=== PATIENT | female | born 1985 | race Caucasian/White ===

== ENCOUNTER 2016-04-08 13:55 | Emergency (ER) | payer OTHER ==
[2016-04-08 14:03] VITALS: O2SAT 99
[2016-04-08] MEDS ORDERED: TYLENOL 325 MG PO STA (14:17)
[2016-04-08] MEDS ORDERED: TYLENOL 325 MG ONE (14:19)
[2016-04-08 14:22] LABS: BASOPHIL % 0.1 % (0.0-0.4); Granulocytes % 75.7 % (36.0-66.0); Lymphocytes % 16.5 % (24.0-44.0); Mean Cell Volume 90.7 fl (78-100); Mean Corpuscular Hemoglobin 30.5 pg (26-32); Mean Platelet Volume 9.4 fl (6-9.5); Monocytes % 5.7 % (0.0-12.0); Platelet Count 378 K/mm3 (150-450); Red Blood Count 4.53 M/mm3 (4.1-5.4); Red Cell Distribution Width 12.2 % (11.5-14.0)
--- NOTE | 2016-04-08 14:32 | ERPHSYRPT ---
- History of Present Illness Time Seen by Provider: 04/08/16 13:55 Source: patient, family Exam Limitations: no limitations Patient Subjective Stated Complaint: PT STATES SHE BECAME WEAK AND FELL GOING UP THE STAIRS. PT C/O PAIN TO HER WHOLE BODY. Triage Nursing Assessment: PT PINK, WARM, DRY. LUNG SOUNDS CLEAR. PT ABLE TO TRANSFER TO WHEELCHAIR WITH NO PROBLEM. Physician History: patient tripped going up stairs and fell forward injuring her left writs/hand and right foot; no Head injury or neck injury; she was going to see her LMD for CP she has had for several days- sharp/ right sided/ increased with inspiration ; no hemoptosis; no trauma; no SOB; no fever; no prior hx; no hx DVTs; takes BC shots and smokes 1-2 ppd; otherwise healthy; feeling weak and hx of low K+ Occurred: just prior to arrival, this afternoon Reason for Fall: slipped, fell from standing pos Injuries/Pain Location: upper extremity (left hand and wrist), lower (right foot ) Loss of Consciousness: no loss of consciousness Quality: aching Severity of Pain-Max: severe Severity of Pain-Current: mild Modifying Factors: Improves With: immobilization (helps) Associated Symptoms (Fall): chest pain (anterior right sharp) Allergies/Adverse Reactions: ketorolac tromethamine [From Toradol] Allergy (Mild, Verified 04/08/16 14:02) Rash orphenadrine citrate [From Norflex] Allergy (Mild, Verified 04/08/16 14:02) Rash prochlorperazine edisylate [From Compazine] Allergy (Mild, Verified 04/08/16 14: 02) Rash prochlorperazine maleate [From Compazine] Allergy (Mild, Verified 04/08/16 14:02 ) Rash amoxicillin Adverse Reaction (Mild, Verified 04/08/16 14:02) CAUSES VAGINAL BLEEDING IV DYE Allergy (Severe, Uncoded 04/08/16 14:02) Difficulty Breathing Home Medications: Paroxetine HCl [Paxil Cr] 25 mg PO DAILY 06/21/15 [History] Melatonin 1 mg PO HS 04/08/16 [History] Potassium Chloride 20 Meq [Klor-Con 20 MEQ] 20 meq PO DAILY 04/08/16 [History] Hx Tetanus, Diphtheria Vaccination/Date Given: Yes (UP TO DATE) Hx Influenza Vaccination/Date Given: Yes Hx Pneumococcal Vaccination/Date Given: No Immunizations Up to Date: Yes - Review of Systems Constitutional: Weakness, No Fever Eyes: No Symptoms Ears, Nose, & Throat: No Symptoms Respiratory: Cough (smokers non-productive chronic), No Cyanosis, No Dyspnea, No Dyspnea on Exertion (JALLOH), No Stridor, No Wheezing Cardiac: Chest Pain (sharp anterior right with inspiration), No Edema, No Palpitations, No Syncope, No Orthopnea Abdominal/Gastrointestinal: Nausea, No Abdominal Pain, No Vomiting, No Diarrhea , No Constipation Genitourinary Symptoms: No Symptoms Musculoskeletal: Fall, Injury (left hand abrasion and brise right foot), Joint Pain (left wrist), No Arthralgias, No Back Pain, No Neck Pain, No Deformity Skin: No Symptoms Neurological: Headache (mild non-specific), No Dizziness, No Focal Weakness, No Gait Changes, No Paralysis, No Parasthesia, No Seizure Psychological: No Symptoms Endocrine: No Symptoms Hematologic/Lymphatic: No Symptoms Immunological/Allergic: No Symptoms - Past Medical History Pertinent Past Medical History: Yes Neurological History: No Pertinent History ENT History: No Pertinent History Cardiac History: No Pertinent History Respiratory History: No Pertinent History Endocrine Medical History: No Pertinent History Musculoskeletal History: No Pertinent History GI Medical History: No Pertinent History History: Other Psycho-Social History: Anxiety Female Reproductive Disorders: Endometriosis Other Medical History: OVARIAN CYSTS - frequent low potassium - non-compliant with supplement - Past Surgical History Past Surgical History: Yes Neuro Surgical History: No Pertinent History Cardiac: No Pertinent History Respiratory: No Pertinent History Gastrointestinal: No Pertinent History Genitourinary: No Pertinent History Musculoskeletal: No Pertinent History Female Surgical History: Section Other Surgical History: WISDOM TEETH REMOVED - Social History Smoking Status: Current every day smoker How long have you smoked: 10 Exposure to second hand smoke: Yes Alcohol Use: Socially Drug Use: none Patient Lives Alone: No Significant Family History: no pertinent family hx - Female History Hx Last Menstrual Period: DEPO SHOT Hx Now: No (DEPO PROVERA INJECTIONS) - Nursing Vital Signs Nursing Vital Signs: Initial Vital Signs Temperature 99.3 F Temperature Source Oral Pulse Rate 94 Respiratory Rate 18 Blood Pressure 113/69 Pain Intensity 8 - Twain Coma Score Best Eye Response (Rod): (4) open spontaneously Best Verbal Response (Twain): (5) oriented Best Motor Response (Rod): (6) obeys commands Rod Total: 15 - Physical Exam General Appearance: moderate distress (chest pain, left wrist pain; right foot pain), alert, anxiety, thin Head Injury: no evidence of injury, No contusions, No lacerations, No raccoon eyes, No tenderness Eye Exam: PERRL/EOMI, eyes nml inspection, other (fundi benign; vision ok), No photophobia ENT Exam: airway nml, nml ext.inspection, No evidence of ENT injury, No dental injury, No hemotympanum, No clotted nasal blood, No malocclusion Neck Exam: supple, trachea midline, full range of motion, normal alignment, normal inspection, No carotid bruit, No JVD Respiratory/Chest Exam: chest tenderness (anterior right and right SCM joints), normal breath sounds, No respiratory distress, No ecchymosis, No crepitus, No rales, No rhonchi, No wheezing, No subcutaneous emphysema, No rib tenderness, No paradoxical movements, No splinting Cardiovascular Exam: normal heart sounds, regular rate/rhythm, normal peripheral pulses, tachycardia, No murmur, No edema, No JVD, No friction rub Gastrointestinal Exam: soft, normal bowel sounds, No tenderness, No guarding, No rebound, No organomegaly Rectal Exam: deferred Back Exam: normal inspection, normal range of motion, No CVA tenderness, No rash Extremity Exam: normal inspection, normal range of motion, capillary refill <3 sec, pain with movement (left wrist), tenderness (dorsum distal right foot with bruise), other (mild abrasion left palm), No calf tenderness Peripheral Pulses: carotid (R): 4+, carotid (L): 4+, femoral (R): 4+, femoral (L ): 4+ Neurologic Exam: alert, oriented x 3, cooperative, 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, normal mood/affect, nml station & gait, sensation nml Skin Exam: normal color, warm, dry, abrasion (left palm), ecchymosis (dorsum distal right foot), No rash, No petechiae SpO2 Interpretation: normal SpO2: 99 Oxygen Delivery: Room Air - Course Nursing assessment & vital signs reviewed: Yes EKG Interpreted by Me: RATE (87), Sinus Rhythm, NORMAL AXIS, NORMAL INTERVALS, NORMAL QRS, NORMAL ST-T, Other (no change from 11-11-15) Rhythm Strip: Rate, Sinus Tachycardia (101) - Radiology Exams Chest X-ray Interpretation: Interpreted by me, Negative, No Fracture, No Pneumonia, No Pneumothorax, Nml Heart Size, No Infiltrates, Nml Mediastinum Left Wrist X-ray Interpretation: Interpreted by me, Negative, No Fracture Right Foot X-ray Interpretation: Interpreted by me, Negative, No Fracture Ordered Tests: Active Orders 24 hr Category Date Time Status Accucheck STAT Care 04/08/16 14:26 Active Ironing Worker STAT Care 04/08/16 14:04 Active EKG-ER Only STAT Care 04/08/16 14:04 Active Orthostatic Vital Signs STAT Care 04/08/16 14:26 Active Pulse Oximetry (ED) STAT Care 04/08/16 14:04 Active Re-Check Vital Signs STAT Care 04/08/16 14:26 Completed Wound Care STAT Care 04/08/16 15:03 Active CHEST 2 VIEWS (PA AND LAT) Stat Exams 04/08/16 14:05 Completed FOOT (MINIMUM 3 VIEWS) Stat Exams 04/08/16 14:05 Taken WRIST (MIN 3 VIEWS) Stat Exams 04/08/16 14:04 Taken CBC W DIFF Stat Lab 04/08/16 14:15 Completed CMP Stat Lab 04/08/16 14:15 Completed D-DIMER QUANTITATION Stat Lab 04/08/16 14:15 Received TROPONIN Stat Lab 04/08/16 14:15 Completed Medication Summary Discontinued Medications Generic Name Dose Route Start Last Admin Trade Name Natalie PRN Reason Stop Dose Admin Acetaminophen 650 mg 04/08/16 14:17 04/08/16 14:20 Tylenol 325 Mg PO 04/08/16 14:18 650 mg STAT STA Administration Acetaminophen Confirm 04/08/16 14:19 Tylenol 325 Mg Administered 04/08/16 14:20 Dose 650 mg .ROUTE .CytoVale-Dentalink ONE Lab/Rad Data: Laboratory Result Diagrams 04/08/16 14:15 04/08/16 14:15 Laboratory Results 04/08/16 04/08/16 04/08/16 Range/Units 14:15 14:15 14:15 WBC 7.0 (4.0-10.5) K/mm3 RBC 4.53 (4.1-5.4) M/mm3 Hgb 13.8 (12.0-16.0) gm/dl Hct 41.1 (35-47) % MCV 90.7 (78-100) fl MCH 30.5 (26-32) pg MCHC 33.6 (32-36) g/dl RDW 12.2 (11.5-14.0) % Plt Count 378 (150-450) K/mm3 MPV 9.4 (6-9.5) fl Gran % 75.7 H (36.0-66.0) % Lymphocytes % 16.5 L (24.0-44.0) % Monocytes % 5.7 (0.0-12.0) % Eosinophils % 2.0 (0.00-5.0) % Basophils % 0.1 (0.0-0.4) % Basophils # 0.01 (0-0.4) D-Dimer < 0.20 (0.00-0.49) mg/L Sodium 144 (136-145) mEq/L Potassium 3.7 (3.5-5.1) mEq/L Chloride 108 H (98-107) mEq/L Carbon Dioxide 24.2 (21-32) mEq/L Anion Gap 15.3 H (5-15) MEQ/L BUN 10 (9-20) mg/dL Creatinine 0.86 (0.55-1.30) mg/dl Estimated GFR > 60 ML/MIN Glucose 101 (70-110) MG/DL Calcium 8.8 (8.5-10.1) mg/dL Total Bilirubin 0.4 (0.2-1.0) mg/dL AST 8 L (15-37) U/L ALT 8 L (12-78) U/L Alkaline Phosphatase 70 (46-116) U/L Troponin I < 0.017 (0.000-0.056) ng/ml Serum Total Protein 7.3 (6.4-8.2) gm/dL Albumin 3.9 (3.4-5.0) g/dL reviewed - Progress Progress: re-examined (after XR) Progress Note: 04/08/16 15:08 recheck after XR and meds; no change in exam; still having pleuritic chest pain ; CXR; right foot and left ankle ok; , cbc ok; EKG wnl; OSVS ok and stable and FSBS 93; K+ wnl at 3.7; renal fx ok; Troponin wnl, D Dimer ok; discussed findings and smoking cessation; patient takes NSAIDS ok except Toradol; will treat with Naproxsyn; instructions given; questions answered Counseled pt/family regarding: lab results, diagnosis, need for follow-up, rad results, smoking cessation - Departure Time of Disposition: 15:17 Departure Disposition: Home Clinical Impression: Chest pain, Wrist strain, Contusion of foot, right Condition: Stable Critical Care Time: No Referrals: MARTINE CROOKS NP [Primary Care Provider] - Instructions: Muscle Weakness, Atypical Chest Pain Additional Instructions: RICE; rest; stop smoking Follow-up with family doctor as directed. Call for appointment. Return if any problems. If you smoke please stop. Call or follow up with your family doctor for assistance if you need it to stop. Please wear your seatbelt when driving. Have a nice day. Thank you for allowing us to participate in your care today. :o) Dr Lai Oliveira Prescriptions: Naproxen Sodium [Anaprox Ds] 550 mg PO Q12H PRN PRN #14 tablet PRN Reason: Pain
[2016-04-08 15:00] LABS: ALBUMIN 3.9 g/dL (3.4-5.0); ALKALINE PHOSPHATASE 70 U/L (46-116); ANION GAP 15.3 MEQ/L (5-15); BILIRUBIN,TOTAL 0.4 mg/dL (0.2-1.0); BLOOD UREA NITROGEN 10 mg/dL (9-20); CHLORIDE 108 mEq/L (98-107); Carbon Dioxide 24.2 mEq/L (21-32); Glucose 101 MG/DL (70-110); Potassium 3.7 mEq/L (3.5-5.1); SGOT/AST 8 U/L (15-37); SGPT/ALT 8 U/L (12-78); SODIUM 144 mEq/L (136-145); Total Protein 7.3 gm/dL (6.4-8.2)
[2016-04-08 15:01] LABS: TROPONIN < 0.017 ng/ml (0.000-0.056)
[2016-04-08 15:03] VITALS: BP 113/69; PULSE 94
--- NOTE | 2016-04-08 15:08 | XRAY ---
Indication: Chest pain following fall. Comparison: January 18, 2015 PA/lateral chest again demonstrates normal heart, lungs, and bony thorax.
--- NOTE | 2016-04-08 15:10 | XRAY ---
Indication: Pain following fall. Comparison: April 29, 2013 3 views of the left wrist obtained. Again no bony, articular, or soft tissue abnormalities.
--- NOTE | 2016-04-08 15:10 | XRAY ---
Indication: Pain following fall. Comparison: None 3 nonweightbearing views of the right foot obtained. No bony, articular, or soft tissue abnormalities.
[2016-04-08] MEDS ORDERED: Naprosyn 500 MG PO ONE (15:16)
== END 2016-04-08 15:30 | disposition home or self-care (01) ==
LOC: ED 13:55
DX: R07.89 Other chest pain (principal); S90.31XA Contusion of right foot, initial encounter; R53.1 Weakness; M79.642 Pain in left hand; M25.532 Pain in left wrist; M79.671 Pain in right foot; W10.9XXA Fall (on) (from) unspecified stairs and steps, initial encounter
CPT/HCPCS: 36415; 71020; 73110; 73630; 80053; 82962; 84484; 85025; 85379; 93005; 93041; 99283

== ENCOUNTER 2016-08-27 13:36 | Emergency (ER) | payer OTHER | END 2016-08-27 14:00 | disposition left against medical advice (07) | LOC: ED 13:36 | DX: Z53.9 Procedure and treatment not carried out, unspecified reason (principal) ==

== ENCOUNTER 2017-03-09 05:44 | Emergency (ER) | payer SELFPAY ==
--- NOTE | 2017-03-09 06:01 | ERPHSYRPT ---
- History of Present Illness Time Seen by Provider: 03/09/17 05:57 Historian: patient Exam Limitations: no limitations Physician History: 31 y/o female comes to the ER with a 1 month history of right lower abdominal pain. Pt states that the got worse this evening. Pt was told by her OB doctor that it may be ovarian cyst but to come to the ER to make sure it was not an appendicitis. Pt describes the pain as sharp, intermittent, currently an 8/10 and not relieved by tylenol. Pt has multiple allergies to medications and has been in the ER for multiple pain issues. Pt also admits to nausea, but denies any fever, chills, vomiting, diarrhea, constipation, vaginal bleeding or urinary symptoms. Timing/Duration: week(s) Activities at Onset: none Quality: sharpness Abdominal Pain Onset Location: RLQ Pain Radiation: no radiation Severity of Pain-Max: severe Severity of Pain-Current: severe Modifying Factors: Improves With: nothing Associated Symptoms: nausea, No back, No loss of appetite, No vomiting, No weakness Previous symptoms: same symptoms as today Allergies/Adverse Reactions: ketorolac tromethamine [From Toradol] Allergy (Mild, Verified 03/09/17 06:05) Rash orphenadrine citrate [From Norflex] Allergy (Mild, Verified 03/09/17 06:05) Rash prochlorperazine edisylate [From Compazine] Allergy (Mild, Verified 03/09/17 06: 05) Rash prochlorperazine maleate [From Compazine] Allergy (Mild, Verified 03/09/17 06:05 ) Rash Iodinated Contrast- Oral and IV Dye Allergy (Verified 03/09/17 06:40) Difficulty Breathing amoxicillin Adverse Reaction (Mild, Verified 03/09/17 06:05) Itching CAUSES VAGINAL BLEEDING Home Medications: Paroxetine HCl [Paxil Cr] 25 mg PO DAILY 06/21/15 [History] Hx Tetanus, Diphtheria Vaccination/Date Given: Yes (UP TO DATE) Hx Influenza Vaccination/Date Given: Yes Hx Pneumococcal Vaccination/Date Given: No - Review of Systems Constitutional: No Fever, No Chills Eyes: No Symptoms Ears, Nose, & Throat: No Symptoms Respiratory: No Cough, No Dyspnea Cardiac: No Chest Pain, No Edema, No Syncope Abdominal/Gastrointestinal: Abdominal Pain, Nausea, No Vomiting, No Diarrhea, No Constipation, No Appetite Changes Genitourinary Symptoms: No Dysuria, No Frequency, No Hematuria, No Hesitancy Musculoskeletal: No Back Pain, No Neck Pain Skin: No Rash Neurological: No Dizziness, No Focal Weakness, No Sensory Changes Psychological: No Symptoms Endocrine: No Symptoms All Other Systems: Reviewed and Negative - Past Medical History Pertinent Past Medical History: Yes Neurological History: No Pertinent History ENT History: No Pertinent History Cardiac History: No Pertinent History Respiratory History: No Pertinent History Endocrine Medical History: No Pertinent History Musculoskeletal History: No Pertinent History GI Medical History: No Pertinent History History: Other Psycho-Social History: Anxiety Female Reproductive Disorders: Endometriosis Other Medical History: OVARIAN CYSTS - frequent low potassium - non-compliant with supplement - Past Surgical History Past Surgical History: Yes Neuro Surgical History: No Pertinent History Cardiac: No Pertinent History Respiratory: No Pertinent History Gastrointestinal: No Pertinent History Genitourinary: No Pertinent History Musculoskeletal: No Pertinent History Female Surgical History: Section Other Surgical History: WISDOM TEETH REMOVED - Social History Smoking Status: Current every day smoker How long have you smoked: 10 Exposure to second hand smoke: Yes Alcohol Use: Socially Drug Use: none Patient Lives Alone: No Significant Family History: no pertinent family hx - Nursing Vital Signs Nursing Vital Signs: Initial Vital Signs Temperature 98.4 F 03/09/17 05:54 Pulse Rate 93 H 03/09/17 05:54 Respiratory Rate 24 03/09/17 05:54 Blood Pressure 137/87 03/09/17 05:54 O2 Sat by Pulse Oximetry 98 03/09/17 05:54 Pain Scale Pain Intensity 8 - Physical Exam General Appearance: mild distress, alert, anxiety Eye Exam: PERRL/EOMI, eyes nml inspection Ears, Nose, Throat Exam: normal ENT inspection, pharynx normal, moist mucous membranes Neck Exam: normal inspection, non-tender, supple, full range of motion Respiratory Exam: normal breath sounds, lungs clear, No respiratory distress Cardiovascular Exam: regular rate/rhythm, normal heart sounds Gastrointestinal/Abdomen Exam: soft, normal bowel sounds, tenderness, No distention, No mass, No guarding, No rebound, No organomegaly Back Exam: normal inspection, normal range of motion, No CVA tenderness, No vertebral tenderness Extremity Exam: normal inspection, normal range of motion, pelvis stable Neurologic Exam: alert, oriented x 3, cooperative, normal mood/affect, nml cerebellar function, sensation nml, No motor deficits Skin Exam: normal color, warm, dry - Course Nursing assessment & vital signs reviewed: Yes Ordered Tests: Active Orders 24 hr Category Date Time Status IV Insertion STAT Care 03/09/17 06:04 Active ABDOMEN AND PELVIS W/0 CONTRAS [CT] Stat Exams 03/09/17 06:04 Taken AMYLASE Stat Lab 03/09/17 06:00 Completed CBC W DIFF Stat Lab 03/09/17 06:00 Completed CMP Stat Lab 03/09/17 06:00 Completed CULTURE,URINE Stat Lab 03/09/17 06:00 Received HCG QUALITATIVE,SERUM Stat Lab 03/09/17 06:00 Completed LIPASE Stat Lab 03/09/17 06:00 Completed UA W/ MICROSCOPIC Stat Lab 03/09/17 06:00 Completed Medication Summary Discontinued Medications Generic Name Dose Route Start Last Admin Trade Name Freq PRN Reason Stop Dose Admin Morphine Sulfate 4 mg 03/09/17 06:04 03/09/17 06:13 Morphine Sulfate 4 Mg Inj IV 03/09/17 06:05 4 mg STAT ONE Administration Morphine Sulfate Confirm 03/09/17 06:11 Morphine Sulfate 4 Mg Inj Administered 03/09/17 06:12 Dose 4 mg .ROUTE .STK-MED ONE Ondansetron HCl 4 mg 03/09/17 06:04 03/09/17 06:13 Zofran 4 Mg/2 Ml Vial IV 03/09/17 06:05 4 mg STAT ONE Administration Ondansetron HCl Confirm 03/09/17 06:11 Zofran 4 Mg/2 Ml Vial Administered 03/09/17 06:12 Dose 4 mg .ROUTE .STK-MED ONE Lab/Rad Data: Laboratory Result Diagrams 03/09/17 06:00 03/09/17 06:00 Laboratory Results 03/09/17 03/09/17 03/09/17 Range/Units 06:00 06:00 06:00 WBC 5.9 (4.0-10.5) K/mm3 RBC 4.29 (4.1-5.4) M/mm3 Hgb 12.9 (12.0-16.0) gm/dl Hct 38.9 (35-47) % MCV 90.7 (78-100) fl MCH 30.1 (26-32) pg MCHC 33.2 (32-36) g/dl RDW 12.2 (11.5-14.0) % Plt Count 285 (150-450) K/mm3 MPV 9.5 (6-9.5) fl Gran % 35.9 L (36.0-66.0) % Lymphocytes % 46.3 H (24.0-44.0) % Monocytes % 11.8 (0.0-12.0) % Eosinophils % 5.8 H (0.00-5.0) % Basophils % 0.2 (0.0-0.4) % Basophils # 0.01 (0-0.4) Sodium 140 (136-145) mEq/L Potassium 3.4 L (3.5-5.1) mEq/L Chloride 107 (98-107) mEq/L Carbon Dioxide 24.2 (21-32) mEq/L Anion Gap 12.2 (5-15) MEQ/L BUN 8 L (9-20) mg/dL Creatinine 0.94 (0.55-1.30) mg/dl Estimated GFR > 60 ML/MIN Glucose 82 (70-110) MG/DL Calcium 8.2 L (8.5-10.1) mg/dL Total Bilirubin 0.10 L (0.2-1.0) mg/dL AST 14 L (15-37) U/L ALT 14 (12-78) U/L Alkaline Phosphatase 70 (46-116) U/L Serum Total Protein 6.7 (6.4-8.2) gm/dL Albumin 3.5 (3.4-5.0) g/dL Amylase 45 (25-115) U/L Lipase 151 (73-393) U/L Serum , Qual NEGATIVE (Negative) Ur Collection Type Urine Color (YELLOW) Urine Appearance (CLEAR) Urine pH (5-6) Ur Specific [place] (1.005-1.025) Urine Protein (Negative) Urine Ketones (NEGATIVE) Urine Blood (0-5) Alfred/ul Urine Nitrite (NEGATIVE) Urine Bilirubin (NEGATIVE) Urine Urobilinogen (0-1) mg/dL Ur Leukocyte Esterase (NEGATIVE) Urine Microscopic RBC (0-2) /HPF Urine Microscopic WBC (0-5) /HPF Ur Epithelial Cells (FEW) /HPF Urine Bacteria (NEGATIVE) /HPF Urine Mucus (NEGATIVE) /HPF Urine Culture Reflexed (NO) Urine Glucose (NEGATIVE) mg/dL Specimen Received 03/09/17 Range/Units 06:00 WBC (4.0-10.5) K/mm3 RBC (4.1-5.4) M/mm3 Hgb (12.0-16.0) gm/dl Hct (35-47) % MCV (78-100) fl MCH (26-32) pg MCHC (32-36) g/dl RDW (11.5-14.0) % Plt Count (150-450) K/mm3 MPV (6-9.5) fl Gran % (36.0-66.0) % Lymphocytes % (24.0-44.0) % Monocytes % (0.0-12.0) % Eosinophils % (0.00-5.0) % Basophils % (0.0-0.4) % Basophils # (0-0.4) Sodium (136-145) mEq/L Potassium (3.5-5.1) mEq/L Chloride (98-107) mEq/L Carbon Dioxide (21-32) mEq/L Anion Gap (5-15) MEQ/L BUN (9-20) mg/dL Creatinine (0.55-1.30) mg/dl Estimated GFR ML/MIN Glucose (70-110) MG/DL Calcium (8.5-10.1) mg/dL Total Bilirubin (0.2-1.0) mg/dL AST (15-37) U/L ALT (12-78) U/L Alkaline Phosphatase (46-116) U/L Serum Total Protein (6.4-8.2) gm/dL Albumin (3.4-5.0) g/dL Amylase (25-115) U/L Lipase (73-393) U/L Serum , Qual (Negative) Ur Collection Type CLEAN CATCH Urine Color YELLOW (YELLOW) Urine Appearance CLEAR (CLEAR) Urine pH 5.0 (5-6) Ur Specific [place] 1.020 (1.005-1.025) Urine Protein NEGATIVE (Negative) Urine Ketones NEGATIVE (NEGATIVE) Urine Blood 5-10 (0-5) Alfred/ul Urine Nitrite NEGATIVE (NEGATIVE) Urine Bilirubin NEGATIVE (NEGATIVE) Urine Urobilinogen NORMAL (0-1) mg/dL Ur Leukocyte Esterase TRACE (NEGATIVE) Urine Microscopic RBC 2-5 (0-2) /HPF Urine Microscopic WBC 2-5 (0-5) /HPF Ur Epithelial Cells FEW (FEW) /HPF Urine Bacteria MODERATE (NEGATIVE) /HPF Urine Mucus SLIGHT (NEGATIVE) /HPF Urine Culture Reflexed YES (NO) Urine Glucose NEGATIVE (NEGATIVE) mg/dL Specimen Received 03-09 - Progress Progress: improved Progress Note: 03/09/17 06:57 The labs are unremarkable, including CBC, CMP and urinalysis. Pt feels better after receiving morphine 4mg and zofran 4mg. The CT scan abd/pelvis does not show any acute appendicitis and the patient will need to F/U with OB for pelvis US for better evaluation for ovarian cyst. Since patient has multiple allergies to meds, pt will be sent home on [place] 5/325 PO QID, dispense: 5 03/09/17 07:09 - Departure Time of Disposition: 07:12 Departure Disposition: Home Clinical Impression: Abdominal pain Qualifiers: Abdominal location: right lower quadrant Qualified Code(s): R10.31 - Right lower quadrant pain Ovarian cyst Qualifiers: Laterality: right Qualified Code(s): N83.201 - Unspecified ovarian cyst, right side Condition: Stable Critical Care Time: No Referrals: MARTINE CROOKS NP [Primary Care Provider] - Instructions: Abdominal Pain-Adult, Ovarian Cyst Additional Instructions: Follow up with your primary care doctor for any additional recommendations for pain management. Prescriptions: Hydrocodone Bit/Acetaminophen [[place] 5-325 Tablet] 1 each PO QID PRN #5 tablet MDD 4 PRN Reason: Severe Pain
[2017-03-09] MEDS ORDERED: MORPHINE SULFATE 4 MG INJ IV ONE (06:04)
[2017-03-09] MEDS ORDERED: Zofran 4 MG/2 ML VIAL IV ONE (06:04)
[2017-03-09] MEDS ORDERED: Zofran 4 MG/2 ML VIAL ONE (06:11)
[2017-03-09] MEDS ORDERED: MORPHINE SULFATE 4 MG INJ ONE (06:11)
[2017-03-09 06:21] LABS: BASOPHIL % 0.2 % (0.0-0.4); Eosinophil % 5.8 % (0.00-5.0); Granulocytes % 35.9 % (36.0-66.0); Lymphocytes % 46.3 % (24.0-44.0); Mean Cell Volume 90.7 fl (78-100); Mean Corpuscular Hemoglobin 30.1 pg (26-32); Mean Platelet Volume 9.5 fl (6-9.5); Monocytes % 11.8 % (0.0-12.0); Platelet Count 285 K/mm3 (150-450); Red Blood Count 4.29 M/mm3 (4.1-5.4); Red Cell Distribution Width 12.2 % (11.5-14.0); White Blood Count 5.9 K/mm3 (4.0-10.5)
[2017-03-09 06:37] LABS: Bacteria MODERATE /HPF (NEGATIVE); Bilirubin NEGATIVE (NEGATIVE); COMPLETE URINE MICROSCOPIC? YES; Collection Type CLEAN CATCH; Epithelial Cells FEW /HPF (FEW); Glucose NEGATIVE (NEGATIVE); Leukocyte Esterase TRACE (NEGATIVE); Mucus SLIGHT /HPF (NEGATIVE)
[2017-03-09 06:38] LABS: ADD URINE CULTURE? YES (NO)
[2017-03-09 06:40] VITALS: O2SAT 97
[2017-03-09 06:44] LABS: ALBUMIN 3.5 g/dL (3.4-5.0); ALKALINE PHOSPHATASE 70 U/L (46-116); ANION GAP 12.2 MEQ/L (5-15); BLOOD UREA NITROGEN 8 mg/dL (9-20); CHLORIDE 107 mEq/L (98-107); Carbon Dioxide 24.2 mEq/L (21-32); Glucose 82 MG/DL (70-110); LIPASE 151 U/L (73-393); Potassium 3.4 mEq/L (3.5-5.1); SGOT/AST 14 U/L (15-37); SGPT/ALT 14 U/L (12-78); SODIUM 140 mEq/L (136-145); Total Protein 6.7 gm/dL (6.4-8.2)
[2017-03-09 07:28] VITALS: BP 132/78; PULSE 84
--- NOTE | 2017-03-09 08:39 | XRAY ---
Indication: Right lower quadrant pain 1 month. Hematuria and nausea. Multiple contiguous axial images obtained through the abdomen and pelvis without contrast as ordered. Comparison: CT renal stone study April 02, 2014. Lung bases demonstrates minimal right dependent atelectasis. No infiltrate or effusion. Heart is not enlarged. Stomach is moderately distended with food. Noncontrasted bowel loops appear nonobstructed. Appendix not seen. No free fluid/air. Remaining liver, gallbladder, pancreas, spleen, adrenal glands, kidneys, ureters, bladder, uterus, and aorta appear unremarkable for noncontrast exam. Osseous structures intact. Impression: CT abdomen/pelvis without contrast exam is again negative. CT DI 19.16
== END 2017-03-09 07:26 | disposition home or self-care (01) ==
LOC: ED 05:44
DX: R10.31 Right lower quadrant pain (principal); N83.201 Unspecified ovarian cyst, right side; R11.0 Nausea
CPT/HCPCS: 36000; 36415; 74176; 80053; 81000; 82150; 83690; 84703; 85025; 87086; 96374; 96375; 99284; J2270; J2405

== ENCOUNTER 2017-05-09 19:50 | Emergency (ER) | payer SELFPAY ==
[2017-05-09] MEDS ORDERED: MORPHINE SULFATE 4 MG INJ IV ONE (20:23)
[2017-05-09] MEDS ORDERED: BENADRYL 50 MG/ML IV ONE (20:23)
[2017-05-09] MEDS ORDERED: Sodium Chloride 0.9% 1000 ML 1,000 ML IV STA (20:23)
[2017-05-09] MEDS ORDERED: Zofran 4 MG/2 ML VIAL IV ONE (20:23)
--- NOTE | 2017-05-09 20:23 | ERPHSYRPT ---
- History of Present Illness Time Seen by Provider: 05/09/17 20:19 Historian: patient Exam Limitations: no limitations Patient Subjective Stated Complaint: c/o abd pain began at 0200 right side Triage Nursing Assessment: right side abd pain, no vomiting, fevers, diarrhea. hx of ovarian cyst diagnosed 2 months ago Physician History: pt has had similar pain with ovarian cyst on same side - concern is for risk of torsion at this time; no rebound or peritoneal signs , tendr right abd; Timing/Duration: hour(s), intermittent Activities at Onset: none Quality: sharpness Abdominal Pain Onset Location: RLQ Pain Radiation: RLQ Severity of Pain-Max: moderate Severity of Pain-Current: moderate Modifying Factors: Improves With: movement, walking Associated Symptoms: nausea Previous symptoms: same symptoms as today Allergies/Adverse Reactions: ketorolac tromethamine [From Toradol] Allergy (Mild, Verified 03/09/17 06:05) Rash orphenadrine citrate [From Norflex] Allergy (Mild, Verified 03/09/17 06:05) Rash prochlorperazine edisylate [From Compazine] Allergy (Mild, Verified 03/09/17 06: 05) Rash prochlorperazine maleate [From Compazine] Allergy (Mild, Verified 03/09/17 06:05 ) Rash Iodinated Contrast- Oral and IV Dye Allergy (Verified 03/09/17 06:40) Difficulty Breathing amoxicillin Adverse Reaction (Mild, Verified 03/09/17 06:05) Itching CAUSES VAGINAL BLEEDING Home Medications: Paroxetine HCl [Paxil Cr] 25 mg PO DAILY 06/21/15 [History] Hx Tetanus, Diphtheria Vaccination/Date Given: Yes Hx Influenza Vaccination/Date Given: No Hx Pneumococcal Vaccination/Date Given: No Immunizations Up to Date: Yes - Review of Systems Constitutional: No Fever, No Chills Eyes: No Symptoms Ears, Nose, & Throat: No Symptoms Respiratory: No Cough, No Dyspnea Cardiac: No Chest Pain, No Edema, No Syncope Abdominal/Gastrointestinal: Abdominal Pain, Nausea, No Vomiting, No Diarrhea Genitourinary Symptoms: Dysuria Musculoskeletal: No Back Pain, No Neck Pain Skin: No Rash Neurological: No Dizziness, No Focal Weakness, No Sensory Changes Psychological: No Symptoms Endocrine: No Symptoms All Other Systems: Reviewed and Negative - Past Medical History Pertinent Past Medical History: Yes Neurological History: No Pertinent History ENT History: No Pertinent History Cardiac History: No Pertinent History Respiratory History: No Pertinent History Endocrine Medical History: No Pertinent History Musculoskeletal History: No Pertinent History GI Medical History: No Pertinent History History: Other Psycho-Social History: Anxiety, Depression Female Reproductive Disorders: Endometriosis Other Medical History: OVARIAN CYSTS - frequent low potassium - non-compliant with supplement - Past Surgical History Past Surgical History: Yes Neuro Surgical History: No Pertinent History Cardiac: No Pertinent History Respiratory: No Pertinent History Gastrointestinal: No Pertinent History Genitourinary: No Pertinent History Musculoskeletal: No Pertinent History Female Surgical History: Section Other Surgical History: WISDOM TEETH REMOVED - Social History Smoking Status: Current every day smoker How long have you smoked: 10 Exposure to second hand smoke: Yes Alcohol Use: Socially Drug Use: none Patient Lives Alone: No Significant Family History: no pertinent family hx - Female History Hx Last Menstrual Period: 2 months ago Hx Now: No - Nursing Vital Signs Nursing Vital Signs: Initial Vital Signs Temperature 98.7 F 05/09/17 20:09 Pulse Rate 108 H 05/09/17 20:09 Respiratory Rate 24 05/09/17 20:09 Blood Pressure 145/97 05/09/17 20:09 O2 Sat by Pulse Oximetry 97 05/09/17 20:09 Pain Scale Pain Intensity 7 - Physical Exam General Appearance: no apparent distress, alert Eye Exam: PERRL/EOMI, eyes nml inspection Ears, Nose, Throat Exam: normal ENT inspection, pharynx normal, moist mucous membranes Neck Exam: normal inspection, non-tender, supple, full range of motion Respiratory Exam: normal breath sounds, lungs clear, No respiratory distress Cardiovascular Exam: regular rate/rhythm, normal heart sounds Gastrointestinal/Abdomen Exam: soft, tenderness, No distention, No mass, No guarding, No pulsatile mass, No rebound Rectal Exam: deferred Back Exam: normal inspection, normal range of motion, No CVA tenderness, No vertebral tenderness Extremity Exam: normal inspection, normal range of motion, pelvis stable Neurologic Exam: alert, oriented x 3, cooperative, normal mood/affect, nml cerebellar function, sensation nml, No motor deficits Skin Exam: normal color, warm, dry SpO2: 97 Oxygen Delivery: Room Air - Course Nursing assessment & vital signs reviewed: Yes - Radiology Ultrasound Exam Pelvis Ultrasound: No Torsion/Nml Flow Ordered Tests: Active Orders 24 hr Category Date Time Status Clean Catch Urine Specimen STAT Care 05/09/17 20:23 Active IV Insertion STAT Care 05/09/17 20:23 Active PELVIC [US] Stat Exams 05/09/17 20:24 Taken AMYLASE Stat Lab 05/09/17 20:25 Completed CBC W DIFF Stat Lab 05/09/17 20:25 Completed CMP Stat Lab 05/09/17 20:25 Completed HCG QUALITATIVE,SERUM Stat Lab 05/09/17 20:25 Completed LIPASE Stat Lab 05/09/17 20:25 Completed Lactic Acid Stat Lab 05/09/17 22:58 Completed UA W/RFX UR CULTURE Stat Lab 05/09/17 20:23 Results Wet Prep Stat Lab 05/09/17 20:23 Results Medication Summary Discontinued Medications Generic Name Dose Route Start Last Admin Trade Name Freq PRN Reason Stop Dose Admin Ceftriaxone Sodium Confirm 05/10/17 00:06 Rocephin 500 Mg Inj Administered 05/10/17 00:07 Dose 500 mg .ROUTE .STK-MED ONE Diphenhydramine HCl 25 mg 05/09/17 20:23 05/09/17 20:41 Benadryl 50 Mg/Ml IV 05/09/17 20:24 25 mg STAT ONE Administration Diphenhydramine HCl Confirm 05/09/17 20:34 Benadryl 50 Mg/Ml Administered 05/09/17 20:35 Dose 50 mg .ROUTE .STK-MED ONE Doxycycline Hyclate 100 mg 05/10/17 00:08 Vibramycin 100 Mg PO 05/10/17 00:09 STAT ONE Sodium Chloride 1,000 mls @ 999 mls/hr 05/09/17 20:23 05/09/17 20:41 Sodium Chloride 0.9% 1000 Ml IV 05/09/17 21:23 999 mls/hr .Q1H1M STA Administration Sodium Chloride Confirm 05/09/17 20:35 Sodium Chloride 0.9% 1000 Ml Administered 05/09/17 20:36 Dose 1,000 mls @ ud .ROUTE .STK-MED ONE Metronidazole 500 mg 05/10/17 00:08 Flagyl 500 Mg PO 05/10/17 00:09 STAT ONE Morphine Sulfate 4 mg 05/09/17 20:23 05/09/17 20:41 Morphine Sulfate 4 Mg Inj IV 05/09/17 20:24 4 mg STAT ONE Administration Morphine Sulfate Confirm 05/09/17 20:34 Morphine Sulfate 4 Mg Inj Administered 05/09/17 20:35 Dose 4 mg .ROUTE .STK-MED ONE Ondansetron HCl 4 mg 05/09/17 20:23 05/09/17 20:42 Zofran 4 Mg/2 Ml Vial IV 05/09/17 20:24 4 mg STAT ONE Administration Ondansetron HCl Confirm 05/09/17 20:34 Zofran 4 Mg/2 Ml Vial Administered 05/09/17 20:35 Dose 4 mg .ROUTE .STK-MED ONE Lab/Rad Data: Laboratory Result Diagrams 05/09/17 20:25 05/09/17 20:25 Laboratory Results 05/09/17 05/09/17 05/09/17 Range/Units 22:58 20:25 20:25 WBC (4.0-10.5) K/mm3 RBC (4.1-5.4) M/mm3 Hgb (12.0-16.0) gm/dl Hct (35-47) % MCV (78-100) fl MCH (26-32) pg MCHC (32-36) g/dl RDW (11.5-14.0) % Plt Count (150-450) K/mm3 MPV (6-9.5) fl Gran % (36.0-66.0) % Lymphocytes % (24.0-44.0) % Monocytes % (0.0-12.0) % Eosinophils % (0.00-5.0) % Basophils % (0.0-0.4) % Basophils # (0-0.4) Sodium 144 (136-145) mEq/L Potassium 4.1 (3.5-5.1) mEq/L Chloride 107 (98-107) mEq/L Carbon Dioxide 22.9 (21-32) mEq/L Anion Gap 18.2 H (5-15) MEQ/L BUN 5 L (9-20) mg/dL Creatinine 0.66 (0.55-1.30) mg/dl Estimated GFR > 60 ML/MIN Glucose 81 (70-110) MG/DL Lactic Acid 1.6 (0.4-2.0) Calcium 8.9 (8.5-10.1) mg/dL Total Bilirubin 0.40 (0.2-1.0) mg/dL AST 26 (15-37) U/L ALT 18 (12-78) U/L Alkaline Phosphatase 72 (46-116) U/L Serum Total Protein 7.5 (6.4-8.2) gm/dL Albumin 4.2 (3.4-5.0) g/dL Amylase 36 (25-115) U/L Lipase 82 (73-393) U/L Serum , Qual NEGATIVE (Negative) Ur Collection Type Urine Color (YELLOW) Urine Appearance (CLEAR) Urine pH (5-6) Ur Specific [place] (1.005-1.025) Urine Protein (Negative) Urine Ketones (NEGATIVE) Urine Blood (0-5) Alfred/ul Urine Nitrite (NEGATIVE) Urine Bilirubin (NEGATIVE) Urine Urobilinogen (0-1) mg/dL Ur Leukocyte Esterase (NEGATIVE) Urine Culture Reflexed (NO) Urine Glucose (NEGATIVE) mg/dL WBC (Wet Prep) RBC (Wet Prep) Epi Cells (Wet Prep) Bacteria (Wet Prep) Clue Cells (Wet Prep) Trichomonas (Wet Prep) Budding Yeast (Wet Prp) Specimen Received 05/09/17 05/09/17 Range/Units 20:25 20:23 WBC 5.9 (4.0-10.5) K/mm3 RBC 4.82 (4.1-5.4) M/mm3 Hgb 14.7 (12.0-16.0) gm/dl Hct 43.9 (35-47) % MCV 91.1 (78-100) fl MCH 30.5 (26-32) pg MCHC 33.5 (32-36) g/dl RDW 12.0 (11.5-14.0) % Plt Count 333 (150-450) K/mm3 MPV 9.6 H (6-9.5) fl Gran % 67.6 H (36.0-66.0) % Lymphocytes % 23.1 L (24.0-44.0) % Monocytes % 6.9 (0.0-12.0) % Eosinophils % 2.2 (0.00-5.0) % Basophils % 0.2 (0.0-0.4) % Basophils # 0.01 (0-0.4) Sodium (136-145) mEq/L Potassium (3.5-5.1) mEq/L Chloride (98-107) mEq/L Carbon Dioxide (21-32) mEq/L Anion Gap (5-15) MEQ/L BUN (9-20) mg/dL Creatinine (0.55-1.30) mg/dl Estimated GFR ML/MIN Glucose (70-110) MG/DL Lactic Acid (0.4-2.0) Calcium (8.5-10.1) mg/dL Total Bilirubin (0.2-1.0) mg/dL AST (15-37) U/L ALT (12-78) U/L Alkaline Phosphatase (46-116) U/L Serum Total Protein (6.4-8.2) gm/dL Albumin (3.4-5.0) g/dL Amylase (25-115) U/L Lipase (73-393) U/L Serum , Qual (Negative) Ur Collection Type CLEAN CATCH Urine Color COLORLESS (YELLOW) Urine Appearance CLEAR (CLEAR) Urine pH 6.0 (5-6) Ur Specific [place] 1.000 (1.005-1.025) Urine Protein NEGATIVE (Negative) Urine Ketones NEGATIVE (NEGATIVE) Urine Blood NEGATIVE (0-5) Alfred/ul Urine Nitrite NEGATIVE (NEGATIVE) Urine Bilirubin NEGATIVE (NEGATIVE) Urine Urobilinogen NORMAL (0-1) mg/dL Ur Leukocyte Esterase NEGATIVE (NEGATIVE) Urine Culture Reflexed NO (NO) Urine Glucose NEGATIVE (NEGATIVE) mg/dL WBC (Wet Prep) Pending RBC (Wet Prep) Pending Epi Cells (Wet Prep) Pending Bacteria (Wet Prep) Pending Clue Cells (Wet Prep) Pending Trichomonas (Wet Prep) Pending Budding Yeast (Wet Prp) Pending Specimen Received 05/09/172022 - Progress Progress: improved, re-examined Progress Note: 05/09/17 23:32 discussed risk and benefit of CT to rule out appe and other pathology and pt declines at this time and has the capacity to make this choice - repeat exam has no rebound or peritoneal signs . pt understands that she could have appendicitis 05/09/17 23:48 05/10/17 00:00 pt wishes to forgo pevlic and that testing and take treatment without this ; Counseled pt/family regarding: lab results, diagnosis, need for follow-up, rad results - Departure Time of Disposition: 00:02 Departure Disposition: Home Clinical Impression: Abdominal pain Condition: Good Critical Care Time: No Referrals: MARTINE CROOKS NP [Primary Care Provider] - Instructions: Acute Abdomen (Belly Pain), Adult (DC), Acute Pelvic Pain (DC), Pelvic Inflammatory Disease (DC) Additional Instructions: we cannot exclude appendicitis or other causes of abdominal pain that may be evolving and could be serious although no ovarian torsion was found on ultrasound; return if further pain not improving and see your dr for further evaluation - we have not determined the cause for your pain at this time but will treat for pelvic infection. Prescriptions: Doxycycline Hyclate 100 mg [Vibramycin 100 MG] 100 mg PO BID #30 tab Metronidazole 500 mg [Flagyl 500 MG] 500 mg PO TID #30 tablet
[2017-05-09] MEDS ORDERED: MORPHINE SULFATE 4 MG INJ ONE (20:34)
[2017-05-09] MEDS ORDERED: Zofran 4 MG/2 ML VIAL ONE (20:34)
[2017-05-09] MEDS ORDERED: BENADRYL 50 MG/ML ONE (20:34)
[2017-05-09] MEDS ORDERED: Sodium Chloride 0.9% 1000 ML 1,000 ML ONE (20:35)
[2017-05-09 20:38] LABS: BASOPHIL % 0.2 % (0.0-0.4); Basophil (Absolute #) 0.01 (0-0.4); Eosinophil % 2.2 % (0.00-5.0); Eosinophil (Absolute #) 0.13 (0-0.5); Granulocytes % 67.6 % (36.0-66.0); Hematocrit 43.9 % (35-47); Hemoglobin 14.7 gm/dl (12.0-16.0); Lymphocyte (Absolute #) 1.37 (1.0-4.6); Lymphocytes % 23.1 % (24.0-44.0); Mean Cell Volume 91.1 fl (78-100); Mean Corpuscular Hemoglobin 30.5 pg (26-32); Mean Corpuscular Hgb Concent. 33.5 g/dl (32-36); Mean Platelet Volume 9.6 fl (6-9.5); Monocyte (Absolute #) 0.41 (0.0-1.3); Monocytes % 6.9 % (0.0-12.0); Platelet Count 333 K/mm3 (150-450); Red Blood Count 4.82 M/mm3 (4.1-5.4); White Blood Count 5.9 K/mm3 (4.0-10.5)
[2017-05-09 21:16] LABS: ALBUMIN 4.2 g/dL (3.4-5.0); ALKALINE PHOSPHATASE 72 U/L (46-116); AMYLASE 36 U/L (25-115); ANION GAP 18.2 MEQ/L (5-15); BLOOD UREA NITROGEN 5 mg/dL (9-20); CHLORIDE 107 mEq/L (98-107); Calcium 8.9 mg/dL (8.5-10.1); Carbon Dioxide 22.9 mEq/L (21-32); Creatinine 1 0.66 mg/dl (0.55-1.30); EST GLOMERULAR FILTRATION RATE > 60 ML/MIN; Glucose 81 MG/DL (70-110); LIPASE 82 U/L (73-393); Potassium 4.1 mEq/L (3.5-5.1); SGOT/AST 26 U/L (15-37); SGPT/ALT 18 U/L (12-78); SODIUM 144 mEq/L (136-145); Total Protein 7.5 gm/dL (6.4-8.2)
[2017-05-09 22:48] LABS: Appearance CLEAR (CLEAR); Bilirubin NEGATIVE (NEGATIVE); Blood NEGATIVE Ery/ul (0-5); Glucose NEGATIVE (NEGATIVE); Ketones NEGATIVE (NEGATIVE); Leukocyte Esterase NEGATIVE (NEGATIVE); Nitrite NEGATIVE (NEGATIVE); Protein,Urine Dip NEGATIVE (Negative); Urobilinogen NORMAL mg/dL (0-1)
[2017-05-09 22:57] VITALS: BP 152/89; PULSE 71
[2017-05-09 23:38] VITALS: O2SAT 97
[2017-05-10] MEDS ORDERED: Rocephin 500 MG INJ ONE (00:06)
[2017-05-10] MEDS ORDERED: Vibramycin 100 MG PO ONE (00:08)
[2017-05-10] MEDS ORDERED: Flagyl 500 MG PO ONE (00:08)
[2017-05-10] MEDS ORDERED: Vibramycin 100 MG ONE (00:09)
[2017-05-10] MEDS ORDERED: Flagyl 500 MG ONE (00:09)
[2017-05-10] MEDS ORDERED: ROCEPHIN 250 MG INJ IV ONE (00:12)
--- NOTE | 2017-05-10 10:00 | XRAY ---
Indication: Right lower quadrant pain. Two-dimensional transabdominal pelvic ultrasound was performed. Comparison: February 04, 2017. Uterus anteverted today measuring 7.4 x 3.1 x 3.9 cm. No focal solid/cystic mass. Endometrial stripe measures 4.7 mm. No endometrial cavity mass or fluid collection. Right ovary measures 2.8 x 2.5 x 1.5 cm and the left measures 2.3 x 1.9 x 2.7 cm. Normal follicular cysts and perfusion bilaterally. 1.4 cm dominant left ovary cyst with tiny adnexal free fluid. Impression: Dominant left ovary cyst with tiny free fluid presumed from ruptured/leaking cyst. Remaining transabdominal pelvic sonogram is negative. Comment: Preliminary report was given.
== END 2017-05-10 00:19 | disposition home or self-care (01) ==
LOC: ED 19:50
DX: R10.31 Right lower quadrant pain (principal)
CPT/HCPCS: 36000; 36415; 76856; 80053; 81002; 82150; 83605; 83690; 84703; 85025; 87210; 96360; 99283; 99284; J0696; J1200; J2270; J2405; A9270-GY

== ENCOUNTER 2017-08-13 19:09 | Emergency (ER) | payer MEDICAID ==
--- NOTE | 2017-08-13 19:50 | ERPHSYRPT ---
- History of Present Illness Time Seen by Provider: 08/13/17 19:38 Historian: patient Exam Limitations: no limitations Patient Subjective Stated Complaint: pt co lower abdominal pain, burning and aching in her lower abdomen down into her upper thighs; pt states s/s started approx 4 hours ago. Triage Nursing Assessment: pt a&o x3; skin p, w, & d; ambulated to room per self ; no other distress noted at this time. Physician History: 31-year-old white female with history of ovarian cyst, low potassium Patient arrives with complaint of lower abdominal pain described as aching which radiates down into her upper leg symptoms for 4 hours she does state she has had this pain chronically. Past medical history includes ovarian cysts, low potassium Past surgical history includes and wisdom teeth Timing/Duration: today, other (patient states the symptoms since 4:30 this afternoon but states she has had this chronically for months) Quality: cramping Abdominal Pain Onset Location: suprapubic Pain Radiation: other (legs) Severity of Pain-Max: moderate Severity of Pain-Current: moderate Associated Symptoms: No back, No chest pain, No diaphoresis, No diarrhea, No fever/chills, No fatigue, No headache, No heartburn, No loss of appetite, No nausea, No neck pain, No rash, No shortness of breath, No syncope, No vomiting, No weakness Previous symptoms: same symptoms as today Allergies/Adverse Reactions: ketorolac tromethamine [From Toradol] Allergy (Mild, Verified 08/13/17 19:29) Rash orphenadrine citrate [From Norflex] Allergy (Mild, Verified 08/13/17 19:29) Rash prochlorperazine edisylate [From Compazine] Allergy (Mild, Verified 08/13/17 19: 29) Rash prochlorperazine maleate [From Compazine] Allergy (Mild, Verified 08/13/17 19:29 ) Rash Iodinated Contrast- Oral and IV Dye Allergy (Verified 08/13/17 19:29) Difficulty Breathing amoxicillin Adverse Reaction (Mild, Verified 08/13/17 19:29) Itching CAUSES VAGINAL BLEEDING Home Medications: Paroxetine HCl [Paxil Cr] 25 mg PO DAILY 06/21/15 [History] Hx Tetanus, Diphtheria Vaccination/Date Given: No Hx Influenza Vaccination/Date Given: No Hx Pneumococcal Vaccination/Date Given: Yes Immunizations Up to Date: No - Review of Systems Constitutional: No Fever, No Chills Eyes: No Symptoms Ears, Nose, & Throat: No Symptoms Respiratory: No Cough, No Dyspnea Cardiac: No Chest Pain, No Edema, No Syncope Abdominal/Gastrointestinal: Abdominal Pain, No Nausea, No Vomiting, No Diarrhea Genitourinary Symptoms: Other (bilateral leg pains), No Dysuria Skin: No Rash Neurological: No Dizziness, No Focal Weakness, No Sensory Changes Psychological: No Symptoms Endocrine: No Symptoms All Other Systems: Reviewed and Negative - Past Medical History Pertinent Past Medical History: Yes Neurological History: No Pertinent History ENT History: No Pertinent History Cardiac History: No Pertinent History Respiratory History: No Pertinent History Endocrine Medical History: No Pertinent History Musculoskeletal History: No Pertinent History GI Medical History: No Pertinent History History: Other Psycho-Social History: Anxiety, Depression Female Reproductive Disorders: Endometriosis Other Medical History: OVARIAN CYSTS - frequent low potassium - non-compliant with supplement - Past Surgical History Past Surgical History: Yes Neuro Surgical History: No Pertinent History Cardiac: No Pertinent History Respiratory: No Pertinent History Gastrointestinal: No Pertinent History Genitourinary: No Pertinent History Musculoskeletal: No Pertinent History Female Surgical History: Section Other Surgical History: WISDOM TEETH REMOVED - Social History Smoking Status: Current every day smoker How long have you smoked: 9 years Exposure to second hand smoke: No Alcohol Use: Socially Drug Use: none Patient Lives Alone: No Significant Family History: no pertinent family hx - Female History Hx Last Menstrual Period: depo Hx Now: No - Nursing Vital Signs Nursing Vital Signs: Initial Vital Signs Temperature 99 F 08/13/17 19:19 Pulse Rate 107 H 08/13/17 19:19 Respiratory Rate 20 08/13/17 19:19 Blood Pressure 137/81 08/13/17 19:19 O2 Sat by Pulse Oximetry 98 08/13/17 19:19 Pain Scale Pain Intensity 7 - Physical Exam General Appearance: mild distress Eye Exam: PERRL/EOMI, eyes nml inspection Ears, Nose, Throat Exam: normal ENT inspection, pharynx normal, moist mucous membranes Neck Exam: normal inspection, non-tender, supple, full range of motion Respiratory Exam: normal breath sounds, lungs clear, No respiratory distress Cardiovascular Exam: regular rate/rhythm, normal heart sounds Gastrointestinal/Abdomen Exam: soft, No tenderness, No mass Back Exam: normal inspection, normal range of motion, No CVA tenderness, No vertebral tenderness Extremity Exam: normal inspection, normal range of motion, pelvis stable Neurologic Exam: alert, oriented x 3, cooperative, clinical coordinator II-XII nml as tested, normal mood/affect, nml cerebellar function, sensation nml, No motor deficits Skin Exam: normal color, warm, dry SpO2 Interpretation: normal (98%) SpO2: 98 Oxygen Delivery: Room Air - Course Nursing assessment & vital signs reviewed: Yes Ordered Tests: Active Orders 24 hr Category Date Time Status IV Insertion STAT Care 08/13/17 19:43 Active AMYLASE Stat Lab 08/13/17 19:20 Completed CBC W DIFF Stat Lab 08/13/17 19:20 Completed CMP Stat Lab 08/13/17 19:20 Completed HCG QUALITATIVE,SERUM Stat Lab 08/13/17 19:20 Completed LIPASE Stat Lab 08/13/17 19:20 Completed UA W/RFX UR CULTURE Stat Lab 08/13/17 19:20 Completed Urine Triage Profile Stat Lab 08/13/17 19:20 Completed Medication Summary Generic Name Dose Route Start Last Admin Trade Name Freq PRN Reason Stop Dose Admin Sodium Chloride 1,000 mls @ 999 mls/hr 08/13/17 19:52 08/13/17 19:58 Sodium Chloride 0.9% 1000 Ml IV 08/13/17 20:52 999 mls/hr .Q1H1M STA Administration Discontinued Medications Generic Name Dose Route Start Last Admin Trade Name Freq PRN Reason Stop Dose Admin Sodium Chloride Confirm 08/13/17 19:54 Sodium Chloride 0.9% 1000 Ml Administered 08/13/17 19:55 Dose 1,000 mls @ ud .ROUTE .STK-MED ONE Morphine Sulfate 4 mg 08/13/17 20:34 08/13/17 20:38 Morphine Sulfate 4 Mg Inj IV 08/13/17 20:35 4 mg STAT ONE Administration Promethazine HCl 12.5 mg 08/13/17 19:52 08/13/17 19:59 Phenergan 25 Mg Inj IV 08/13/17 19:53 12.5 mg STAT ONE Administration Promethazine HCl Confirm 08/13/17 19:54 Phenergan 25 Mg Inj Administered 08/13/17 19:55 Dose 25 mg .ROUTE .STK-MED ONE Lab/Rad Data: Laboratory Result Diagrams 08/13/17 19:20 08/13/17 19:20 Laboratory Results 08/13/17 08/13/17 08/13/17 Range/Units 19:20 19:20 19:20 WBC (4.0-10.5) K/mm3 RBC (4.1-5.4) M/mm3 Hgb (12.0-16.0) gm/dl Hct (35-47) % MCV (78-100) fl MCH (26-32) pg MCHC (32-36) g/dl RDW (11.5-14.0) % Plt Count (150-450) K/mm3 MPV (6-9.5) fl Gran % (36.0-66.0) % Eos # (Auto) (0-0.5) Absolute Lymphs (auto) (1.0-4.6) Absolute Monos (auto) (0.0-1.3) Lymphocytes % (24.0-44.0) % Monocytes % (0.0-12.0) % Eosinophils % (0.00-5.0) % Basophils % (0.0-0.4) % Absolute Granulocytes (1.4-6.9) Basophils # (0-0.4) Sodium (137-145) mmol/L Potassium (3.5-5.1) mmol/L Chloride (98-107) mmol/L Carbon Dioxide (22-30) mmol/L Anion Gap (5-15) MEQ/L BUN (7-17) mg/dL Creatinine (0.52-1.04) mg/dL Estimated GFR ML/MIN Glucose (74-106) mg/dL Calcium (8.4-10.2) mg/dL Total Bilirubin (0.2-1.3) mg/dL AST (14-36) U/L ALT (0-35) U/L Alkaline Phosphatase (38-126) U/L Serum Total Protein (6.3-8.2) g/dL Albumin (3.5-5.0) g/dL Amylase (30-110) U/L Lipase (23-300) U/L Serum , Qual NEGATIVE (Negative) Ur Collection Type VOID Urine Color LT.YELLOW (YELLOW) Urine Appearance CLEAR (CLEAR) Urine pH 6.0 (5-6) Ur Specific [place] 1.005 (1.005-1.025) Urine Protein NEGATIVE (Negative) Urine Ketones NEGATIVE (NEGATIVE) Urine Blood NEGATIVE (0-5) Alfred/ul Urine Nitrite NEGATIVE (NEGATIVE) Urine Bilirubin NEGATIVE (NEGATIVE) Urine Urobilinogen NORMAL (0-1) mg/dL Ur Leukocyte Esterase NEGATIVE (NEGATIVE) Urine Culture Reflexed NO (NO) Urine Glucose NEGATIVE (NEGATIVE) mg/dL Urine Opiates Level POSITIVE (NEGATIVE) Ur Methadone NEGATIVE (NEGATIVE) Urine Barbiturates NEGATIVE (NEGATIVE) Ur Phencyclidine (PCP) NEGATIVE (NEGATIVE) Urine Amphetamine NEGATIVE (NEGATIVE) U Benzodiazepine Level NEGATIVE (NEGATIVE) Urine Cocaine NEGATIVE (NEGATIVE) Urine Marijuana (THC) NEGATIVE (NEGATIVE) Specimen Received [id number] 08/13/17 08/13/17 Range/Units 19:20 19:20 WBC 7.8 (4.0-10.5) K/mm3 RBC 4.94 (4.1-5.4) M/mm3 Hgb 15.6 (12.0-16.0) gm/dl Hct 45.1 (35-47) % MCV 91.3 (78-100) fl MCH 31.6 (26-32) pg MCHC 34.6 (32-36) g/dl RDW 12.5 (11.5-14.0) % Plt Count 383 (150-450) K/mm3 MPV 10.0 H (6-9.5) fl Gran % 56.8 (36.0-66.0) % Eos # (Auto) 0.28 (0-0.5) Absolute Lymphs (auto) 2.37 (1.0-4.6) Absolute Monos (auto) 0.71 (0.0-1.3) Lymphocytes % 30.4 (24.0-44.0) % Monocytes % 9.1 (0.0-12.0) % Eosinophils % 3.6 (0.00-5.0) % Basophils % 0.1 (0.0-0.4) % Absolute Granulocytes 4.43 (1.4-6.9) Basophils # 0.01 (0-0.4) Sodium 144 (137-145) mmol/L Potassium 4.0 (3.5-5.1) mmol/L Chloride 108 H (98-107) mmol/L Carbon Dioxide 24 (22-30) mmol/L Anion Gap 16.5 H (5-15) MEQ/L BUN 6 L (7-17) mg/dL Creatinine 0.64 (0.52-1.04) mg/dL Estimated GFR > 60.0 ML/MIN Glucose 86 (74-106) mg/dL Calcium 9.8 (8.4-10.2) mg/dL Total Bilirubin 0.40 (0.2-1.3) mg/dL AST 12 L (14-36) U/L ALT 10 (0-35) U/L Alkaline Phosphatase 67 (38-126) U/L Serum Total Protein 7.5 (6.3-8.2) g/dL Albumin 4.6 (3.5-5.0) g/dL Amylase 56 (30-110) U/L Lipase 69 (23-300) U/L Serum , Qual (Negative) Ur Collection Type Urine Color (YELLOW) Urine Appearance (CLEAR) Urine pH (5-6) Ur Specific [place] (1.005-1.025) Urine Protein (Negative) Urine Ketones (NEGATIVE) Urine Blood (0-5) Alfred/ul Urine Nitrite (NEGATIVE) Urine Bilirubin (NEGATIVE) Urine Urobilinogen (0-1) mg/dL Ur Leukocyte Esterase (NEGATIVE) Urine Culture Reflexed (NO) Urine Glucose (NEGATIVE) mg/dL Urine Opiates Level (NEGATIVE) Ur Methadone (NEGATIVE) Urine Barbiturates (NEGATIVE) Ur Phencyclidine (PCP) (NEGATIVE) Urine Amphetamine (NEGATIVE) U Benzodiazepine Level (NEGATIVE) Urine Cocaine (NEGATIVE) Urine Marijuana (THC) (NEGATIVE) Specimen Received - Progress Progress: improved Progress Note: 08/13/17 20:35 Patient's labs all normal with the exception of mildly increased anion gap potassium within normal limits patient positive urine drug screen for opiates. I've asked the patient about this she states she had some narcotic analgesia laying around at home took one yesterday she's not sure what it was. Will plan to discharge patient diagnosis abdominal pain. Patient did have a headache no focal findings also complaining of leg pain again normal labs normal physical exam Will discharge return home rest plenty of fluids Tylenol as needed for pain follow-up with her family doctor. - Departure Time of Disposition: 20:36 Departure Disposition: Home Clinical Impression: Bilateral leg pain, rule out chronic pain syndrome, rule out somatimation disorder Abdominal pain Qualifiers: Abdominal location: unspecified location Qualified Code(s): R10.9 - Unspecified abdominal pain Condition: Fair Critical Care Time: No Referrals: MARTINE CROOKS NP [Primary Care Provider] - Instructions: Acute Abdomen (Belly Pain), Adult (DC) Additional Instructions: Return home, rest. Plenty of fluids. Tylenol every 4 hours as needed for pain. Follow-up with your family doctor. Return for acute distress or for severe symptoms
[2017-08-13] MEDS ORDERED: Sodium Chloride 0.9% 1000 ML 1,000 ML IV STA (19:52)
[2017-08-13] MEDS ORDERED: Phenergan 25 MG INJ IV ONE (19:52)
[2017-08-13] MEDS ORDERED: Phenergan 25 MG INJ ONE (19:54)
[2017-08-13] MEDS ORDERED: Sodium Chloride 0.9% 1000 ML 1,000 ML ONE (19:54)
[2017-08-13 20:03] LABS: Appearance CLEAR (CLEAR)
[2017-08-13 20:04] LABS: Bilirubin NEGATIVE (NEGATIVE); Blood NEGATIVE Ery/ul (0-5); Glucose NEGATIVE (NEGATIVE); Ketones NEGATIVE (NEGATIVE); Leukocyte Esterase NEGATIVE (NEGATIVE); Nitrite NEGATIVE (NEGATIVE); Protein,Urine Dip NEGATIVE (Negative); Specific Gravity 1.005 (1.005-1.025); Urobilinogen NORMAL mg/dL (0-1)
[2017-08-13 20:11] LABS: ALBUMIN 4.6 g/dL (3.5-5.0); ALKALINE PHOSPHATASE 67 U/L (38-126); AMYLASE 56 U/L (30-110); ANION GAP 16.5 MEQ/L (5-15); BLOOD UREA NITROGEN 6 mg/dL (7-17); CHLORIDE 108 mmol/L (98-107); Calcium 9.8 mg/dL (8.4-10.2); Carbon Dioxide 24 mmol/L (22-30); Creatinine 1 0.64 mg/dL (0.52-1.04); Glucose 86 mg/dL (74-106); LIPASE 69 U/L (23-300); SGOT/AST 12 U/L (14-36); SGPT/ALT 10 U/L (0-35); SODIUM 144 mmol/L (137-145); Total Protein 7.5 g/dL (6.3-8.2)
[2017-08-13 20:24] LABS: Amphetamine,Urine NEGATIVE (NEGATIVE); Barbiturate,Urine NEGATIVE (NEGATIVE); Benzodiazepine,Urine NEGATIVE (NEGATIVE); Cocaine,Urine NEGATIVE (NEGATIVE); Methadone,Urine NEGATIVE (NEGATIVE); Opiate,Urine POSITIVE (NEGATIVE); PCP,Urine NEGATIVE (NEGATIVE); THC,Urine NEGATIVE (NEGATIVE)
[2017-08-13 20:25] LABS: BASOPHIL % 0.1 % (0.0-0.4); Basophil (Absolute #) 0.01 (0-0.4); Eosinophil % 3.6 % (0.00-5.0); Eosinophil (Absolute #) 0.28 (0-0.5); Granulocyte Absolute (ANC) 4.43 (1.4-6.9); Granulocytes % 56.8 % (36.0-66.0); Hematocrit 45.1 % (35-47); Hemoglobin 15.6 gm/dl (12.0-16.0); Lymphocyte (Absolute #) 2.37 (1.0-4.6); Lymphocytes % 30.4 % (24.0-44.0); Mean Cell Volume 91.3 fl (78-100); Mean Corpuscular Hemoglobin 31.6 pg (26-32); Mean Corpuscular Hgb Concent. 34.6 g/dl (32-36); Monocyte (Absolute #) 0.71 (0.0-1.3); Monocytes % 9.1 % (0.0-12.0); Platelet Count 383 K/mm3 (150-450); Red Blood Count 4.94 M/mm3 (4.1-5.4); Red Cell Distribution Width 12.5 % (11.5-14.0); White Blood Count 7.8 K/mm3 (4.0-10.5)
[2017-08-13] MEDS ORDERED: MORPHINE SULFATE 4 MG INJ IV ONE (20:34)
[2017-08-13] MEDS ORDERED: MORPHINE SULFATE 4 MG INJ ONE (20:38)
[2017-08-13 21:09] VITALS: O2SAT 100
[2017-08-13 21:45] VITALS: BP 122/73; PULSE 78
== END 2017-08-13 21:42 | disposition home or self-care (01) ==
LOC: ED 19:09
DX: R10.30 Lower abdominal pain, unspecified (principal); M79.605 Pain in left leg; M79.604 Pain in right leg; R79.89 Other specified abnormal findings of blood chemistry
CPT/HCPCS: 36000; 36415; 80053; 80307; 81002; 82150; 83690; 84703; 85025; 96360; 96374; 96375; 99284; J2270; J2550

== ENCOUNTER 2017-10-28 10:16 | Emergency (ER) | payer OTHER ==
--- NOTE | 2017-10-28 10:33 | ERPHSYRPT ---
- History of Present Illness Time Seen by Provider: 10/28/17 10:19 Historian: patient Exam Limitations: no limitations Physician History: awakened with lower abdominal pain, crampy this am at 530; prior hx of same form ovarian cystes; ; no intercourse this year; denies ; takes depo shots; last one a month ago; no fever; go gu symptoms; nausea but no emesis ; bm wnl; no trauma; no abn foods; Timing/Duration: today, hour(s) (5), sudden, worse Activities at Onset: sleep Quality: cramping Abdominal Pain Onset Location: generalized abdomen (mostly lower) Pain Radiation: no radiation Severity of Pain-Max: severe (12/30) Severity of Pain-Current: severe Modifying Factors: Improves With: movement (aggravates), other ( position helps) Associated Symptoms: nausea Previous symptoms: same symptoms as today Allergies/Adverse Reactions: ketorolac tromethamine [From Toradol] Allergy (Mild, Verified 08/13/17 19:29) Rash orphenadrine citrate [From Norflex] Allergy (Mild, Verified 08/13/17 19:29) Rash prochlorperazine edisylate [From Compazine] Allergy (Mild, Verified 08/13/17 19: 29) Rash prochlorperazine maleate [From Compazine] Allergy (Mild, Verified 08/13/17 19:29 ) Rash Iodinated Contrast- Oral and IV Dye Allergy (Verified 08/13/17 19:29) Difficulty Breathing amoxicillin Adverse Reaction (Mild, Verified 08/13/17 19:29) Itching CAUSES VAGINAL BLEEDING Home Medications: Paroxetine HCl [Paxil Cr] 25 mg PO DAILY 06/21/15 [History] Hx Tetanus, Diphtheria Vaccination/Date Given: No Hx Influenza Vaccination/Date Given: No Hx Pneumococcal Vaccination/Date Given: Yes - Review of Systems Constitutional: No Symptoms Eyes: No Symptoms Ears, Nose, & Throat: No Symptoms Respiratory: No Cough, No Dyspnea, No Wheezing Cardiac: No Chest Pain, No Palpitations, No Syncope Abdominal/Gastrointestinal: Abdominal Pain, Nausea, No Vomiting, No Diarrhea, No Constipation Genitourinary Symptoms: No Symptoms Musculoskeletal: No Symptoms Skin: No Symptoms Neurological: No Symptoms Psychological: Depression, No Alcohol Abuse, No Drug Abuse, No Suicidal Ideations, No Homicidal Ideations Endocrine: No Symptoms Hematologic/Lymphatic: No Symptoms Immunological/Allergic: No Symptoms - Past Medical History Pertinent Past Medical History: Yes Neurological History: No Pertinent History ENT History: No Pertinent History Cardiac History: No Pertinent History Respiratory History: No Pertinent History Endocrine Medical History: No Pertinent History Musculoskeletal History: No Pertinent History GI Medical History: No Pertinent History History: Other Psycho-Social History: Anxiety, Depression Female Reproductive Disorders: Endometriosis Other Medical History: OVARIAN CYSTS - frequent low potassium - non-compliant with supplement - Past Surgical History Past Surgical History: Yes Neuro Surgical History: No Pertinent History Cardiac: No Pertinent History Respiratory: No Pertinent History Gastrointestinal: No Pertinent History Genitourinary: No Pertinent History Musculoskeletal: No Pertinent History Female Surgical History: Section Other Surgical History: WISDOM TEETH REMOVED - Social History Smoking Status: Current every day smoker How long have you smoked: 9 years Exposure to second hand smoke: No Alcohol Use: Socially Drug Use: none Patient Lives Alone: No Significant Family History: no pertinent family hx - Female History Hx Now: No (depo shots) - Nursing Vital Signs Nursing Vital Signs: Initial Vital Signs Temperature 99.1 F 10/28/17 10:27 Pulse Rate 108 H 10/28/17 10:27 Respiratory Rate 18 10/28/17 10:27 Blood Pressure 150/93 10/28/17 10:27 Pain Scale Pain Intensity 8 - Physical Exam General Appearance: severe distress, alert, thin Eye Exam: PERRL/EOMI, eyes nml inspection, No photophobia Ears, Nose, Throat Exam: normal ENT inspection, TMs normal, pharynx normal, moist mucous membranes Neck Exam: normal inspection, non-tender, supple, full range of motion, No meningismus, No JVD Respiratory Exam: normal breath sounds, lungs clear, airway intact, No chest tenderness, No respiratory distress, No rhonchi, No wheezing, No stridor Cardiovascular Exam: regular rate/rhythm, normal heart sounds, normal peripheral pulses, tachycardia (114), capillary refill <2 sec, No murmur Gastrointestinal/Abdomen Exam: soft, normal bowel sounds, tenderness (diffuse lower bialteral), No distention, No guarding, No pulsatile mass, No rebound, No organomegaly Pelvic Exam: normal external exam, adnexal tenderness (bilatera), cervical motion tenderness (+/-), No adnexal mass (none noted), No vaginal bleeding, No vaginal discharge Rectal Exam: deferred Back Exam: normal inspection, normal range of motion, No CVA tenderness, No rash Extremity Exam: normal inspection, normal range of motion, No jackelin's sign, No pedal edema Neurologic Exam: alert, oriented x 3, cooperative, talent recruiter II-XII nml as tested, normal mood/affect, nml cerebellar function, nml station & gait, sensation nml Skin Exam: normal color, warm, dry, No rash, No petechiae Lymphatic Exam: No adenopathy - Course Nursing assessment & vital signs reviewed: Yes Ordered Tests: Active Orders 24 hr Category Date Time Status IV Insertion STAT Care 10/28/17 10:34 Active NPO (ED) STAT Care 10/28/17 10:34 Active Pelvic Exam Assist STAT Care 10/28/17 10:37 Active Re-Check Vital Signs STAT Care 10/28/17 10:34 Active PELVIS TRANS VAGINAL [US] Stat Exams 10/28/17 10:57 Ordered BMP Stat Lab 10/28/17 10:47 Completed CBC W DIFF Stat Lab 10/28/17 10:47 Completed HCG,QUALITATIVE URINE Stat Lab 10/28/17 10:59 Completed UA W/ MICROSCOPIC Stat Lab 10/28/17 11:02 Completed Wet Prep Stat Lab 10/28/17 11:15 Completed Medication Summary Generic Name Dose Route Start Last Admin Trade Name Freq PRN Reason Stop Dose Admin Sodium Chloride 1,000 mls @ 100 mls/hr 10/28/17 10:45 10/28/17 10:43 Sodium Chloride 0.9% 1000 Ml IV 11/27/17 10:44 100 mls/hr .Q10H BURT Administration Discontinued Medications Generic Name Dose Route Start Last Admin Trade Name Freq PRN Reason Stop Dose Admin Hydromorphone HCl 1 mg 10/28/17 10:56 10/28/17 11:03 Hydromorphone 1 Mg/Ml Ampule IV 10/28/17 10:57 1 mg STAT ONE Administration Hydromorphone HCl Confirm 10/28/17 11:01 Hydromorphone 1 Mg/Ml Ampule Administered 10/28/17 11:02 Dose 1 mg .ROUTE .STK-MED ONE Ondansetron HCl 4 mg 10/28/17 10:34 10/28/17 10:43 Zofran 4 Mg/2 Ml Vial IV 10/28/17 10:35 4 mg STAT ONE Administration Ondansetron HCl Confirm 10/28/17 10:41 Zofran 4 Mg/2 Ml Vial Administered 10/28/17 10:42 Dose 4 mg .ROUTE .STK-MED ONE Lab/Rad Data: Laboratory Result Diagrams 10/28/17 10:47 10/28/17 10:47 Laboratory Results 10/28/17 10/28/17 10/28/17 Range/Units 11:15 11:02 10:59 WBC (4.0-10.5) K/mm3 RBC (4.1-5.4) M/mm3 Hgb (12.0-16.0) gm/dl Hct (35-47) % MCV (78-100) fl MCH (26-32) pg MCHC (32-36) g/dl RDW (11.5-14.0) % Plt Count (150-450) K/mm3 MPV (6-9.5) fl Gran % (36.0-66.0) % Eos # (Auto) (0-0.5) Absolute Lymphs (auto) (1.0-4.6) Absolute Monos (auto) (0.0-1.3) Lymphocytes % (24.0-44.0) % Monocytes % (0.0-12.0) % Eosinophils % (0.00-5.0) % Basophils % (0.0-0.4) % Absolute Granulocytes (1.4-6.9) Basophils # (0-0.4) Sodium (137-145) mmol/L Potassium (3.5-5.1) mmol/L Chloride (98-107) mmol/L Carbon Dioxide (22-30) mmol/L Anion Gap (5-15) MEQ/L BUN (7-17) mg/dL Creatinine (0.52-1.04) mg/dL Estimated GFR ML/MIN Glucose (74-106) mg/dL Calcium (8.4-10.2) mg/dL Ur Collection Type VOID Urine Color YELLOW (YELLOW) Urine Appearance CLEAR (CLEAR) Urine pH 6.0 (5-6) Ur Specific [place] 1.005 (1.005-1.025) Urine Protein NEGATIVE (Negative) Urine Ketones NEGATIVE (NEGATIVE) Urine Blood NEGATIVE (0-5) Alfred/ul Urine Nitrite NEGATIVE (NEGATIVE) Urine Bilirubin NEGATIVE (NEGATIVE) Urine Urobilinogen NORMAL (0-1) mg/dL Ur Leukocyte Esterase TRACE (NEGATIVE) Urine Microscopic WBC 2-5 (0-5) /HPF Ur Epithelial Cells FEW (FEW) /HPF Urine Bacteria FEW (NEGATIVE) /HPF Urine Culture Reflexed NO (NO) Urine Glucose NEGATIVE (NEGATIVE) mg/dL Urine HCG, Qual NEGATIVE (Negative) WBC (Wet Prep) Few RBC (Wet Prep) Rare Epi Cells (Wet Prep) Few Bacteria (Wet Prep) Few Clue Cells (Wet Prep) None Seen Trichomonas (Wet Prep) None Seen Budding Yeast (Wet Prp) None Seen Specimen Received 10/28/17 1115 10/28/17 10/28/17 Range/Units 10:47 10:47 WBC 5.2 (4.0-10.5) K/mm3 RBC 4.48 (4.1-5.4) M/mm3 Hgb 14.2 (12.0-16.0) gm/dl Hct 40.7 (35-47) % MCV 90.8 (78-100) fl MCH 31.7 (26-32) pg MCHC 34.9 (32-36) g/dl RDW 12.4 (11.5-14.0) % Plt Count 362 (150-450) K/mm3 MPV 9.1 (6-9.5) fl Gran % 47.9 (36.0-66.0) % Eos # (Auto) 0.17 (0-0.5) Absolute Lymphs (auto) 2.03 (1.0-4.6) Absolute Monos (auto) 0.49 (0.0-1.3) Lymphocytes % 39.0 (24.0-44.0) % Monocytes % 9.4 (0.0-12.0) % Eosinophils % 3.3 (0.00-5.0) % Basophils % 0.4 (0.0-0.4) % Absolute Granulocytes 2.49 (1.4-6.9) Basophils # 0.02 (0-0.4) Sodium 143 (137-145) mmol/L Potassium 3.5 (3.5-5.1) mmol/L Chloride 108 H (98-107) mmol/L Carbon Dioxide 24 (22-30) mmol/L Anion Gap 14.9 (5-15) MEQ/L BUN 7 (7-17) mg/dL Creatinine 0.71 (0.52-1.04) mg/dL Estimated GFR > 60.0 ML/MIN Glucose 97 (74-106) mg/dL Calcium 8.9 (8.4-10.2) mg/dL Ur Collection Type Urine Color (YELLOW) Urine Appearance (CLEAR) Urine pH (5-6) Ur Specific [place] (1.005-1.025) Urine Protein (Negative) Urine Ketones (NEGATIVE) Urine Blood (0-5) Alfred/ul Urine Nitrite (NEGATIVE) Urine Bilirubin (NEGATIVE) Urine Urobilinogen (0-1) mg/dL Ur Leukocyte Esterase (NEGATIVE) Urine Microscopic WBC (0-5) /HPF Ur Epithelial Cells (FEW) /HPF Urine Bacteria (NEGATIVE) /HPF Urine Culture Reflexed (NO) Urine Glucose (NEGATIVE) mg/dL Urine HCG, Qual (Negative) WBC (Wet Prep) RBC (Wet Prep) Epi Cells (Wet Prep) Bacteria (Wet Prep) Clue Cells (Wet Prep) Trichomonas (Wet Prep) Budding Yeast (Wet Prp) Specimen Received reviewed - Progress Progress: improved, re-examined (after meds) Progress Note: 10/28/17 11:18 meds given; IV fluids started; labs pending; US pending; will monitor and recheck 10/28/17 11:24 labs all wnl; patient getting US now 10/28/17 11:34 wet prep neg; U?A - clear yellow; 1.005; 6.0; trace Leuk neg nitrite; 2-5 wbc; few bact 10/28/17 11:43 rechecked after US and improved; mothre at bedside; shared results of lab and US ; questions answered and instructions given 10/28/17 11:46 patient has taken tylenol and motrin in past; will try Anaprox DS Counseled pt/family regarding: lab results, diagnosis, need for follow-up, rad results, smoking cessation - Departure Time of Disposition: 11:43 Departure Disposition: Home Clinical Impression: Abdominal pain, Ovarian cyst Condition: Stable Critical Care Time: No Referrals: JEREMY EDEN [Primary Care Provider] - Instructions: Acute Abdomen (Belly Pain), Adult (DC) Additional Instructions: rest 24 hours; Follow-up with family doctor as directed. Call for appointment. Return if any problems. If you smoke please stop. Call or follow up with your family doctor for assistance if you need it to stop. Please wear your seatbelt when driving. Have a nice day. Thank you for allowing us to participate in your care today. :o) Dr Lai Oliveira Prescriptions: Naproxen Sodium [Anaprox Ds] 550 mg PO Q6-8HPRN PRN #14 tablet PRN Reason: Pain
[2017-10-28] MEDS ORDERED: Zofran 4 MG/2 ML VIAL IV ONE (10:34)
[2017-10-28] MEDS ORDERED: Zofran 4 MG/2 ML VIAL ONE (10:41)
[2017-10-28] MEDS ORDERED: Sodium Chloride 0.9% 1000 ML 1,000 ML ONE (10:41)
[2017-10-28] MEDS ORDERED: Sodium Chloride 0.9% 1000 ML 1,000 ML IV SCH (10:45)
[2017-10-28 10:47] LABS: BASOPHIL % 0.4 % (0.0-0.4); Basophil (Absolute #) 0.02 (0-0.4); Eosinophil % 3.3 % (0.00-5.0); Eosinophil (Absolute #) 0.17 (0-0.5); Granulocyte Absolute (ANC) 2.49 (1.4-6.9); Granulocytes % 47.9 % (36.0-66.0); Hematocrit 40.7 % (35-47); Hemoglobin 14.2 gm/dl (12.0-16.0); Lymphocyte (Absolute #) 2.03 (1.0-4.6); Mean Cell Volume 90.8 fl (78-100); Mean Corpuscular Hemoglobin 31.7 pg (26-32); Mean Corpuscular Hgb Concent. 34.9 g/dl (32-36); Mean Platelet Volume 9.1 fl (6-9.5); Monocyte (Absolute #) 0.49 (0.0-1.3); Monocytes % 9.4 % (0.0-12.0); Platelet Count 362 K/mm3 (150-450); Red Blood Count 4.48 M/mm3 (4.1-5.4); Red Cell Distribution Width 12.4 % (11.5-14.0); White Blood Count 5.2 K/mm3 (4.0-10.5)
[2017-10-28] MEDS ORDERED: Hydromorphone 1 mg/ml Ampule IV ONE (10:56)
[2017-10-28] MEDS ORDERED: Hydromorphone 1 mg/ml Ampule ONE (11:01)
[2017-10-28 11:11] LABS: ANION GAP 14.9 MEQ/L (5-15); BLOOD UREA NITROGEN 7 mg/dL (7-17); CHLORIDE 108 mmol/L (98-107); Calcium 8.9 mg/dL (8.4-10.2); Carbon Dioxide 24 mmol/L (22-30); Creatinine 1 0.71 mg/dL (0.52-1.04); Glucose 97 mg/dL (74-106); Potassium 3.5 mmol/L (3.5-5.1); SODIUM 143 mmol/L (137-145)
[2017-10-28 11:14] VITALS: O2SAT 97
[2017-10-28 11:26] LABS: Appearance CLEAR (CLEAR); Bilirubin NEGATIVE (NEGATIVE); Blood NEGATIVE Ery/ul (0-5); Glucose NEGATIVE (NEGATIVE); Ketones NEGATIVE (NEGATIVE); Leukocyte Esterase TRACE (NEGATIVE); Nitrite NEGATIVE (NEGATIVE); Protein,Urine Dip NEGATIVE (Negative); Specific Gravity 1.005 (1.005-1.025); Urobilinogen NORMAL mg/dL (0-1)
[2017-10-28 11:30] LABS: Bacteria Few; Clue Cells None Seen; Red Blood Cells Rare; Trichomonas None Seen; White Blood Cells Few
[2017-10-28 11:31] LABS: Bacteria FEW /HPF (NEGATIVE); Epithelial Cells FEW /HPF (FEW)
[2017-10-28 12:08] VITALS: BP 142/82; PULSE 88
--- NOTE | 2017-10-28 12:08 | XRAY ---
Indication: Right lower quadrant pain. Two-dimensional transvaginal pelvic ultrasound was performed. Comparison: July 10, 2017. Uterus again anteverted today measuring 7.3 x 3.4 x 3.7 cm. Myometrium homogeneous. Endometrial stripe measures 3.2 mm. No endometrial cavity mass or fluid collection. Right ovary measures 3.0 x 1.7 x 2.9 cm and the left measures 2.3 x 2.0 x 1.9 cm with normal perfusion bilaterally. There are mild prominent adnexal vessels. No suspicious adnexal mass or free fluid. Right lower quadrant images are unremarkable. Impression: Nonspecific mild prominent adnexal vessels. Remaining transvaginal pelvic sonogram is negative.
== END 2017-10-28 12:00 | disposition home or self-care (01) ==
LOC: ED 10:16
DX: R10.84 Generalized abdominal pain (principal); N83.209 Unspecified ovarian cyst, unspecified side
CPT/HCPCS: 36000; 36415; 76830; 80048; 81000; 84703; 85025; 87210; 87490; 87590; 96360; 96374; 96375; 99284; J1170; J2405

== ENCOUNTER 2017-11-12 08:00 | Emergency (ER) | payer OTHER ==
--- NOTE | 2017-11-12 08:28 | ERPHSYRPT ---
- History of Present Illness Time Seen by Provider: 11/12/17 08:15 Historian: patient Exam Limitations: no limitations Physician History: 32 y/o white female with h/o chronic, intermittent lower abd pain presents with recurring abd pain. pt seen here 2 weeks ago for same issue. vaginal u/s performed and no sig findings present. pt has h/o endometriosis. pt has h/o c section in the past but no other abd surgeries. denies vaginal surgeries. has occas intermittent vaginal spotting and blood upon wiping intermittently. no n/v /d. pt has gynecology appt nov 25. Timing/Duration: intermittent (chronic intermittent over a year) Abdominal Pain Onset Location: RLQ, LLQ, suprapubic Severity of Pain-Max: moderate Severity of Pain-Current: mild Modifying Factors: Improves With: palpation. Worsens With: urinating, vomiting Associated Symptoms: No chest pain, No fever/chills, No headache, No vomiting Allergies/Adverse Reactions: ketorolac tromethamine [From Toradol] Allergy (Mild, Verified 08/13/17 19:29) Rash orphenadrine citrate [From Norflex] Allergy (Mild, Verified 08/13/17 19:29) Rash prochlorperazine edisylate [From Compazine] Allergy (Mild, Verified 08/13/17 19: 29) Rash prochlorperazine maleate [From Compazine] Allergy (Mild, Verified 08/13/17 19:29 ) Rash Iodinated Contrast- Oral and IV Dye Allergy (Verified 08/13/17 19:29) Difficulty Breathing amoxicillin Adverse Reaction (Mild, Verified 08/13/17 19:29) Itching CAUSES VAGINAL BLEEDING Home Medications: Paroxetine HCl [Paxil Cr] 25 mg PO DAILY 06/21/15 [History] Hx Tetanus, Diphtheria Vaccination/Date Given: No Hx Influenza Vaccination/Date Given: No Hx Pneumococcal Vaccination/Date Given: Yes - Review of Systems Constitutional: No Symptoms, No Fever Eyes: No Symptoms, No Eye Pain Ears, Nose, & Throat: No Symptoms, No Ear Pain Respiratory: No Symptoms, No Cough, No Dyspnea, No Stridor Cardiac: No Symptoms, No Chest Pain Abdominal/Gastrointestinal: Abdominal Pain, No Nausea, No Vomiting, No Diarrhea Genitourinary Symptoms: No Symptoms, No Dysuria, No Frequency, No Hematuria, No Urgency Musculoskeletal: No Symptoms, No Back Pain, No Fall, No Injury Skin: No Symptoms Neurological: No Symptoms Psychological: No Symptoms, No Anxiety Endocrine: No Symptoms, No Polyuria, No Polydipsia Hematologic/Lymphatic: No Symptoms Immunological/Allergic: No Symptoms All Other Systems: Reviewed and Negative - Past Medical History Pertinent Past Medical History: Yes Neurological History: No Pertinent History ENT History: No Pertinent History Cardiac History: No Pertinent History Respiratory History: No Pertinent History Endocrine Medical History: No Pertinent History Musculoskeletal History: No Pertinent History GI Medical History: No Pertinent History History: Other Psycho-Social History: Anxiety, Depression Female Reproductive Disorders: Endometriosis Other Medical History: OVARIAN CYSTS - frequent low potassium - non-compliant with supplement - Past Surgical History Past Surgical History: Yes Neuro Surgical History: No Pertinent History Cardiac: No Pertinent History Respiratory: No Pertinent History Gastrointestinal: No Pertinent History Genitourinary: No Pertinent History Musculoskeletal: No Pertinent History Female Surgical History: Section Other Surgical History: WISDOM TEETH REMOVED - Social History Smoking Status: Current every day smoker How long have you smoked: 9 years Exposure to second hand smoke: No Alcohol Use: Socially Drug Use: none Patient Lives Alone: No Significant Family History: no pertinent family hx - Nursing Vital Signs Nursing Vital Signs: Initial Vital Signs Temperature 99.1 F 11/12/17 08:15 Pulse Rate 98 H 11/12/17 08:15 Respiratory Rate 18 11/12/17 08:15 Blood Pressure 146/93 11/12/17 08:15 O2 Sat by Pulse Oximetry 100 11/12/17 08:15 Pain Scale Pain Intensity 8 - Physical Exam General Appearance: mild distress, alert, anxiety Eye Exam: PERRL/EOMI, eyes nml inspection Ears, Nose, Throat Exam: normal ENT inspection Neck Exam: normal inspection, non-tender, supple, full range of motion Respiratory Exam: normal breath sounds, lungs clear, airway intact, No chest tenderness, No respiratory distress Cardiovascular Exam: regular rate/rhythm, normal heart sounds, normal peripheral pulses Gastrointestinal/Abdomen Exam: soft, normal bowel sounds, tenderness (bilat lower quadrants), guarding, No pulsatile mass, No rebound Pelvic Exam: not done (just performed 2 weeka ago) Rectal Exam: not done Back Exam: normal inspection, normal range of motion, No CVA tenderness, No vertebral tenderness Extremity Exam: normal inspection, normal range of motion, pelvis stable Neurologic Exam: alert, oriented x 3, cooperative, software clerk II-XII nml as tested, normal mood/affect Skin Exam: normal color, warm, dry Lymphatic Exam: No adenopathy SpO2 Interpretation: normal Oxygen Delivery: Room Air - Course Nursing assessment & vital signs reviewed: Yes Ordered Tests: Active Orders 24 hr Category Date Time Status ABDOMEN AND PELVIS W/0 CONTRAS [CT] Stat Exams 11/12/17 08:35 Completed AMYLASE Stat Lab 11/12/17 08:50 Completed CBC W DIFF Stat Lab 11/12/17 08:50 Completed CMP Stat Lab 11/12/17 08:50 Completed CULTURE,URINE Stat Lab 11/12/17 08:50 Received HCG,QUALITATIVE URINE Stat Lab 11/12/17 08:50 Completed LIPASE Stat Lab 11/12/17 08:50 Completed Lactic Acid Stat Lab 11/12/17 08:55 Completed UA W/ MICROSCOPIC Stat Lab 11/12/17 08:50 Completed Medication Summary Discontinued Medications Generic Name Dose Route Start Last Admin Trade Name Freq PRN Reason Stop Dose Admin Hydromorphone HCl 0.5 mg 11/12/17 10:27 11/12/17 10:53 Hydromorphone 1 Mg/Ml Ampule IV 11/12/17 10:28 Not Given STAT ONE Hydromorphone HCl 0.5 mg 11/12/17 10:51 11/12/17 10:58 Hydromorphone 1 Mg/Ml Ampule IM 11/12/17 10:52 0.5 mg STAT ONE Administration Hydromorphone HCl Confirm 11/12/17 10:55 Hydromorphone 1 Mg/Ml Ampule Administered 11/12/17 10:56 Dose 1 mg .ROUTE .STK-MED ONE Ondansetron HCl 4 mg 11/12/17 10:27 11/12/17 10:53 Zofran 4 Mg/2 Ml Vial IV 11/12/17 10:28 Not Given STAT ONE Ondansetron HCl 4 mg 11/12/17 10:51 11/12/17 10:58 Zofran Odt 4 Mg PO 11/12/17 10:52 4 mg STAT ONE Administration Ondansetron HCl Confirm 11/12/17 10:55 Zofran Odt 4 Mg Administered 11/12/17 10:56 Dose 4 mg .ROUTE .STK-MED ONE Trimethoprim/Sulfamethoxazole 1 tab 11/12/17 10:29 11/12/17 10:57 Bactrim Ds Tablet PO 11/12/17 10:30 1 tab STAT STA Administration Trimethoprim/Sulfamethoxazole Confirm 11/12/17 10:55 Bactrim Ds Tablet Administered 11/12/17 10:56 Dose 1 tab PO .STK-MED ONE Lab/Rad Data: Laboratory Result Diagrams 11/12/17 08:50 11/12/17 08:50 Laboratory Results 11/12/17 11/12/17 11/12/17 Range/Units 08:55 08:50 08:50 WBC (4.0-10.5) K/mm3 RBC (4.1-5.4) M/mm3 Hgb (12.0-16.0) gm/dl Hct (35-47) % MCV (78-100) fl MCH (26-32) pg MCHC (32-36) g/dl RDW (11.5-14.0) % Plt Count (150-450) K/mm3 MPV (6-9.5) fl Gran % (36.0-66.0) % Eos # (Auto) (0-0.5) Absolute Lymphs (auto) (1.0-4.6) Absolute Monos (auto) (0.0-1.3) Lymphocytes % (24.0-44.0) % Monocytes % (0.0-12.0) % Eosinophils % (0.00-5.0) % Basophils % (0.0-0.4) % Absolute Granulocytes (1.4-6.9) Basophils # (0-0.4) Sodium (137-145) mmol/L Potassium (3.5-5.1) mmol/L Chloride (98-107) mmol/L Carbon Dioxide (22-30) mmol/L Anion Gap (5-15) MEQ/L BUN (7-17) mg/dL Creatinine (0.52-1.04) mg/dL Estimated GFR ML/MIN Glucose (74-106) mg/dL Lactic Acid 0.6 (0.4-2.0) Calcium (8.4-10.2) mg/dL Total Bilirubin (0.2-1.3) mg/dL AST (14-36) U/L ALT (0-35) U/L Alkaline Phosphatase (38-126) U/L Serum Total Protein (6.3-8.2) g/dL Albumin (3.5-5.0) g/dL Amylase (30-110) U/L Lipase (23-300) U/L Ur Collection Type CLEAN CATCH Urine Color LT.YELLOW (YELLOW) Urine Appearance HAZY (CLEAR) Urine pH 6.0 (5-6) Ur Specific [place] 1.005 (1.005-1.025) Urine Protein NEGATIVE (Negative) Urine Ketones NEGATIVE (NEGATIVE) Urine Blood 5-10 (0-5) Alfred/ul Urine Nitrite NEGATIVE (NEGATIVE) Urine Bilirubin NEGATIVE (NEGATIVE) Urine Urobilinogen NORMAL (0-1) mg/dL Ur Leukocyte Esterase 2+ (NEGATIVE) Urine Microscopic RBC 0-2 (0-2) /HPF Urine Microscopic WBC 10-15 (0-5) /HPF Ur Epithelial Cells MODERATE (FEW) /HPF Urine Bacteria FEW (NEGATIVE) /HPF Urine Culture Reflexed YES (NO) Urine Glucose NEGATIVE (NEGATIVE) mg/dL Urine HCG, Qual NEGATIVE (Negative) Specimen Received 11/12/17 0800 11/12/17 11/12/17 Range/Units 08:50 08:50 WBC 4.4 (4.0-10.5) K/mm3 RBC 4.63 (4.1-5.4) M/mm3 Hgb 14.7 (12.0-16.0) gm/dl Hct 42.6 (35-47) % MCV 92.0 (78-100) fl MCH 31.7 (26-32) pg MCHC 34.5 (32-36) g/dl RDW 12.5 (11.5-14.0) % Plt Count 339 (150-450) K/mm3 MPV 9.2 (6-9.5) fl Gran % 43.3 (36.0-66.0) % Eos # (Auto) 0.22 (0-0.5) Absolute Lymphs (auto) 1.76 (1.0-4.6) Absolute Monos (auto) 0.49 (0.0-1.3) Lymphocytes % 40.3 (24.0-44.0) % Monocytes % 11.2 (0.0-12.0) % Eosinophils % 5.0 (0.00-5.0) % Basophils % 0.2 (0.0-0.4) % Absolute Granulocytes 1.89 (1.4-6.9) Basophils # 0.01 (0-0.4) Sodium 143 (137-145) mmol/L Potassium 3.6 (3.5-5.1) mmol/L Chloride 106 (98-107) mmol/L Carbon Dioxide 27 (22-30) mmol/L Anion Gap 13.3 (5-15) MEQ/L BUN 8 (7-17) mg/dL Creatinine 0.79 (0.52-1.04) mg/dL Estimated GFR > 60.0 ML/MIN Glucose 94 (74-106) mg/dL Lactic Acid (0.4-2.0) Calcium 8.8 (8.4-10.2) mg/dL Total Bilirubin 0.40 (0.2-1.3) mg/dL AST 11 L (14-36) U/L ALT 8 (0-35) U/L Alkaline Phosphatase 61 (38-126) U/L Serum Total Protein 7.1 (6.3-8.2) g/dL Albumin 4.4 (3.5-5.0) g/dL Amylase 53 (30-110) U/L Lipase 34 (23-300) U/L Ur Collection Type Urine Color (YELLOW) Urine Appearance (CLEAR) Urine pH (5-6) Ur Specific [place] (1.005-1.025) Urine Protein (Negative) Urine Ketones (NEGATIVE) Urine Blood (0-5) Alfred/ul Urine Nitrite (NEGATIVE) Urine Bilirubin (NEGATIVE) Urine Urobilinogen (0-1) mg/dL Ur Leukocyte Esterase (NEGATIVE) Urine Microscopic RBC (0-2) /HPF Urine Microscopic WBC (0-5) /HPF Ur Epithelial Cells (FEW) /HPF Urine Bacteria (NEGATIVE) /HPF Urine Culture Reflexed (NO) Urine Glucose (NEGATIVE) mg/dL Urine HCG, Qual (Negative) Specimen Received - Progress Progress: re-examined Progress Note: 11/12/17 10:35 pt appears very anxious. new c/o headache and dry mouth. 11/12/17 11:[address] scan of abd/pelvis. this was told to pt. Counseled pt/family regarding: lab results, diagnosis, need for follow-up, rad results - Departure Time of Disposition: 11:06 Departure Disposition: Home Clinical Impression: Abdominal pain, UTI (urinary tract infection) Condition: Stable Critical Care Time: No Referrals: JEREMY EDEN [Primary Care Provider] - Additional Instructions: DRINK PLENTY OF FLUIDS. TYLENOL FOR PAIN. CONTACT YOUR PRIMARY DOCTOR AND YOUR AUTOMAT WATCHER FOR PAIN MANAGEMENT OF THIS CHRONIC, RECURRING ISSUE. Prescriptions: Smz/Tmp Ds Tablet [Bactrim Ds Tablet] 1 udtab PO BID #14 tablet
[2017-11-12 08:58] LABS: BASOPHIL % 0.2 % (0.0-0.4); Basophil (Absolute #) 0.01 (0-0.4); Eosinophil (Absolute #) 0.22 (0-0.5); Granulocyte Absolute (ANC) 1.89 (1.4-6.9); Granulocytes % 43.3 % (36.0-66.0); Hematocrit 42.6 % (35-47); Hemoglobin 14.7 gm/dl (12.0-16.0); Lymphocyte (Absolute #) 1.76 (1.0-4.6); Lymphocytes % 40.3 % (24.0-44.0); Mean Corpuscular Hemoglobin 31.7 pg (26-32); Mean Corpuscular Hgb Concent. 34.5 g/dl (32-36); Mean Platelet Volume 9.2 fl (6-9.5); Monocyte (Absolute #) 0.49 (0.0-1.3); Monocytes % 11.2 % (0.0-12.0); Platelet Count 339 K/mm3 (150-450); Red Blood Count 4.63 M/mm3 (4.1-5.4); Red Cell Distribution Width 12.5 % (11.5-14.0); White Blood Count 4.4 K/mm3 (4.0-10.5)
[2017-11-12 09:08] LABS: Appearance HAZY (CLEAR); Bilirubin NEGATIVE (NEGATIVE); Glucose NEGATIVE (NEGATIVE); Ketones NEGATIVE (NEGATIVE); Leukocyte Esterase 2+ (NEGATIVE); Nitrite NEGATIVE (NEGATIVE); Protein,Urine Dip NEGATIVE (Negative); Specific Gravity 1.005 (1.005-1.025); Urobilinogen NORMAL mg/dL (0-1)
--- NOTE | 2017-11-12 09:21 | XRAY ---
Indication: Abdominal pain. Multiple contiguous axial images obtained through the abdomen and pelvis without contrast as ordered. Comparison: March 09, 2017. Lung bases are clear. Heart is not enlarged. Noncontrasted stomach and bowel loops appear nonobstructed. Normal appendix. No free fluid/air. Remaining liver, gallbladder, pancreas, spleen, adrenal glands, kidneys, ureters, bladder, uterus, and aorta appear unremarkable for noncontrast exam. Osseous structures intact. No ventral or inguinal hernias. Impression: CT abdomen/pelvis without contrast exam is again negative. CT DI 18.48
[2017-11-12 09:23] LABS: Bacteria FEW /HPF (NEGATIVE); Epithelial Cells MODERATE /HPF (FEW); RBC 0-2 /HPF (0-2)
[2017-11-12 09:34] LABS: ALBUMIN 4.4 g/dL (3.5-5.0); ALKALINE PHOSPHATASE 61 U/L (38-126); AMYLASE 53 U/L (30-110); ANION GAP 13.3 MEQ/L (5-15); BLOOD UREA NITROGEN 8 mg/dL (7-17); CHLORIDE 106 mmol/L (98-107); Calcium 8.8 mg/dL (8.4-10.2); Carbon Dioxide 27 mmol/L (22-30); Creatinine 1 0.79 mg/dL (0.52-1.04); Glucose 94 mg/dL (74-106); LIPASE 34 U/L (23-300); Potassium 3.6 mmol/L (3.5-5.1); SGOT/AST 11 U/L (14-36); SGPT/ALT 8 U/L (0-35); SODIUM 143 mmol/L (137-145); Total Protein 7.1 g/dL (6.3-8.2)
[2017-11-12] MEDS ORDERED: Zofran 4 MG/2 ML VIAL IV ONE (10:27)
[2017-11-12] MEDS ORDERED: Hydromorphone 1 mg/ml Ampule IV ONE (10:27)
[2017-11-12] MEDS ORDERED: BACTRIM DS TABLET PO STA (10:29)
[2017-11-12] MEDS ORDERED: Hydromorphone 1 mg/ml Ampule IM ONE (10:51)
[2017-11-12] MEDS ORDERED: ZOFRAN ODT 4 MG PO ONE (10:51)
[2017-11-12] MEDS ORDERED: ZOFRAN ODT 4 MG ONE (10:55)
[2017-11-12] MEDS ORDERED: BACTRIM DS TABLET PO ONE (10:55)
[2017-11-12] MEDS ORDERED: Hydromorphone 1 mg/ml Ampule ONE (10:55)
[2017-11-12 11:25] VITALS: BP 128/82; PULSE 83; O2SAT 100
== END 2017-11-12 11:25 | disposition home or self-care (01) ==
LOC: ED 08:00
DX: R10.31 Right lower quadrant pain (principal); R10.32 Left lower quadrant pain; N39.0 Urinary tract infection, site not specified; R51 Headache; R68.2 Dry mouth, unspecified
CPT/HCPCS: 36415; 74176; 80053; 81000; 82150; 83605; 83690; 84703; 85025; 87086; 96372; 99284; J1170; Q0162; A9270-GY

== ENCOUNTER 2018-04-08 19:03 | Emergency (ER) | payer OTHER ==
--- NOTE | 2018-04-08 19:24 | ERPHSYRPT ---
- History of Present Illness Time Seen by Provider: 04/08/18 19:22 Source: patient Exam Limitations: no limitations Patient Subjective Stated Complaint: pt is alert and oriented. pt is ambulatory with a steady gait. pt comes in with c/o of cough, sore throat, and body aches, and leg cramps. pt breath sounds clear bilat a-p throughout. pt temp is 99.3. pt denies n/v/d. Triage Nursing Assessment: see above Physician History: 32 y/o white female presents with one day h/o cough, sore throat and body aches. no fevers. no n/v/d. pt states she did cough up some back sputum earlier today. Timing/Duration: day(s) (1) Cough Quality/Degree: mild Possible Cause: no prior episodes Modifying Factors: Improves With: coughing Associated Symptoms: cough, muscle aches, sore throat Allergies/Adverse Reactions: ketorolac tromethamine [From Toradol] Allergy (Mild, Verified 08/13/17 19:29) Rash orphenadrine citrate [From Norflex] Allergy (Mild, Verified 08/13/17 19:29) Rash prochlorperazine edisylate [From Compazine] Allergy (Mild, Verified 08/13/17 19: 29) Rash prochlorperazine maleate [From Compazine] Allergy (Mild, Verified 08/13/17 19:29 ) Rash Iodinated Contrast- Oral and IV Dye Allergy (Verified 08/13/17 19:29) Difficulty Breathing amoxicillin Adverse Reaction (Mild, Verified 08/13/17 19:29) Itching CAUSES VAGINAL BLEEDING Home Medications: Paroxetine HCl [Paxil Cr] 25 mg PO DAILY 06/21/15 [History] Hx Tetanus, Diphtheria Vaccination/Date Given: No Hx Influenza Vaccination/Date Given: No Hx Pneumococcal Vaccination/Date Given: Yes Immunizations Up to Date: Yes - Review of Systems Constitutional: No Symptoms Eyes: No Symptoms Ears, Nose, & Throat: Throat Pain, Painful Swallowing Respiratory: Cough Cardiac: No Symptoms, No Chest Pain, No Palpitations, No Syncope Abdominal/Gastrointestinal: No Symptoms, No Abdominal Pain, No Nausea, No Vomiting, No Diarrhea Genitourinary Symptoms: No Symptoms Musculoskeletal: Arthralgias, Myalgias Skin: No Symptoms Neurological: No Symptoms Psychological: No Symptoms Endocrine: No Symptoms Hematologic/Lymphatic: No Symptoms Immunological/Allergic: No Symptoms All Other Systems: Reviewed and Negative - Past Medical History Pertinent Past Medical History: Yes Neurological History: No Pertinent History ENT History: No Pertinent History Cardiac History: No Pertinent History Respiratory History: No Pertinent History Endocrine Medical History: No Pertinent History Musculoskeletal History: No Pertinent History GI Medical History: No Pertinent History History: Other Psycho-Social History: Anxiety, Depression Female Reproductive Disorders: Endometriosis Other Medical History: OVARIAN CYSTS - frequent low potassium - non-compliant with supplement - Past Surgical History Past Surgical History: Yes Neuro Surgical History: No Pertinent History Cardiac: No Pertinent History Respiratory: No Pertinent History Gastrointestinal: No Pertinent History Genitourinary: No Pertinent History Musculoskeletal: No Pertinent History Female Surgical History: Section Other Surgical History: WISDOM TEETH REMOVED - Social History Smoking Status: Current every day smoker How long have you smoked: 10 years Exposure to second hand smoke: No Alcohol Use: Socially Drug Use: none Patient Lives Alone: No Significant Family History: no pertinent family hx - Female History Hx Now: No - Nursing Vital Signs Nursing Vital Signs: Initial Vital Signs Temperature 99.3 F 04/08/18 19:12 Pulse Rate 113 H 04/08/18 19:12 Respiratory Rate 16 04/08/18 19:12 Blood Pressure 154/116 04/08/18 19:12 O2 Sat by Pulse Oximetry 100 04/08/18 19:12 Pain Scale Pain Intensity 9 - Physical Exam General Appearance: mild distress, alert, anxiety Eye Exam: PERRL/EOMI, eyes nml inspection Ears, Nose, Throat Exam: normal ENT inspection, TMs normal, moist mucous membranes Neck Exam: normal inspection, non-tender, supple, full range of motion Respiratory Exam: normal breath sounds, lungs clear, airway intact, No chest tenderness, No respiratory distress, No accessory muscle use, No rhonchi, No wheezing, No stridor Cardiovascular Exam: regular rate/rhythm, normal heart sounds, normal peripheral pulses Gastrointestinal/Abdomen Exam: soft, normal bowel sounds, No tenderness, No guarding, No rebound Pelvic Exam: not done Rectal Exam: not done Back Exam: normal inspection, normal range of motion, No CVA tenderness, No vertebral tenderness Extremity Exam: normal inspection, normal range of motion, pelvis stable Neurologic Exam: alert, oriented x 3, cooperative, 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003 (1.005-1.025) Urine Protein NEGATIVE (Negative) Urine Ketones NEGATIVE (NEGATIVE) Urine Blood SMALL (0-5) Alfred/ul Urine Nitrite NEGATIVE (NEGATIVE) Urine Bilirubin NEGATIVE (NEGATIVE) Urine Urobilinogen NEGATIVE (0-1) mg/dL Ur Leukocyte Esterase TRACE (NEGATIVE) Urine WBC (Auto) 3-5 (0-5) /HPF Urine RBC (Auto) 0-2 (0-2) /HPF U Epithel Cells (Auto) RARE (FEW) /HPF Urine Bacteria (Auto) RARE (NEGATIVE) /HPF Urine Mucus (Auto) SLIGHT (NEGATIVE) /HPF Urine Culture Reflexed YES (NO) Urine Glucose NEGATIVE (NEGATIVE) mg/dL Urine HCG, Qual NEGATIVE (Negative) Influenza Type A Ag POSITIVE (NEGATIVE) Influenza Type B Ag NEGATIVE (NEGATIVE) RSV (PCR) NEGATIVE (Negative) Group A Strep Antibody NEGATIVE (NEGATIVE) - Progress Progress: re-examined, unchanged Air Movement: good Blood Culture(s) Obtained: No Antibiotics given: No Counseled pt/family regarding: lab results, diagnosis, need for follow-up - Departure Time of Disposition: 20:18 Departure Disposition: Home Clinical Impression: Influenza A Condition: Good Critical Care Time: No Additional Instructions: drink plenty of fluids. use tylenol and ibuprofen for pain. follow up with your primary doctor for persistent sympoms Prescriptions: Oseltamivir 75 mg [Tamiflu 75MG Capsule] 75 mg PO BID #10 cap
[2018-04-08 19:46] LABS: Appearance CLEAR (CLEAR); Bacteria RARE /HPF (NEGATIVE); Bilirubin NEGATIVE (NEGATIVE); Blood SMALL Ery/ul (0-5); Epithelial Cells RARE /HPF (FEW); Glucose NEGATIVE (NEGATIVE); Ketones NEGATIVE (NEGATIVE); Leukocyte Esterase TRACE (NEGATIVE); Mucus SLIGHT /HPF (NEGATIVE); Nitrite NEGATIVE (NEGATIVE); Protein,Urine Dip NEGATIVE (Negative); RBC 0-2 /HPF (0-2); Specific Gravity 1.003 (1.005-1.025); Urobilinogen NEGATIVE mg/dL (0-1)
[2018-04-08 20:02] VITALS: BP 137/87; PULSE 84
[2018-04-08 20:15] LABS: INFLUENZA A POSITIVE (NEGATIVE); INFLUENZA B NEGATIVE (NEGATIVE); RESPIRATORY SYNCTIAL VIRUS NEGATIVE (Negative)
[2018-04-08] MEDS ORDERED: Tamiflu 75MG Capsule PO ONE ×2 (20:20→20:34)
[2018-04-08] MEDS ORDERED: HYDROCODONE-ACETAMIN 2.5-108/5 ML SOLUTION PO STA (20:20)
[2018-04-08 20:21] VITALS: O2SAT 100
[2018-04-08] MEDS ORDERED: HYDROCODONE-ACETAMIN 2.5-108/5 ML SOLUTION ONE (20:34)
== END 2018-04-08 20:47 | disposition home or self-care (01) ==
LOC: ED 19:03
DX: J11.1 Influenza due to unidentified influenza virus with other respiratory manifestations (principal); F32.9 Major depressive disorder, single episode, unspecified; F41.9 Anxiety disorder, unspecified
CPT/HCPCS: 81001; 84703; 87086; 87631; 87651; 99283; A9270-GY

== ENCOUNTER 2018-06-21 15:52 | Emergency (ER) | payer OTHER ==
[2018-06-21] MEDS ORDERED: SUBLIMAZE 100 MCG/2 ML IV ONE (16:33)
[2018-06-21] MEDS ORDERED: Zofran 4 MG/2 ML VIAL IV ONE (16:33)
[2018-06-21] MEDS ORDERED: Sodium Chloride 0.9% 1000 ML 1,000 ML IV STA (16:33)
--- NOTE | 2018-06-21 16:40 | ERPHSYRPT ---
- History of Present Illness Time Seen by Provider: 06/21/18 16:34 Historian: patient Exam Limitations: no limitations Patient Subjective Stated Complaint: pt here for abd pain that started suden today, she states pain to on right side, from ribs to lower abd, she has had this pain before Triage Nursing Assessment: pt alert, resp easy, skin w/d/p. abd soft Physician History: Pt started c/o lower abdominal pain at 2 AM today, nauseated, denies vomiting, cough, fever, cold symptoms, diarrhea or urinary complaints. She is on Depo shots, had slight spotting, no other complaints. Timing/Duration: hour(s) (14.5) Activities at Onset: none Quality: cramping, sharpness Abdominal Pain Onset Location: RLQ Pain Radiation: no radiation Severity of Pain-Max: moderate Severity of Pain-Current: moderate Modifying Factors: Improves With: nothing Associated Symptoms: nausea Previous symptoms: same symptoms as today Allergies/Adverse Reactions: ketorolac tromethamine [From Toradol] Allergy (Mild, Verified 06/21/18 16:22) Rash orphenadrine citrate [From Norflex] Allergy (Mild, Verified 06/21/18 16:22) Rash prochlorperazine edisylate [From Compazine] Allergy (Mild, Verified 06/21/18 16: 22) Rash prochlorperazine maleate [From Compazine] Allergy (Mild, Verified 06/21/18 16:22 ) Rash Iodinated Contrast- Oral and IV Dye Allergy (Verified 06/21/18 16:22) Difficulty Breathing amoxicillin Adverse Reaction (Mild, Verified 06/21/18 16:22) Stomach Cramps CAUSES VAGINAL BLEEDING Home Medications: Medroxyprogesterone Acet [Depo-Provera] 150 mg IM 06/21/18 [History] PARoxetine HCl [Paroxetine HCl] 40 mg DAILY 06/21/18 [History] Hx Tetanus, Diphtheria Vaccination/Date Given: No Hx Influenza Vaccination/Date Given: No Hx Pneumococcal Vaccination/Date Given: No Immunizations Up to Date: Yes - Review of Systems Constitutional: No Symptoms Ears, Nose, & Throat: No Symptoms Respiratory: No Symptoms Cardiac: No Symptoms Abdominal/Gastrointestinal: Abdominal Pain, Nausea Genitourinary Symptoms: Other (vaginal spotting) Musculoskeletal: No Symptoms Skin: No Symptoms Neurological: No Symptoms All Other Systems: Reviewed and Negative - Past Medical History Pertinent Past Medical History: Yes Neurological History: No Pertinent History ENT History: No Pertinent History Cardiac History: No Pertinent History Respiratory History: No Pertinent History Endocrine Medical History: No Pertinent History Musculoskeletal History: No Pertinent History GI Medical History: No Pertinent History History: Other Psycho-Social History: Anxiety, Depression Female Reproductive Disorders: Endometriosis Other Medical History: OVARIAN CYSTS - frequent low potassium - non-compliant with supplement - Past Surgical History Past Surgical History: Yes Neuro Surgical History: No Pertinent History Cardiac: No Pertinent History Respiratory: No Pertinent History Gastrointestinal: No Pertinent History Genitourinary: No Pertinent History Musculoskeletal: No Pertinent History Female Surgical History: Section Other Surgical History: WISDOM TEETH REMOVED - Social History Smoking Status: Current every day smoker How long have you smoked: 10 years Exposure to second hand smoke: Yes Alcohol Use: Socially Drug Use: none Patient Lives Alone: No Significant Family History: no pertinent family hx - Female History Hx Last Menstrual Period: irregular Hx Now: No (on shot) - Nursing Vital Signs Nursing Vital Signs: Initial Vital Signs Temperature 99.2 F 06/21/18 16:16 Pulse Rate 96 H 06/21/18 16:16 Respiratory Rate 18 06/21/18 16:16 Blood Pressure 139/86 06/21/18 16:16 O2 Sat by Pulse Oximetry 99 06/21/18 16:16 Pain Scale Pain Intensity 4 - Physical Exam General Appearance: no apparent distress Eye Exam: eyes nml inspection Ears, Nose, Throat Exam: normal ENT inspection, pharynx normal Neck Exam: normal inspection, non-tender, supple Respiratory Exam: normal breath sounds, lungs clear, airway intact Cardiovascular Exam: regular rate/rhythm, normal heart sounds, normal peripheral pulses, No murmur Gastrointestinal/Abdomen Exam: soft, normal bowel sounds, tenderness (RLQ, mod.) , No distention, No mass, No guarding, No rebound, No hernia, No organomegaly Back Exam: normal inspection, No CVA tenderness Extremity Exam: normal inspection Neurologic Exam: alert, oriented x 3, cooperative, normal mood/affect Skin Exam: normal color, warm, dry, No rash Lymphatic Exam: No adenopathy SpO2 Interpretation: normal SpO2: 99 O2 Delivery: Room Air - Course Nursing assessment & vital signs reviewed: Yes - CT Exams Abdomen CT Interpretation: Negative, Tele-radiologist Report Ordered Tests: Active Orders 24 hr Category Date Time Status IV Insertion STAT Care 06/21/18 16:33 Active ABDOMEN AND PELVIS W/0 CONTRAS [CT] Stat Exams 06/21/18 16:32 Completed CBC W DIFF Stat Lab 06/21/18 16:20 Completed CMP Stat Lab 06/21/18 16:20 Completed HCG,QUALITATIVE URINE Stat Lab 06/21/18 17:00 Completed LIPASE Stat Lab 06/21/18 16:20 Completed UA W/RFX UR CULTURE Stat Lab 06/21/18 17:00 Completed Urine Triage Profile Stat Lab 06/21/18 17:00 Completed Medication Summary Discontinued Medications Generic Name Dose Route Start Last Admin Trade Name Freq PRN Reason Stop Dose Admin Fentanyl Citrate 50 mcg 06/21/18 16:33 06/21/18 17:04 Sublimaze 100 Mcg/2 Ml IV 06/21/18 16:34 50 mcg STAT ONE Administration Fentanyl Citrate Confirm 06/21/18 17:01 Sublimaze 100 Mcg/2 Ml Administered 06/21/18 17:02 Dose 100 mcg .ROUTE .STK-MED ONE Sodium Chloride 1,000 mls @ 999 mls/hr 06/21/18 16:33 06/21/18 17:04 Sodium Chloride 0.9% 1000 Ml IV 06/21/18 17:33 999 mls/hr .Q1H1M STA Administration Sodium Chloride Confirm 06/21/18 17:02 Sodium Chloride 0.9% 1000 Ml Administered 06/21/18 17:03 Dose 1,000 mls @ ud .ROUTE .STK-MED ONE Ondansetron HCl 4 mg 06/21/18 16:33 06/21/18 17:05 Zofran 4 Mg/2 Ml Vial IV 06/21/18 16:34 4 mg STAT ONE Administration Ondansetron HCl Confirm 06/21/18 17:01 Zofran 4 Mg/2 Ml Vial Administered 06/21/18 17:02 Dose 4 mg .ROUTE .STK-MED ONE Lab/Rad Data: Laboratory Result Diagrams 06/21/18 16:20 06/21/18 16:20 Laboratory Results 06/21/18 06/21/18 06/21/18 Range/Units 17:00 17:00 17:00 WBC (4.0-10.5) K/mm3 RBC (4.1-5.4) M/mm3 Hgb (12.0-16.0) gm/dl Hct (35-47) % MCV (78-100) fl MCH (26-32) pg MCHC (32-36) g/dl RDW (11.5-14.0) % Plt Count (150-450) K/mm3 MPV (6-9.5) fl Gran % (36.0-66.0) % Eos # (Auto) (0-0.5) Absolute Lymphs (auto) (1.0-4.6) Absolute Monos (auto) (0.0-1.3) Lymphocytes % (24.0-44.0) % Monocytes % (0.0-12.0) % Eosinophils % (0.00-5.0) % Basophils % (0.0-0.4) % Absolute Granulocytes (1.4-6.9) Basophils # (0-0.4) Sodium (137-145) mmol/L Potassium (3.5-5.1) mmol/L Chloride (98-107) mmol/L Carbon Dioxide (22-30) mmol/L Anion Gap (5-15) MEQ/L BUN (7-17) mg/dL Creatinine (0.52-1.04) mg/dL Estimated GFR ML/MIN Glucose (74-106) mg/dL Calcium (8.4-10.2) mg/dL Total Bilirubin (0.2-1.3) mg/dL AST (14-36) U/L ALT (0-35) U/L Alkaline Phosphatase (38-126) U/L Serum Total Protein (6.3-8.2) g/dL Albumin (3.5-5.0) g/dL Lipase (23-300) U/L Urine Color STRAW (YELLOW) Urine Appearance CLEAR (CLEAR) Urine pH 6.0 (5-6) Ur Specific [place] 1.003 (1.005-1.025) Urine Protein NEGATIVE (Negative) Urine Ketones NEGATIVE (NEGATIVE) Urine Blood NEGATIVE (0-5) Alfred/ul Urine Nitrite NEGATIVE (NEGATIVE) Urine Bilirubin NEGATIVE (NEGATIVE) Urine Urobilinogen NEGATIVE (0-1) mg/dL Ur Leukocyte Esterase NEGATIVE (NEGATIVE) Urine WBC (Auto) NONE (0-5) /HPF Urine RBC (Auto) NONE (0-2) /HPF U Epithel Cells (Auto) RARE (FEW) /HPF Urine Bacteria (Auto) NONE (NEGATIVE) /HPF Urine Mucus (Auto) SLIGHT (NEGATIVE) /HPF Urine Culture Reflexed NO (NO) Urine Glucose NEGATIVE (NEGATIVE) mg/dL Urine HCG, Qual NEGATIVE (Negative) Urine Opiates Level POSITIVE (NEGATIVE) Ur Methadone NEGATIVE (NEGATIVE) Urine Barbiturates NEGATIVE (NEGATIVE) Ur Phencyclidine (PCP) NEGATIVE (NEGATIVE) Urine Amphetamine NEGATIVE (NEGATIVE) U Benzodiazepine Level NEGATIVE (NEGATIVE) Urine Cocaine NEGATIVE (NEGATIVE) Urine Marijuana (THC) NEGATIVE (NEGATIVE) 06/21/18 06/21/18 Range/Units 16:20 16:20 WBC 4.9 (4.0-10.5) K/mm3 RBC 4.23 (4.1-5.4) M/mm3 Hgb 13.6 (12.0-16.0) gm/dl Hct 40.2 (35-47) % MCV 95.0 (78-100) fl MCH 32.2 H (26-32) pg MCHC 33.8 (32-36) g/dl RDW 12.4 (11.5-14.0) % Plt Count 376 (150-450) K/mm3 MPV 9.3 (6-9.5) fl Gran % 51.3 (36.0-66.0) % Eos # (Auto) 0.13 (0-0.5) Absolute Lymphs (auto) 1.83 (1.0-4.6) Absolute Monos (auto) 0.40 (0.0-1.3) Lymphocytes % 37.6 (24.0-44.0) % Monocytes % 8.2 (0.0-12.0) % Eosinophils % 2.7 (0.00-5.0) % Basophils % 0.2 (0.0-0.4) % Absolute Granulocytes 2.50 (1.4-6.9) Basophils # 0.01 (0-0.4) Sodium 141 (137-145) mmol/L Potassium 3.5 (3.5-5.1) mmol/L Chloride 108 H (98-107) mmol/L Carbon Dioxide 23 (22-30) mmol/L Anion Gap 12.6 (5-15) MEQ/L BUN 5 L (7-17) mg/dL Creatinine 0.73 (0.52-1.04) mg/dL Estimated GFR > 60.0 ML/MIN Glucose 84 (74-106) mg/dL Calcium 9.2 (8.4-10.2) mg/dL Total Bilirubin 0.40 (0.2-1.3) mg/dL AST 17 (14-36) U/L ALT 11 (0-35) U/L Alkaline Phosphatase 61 (38-126) U/L Serum Total Protein 7.5 (6.3-8.2) g/dL Albumin 4.4 (3.5-5.0) g/dL Lipase 39 (23-300) U/L Urine Color (YELLOW) Urine Appearance (CLEAR) Urine pH (5-6) Ur Specific [place] (1.005-1.025) Urine Protein (Negative) Urine Ketones (NEGATIVE) Urine Blood (0-5) Alfred/ul Urine Nitrite (NEGATIVE) Urine Bilirubin (NEGATIVE) Urine Urobilinogen (0-1) mg/dL Ur Leukocyte Esterase (NEGATIVE) Urine WBC (Auto) (0-5) /HPF Urine RBC (Auto) (0-2) /HPF U Epithel Cells (Auto) (FEW) /HPF Urine Bacteria (Auto) (NEGATIVE) /HPF Urine Mucus (Auto) (NEGATIVE) /HPF Urine Culture Reflexed (NO) Urine Glucose (NEGATIVE) mg/dL Urine HCG, Qual (Negative) Urine Opiates Level (NEGATIVE) Ur Methadone (NEGATIVE) Urine Barbiturates (NEGATIVE) Ur Phencyclidine (PCP) (NEGATIVE) Urine Amphetamine (NEGATIVE) U Benzodiazepine Level (NEGATIVE) Urine Cocaine (NEGATIVE) Urine Marijuana (THC) (NEGATIVE) - Progress Progress: improved Progress Note: 06/21/18 17:50 Pt improved after iv saline, Fentanyl, Zofran, she has been afebrile, stable we discussed her results, she is being discharged to rest x 2-3 days, drink plenty of fluids, and follow up with her physician in 3-4 days. Counseled pt/family regarding: lab results, diagnosis, need for follow-up, rad results - Departure Departure Disposition: Home Clinical Impression: Abdominal pain Qualifiers: Abdominal location: right lower quadrant Qualified Code(s): R10.31 - Right lower quadrant pain Constipation Qualifiers: Constipation type: unspecified constipation type Qualified Code(s): K59.00 - Constipation, unspecified Condition: Stable Critical Care Time: No Referrals: LUIS LEO [Primary Care Provider] - Instructions: Constipation, Adult (DC), Acute Abdomen (Belly Pain), Adult (DC) , Acute Pelvic Pain (DC) Additional Instructions: Rest x 2-3 days, drink plenty of fluids, and follow up with your physician in 3- 4 days, return if severe pain, vomiting, fever> 102 F! Prescriptions: Dicyclomine HCl 20 mg [Bentyl 20 mg] 20 mg PO TID PRN #20 tablet PRN Reason: Pain Polyethylene Glycol 3350 17 gm [Miralax Powder 17GM PACKET] 17 gm PO DAILY # 15 packet
[2018-06-21 16:41] LABS: BASOPHIL % 0.2 % (0.0-0.4); Basophil (Absolute #) 0.01 (0-0.4); Eosinophil % 2.7 % (0.00-5.0); Eosinophil (Absolute #) 0.13 (0-0.5); Granulocytes % 51.3 % (36.0-66.0); Hematocrit 40.2 % (35-47); Hemoglobin 13.6 gm/dl (12.0-16.0); Lymphocyte (Absolute #) 1.83 (1.0-4.6); Lymphocytes % 37.6 % (24.0-44.0); Mean Corpuscular Hemoglobin 32.2 pg (26-32); Mean Corpuscular Hgb Concent. 33.8 g/dl (32-36); Mean Platelet Volume 9.3 fl (6-9.5); Monocytes % 8.2 % (0.0-12.0); Platelet Count 376 K/mm3 (150-450); Red Blood Count 4.23 M/mm3 (4.1-5.4); Red Cell Distribution Width 12.4 % (11.5-14.0); White Blood Count 4.9 K/mm3 (4.0-10.5)
[2018-06-21] MEDS ORDERED: SUBLIMAZE 100 MCG/2 ML ONE (17:01)
[2018-06-21] MEDS ORDERED: Zofran 4 MG/2 ML VIAL ONE (17:01)
[2018-06-21 17:02] LABS: ALBUMIN 4.4 g/dL (3.5-5.0); ALKALINE PHOSPHATASE 61 U/L (38-126); ANION GAP 12.6 MEQ/L (5-15); BLOOD UREA NITROGEN 5 mg/dL (7-17); CHLORIDE 108 mmol/L (98-107); Calcium 9.2 mg/dL (8.4-10.2); Carbon Dioxide 23 mmol/L (22-30); Creatinine 1 0.73 mg/dL (0.52-1.04); Glucose 84 mg/dL (74-106); LIPASE 39 U/L (23-300); Potassium 3.5 mmol/L (3.5-5.1); SGOT/AST 17 U/L (14-36); SGPT/ALT 11 U/L (0-35); SODIUM 141 mmol/L (137-145); Total Protein 7.5 g/dL (6.3-8.2)
[2018-06-21] MEDS ORDERED: Sodium Chloride 0.9% 1000 ML 1,000 ML ONE (17:02)
--- NOTE | 2018-06-21 17:03 | XRAY ---
Indication: Right lower quadrant pain. Nausea. Multiple contiguous axial images obtained through the abdomen and pelvis without contrast as ordered. Comparison: November 12, 2017. Lung bases are clear. Heart is not enlarged. Noncontrasted stomach and bowel loops appear nonobstructed. Normal appendix. There is mild scattered colonic fecal debris greatest in the right hemicolon. No free fluid/air. Remaining liver, gallbladder, pancreas, spleen, adrenal glands, kidneys, ureters, bladder, uterus, and aorta appear unremarkable for noncontrast exam. Osseous structures intact. Impression: Mild fecal stasis without obstruction. Remaining CT abdomen/pelvis without contrast exam is negative. CTDI 18.65
[2018-06-21 17:17] LABS: Appearance CLEAR (CLEAR); Bilirubin NEGATIVE (NEGATIVE); Blood NEGATIVE Ery/ul (0-5); Epithelial Cells RARE /HPF (FEW); Glucose NEGATIVE (NEGATIVE); Ketones NEGATIVE (NEGATIVE); Leukocyte Esterase NEGATIVE (NEGATIVE); Mucus SLIGHT /HPF (NEGATIVE); Nitrite NEGATIVE (NEGATIVE); Protein,Urine Dip NEGATIVE (Negative); Specific Gravity 1.003 (1.005-1.025); Urobilinogen NEGATIVE mg/dL (0-1)
[2018-06-21 17:43] LABS: Amphetamine,Urine NEGATIVE (NEGATIVE); Barbiturate,Urine NEGATIVE (NEGATIVE); Benzodiazepine,Urine NEGATIVE (NEGATIVE); Cocaine,Urine NEGATIVE (NEGATIVE); Methadone,Urine NEGATIVE (NEGATIVE); Opiate,Urine POSITIVE (NEGATIVE); PCP,Urine NEGATIVE (NEGATIVE); THC,Urine NEGATIVE (NEGATIVE)
[2018-06-21 18:14] VITALS: BP 140/100; PULSE 70; O2SAT 98
== END 2018-06-21 18:13 | disposition home or self-care (01) ==
LOC: ED 15:52
DX: R10.31 Right lower quadrant pain (principal); K59.00 Constipation, unspecified; F41.8 Other specified anxiety disorders
CPT/HCPCS: 36415; 74176; 80053; 80307; 81001; 83690; 84703; 85025; 96360; 96374; 96375; 99284; J2405; J3010

== ENCOUNTER 2018-11-26 16:16 | Emergency (ER) | payer OTHER ==
[2018-11-26 16:43] VITALS: O2SAT 99
[2018-11-26] MEDS ORDERED: Decadron 4 MG INJ ONE (16:46)
--- NOTE | 2018-11-26 16:47 | ERPHSYRPT ---
- History of Present Illness Time Seen by Provider: 11/26/18 16:35 Source: patient Exam Limitations: no limitations Physician History: Right Hand Pain for the past 3 days after working extra time at her job on 2018. Occurred: days ago (3) Method of Injury: other (repetitive usage at her job) Quality: constant Severity of Pain-Max: severe Severity of Pain-Current: moderate Extremities Pain Location: hand: right Modifying Factors: Improves With: movement, other (patient noticed her hand red and swollen three days ago, but that has resolved at this time) Associated Symptoms: No back pain, No chills, No chest discomfort, No chest pain , No dyspnea, No fever, No jaw pain, No nausea, No neck pain, No sweating, No short of breath, No vomiting Allergies/Adverse Reactions: ketorolac tromethamine [From Toradol] Allergy (Mild, Verified 11/26/18 16:43) Rash orphenadrine citrate [From Norflex] Allergy (Mild, Verified 11/26/18 16:43) Rash prochlorperazine edisylate [From Compazine] Allergy (Mild, Verified 11/26/18 16: 43) Rash prochlorperazine maleate [From Compazine] Allergy (Mild, Verified 11/26/18 16:43 ) Rash Iodinated Contrast Media [Iodinated Contrast- Oral and IV Dye] Allergy ( Verified 11/26/18 16:43) Difficulty Breathing amoxicillin Adverse Reaction (Mild, Verified 11/26/18 16:43) Stomach Cramps CAUSES VAGINAL BLEEDING Home Medications: Medroxyprogesterone Acet [Depo-Provera] 150 mg IM UD 06/21/18 [History] PARoxetine HCl [Paroxetine HCl] 40 mg PO DAILY 06/21/18 [History] Hx Tetanus, Diphtheria Vaccination/Date Given: No Hx Influenza Vaccination/Date Given: No Hx Pneumococcal Vaccination/Date Given: No - Review of Systems Constitutional: No Fever, No Chills Eyes: No Symptoms, No Eye Pain, No Vision Changes Ears, Nose, & Throat: No Symptoms, No Mouth Pain, No Throat Pain Respiratory: No Cough, No Dyspnea Cardiac: No Chest Pain, No Edema, No Syncope Abdominal/Gastrointestinal: No Abdominal Pain, No Nausea, No Vomiting, No Diarrhea Genitourinary Symptoms: No Dysuria, No Hematuria, No Urinary Retention Musculoskeletal: No Back Pain, No Neck Pain Skin: No Rash Neurological: No Dizziness, No Focal Weakness, No Sensory Changes Psychological: No Symptoms Endocrine: No Symptoms Hematologic/Lymphatic: No Easy Bleeding, No Easy Bruising All Other Systems: Reviewed and Negative - Past Medical History Pertinent Past Medical History: Yes Neurological History: No Pertinent History ENT History: No Pertinent History Cardiac History: No Pertinent History Respiratory History: No Pertinent History Endocrine Medical History: No Pertinent History Musculoskeletal History: No Pertinent History GI Medical History: No Pertinent History History: Other Psycho-Social History: Anxiety, Depression Female Reproductive Disorders: Endometriosis Other Medical History: OVARIAN CYSTS - frequent low potassium - non-compliant with supplement - Past Surgical History Past Surgical History: Yes Neuro Surgical History: No Pertinent History Cardiac: No Pertinent History Respiratory: No Pertinent History Gastrointestinal: No Pertinent History Genitourinary: No Pertinent History Musculoskeletal: No Pertinent History Female Surgical History: Section Other Surgical History: WISDOM TEETH REMOVED - Social History Smoking Status: Current every day smoker How long have you smoked: 10 years Exposure to second hand smoke: Yes Alcohol Use: Socially Drug Use: none Patient Lives Alone: No Significant Family History: no pertinent family hx - Nursing Vital Signs Nursing Vital Signs: Initial Vital Signs Temperature 99.7 F 11/26/18 16:31 Pulse Rate 124 H 11/26/18 16:31 Blood Pressure 150/98 11/26/18 16:31 O2 Sat by Pulse Oximetry 99 11/26/18 16:31 Pain Scale Pain Intensity 4 - Physical Exam General Appearance: no apparent distress, alert Eyes, Ears, Nose, Throat Exam: moist mucous membranes Neck Exam: non-tender, supple Cardiovascular/Respiratory Exam: chest non-tender, normal breath sounds, regular rate/rhythm, heart sounds normal, no respiratory distress Back Exam: normal inspection, No CVA tenderness, No vertebral tenderness Elbow/Forearm Exam: normal inspection, non-tender, no evidence of injury, normal ROM Wrist Exam: normal inspection, non-tender, no evidence of injury, normal ROM Hand Exam: normal inspection, no evidence of injury, normal ROM, soft tissue tenderness, No abrasions, No bone tenderness, No ecchymosis, No infection, No limited ROM Neuro/Tendon Exam: normal sensation, normal motor functions Mental Status Exam: alert, oriented x 3, cooperative Skin Exam: normal color, warm, dry SpO2 Interpretation: normal O2 Delivery: Room Air - Radiology Exams Right Hand X-ray Interpretation: Interpreted by me, Reviewed by me, No Fracture, Nml Alignment, Nml Soft Tissues Ordered Tests: Active Orders 24 hr Category Date Time Status HAND (MINIMUM 3 VIEWS) Stat Exams 11/26/18 16:42 Taken Medication Summary Discontinued Medications Generic Name Dose Route Start Last Admin Trade Name Natalie PRN Reason Stop Dose Admin Dexamethasone Sodium Phosphate 4 mg 11/26/18 16:43 11/26/18 16:49 Decadron 4 Mg Inj IM 11/26/18 16:44 4 mg STAT ONE Administration Dexamethasone Sodium Phosphate Confirm 11/26/18 16:46 Decadron 4 Mg Inj Administered 11/26/18 16:47 Dose 4 mg .ROUTE .[employer] ONE - Progress Progress: improved Progress Note: 11/26/18 17:17 Pulse has improved, down to 94. Patient's pain is improving, but not completely gone. patient has no loss of function with full flexion and extension at the MCP, PIP, and DIP joints bilaterally. No signs erythema, swelling, or streaking up the right upper extremity in comparison to the left upper cavity. Patient neurovascularly intact in both upper extremities. Counseled pt/family regarding: diagnosis, need for follow-up, rad results - Departure Departure Disposition: Home Clinical Impression: Right hand pain, Tenosynovitis of right hand, Elevated blood pressure reading without diagnosis of hypertension Condition: Good Critical Care Time: No Referrals: MARTINE CROOKS NP [Primary Care Provider] - Follow Up with PCP/3 days Instructions: Hand Pain (DC), DASH Diet, Tenosynovitis Forms: Work/School Release Form Prescriptions: Prednisone 20 mg [Deltasone 20 mg] 60 mg PO DAILY PRN #9 tablet PRN Reason: pain
[2018-11-26] MEDS: Decadron 4 MG INJ IM ONE (16:49)
[2018-11-26 17:33] VITALS: BP 137/98; PULSE 88
--- NOTE | 2018-11-26 19:25 | XRAY ---
Indication: Pain 5 days. Comparison: None 3 views of the right hand obtained. No bony, articular, or soft tissue abnormalities.
== END 2018-11-26 17:33 | disposition home or self-care (01) ==
LOC: ED 16:16
DX: M65.841 Other synovitis and tenosynovitis, right hand (principal); R03.0 Elevated blood-pressure reading, without diagnosis of hypertension
CPT/HCPCS: 73130; 96372; 99284; J1100

== ENCOUNTER 2019-03-02 21:02 | Emergency (ER) | payer OTHER ==
--- NOTE | 2019-03-02 21:21 | ERPHSYRPT ---
- History of Present Illness Time Seen by Provider: 03/02/19 21:21 Historian: patient Exam Limitations: no limitations Physician History: 33 y/o white female presents with sudden onset of rlq abd pain and right flank pain. pain worse. no n/v/d. pt has h/o ovarian cysts. pt still has appendix present. denies abnl vaginal discharge. Timing/Duration: hour(s) (2) Activities at Onset: none Quality: sharpness, stabbing Abdominal Pain Onset Location: RLQ Pain Radiation: flank (right) Severity of Pain-Max: moderate Severity of Pain-Current: moderate Modifying Factors: Improves With: palpation Associated Symptoms: denies symptoms Previous symptoms: no prior history Allergies/Adverse Reactions: ketorolac tromethamine [From Toradol] Allergy (Mild, Verified 11/26/18 16:43) Rash orphenadrine citrate [From Norflex] Allergy (Mild, Verified 11/26/18 16:43) Rash prochlorperazine edisylate [From Compazine] Allergy (Mild, Verified 11/26/18 16: 43) Rash prochlorperazine maleate [From Compazine] Allergy (Mild, Verified 11/26/18 16:43 ) Rash Iodinated Contrast Media [Iodinated Contrast- Oral and IV Dye] Allergy ( Verified 11/26/18 16:43) Difficulty Breathing amoxicillin Adverse Reaction (Mild, Verified 11/26/18 16:43) Stomach Cramps CAUSES VAGINAL BLEEDING Home Medications: Medroxyprogesterone Acet [Depo-Provera] 150 mg IM UD 06/21/18 [History] PARoxetine HCl [Paroxetine HCl] 40 mg PO DAILY 06/21/18 [History] Hx Tetanus, Diphtheria Vaccination/Date Given: No Hx Influenza Vaccination/Date Given: No Hx Pneumococcal Vaccination/Date Given: No - Review of Systems Constitutional: No Symptoms Eyes: No Symptoms Ears, Nose, & Throat: No Symptoms Respiratory: No Symptoms Cardiac: No Symptoms Abdominal/Gastrointestinal: Abdominal Pain Genitourinary Symptoms: Flank Pain (right ) Musculoskeletal: No Symptoms Skin: No Symptoms Neurological: No Symptoms Psychological: No Symptoms Endocrine: No Symptoms Hematologic/Lymphatic: No Symptoms Immunological/Allergic: No Symptoms All Other Systems: Reviewed and Negative - Past Medical History Pertinent Past Medical History: Yes Neurological History: No Pertinent History ENT History: No Pertinent History Cardiac History: No Pertinent History Respiratory History: No Pertinent History Endocrine Medical History: No Pertinent History Musculoskeletal History: No Pertinent History GI Medical History: No Pertinent History History: Other Psycho-Social History: Anxiety, Depression Female Reproductive Disorders: Endometriosis Other Medical History: OVARIAN CYSTS - frequent low potassium - non-compliant with supplement - Past Surgical History Past Surgical History: Yes Neuro Surgical History: No Pertinent History Cardiac: No Pertinent History Respiratory: No Pertinent History Gastrointestinal: No Pertinent History Genitourinary: No Pertinent History Musculoskeletal: No Pertinent History Female Surgical History: Section Other Surgical History: WISDOM TEETH REMOVED - Social History Smoking Status: Current every day smoker How long have you smoked: 10 years Exposure to second hand smoke: Yes Alcohol Use: Socially Drug Use: none Patient Lives Alone: No Significant Family History: no pertinent family hx - Nursing Vital Signs Nursing Vital Signs: Initial Vital Signs Temperature 98.0 F 03/02/19 21:11 Pulse Rate 136 H 03/02/19 21:11 Respiratory Rate 16 03/02/19 21:11 Blood Pressure 136/101 03/02/19 21:11 O2 Sat by Pulse Oximetry 99 03/02/19 21:11 Pain Scale Pain Intensity 7 - Physical Exam General Appearance: mild distress, alert, anxiety Eye Exam: PERRL/EOMI, eyes nml inspection Ears, Nose, Throat Exam: normal ENT inspection, moist mucous membranes Neck Exam: normal inspection, non-tender, supple, full range of motion Respiratory Exam: normal breath sounds, lungs clear, airway intact, No chest tenderness, No respiratory distress Cardiovascular Exam: regular rate/rhythm, normal heart sounds, normal peripheral pulses Gastrointestinal/Abdomen Exam: soft, normal bowel sounds, tenderness (rlq localized pain), guarding Pelvic Exam: not done Rectal Exam: not done Back Exam: normal inspection, normal range of motion, No CVA tenderness, No vertebral tenderness Extremity Exam: normal inspection, normal range of motion, pelvis stable Neurologic Exam: alert, oriented x 3, cooperative, physician/allergy/immunology II-XII nml as tested Skin Exam: normal color, warm, dry Lymphatic Exam: No adenopathy SpO2 Interpretation: normal SpO2: 99 O2 Delivery: Room Air - Course Nursing assessment & vital signs reviewed: Yes Ordered Tests: Active Orders 24 hr Category Date Time Status IV Insertion STAT Care 03/02/19 21:37 Active ABDOMEN AND PELVIS W/0 CONTRAS [CT] Stat Exams 03/02/19 21:37 Taken AMYLASE Stat Lab 03/02/19 21:35 Completed CBC W DIFF Stat Lab 03/02/19 21:35 Completed CMP Stat Lab 03/02/19 21:35 Completed HCG,QUALITATIVE URINE Stat Lab 03/02/19 21:30 Completed LIPASE Stat Lab 03/02/19 21:35 Completed Lactic Acid Stat Lab 03/02/19 21:41 Completed UA W/RFX UR CULTURE Stat Lab 03/02/19 21:30 Completed Medication Summary Discontinued Medications Generic Name Dose Route Start Last Admin Trade Name Freq PRN Reason Stop Dose Admin Hydromorphone HCl 0.5 mg 03/02/19 21:37 03/02/19 21:47 Hydromorphone 1 Mg/Ml Ampule IV 03/02/19 21:38 0.5 mg STAT ONE Administration Hydromorphone HCl Confirm 03/02/19 21:42 Hydromorphone 1 Mg/Ml Ampule Administered 03/02/19 21:43 Dose 1 mg .ROUTE .[facility] ONE Sodium Chloride 1,000 mls @ 999 mls/hr 03/02/19 21:37 03/02/19 21:47 Sodium Chloride 0.9% 1000 Ml IV 03/02/19 22:37 999 mls/hr .Q1H1M STA Administration Sodium Chloride Confirm 03/02/19 21:42 Sodium Chloride 0.9% 1000 Ml Administered 03/02/19 21:43 Dose 1,000 mls @ ud .ROUTE .[facility] ONE Ondansetron HCl 4 mg 03/02/19 21:37 03/02/19 21:47 Zofran 4 Mg/2 Ml Vial IV 03/02/19 21:38 4 mg STAT ONE Administration Ondansetron HCl Confirm 03/02/19 21:42 Zofran 4 Mg/2 Ml Vial Administered 03/02/19 21:43 Dose 4 mg .ROUTE .[facility] ONE Lab/Rad Data: Laboratory Result Diagrams 03/02/19 21:35 03/02/19 21:35 Laboratory Results 03/02/19 03/02/19 03/02/19 Range/Units 21:41 21:35 21:35 WBC 8.3 (4.0-10.5) K/mm3 RBC 4.78 (4.1-5.4) M/mm3 Hgb 14.8 (12.0-16.0) gm/dl Hct 43.7 (35-47) % MCV 91.4 (78-100) fl MCH 31.0 (26-32) pg MCHC 33.9 (32-36) g/dl RDW 12.6 (11.5-14.0) % Plt Count 447 (150-450) K/mm3 MPV 9.0 (6-9.5) fl Gran % 63.8 (36.0-66.0) % Eos # (Auto) 0.21 (0-0.5) Absolute Lymphs (auto) 2.09 (1.0-4.6) Absolute Monos (auto) 0.70 (0.0-1.3) Lymphocytes % 25.1 (24.0-44.0) % Monocytes % 8.4 (0.0-12.0) % Eosinophils % 2.5 (0.00-5.0) % Basophils % 0.2 (0.0-0.4) % Absolute Granulocytes 5.31 (1.4-6.9) Basophils # 0.02 (0-0.4) Sodium 143 (137-145) mmol/L Potassium 3.6 (3.5-5.1) mmol/L Chloride 107 (98-107) mmol/L Carbon Dioxide 25 (22-30) mmol/L Anion Gap 13.5 (5-15) MEQ/L BUN 8 (7-17) mg/dL Creatinine 0.78 (0.52-1.04) mg/dL Estimated GFR > 60.0 ML/MIN Glucose 99 (74-106) mg/dL Lactic Acid 1.4 (0.4-2.0) Calcium 9.3 (8.4-10.2) mg/dL Total Bilirubin 0.40 (0.2-1.3) mg/dL AST 16 (14-36) U/L ALT 12 (0-35) U/L Alkaline Phosphatase 87 (38-126) U/L Serum Total Protein 8.0 (6.3-8.2) g/dL Albumin 4.4 (3.5-5.0) g/dL Amylase 69 (30-110) U/L Lipase 72 (23-300) U/L Urine Color (YELLOW) Urine Appearance (CLEAR) Urine pH (5-6) Ur Specific Sidney (1.005-1.025) Urine Protein (Negative) Urine Ketones (NEGATIVE) Urine Blood (0-5) Alfred/ul Urine Nitrite (NEGATIVE) Urine Bilirubin (NEGATIVE) Urine Urobilinogen (0-1) mg/dL Ur Leukocyte Esterase (NEGATIVE) Urine WBC (Auto) (0-5) /HPF Urine RBC (Auto) (0-2) /HPF U Epithel Cells (Auto) (FEW) /HPF Urine Bacteria (Auto) (NEGATIVE) /HPF Unidentified Crystals (NEGATIVE) /HPF Urine Mucus (Auto) (NEGATIVE) /HPF Urine Culture Reflexed (NO) Urine Glucose (NEGATIVE) mg/dL Urine HCG, Qual (Negative) 03/02/19 03/02/19 Range/Units 21:30 21:30 WBC (4.0-10.5) K/mm3 RBC (4.1-5.4) M/mm3 Hgb (12.0-16.0) gm/dl Hct (35-47) % MCV (78-100) fl MCH (26-32) pg MCHC (32-36) g/dl RDW (11.5-14.0) % Plt Count (150-450) K/mm3 MPV (6-9.5) fl Gran % (36.0-66.0) % Eos # (Auto) (0-0.5) Absolute Lymphs (auto) (1.0-4.6) Absolute Monos (auto) (0.0-1.3) Lymphocytes % (24.0-44.0) % Monocytes % (0.0-12.0) % Eosinophils % (0.00-5.0) % Basophils % (0.0-0.4) % Absolute Granulocytes (1.4-6.9) Basophils # (0-0.4) Sodium (137-145) mmol/L Potassium (3.5-5.1) mmol/L Chloride (98-107) mmol/L Carbon Dioxide (22-30) mmol/L Anion Gap (5-15) MEQ/L BUN (7-17) mg/dL Creatinine (0.52-1.04) mg/dL Estimated GFR ML/MIN Glucose (74-106) mg/dL Lactic Acid (0.4-2.0) Calcium (8.4-10.2) mg/dL Total Bilirubin (0.2-1.3) mg/dL AST (14-36) U/L ALT (0-35) U/L Alkaline Phosphatase (38-126) U/L Serum Total Protein (6.3-8.2) g/dL Albumin (3.5-5.0) g/dL Amylase (30-110) U/L Lipase (23-300) U/L Urine Color YELLOW (YELLOW) Urine Appearance CLEAR (CLEAR) Urine pH 5.0 (5-6) Ur Specific Sidney 1.009 (1.005-1.025) Urine Protein NEGATIVE (Negative) Urine Ketones NEGATIVE (NEGATIVE) Urine Blood NEGATIVE (0-5) Alfred/ul Urine Nitrite NEGATIVE (NEGATIVE) Urine Bilirubin NEGATIVE (NEGATIVE) Urine Urobilinogen NEGATIVE (0-1) mg/dL Ur Leukocyte Esterase NEGATIVE (NEGATIVE) Urine WBC (Auto) 6-10 (0-5) /HPF Urine RBC (Auto) 3-5 (0-2) /HPF U Epithel Cells (Auto) FEW (FEW) /HPF Urine Bacteria (Auto) FEW (NEGATIVE) /HPF Unidentified Crystals 2-5 (NEGATIVE) /HPF Urine Mucus (Auto) SLIGHT (NEGATIVE) /HPF Urine Culture Reflexed NO (NO) Urine Glucose NEGATIVE (NEGATIVE) mg/dL Urine HCG, Qual NEGATIVE (Negative) - Progress Progress: pain not gone completely, re-examined Progress Note: 03/02/19 22:39 ct abd/pelvis no acute findings Counseled pt/family regarding: lab results, diagnosis, need for follow-up, rad results - Departure Departure Disposition: Home Clinical Impression: Abdominal pain Condition: Stable Critical Care Time: No Referrals: MARTINE CROOKS NP [Primary Care Provider] - Additional Instructions: drink plenty of fluids. tylenol for pain. follow up with primary doctor for further management
[2019-03-02] MEDS ORDERED: Sodium Chloride 0.9% 1000 ML 1,000 ML IV STA (21:37)
[2019-03-02] MEDS ORDERED: Zofran 4 MG/2 ML VIAL IV ONE (21:37)
[2019-03-02] MEDS ORDERED: Hydromorphone 1 mg/ml Ampule IV ONE (21:37)
[2019-03-02] MEDS ORDERED: Sodium Chloride 0.9% 1000 ML 1,000 ML ONE (21:42)
[2019-03-02] MEDS ORDERED: Hydromorphone 1 mg/ml Ampule ONE (21:42)
[2019-03-02] MEDS ORDERED: Zofran 4 MG/2 ML VIAL ONE (21:42)
[2019-03-02 21:45] LABS: Absolute Neutrophil Ct (ANC) 5.31 (1.4-6.9); BASOPHIL % 0.2 % (0.0-0.4); Basophil (Absolute #) 0.02 (0-0.4); Eosinophil % 2.5 % (0.00-5.0); Eosinophil (Absolute #) 0.21 (0-0.5); Hematocrit 43.7 % (35-47); Hemoglobin 14.8 gm/dl (12.0-16.0); Lymphocyte (Absolute #) 2.09 (1.0-4.6); Lymphocytes % 25.1 % (24.0-44.0); Mean Cell Volume 91.4 fl (78-100); Mean Corpuscular Hgb Concent. 33.9 g/dl (32-36); Monocytes % 8.4 % (0.0-12.0); Neutrophil % 63.8 % (36.0-66.0); Platelet Count 447 K/mm3 (150-450); Red Blood Count 4.78 M/mm3 (4.1-5.4); Red Cell Distribution Width 12.6 % (11.5-14.0); White Blood Count 8.3 K/mm3 (4.0-10.5)
[2019-03-02 21:53] LABS: Appearance CLEAR (CLEAR); Bacteria FEW /HPF (NEGATIVE); Bilirubin NEGATIVE (NEGATIVE); Blood NEGATIVE Ery/ul (0-5); Epithelial Cells FEW /HPF (FEW); Glucose NEGATIVE (NEGATIVE); Ketones NEGATIVE (NEGATIVE); Leukocyte Esterase NEGATIVE (NEGATIVE); Mucus SLIGHT /HPF (NEGATIVE); Nitrite NEGATIVE (NEGATIVE); Protein,Urine Dip NEGATIVE (Negative); Specific Gravity 1.009 (1.005-1.025); Urobilinogen NEGATIVE mg/dL (0-1)
[2019-03-02 21:59] LABS: ALBUMIN 4.4 g/dL (3.5-5.0); ALKALINE PHOSPHATASE 87 U/L (38-126); AMYLASE 69 U/L (30-110); ANION GAP 13.5 MEQ/L (5-15); BLOOD UREA NITROGEN 8 mg/dL (7-17); CHLORIDE 107 mmol/L (98-107); Calcium 9.3 mg/dL (8.4-10.2); Carbon Dioxide 25 mmol/L (22-30); Creatinine 1 0.78 mg/dL (0.52-1.04); Glucose 99 mg/dL (74-106); LIPASE 72 U/L (23-300); Potassium 3.6 mmol/L (3.5-5.1); SGOT/AST 16 U/L (14-36); SGPT/ALT 12 U/L (0-35); SODIUM 143 mmol/L (137-145)
[2019-03-02] MEDS ORDERED: NORCO 5/325 MG PO ONE (22:48)
[2019-03-02] MEDS ORDERED: NORCO 5/325 MG ONE (23:03)
[2019-03-02 23:10] VITALS: BP 131/104; PULSE 96; O2SAT 98
--- NOTE | 2019-03-03 08:51 | XRAY ---
Indication: Abdomen/right flank pain. Multiple contiguous axial images obtained through the abdomen and pelvis without contrast as ordered. Comparison: June 21, 2018. Lung bases demonstrates minimal inferior right middle lobe fibrosis/scarring. No infiltrate or effusion. Heart is not enlarged. Stomach is distended with food/fluid. Noncontrasted bowel loops appear nonobstructed. Normal appendix. Again mild scattered colonic fecal debris throughout, greatest in the ascending and transverse colon. No free fluid/air. Remaining liver, gallbladder, pancreas, spleen, adrenal glands, kidneys, ureters, bladder, uterus, and aorta appear unremarkable for noncontrast exam. Osseous structures intact. Impression: 1. Again mild fecal stasis without obstruction. 2. Remaining CT abdomen/pelvis without contrast exam is negative. Comment: Preliminary interpretation was made by [facility]. No critical discrepancy. CT DI 9.43
== END 2019-03-02 23:15 | disposition home or self-care (01) ==
LOC: ED 21:02
DX: R10.9 Unspecified abdominal pain (principal)
CPT/HCPCS: 36000; 36415; 74176; 80053; 81001; 82150; 83605; 83690; 84703; 85025; 96374; 96375; 99284; J1170; J2405; A9270-GY

== ENCOUNTER 2019-08-26 19:25 | Emergency (ER) | payer OTHER ==
[2019-08-26] MEDS ORDERED: Sodium Chloride 0.9% 1000 ML 1,000 ML IV STA (20:17)
[2019-08-26] MEDS ORDERED: MORPHINE SULFATE 4 MG INJ IV ONE (20:17)
[2019-08-26] MEDS ORDERED: Zofran 4 MG/2 ML VIAL IV ONE (20:17)
[2019-08-26] MEDS ORDERED: MORPHINE SULFATE 4 MG INJ ONE (20:19)
[2019-08-26] MEDS ORDERED: Zofran 4 MG/2 ML VIAL ONE (20:19)
[2019-08-26] MEDS ORDERED: Sodium Chloride 0.9% 1000 ML 1,000 ML ONE (20:19)
[2019-08-26 20:37] LABS: Appearance CLEAR (CLEAR); Bilirubin NEGATIVE (NEGATIVE); Blood NEGATIVE Ery/ul (0-5); Glucose NEGATIVE (NEGATIVE); Ketones NEGATIVE (NEGATIVE); Leukocyte Esterase NEGATIVE (NEGATIVE); Mucus SLIGHT /HPF (NEGATIVE); Nitrite NEGATIVE (NEGATIVE); Protein,Urine Dip NEGATIVE (Negative); Specific Gravity 1.011 (1.005-1.025); Urobilinogen NEGATIVE mg/dL (0-1); WBC 0-2 /HPF (0-5)
[2019-08-26 20:43] LABS: Absolute Neutrophil Ct (ANC) 2.46 (1.4-6.9); BASOPHIL % 0.2 % (0.0-0.4); Basophil (Absolute #) 0.01 (0-0.4); Eosinophil (Absolute #) 0.26 (0-0.5); Hematocrit 40.5 % (35-47); Hemoglobin 13.6 gm/dl (12.0-16.0); Lymphocyte (Absolute #) 1.95 (1.0-4.6); Lymphocytes % 37.3 % (24.0-44.0); Mean Cell Volume 94.8 fl (78-100); Mean Corpuscular Hemoglobin 31.9 pg (26-32); Mean Corpuscular Hgb Concent. 33.6 g/dl (32-36); Mean Platelet Volume 9.3 fl (7.5-11.0); Monocyte (Absolute #) 0.55 (0.0-1.3); Monocytes % 10.5 % (0.0-12.0); Platelet Count 305 K/mm3 (150-450); Red Blood Count 4.27 M/mm3 (4.1-5.4); Red Cell Distribution Width 12.2 % (11.5-14.0); White Blood Count 5.2 K/mm3 (4.0-10.5)
[2019-08-26 20:52] LABS: ALBUMIN 4.1 g/dL (3.5-5.0); ALKALINE PHOSPHATASE 58 U/L (38-126); ANION GAP 12.4 MEQ/L (5-15); BLOOD UREA NITROGEN 7 mg/dL (7-17); CHLORIDE 105 mmol/L (98-107); Calcium 8.7 mg/dL (8.4-10.2); Carbon Dioxide 25 mmol/L (22-30); Creatinine 1 0.73 mg/dL (0.52-1.04); Glucose 72 mg/dL (74-106); LIPASE 45 U/L (23-300); Potassium 3.4 mmol/L (3.5-5.1); SGOT/AST 18 U/L (14-36); SGPT/ALT 15 U/L (0-35); SODIUM 139 mmol/L (137-145); Total Protein 7.3 g/dL (6.3-8.2)
--- NOTE | 2019-08-26 21:28 | ERPHSYRPT ---
- History of Present Illness Time Seen by Provider: 08/26/19 19:47 Historian: patient Exam Limitations: no limitations Patient Subjective Stated Complaint: pt states she has had intermittent abd pain for last year or more. states started last night and got much worse about 1600. describes pain as cramping and contraction like to rt abd Triage Nursing Assessment: pt alert and oriented, answers questions approp. respirations nonlabored with lungs cta. pt ambulatory with steady gait noted. posture stooped when walking nto room. abd soft with bowel sounds present x4. Physician History: 33 years old female with history of chronic off-and-on abdominal pain presented in the ER with chief complaint of right lower quadrant pain sudden onset last night, moderate to severe intensity, continuous, aggravated with movements and palpation, she is unable to find a comfortable spot. Not associated with any nausea vomiting, diarrhea. Patient report regular bowel movements every day. Denies any fever or chills. Timing/Duration: yesterday, sudden, worse Activities at Onset: rest Quality: sharpness Abdominal Pain Onset Location: RLQ Pain Radiation: groin Severity of Pain-Max: severe Severity of Pain-Current: severe Modifying Factors: Improves With: movement Associated Symptoms: No diarrhea, No fever/chills, No nausea, No vomiting Previous symptoms: same symptoms as today Allergies/Adverse Reactions: Iodinated Contrast Media [Iodinated Contrast- Oral and IV Dye] Allergy ( Intermediate, Verified 08/26/19 19:55) Difficulty Breathing ketorolac tromethamine [From Toradol] Allergy (Mild, Verified 08/26/19 19:55) Rash orphenadrine citrate [From Norflex] Allergy (Mild, Verified 08/26/19 19:55) Rash prochlorperazine edisylate [From Compazine] Allergy (Mild, Verified 08/26/19 19: 55) Rash prochlorperazine maleate [From Compazine] Allergy (Mild, Verified 08/26/19 19:55 ) Rash amoxicillin Adverse Reaction (Mild, Verified 08/26/19 19:55) Stomach Cramps CAUSES VAGINAL BLEEDING Home Medications: Medroxyprogesterone Acet [Depo-Provera] 150 mg IM UD 06/21/18 [History] PARoxetine HCL [Paroxetine HCl] 40 mg PO DAILY 06/21/18 [History] Aripiprazole [Abilify] 5 mg PO DAILY 08/26/19 [History] Hx Tetanus, Diphtheria Vaccination/Date Given: Yes Hx Influenza Vaccination/Date Given: No Hx Pneumococcal Vaccination/Date Given: No Immunizations Up to Date: Yes Travel Risk - International Travel Have you traveled outside of the country in past 3 weeks: No Have you or anyone close to you been diagnosed with or: No Do your reside in a community with a known COVID-19 case?: Yes If Yes where:: [facility] - Coronavirus Screening Has patient experienced Coronavirus symptoms: No - Review of Systems Constitutional: No Symptoms Eyes: No Symptoms Ears, Nose, & Throat: No Symptoms Respiratory: No Symptoms Cardiac: No Symptoms Abdominal/Gastrointestinal: Abdominal Pain Genitourinary Symptoms: No Symptoms Musculoskeletal: No Symptoms Skin: No Symptoms Neurological: No Symptoms Psychological: No Symptoms Endocrine: No Symptoms Hematologic/Lymphatic: No Symptoms Immunological/Allergic: No Symptoms - Past Medical History Pertinent Past Medical History: Yes Neurological History: No Pertinent History ENT History: No Pertinent History Cardiac History: No Pertinent History Respiratory History: No Pertinent History Endocrine Medical History: No Pertinent History Musculoskeletal History: No Pertinent History GI Medical History: No Pertinent History History: Other Psycho-Social History: Anxiety, Depression Female Reproductive Disorders: Endometriosis Other Medical History: OVARIAN CYSTS - frequent low potassium - non-compliant with supplement - Past Surgical History Past Surgical History: Yes Neuro Surgical History: No Pertinent History Cardiac: No Pertinent History Respiratory: No Pertinent History Gastrointestinal: No Pertinent History Genitourinary: No Pertinent History Musculoskeletal: No Pertinent History Female Surgical History: Section Other Surgical History: WISDOM TEETH REMOVED - Social History Smoking Status: Current every day smoker How long have you smoked: 10 years Exposure to second hand smoke: Yes Alcohol Use: Socially Drug Use: none Patient Lives Alone: No Significant Family History: no pertinent family hx - Female History Hx Last Menstrual Period: depo shot Hx Now: No - Nursing Vital Signs Nursing Vital Signs: Initial Vital Signs Temperature 99.1 F 08/26/19 19:41 Pulse Rate 114 H 08/26/19 19:41 Respiratory Rate 20 08/26/19 19:41 Blood Pressure 139/108 08/26/19 19:41 O2 Sat by Pulse Oximetry 100 08/26/19 19:41 Pain Scale Pain Intensity 5 - Physical Exam General Appearance: no apparent distress, alert Eye Exam: eyes nml inspection Ears, Nose, Throat Exam: normal ENT inspection, pharynx normal Neck Exam: normal inspection, full range of motion Respiratory Exam: normal breath sounds, lungs clear Cardiovascular Exam: regular rate/rhythm, normal heart sounds Gastrointestinal/Abdomen Exam: soft, tenderness (Quadrant with minimal guarding) Back Exam: normal inspection, normal range of motion, No CVA tenderness Extremity Exam: normal inspection, normal range of motion Neurologic Exam: alert, oriented x 3, cooperative Skin Exam: normal color SpO2 Interpretation: normal SpO2: 96 O2 Delivery: Room Air - Course Nursing assessment & vital signs reviewed: Yes Ordered Tests: Active Orders 24 hr Category Date Time Status IV Insertion STAT Care 08/26/19 20:10 Active ABDOMEN AND PELVIS W/0 CONTRAS [CT] Stat Exams 08/26/19 20:18 Completed AMYLASE Stat Lab 08/26/19 20:30 Completed CBC W DIFF Stat Lab 08/26/19 20:30 Completed CMP Stat Lab 08/26/19 20:30 Completed HCG,QUALITATIVE URINE Stat Lab 08/26/19 18:42 Completed LIPASE Stat Lab 08/26/19 20:30 Completed UA W/RFX UR CULTURE Stat Lab 08/26/19 20:10 Completed Medication Summary Discontinued Medications Generic Name Dose Route Start Last Admin Trade Name Freq PRN Reason Stop Dose Admin Sodium Chloride 1,000 mls @ 999 mls/hr 08/26/19 20:17 08/26/19 21:29 Sodium Chloride 0.9% 1000 Ml IV 08/26/19 21:17 999 mls/hr .Q1H1M STA Infusion Sodium Chloride Confirm 08/26/19 20:19 Sodium Chloride 0.9% 1000 Ml Administered 08/26/19 20:20 Dose 1,000 mls @ ud .ROUTE .STK-MED ONE Morphine Sulfate 4 mg 08/26/19 20:17 08/26/19 20:22 Morphine Sulfate 4 Mg Inj IV 08/26/19 20:18 4 mg STAT ONE Administration Morphine Sulfate Confirm 08/26/19 20:19 Morphine Sulfate 4 Mg Inj Administered 08/26/19 20:20 Dose 4 mg .ROUTE .STK-MED ONE Ondansetron HCl 4 mg 08/26/19 20:17 08/26/19 20:21 Zofran 4 Mg/2 Ml Vial IV 08/26/19 20:18 4 mg STAT ONE Administration Ondansetron HCl Confirm 08/26/19 20:19 Zofran 4 Mg/2 Ml Vial Administered 08/26/19 20:20 Dose 4 mg .ROUTE .STK-MED ONE Lab/Rad Data: Laboratory Result Diagrams 08/26/19 20:30 08/26/19 20:30 Laboratory Results 08/26/19 08/26/19 08/26/19 Range/Units 20:30 20:30 20:30 WBC 5.2 (4.0-10.5) K/mm3 RBC 4.27 (4.1-5.4) M/mm3 Hgb 13.6 (12.0-16.0) gm/dl Hct 40.5 (35-47) % MCV 94.8 (78-100) fl MCH 31.9 (26-32) pg MCHC 33.6 (32-36) g/dl RDW 12.2 (11.5-14.0) % Plt Count 305 (150-450) K/mm3 MPV 9.3 (7.5-11.0) fl Gran % 47.0 (36.0-66.0) % Eos # (Auto) 0.26 (0-0.5) Absolute Lymphs (auto) 1.95 (1.0-4.6) Absolute Monos (auto) 0.55 (0.0-1.3) Lymphocytes % 37.3 (24.0-44.0) % Monocytes % 10.5 (0.0-12.0) % Eosinophils % 5.0 (0.00-5.0) % Basophils % 0.2 (0.0-0.4) % Absolute Granulocytes 2.46 (1.4-6.9) Basophils # 0.01 (0-0.4) Sodium 139 (137-145) mmol/L Potassium 3.4 L (3.5-5.1) mmol/L Chloride 105 (98-107) mmol/L Carbon Dioxide 25 (22-30) mmol/L Anion Gap 12.4 (5-15) MEQ/L BUN 7 (7-17) mg/dL Creatinine 0.73 (0.52-1.04) mg/dL Estimated GFR > 60.0 ML/MIN Glucose 72 L (74-106) mg/dL Calcium 8.7 (8.4-10.2) mg/dL Total Bilirubin 0.30 (0.2-1.3) mg/dL AST 18 (14-36) U/L ALT 15 (0-35) U/L Alkaline Phosphatase 58 (38-126) U/L Serum Total Protein 7.3 (6.3-8.2) g/dL Albumin 4.1 (3.5-5.0) g/dL Amylase 42 (30-110) U/L Lipase 45 (23-300) U/L Urine Color (YELLOW) Urine Appearance (CLEAR) Urine pH (5-6) Ur Specific [place] (1.005-1.025) Urine Protein (Negative) Urine Ketones (NEGATIVE) Urine Blood (0-5) Alfred/ul Urine Nitrite (NEGATIVE) Urine Bilirubin (NEGATIVE) Urine Urobilinogen (0-1) mg/dL Ur Leukocyte Esterase (NEGATIVE) Urine WBC (Auto) (0-5) /HPF Urine RBC (Auto) (0-2) /HPF U Epithel Cells (Auto) (FEW) /HPF Urine Bacteria (Auto) (NEGATIVE) /HPF Urine Mucus (Auto) (NEGATIVE) /HPF Urine Culture Reflexed (NO) Urine Glucose (NEGATIVE) mg/dL Urine HCG, Qual (Negative) 08/26/19 08/26/19 Range/Units 20:10 18:42 WBC (4.0-10.5) K/mm3 RBC (4.1-5.4) M/mm3 Hgb (12.0-16.0) gm/dl Hct (35-47) % MCV (78-100) fl MCH (26-32) pg MCHC (32-36) g/dl RDW (11.5-14.0) % Plt Count (150-450) K/mm3 MPV (7.5-11.0) fl Gran % (36.0-66.0) % Eos # (Auto) (0-0.5) Absolute Lymphs (auto) (1.0-4.6) Absolute Monos (auto) (0.0-1.3) Lymphocytes % (24.0-44.0) % Monocytes % (0.0-12.0) % Eosinophils % (0.00-5.0) % Basophils % (0.0-0.4) % Absolute Granulocytes (1.4-6.9) Basophils # (0-0.4) Sodium (137-145) mmol/L Potassium (3.5-5.1) mmol/L Chloride (98-107) mmol/L Carbon Dioxide (22-30) mmol/L Anion Gap (5-15) MEQ/L BUN (7-17) mg/dL Creatinine (0.52-1.04) mg/dL Estimated GFR ML/MIN Glucose (74-106) mg/dL Calcium (8.4-10.2) mg/dL Total Bilirubin (0.2-1.3) mg/dL AST (14-36) U/L ALT (0-35) U/L Alkaline Phosphatase (38-126) U/L Serum Total Protein (6.3-8.2) g/dL Albumin (3.5-5.0) g/dL Amylase (30-110) U/L Lipase (23-300) U/L Urine Color YELLOW (YELLOW) Urine Appearance CLEAR (CLEAR) Urine pH 5.0 (5-6) Ur Specific [place] 1.011 (1.005-1.025) Urine Protein NEGATIVE (Negative) Urine Ketones NEGATIVE (NEGATIVE) Urine Blood NEGATIVE (0-5) Alfred/ul Urine Nitrite NEGATIVE (NEGATIVE) Urine Bilirubin NEGATIVE (NEGATIVE) Urine Urobilinogen NEGATIVE (0-1) mg/dL Ur Leukocyte Esterase NEGATIVE (NEGATIVE) Urine WBC (Auto) 0-2 (0-5) /HPF Urine RBC (Auto) NONE (0-2) /HPF U Epithel Cells (Auto) NONE (FEW) /HPF Urine Bacteria (Auto) NONE (NEGATIVE) /HPF Urine Mucus (Auto) SLIGHT (NEGATIVE) /HPF Urine Culture Reflexed NO (NO) Urine Glucose NEGATIVE (NEGATIVE) mg/dL Urine HCG, Qual NEGATIVE (Negative) - Progress Progress: improved, re-examined Progress Note: 08/26/19 22:02 33 years old is evaluated for right lower quadrant pain. She is given IV fluid and morphine, on reevaluation her pain is completely resolved. She has no guarding or tenderness on repeated evaluation. She has unremarkable work-up for acute abdomen including CT abdomen pelvis with contrast for any acute pathology but does have moderate stool load/constipation. I have recommended taking MiraLAX and stool softener regularly. Part of her pain could be from chronic issues plus some constipation. At this point I do not think patient needs any further work-up in the ER are needs to come in the hospital, she is counseled on increase fiber supplements/fiber diet lung with taking Tylenol/ ibuprofen as needed and outpatient follow-up. Counseled pt/family regarding: lab results, diagnosis, need for follow-up, rad results - Departure Departure Disposition: Home Clinical Impression: Abdominal pain Qualifiers: Abdominal location: right lower quadrant Qualified Code(s): R10.31 - Right lower quadrant pain Constipation Qualifiers: Constipation type: unspecified constipation type Qualified Code(s): K59.00 - Constipation, unspecified Condition: Stable Critical Care Time: No Referrals: JEREMY EDEN [Primary Care Provider] - Follow Up with PCP/3 days Instructions: Acute Abdomen (Belly Pain), Adult (DC) Additional Instructions: Take MiraLAX and stool softener regularly. Take Tylenol/ibuprofen as needed. Follow-up with primary care for reevaluation. Return to ER for any worsening.
--- NOTE | 2019-08-26 21:34 | XRAY ---
Indication: Right lower quadrant pain. Multiple contiguous axial images obtained through the abdomen and pelvis without contrast. Comparison: March 02, 2011. Lung bases are clear. Heart is not enlarged. Stomach is distended with food/fluid. Noncontrasted stomach and bowel loops appear nonobstructed. Normal appendix. Worsening moderate diffuse scattered colonic fecal debris throughout including rectum. No free fluid/air. Gallbladder contracted without gallstones. Remaining liver, gallbladder, pancreas, spleen, adrenal glands, kidneys, ureters, bladder, uterus, and aorta appear unremarkable for noncontrast exam. Osseous structures intact. No ventral or inguinal hernias. Impression: 1. Worsening moderate diffuse fecal stasis. 2. Remaining CT abdomen/pelvis without contrast exam is negative.
[2019-08-26 22:03] VITALS: BP 126/82; PULSE 84
[2019-08-26 22:04] VITALS: O2SAT 96
== END 2019-08-26 22:09 | disposition home or self-care (01) ==
LOC: ED 19:25
DX: R10.31 Right lower quadrant pain (principal); K59.00 Constipation, unspecified; Z79.899 Other long term (current) drug therapy
CPT/HCPCS: 36000; 36415; 74176; 80053; 81001; 82150; 83690; 84703; 85025; 96360; 96374; 96375; 99284; J2270; J2405

== ENCOUNTER 2020-07-28 12:47 | Emergency (ER) | payer OTHER ==
--- NOTE | 2020-07-28 13:06 | ERPHSYRPT ---
- History of Present Illness Time Seen by Provider: 07/28/20 13:00 Source: patient Exam Limitations: no limitations Patient Subjective Stated Complaint: Started having back back on Thursday on and off, had appointment with MD but could not stand the pain anymore. This m orning pain went across entire back instead of only left side like previous symptoms. States pain is going across the lower back. Triage Nursing Assessment: patient presents to ER with back pain. Patient states that pain was only on L side but is now across entire lower back. Patient in hunched over and not upright when walking at slow pace. States she has a history of kidney infection. Physician History: This is a 34-year-old overweight white female who presents with lower flank/back pain. The pain is been present intermittently for 5 days and today was worse. Patient has not had any injury or fall. Patient does have an appointment with her primary care provider on August 02 of this month. She states she could not handle the pain any longer. She has had no dysuria or hematuria. She had no nausea vomiting or diarrhea. She has no chest pain and she denies shortness of breath. She is had no fever or chills. Timing/Duration: day(s) (5), week(s), intermittent, worse Method of Injury: other (No injury) Quality: sharp Back Pain Location: paraspinous muscles (Flank) Severity of Pain-Max: moderate Severity of Pain-Current: moderate Associated Symptoms: denies symptoms Previous symptoms: same symptoms as today Allergies/Adverse Reactions: Iodinated Contrast Media [Iodinated Contrast- Oral and IV Dye] Allergy (Intermediate, Verified 07/28/20 13:04) Difficulty Breathing ketorolac tromethamine [From Toradol] Allergy (Mild, Verified 07/28/20 13:04) Rash orphenadrine citrate [From Norflex] Allergy (Mild, Verified 07/28/20 13:04) Rash prochlorperazine edisylate [From Compazine] Allergy (Mild, Verified 07/28/20 13:04) Rash prochlorperazine maleate [From Compazine] Allergy (Mild, Verified 07/28/20 1 3:04) Rash amoxicillin Adverse Reaction (Mild, Verified 07/28/20 13:04) Stomach Cramps CAUSES VAGINAL BLEEDING Home Medications: Medroxyprogesterone Acet [Depo-Provera] 150 mg IM UD 06/21/18 [History] PARoxetine HCL [Paroxetine HCl] 40 mg PO DAILY 06/21/18 [History] Aripiprazole [Abilify] 5 mg PO DAILY 08/26/19 [History] Hx Tetanus, Diphtheria Vaccination/Date Given: Yes Hx Influenza Vaccination/Date Given: No Hx Pneumococcal Vaccination/Date Given: No Travel Risk - International Travel Have you traveled outside of the country in past 3 weeks: No - Coronavirus Screening Are you exhibiting any of the following symptoms?: No Close contact with a COVID-19 positive Pt in past 14-21 Days: No - Vaccine Status Have you recieved a Covid-19 vaccination: No - Review of Systems Constitutional: No Symptoms Eyes: No Symptoms Ears, Nose, & Throat: No Symptoms Respiratory: No Symptoms Cardiac: No Symptoms Abdominal/Gastrointestinal: No Symptoms Genitourinary Symptoms: Flank Pain (Left greater than right) Musculoskeletal: No Symptoms Skin: No Symptoms Neurological: No Symptoms Psychological: No Symptoms Endocrine: No Symptoms Hematologic/Lymphatic: No Symptoms Immunological/Allergic: No Symptoms All Other Systems: Reviewed and Negative - Past Medical History Pertinent Past Medical History: Yes Neurological History: No Pertinent History ENT History: No Pertinent History Cardiac History: No Pertinent History Respiratory History: No Pertinent History Endocrine Medical History: No Pertinent History Musculoskeletal History: No Pertinent History GI Medical History: No Pertinent History History: Other Psycho-Social History: Anxiety, Depression Female Reproductive Disorders: Endometriosis Other Medical History: OVARIAN CYSTS - frequent low potassium - non-compliant with supplement - Past Surgical History Past Surgical History: Yes Neuro Surgical History: No Pertinent History Cardiac: No Pertinent History Respiratory: No Pertinent History Gastrointestinal: No Pertinent History Genitourinary: No Pertinent History Musculoskeletal: No Pertinent History Female Surgical History: Section Other Surgical History: WISDOM TEETH REMOVED - Social History Smoking Status: Current every day smoker How long have you smoked: 10 years Exposure to second hand smoke: Yes Alcohol Use: Socially Drug Use: none Patient Lives Alone: No Significant Family History: no pertinent family hx - Female History Hx Last Menstrual Period: 06/21/20 Hx Now: No - Nursing Vital Signs Nursing Vital Signs: Initial Vital Signs Temperature 98.8 F 07/28/20 12:50 Pulse Rate 142 H 07/28/20 12:50 Respiratory Rate 13 07/28/20 12:50 Blood Pressure 182/107 07/28/20 12:50 O2 Sat by Pulse Oximetry 99 07/28/20 12:50 Pain Scale Pain Intensity 8 - Physical Exam General Appearance: no apparent distress, alert, anxiety, obese Ears, Nose, Throat Exam: normal ENT inspection, moist mucous membranes Neck Exam: normal inspection, non-tender, supple, full range of motion Respiratory Exam: normal breath sounds, lungs clear, airway intact, No chest tenderness, No respiratory distress Cardiovascular Exam: tachycardia Gastrointestinal Exam: soft, normal bowel sounds, No tenderness Pelvic Exam: not done Rectal Exam: not done Back Exam: normal inspection, normal range of motion, CVA tenderness (Mild left), No vertebral tenderness Extremity Exam: normal inspection, normal range of motion, pelvis stable Neurologic Exam: alert, oriented x 3, cooperative, medicare biller II-XII nml as tested, sensation nml, No normal mood/affect, No nml cerebellar function, No nml station & gait Skin Exam: normal color, warm, dry Lymphatic Exam: No adenopathy SpO2 Interpretation: normal SpO2: 99 O2 Delivery: Room Air - Course Nursing assessment & vital signs reviewed: Yes Ordered Tests: Active Orders 24 hr Category Date Time Status CULTURE,URINE Stat Lab 07/28/20 13:18 Received HCG,QUALITATIVE URINE Stat Lab 07/28/20 13:15 Completed UA W/RFX UR CULTURE Stat Lab 07/28/20 13:18 Completed Medication Summary Discontinued Medications Generic Name Dose Route Start Last Admin Trade Name Samanq PRN Reason Stop Dose Admin Hydromorphone HCl 1 mg 07/28/20 14:26 07/28/20 14:30 Hydromorphone 1 Mg/Ml Injection IV 07/28/20 14:27 1 mg STAT ONE Administration Hydromorphone HCl Confirm 07/28/20 14:28 Hydromorphone 1 Mg/Ml Injection Administered 07/28/20 14:29 Dose 1 mg .ROUTE .STK-MED ONE Ceftriaxone Sodium/Dextrose 1 g in 50 mls @ 100 mls/hr 07/28/20 14:26 07/28/20 14:30 Rocephin 1 Gm-D5w 50 Ml Bag IV 07/28/20 14:55 100 mls/hr STAT STA 100 mls/hr Administration Ceftriaxone Sodium/Dextrose Confirm 07/28/20 14:28 Rocephin 1 Gm-D5w 50 Ml Bag Administered 07/28/20 14:29 Dose 1 g in 50 mls @ ud IV .K-[facility] ONE Ondansetron HCl 4 mg 07/28/20 14:26 07/28/20 14:31 Zofran 4 Mg/2 Ml Vial IV 07/28/20 14:27 4 mg STAT ONE Administration Ondansetron HCl Confirm 07/28/20 14:28 Zofran 4 Mg/2 Ml Vial Administered 07/28/20 14:29 Dose 4 mg .ROUTE .STK-MED ONE Lab/Rad Data: Laboratory Results 07/28/20 07/28/20 Range/Units 13:18 13:15 Urine Color YELLOW (YELLOW) Urine Appearance SLIGHTLY CLOUDY (CLEAR) Urine pH 5.0 (5-6) Ur Specific [place] 1.013 (1.005-1.025) Urine Protein NEGATIVE (Negative) Urine Ketones NEGATIVE (NEGATIVE) Urine Blood SMALL (0-5) Alfred/ul Urine Nitrite NEGATIVE (NEGATIVE) Urine Bilirubin NEGATIVE (NEGATIVE) Urine Urobilinogen NEGATIVE (0-1) mg/dL Ur Leukocyte Esterase NEGATIVE (NEGATIVE) Urine WBC (Auto) 3-5 (0-5) /HPF Urine RBC (Auto) 0-2 (0-2) /HPF U Epithel Cells (Auto) RARE (FEW) /HPF Urine Bacteria (Auto) MODERATE (NEGATIVE) /HPF Urine Mucus (Auto) SLIGHT (NEGATIVE) /HPF Urine Yeast (Budding) Rare (NEGATIVE) /HPF Urine Culture Reflexed YES (NO) Urine Glucose NEGATIVE (NEGATIVE) mg/dL Urine HCG, Qual NEGATIVE (Negative) - Progress Progress: improved, pain not gone completely, re-examined Counseled pt/family regarding: lab results, diagnosis, need for follow-up, rad results - Departure Departure Disposition: Home Clinical Impression: UTI (urinary tract infection) Condition: Stable Critical Care Time: No Referrals: JEREMY EDEN [Primary Care Provider] - Additional Instructions: Drink plenty fluids. Use Tylenol and ibuprofen for persistent pain. Follow-up with your primary care physician on Thursday, July 30, 2020 for persistent symptoms. Take your medications as prescribed. Prescriptions: Ciprofloxacin [Cipro 500 MG] 500 mg PO BID #14 tablet
[2020-07-28 13:39] LABS: Appearance SLIGHTLY CLOUDY (CLEAR); Bacteria MODERATE /HPF (NEGATIVE); Bilirubin NEGATIVE (NEGATIVE); Blood SMALL Ery/ul (0-5); Epithelial Cells RARE /HPF (FEW); Glucose NEGATIVE (NEGATIVE); Ketones NEGATIVE (NEGATIVE); Leukocyte Esterase NEGATIVE (NEGATIVE); Mucus SLIGHT /HPF (NEGATIVE); Nitrite NEGATIVE (NEGATIVE); Protein,Urine Dip NEGATIVE (Negative); RBC 0-2 /HPF (0-2); Specific Gravity 1.013 (1.005-1.025); Urobilinogen NEGATIVE mg/dL (0-1)
[2020-07-28 13:41] LABS: Budding Yeast Rare /HPF (NEGATIVE)
[2020-07-28 13:49] VITALS: PULSE 92
[2020-07-28 14:18] VITALS: BP 126/79
[2020-07-28] MEDS ORDERED: ROCEPHIN 1 Gm-D5w 50 ml Bag** 1 G/50 ML IVPB IV STA (14:26)
[2020-07-28] MEDS ORDERED: Zofran 4 MG/2 ML VIAL IV ONE (14:26)
[2020-07-28] MEDS ORDERED: Hydromorphone 1 mg/ml Injection IV ONE (14:26)
[2020-07-28] MEDS ORDERED: Zofran 4 MG/2 ML VIAL ONE (14:28)
[2020-07-28] MEDS ORDERED: Hydromorphone 1 mg/ml Injection ONE (14:28)
[2020-07-28] MEDS ORDERED: ROCEPHIN 1 Gm-D5w 50 ml Bag** 1 G/50 ML IVPB IV ONE (14:28)
[2020-07-28 15:08] VITALS: O2SAT 99
== END 2020-07-28 15:27 | disposition home or self-care (01) ==
LOC: ED 12:47
DX: N39.0 Urinary tract infection, site not specified (principal)
CPT/HCPCS: 81001; 84703; 87086; 96365; 96374; 96375; 99284; J0696; J1170; J2405

== ENCOUNTER 2020-11-16 06:50 | Emergency (ER) | payer OTHER ==
--- NOTE | 2020-11-16 07:20 | ERPHSYRPT ---
- History of Present Illness Time Seen by Provider: 11/16/20 07:19 Source: patient Exam Limitations: no limitations Patient Subjective Stated Complaint: pt states "I woke up with back pain." Triage Nursing Assessment: pt ambulated into the er; pt is axo x4; c/o back pain; pt states 10/10; pt states she woke up with sharp pain; pt states that the pain is worse with inhaling; pt has rubs and wheezing to rt upper and lower lobe; tenderness to rt upper back; vitals wnl Physician History: This is a 35-year-old white female who has a history of anxiety, depression endometriosis. Her primary care physician is Dr. Patel. Patient woke up this morning approximately 4 to 4:30 AM with sudden onset of right upper paraspinous muscle tenderness. Is worse with inspiration. She does have a mild cough. She has not had a fever. She has no shortness of breath. She has no chest pain. She did not suffer any acute traumatic injury. Timing/Duration: today Method of Injury: other (No injury) Quality: aching Back Pain Location: paraspinous muscles (At the level of the thoracic spine right side only) Severity of Pain-Max: moderate (With inspiration) Severity of Pain-Current: moderate (With inspiration) Associated Symptoms: muscle spasms, No fever, No nausea, No vomiting Previous symptoms: no prior history Allergies/Adverse Reactions: Iodinated Contrast Media [Iodinated Contrast- Oral and IV Dye] Allergy (Intermediate, Verified 11/16/20 06:57) Difficulty Breathing ketorolac tromethamine [From Toradol] Allergy (Mild, Verified 11/16/20 06:57) Rash orphenadrine citrate [From Norflex] Allergy (Mild, Verified 11/16/20 06:57) Rash prochlorperazine edisylate [From Compazine] Allergy (Mild, Verified 11/16/20 06:57) Rash prochlorperazine maleate [From Compazine] Allergy (Mild, Verified 11/16/20 06:57) Rash amoxicillin Adverse Reaction (Mild, Verified 11/16/20 06:57) Stomach Cramps CAUSES VAGINAL BLEEDING Home Medications: Medroxyprogesterone Acet [Depo-Provera] 150 mg IM UD 06/21/18 [History] PARoxetine HCL [Paroxetine HCl] 40 mg PO DAILY 06/21/18 [History] Aripiprazole [Abilify] 5 mg PO DAILY 08/26/19 [History] Hx Tetanus, Diphtheria Vaccination/Date Given: Yes Hx Influenza Vaccination/Date Given: No Hx Pneumococcal Vaccination/Date Given: No Travel Risk - International Travel Have you traveled outside of the country in past 3 weeks: No - Coronavirus Screening Are you exhibiting any of the following symptoms?: No Close contact with a COVID-19 positive Pt in past 14-21 Days: No - Vaccine Status Have you recieved a Covid-19 vaccination: No - Review of Systems Constitutional: No Symptoms Eyes: No Symptoms Ears, Nose, & Throat: No Symptoms Respiratory: Cough, No Dyspnea Cardiac: No Symptoms, No Chest Pain Abdominal/Gastrointestinal: No Symptoms Genitourinary Symptoms: No Symptoms Musculoskeletal: Back Pain (Thoracic level right paraspinous muscle region no vertebral column pain) Skin: No Symptoms Neurological: No Symptoms Psychological: No Symptoms Endocrine: No Symptoms Hematologic/Lymphatic: No Symptoms Immunological/Allergic: No Symptoms All Other Systems: Reviewed and Negative - Past Medical History Pertinent Past Medical History: Yes Neurological History: No Pertinent History ENT History: No Pertinent History Cardiac History: No Pertinent History Respiratory History: No Pertinent History Endocrine Medical History: No Pertinent History Musculoskeletal History: No Pertinent History GI Medical History: No Pertinent History History: Other Psycho-Social History: Anxiety, Depression Female Reproductive Disorders: Endometriosis Other Medical History: OVARIAN CYSTS - frequent low potassium - non-compliant with supplement - Past Surgical History Past Surgical History: Yes Neuro Surgical History: No Pertinent History Cardiac: No Pertinent History Respiratory: No Pertinent History Gastrointestinal: No Pertinent History Genitourinary: No Pertinent History Musculoskeletal: No Pertinent History Female Surgical History: Section Other Surgical History: WISDOM TEETH REMOVED - Social History Smoking Status: Current every day smoker How long have you smoked: 10 years Exposure to second hand smoke: Yes Alcohol Use: Socially Drug Use: none Patient Lives Alone: No Significant Family History: no pertinent family hx - Female History Hx Now: No - Nursing Vital Signs Nursing Vital Signs: Initial Vital Signs Temperature 99.3 F 11/16/20 06:59 Pulse Rate 89 11/16/20 06:59 Respiratory Rate 18 11/16/20 06:59 Blood Pressure 134/94 11/16/20 06:59 O2 Sat by Pulse Oximetry 99 11/16/20 06:59 Pain Scale Pain Intensity [Right Upper 10 Back] Pain Intensity 10 - Physical Exam General Appearance: no apparent distress, alert, anxiety Eye Exam: PERRL/EOMI, eyes nml inspection Ears, Nose, Throat Exam: normal ENT inspection, moist mucous membranes Neck Exam: normal inspection, non-tender, supple, full range of motion Respiratory Exam: normal breath sounds, lungs clear, airway intact, No chest tenderness, No respiratory distress Cardiovascular Exam: regular rate/rhythm, normal heart sounds, normal peripheral pulses Gastrointestinal Exam: soft, normal bowel sounds, No tenderness Pelvic Exam: not done Rectal Exam: not done Back Exam: normal inspection, normal range of motion, muscle spasm (Tenderness to palpation right paraspinous muscle region), No vertebral tenderness Extremity Exam: normal inspection, normal range of motion, pelvis stable Neurologic Exam: alert, oriented x 3, cooperative, silo erector II-XII nml as tested, normal mood/affect, nml cerebellar function, nml station & gait, sensation nml Skin Exam: normal color, warm, dry Lymphatic Exam: No adenopathy SpO2 Interpretation: normal SpO2: 99 O2 Delivery: Room Air Ordered Tests: Active Orders 24 hr Category Date Time Status CHEST 1 VIEW (PORTABLE) Stat Exams 11/16/20 07:36 Completed Transfer Order Routine Transfer 11/16/20 Ordered Medication Summary Discontinued Medications Generic Name Dose Route Start Last Admin Trade Name Natalie PRN Reason Stop Dose Admin Hydrocodone Bitart/Acetaminophen 10 ml 11/16/20 08:34 Hydrocodone-Acetamin 2.5-108/5 Ml Solution PO 11/16/20 08:35 STAT STA Ceftriaxone Sodium 1,000 mg 11/16/20 08:34 Rocephin 1000 Mg Inj IM 11/16/20 08:35 STAT ONE Methylprednisolone Sodium 0 mg 11/16/20 08:34 Succinate 125 mg/ Sterile IM 11/16/20 08:35 Water 2 ml STAT ONE - Progress Progress: improved Progress Note: 11/16/20 08:47 Chest x-ray shows no acute cardiopulmonary process. Counseled pt/family regarding: diagnosis, need for follow-up, rad results - Departure Departure Disposition: Home Clinical Impression: Pleurisy Condition: Stable Critical Care Time: No Referrals: JEREMY PATEL [Primary Care Provider] - Additional Instructions: Follow-up with your primary care physician for further management. Take your medications as prescribed. Prescriptions: Hydrocodone/Acetaminophen [Hydrocodone-Acetamn 7.5-325/15] 10 ml PO Q8H PRN PRN #120 ml MDD 30 ml PRN Reason: Cough Prednisone 10 mg [Deltasone 10 mg] 10 mg PO TID #12 tablet Azithromycin 250 mg [Zithromax 250 MG TABLET] 250 mg PO ZPACK #6 tablet
[2020-11-16] MEDS ORDERED: solu-MEDROL 125 MG, Sterile H2O 10 ml 2 ML IM ONE ×2 (08:34)
[2020-11-16] MEDS ORDERED: HYDROCODONE-ACETAMIN 2.5-108/5 ML SOLUTION PO STA (08:34)
[2020-11-16] MEDS ORDERED: Rocephin 1000 MG INJ IM ONE (08:34)
--- NOTE | 2020-11-16 08:42 | XRAY ---
Indication: Right back pain. Comparison: April 08, 2016. Portable chest again demonstrates normal heart, lungs, and bony thorax.
[2020-11-16] MEDS ORDERED: HYDROCODONE-ACETAMIN 2.5-108/5 ML SOLUTION ONE (08:47)
[2020-11-16] MEDS ORDERED: XYLOCAINE 1% HCL 20 ML MDV ONE (08:47)
[2020-11-16] MEDS ORDERED: Rocephin 1000 MG INJ ONE (08:47)
[2020-11-16] MEDS ORDERED: Sterile H2O 10 ml IJ ONE (08:47)
[2020-11-16] MEDS ORDERED: solu-MEDROL ONE (08:47)
[2020-11-16 09:22] VITALS: BP 151/83; PULSE 94; O2SAT 97
== END 2020-11-16 09:23 | disposition home or self-care (01) ==
LOC: ED 06:50
DX: R09.1 Pleurisy (principal)
CPT/HCPCS: 71045; 96372; 99284; J0696; J2930; A9270-GY

== ENCOUNTER 2021-05-27 14:52 | Emergency (ER) | payer OTHER ==
[2021-05-27 15:06] VITALS: BP 138/89; PULSE 140; O2SAT 99
[2021-05-27] MEDS ORDERED: SUBLIMAZE 100 MCG/2 ML IV ONE (15:12)
[2021-05-27] MEDS ORDERED: Zofran 4 MG/2 ML VIAL IV ONE (15:14)
--- NOTE | 2021-05-27 15:20 | ERPHSYRPT ---
- History of Present Illness Historian: patient Exam Limitations: no limitations Patient Subjective Stated Complaint: Left sided pelvic pain Triage Nursing Assessment: Patient ambulated back to ED and transferred self to bed. Patient A+O X 3. Patient's skin pink, warm and dry. Patient complains of left sided pelvic pain intermittent sharp pain 10/10 for 2 days. Patient denies N/V or diarrhea. Physician History: 35 yo wf w LLQ/pelvic pain x 1 day. Pain is sharp and 9/10. She denies N/V/fever/dysuria/hematuria/vag bleeding-DC/diarrhea/melena/hematochezia. Timing/Duration: yesterday Activities at Onset: rest Quality: sharpness, stabbing Abdominal Pain Onset Location: LLQ Pain Radiation: no radiation Severity of Pain-Max: severe Severity of Pain-Current: severe Modifying Factors: Improves With: nothing Associated Symptoms: No back, No chest pain, No diaphoresis, No diarrhea, No fever/chills, No fatigue, No headache, No heartburn, No loss of appetite, No nausea, No neck pain, No rash, No shortness of breath, No syncope, No vomiting, No weakness Previous symptoms: no prior history Allergies/Adverse Reactions: Iodinated Contrast Media [Iodinated Contrast- Oral and IV Dye] Allergy (Intermediate, Verified 05/27/21 14:59) Difficulty Breathing ketorolac tromethamine [From Toradol] Allergy (Mild, Verified 05/27/21 14:59) Rash orphenadrine citrate [From Norflex] Allergy (Mild, Verified 05/27/21 14:59) Rash prochlorperazine edisylate [From Compazine] Allergy (Mild, Verified 05/27/21 14:59) Rash prochlorperazine maleate [From Compazine] Allergy (Mild, Verified 05/27/21 14:59) Rash amoxicillin Adverse Reaction (Mild, Verified 05/27/21 14:59) Stomach Cramps CAUSES VAGINAL BLEEDING Home Medications: PARoxetine HCL [Paroxetine HCl] 40 mg PO DAILY 06/21/18 [History] ARIPiprazole [Abilify] 5 mg PO DAILY 08/26/19 [History] Hx Tetanus, Diphtheria Vaccination/Date Given: Yes Hx Influenza Vaccination/Date Given: No Hx Pneumococcal Vaccination/Date Given: No Immunizations Up to Date: Yes Travel Risk - International Travel Have you traveled outside of the country in past 3 weeks: No - Coronavirus Screening Are you exhibiting any of the following symptoms?: No Close contact with a COVID-19 positive Pt in past 14-21 Days: No - Vaccine Status Have you recieved a Covid-19 vaccination: No - Review of Systems Constitutional: No Symptoms Eyes: No Symptoms Ears, Nose, & Throat: No Symptoms Respiratory: No Symptoms Cardiac: No Symptoms Abdominal/Gastrointestinal: No Symptoms, Abdominal Pain Genitourinary Symptoms: No Symptoms Musculoskeletal: No Symptoms Skin: No Symptoms Neurological: No Symptoms Psychological: No Symptoms Endocrine: No Symptoms Hematologic/Lymphatic: No Symptoms Immunological/Allergic: No Symptoms - Past Medical History Pertinent Past Medical History: Yes Neurological History: No Pertinent History ENT History: No Pertinent History Cardiac History: No Pertinent History Respiratory History: No Pertinent History Endocrine Medical History: No Pertinent History Musculoskeletal History: No Pertinent History GI Medical History: No Pertinent History History: Other Psycho-Social History: Anxiety, Depression Female Reproductive Disorders: Endometriosis Other Medical History: OVARIAN CYSTS - frequent low potassium - non-compliant with supplement - Past Surgical History Past Surgical History: Yes Neuro Surgical History: No Pertinent History Cardiac: No Pertinent History Respiratory: No Pertinent History Gastrointestinal: No Pertinent History Genitourinary: No Pertinent History Musculoskeletal: No Pertinent History Female Surgical History: Section Other Surgical History: WISDOM TEETH REMOVED - Social History Smoking Status: Current every day smoker How long have you smoked: 10 years Exposure to second hand smoke: Yes Alcohol Use: Socially Drug Use: none Patient Lives Alone: No Significant Family History: no pertinent family hx - Female History Hx Last Menstrual Period: depo Hx Now: No - Nursing Vital Signs Nursing Vital Signs: Initial Vital Signs Temperature 97.9 F 05/27/21 15:02 Pulse Rate 140 H 05/27/21 15:02 Respiratory Rate 18 05/27/21 15:02 Blood Pressure 138/89 05/27/21 15:02 O2 Sat by Pulse Oximetry 99 05/27/21 15:02 Pain Scale Pain Intensity 5 Tachycardic - Physical Exam General Appearance: no apparent distress (In pain) Eye Exam: PERRL/EOMI, eyes nml inspection Ears, Nose, Throat Exam: normal ENT inspection, TMs normal, pharynx normal, moist mucous membranes Neck Exam: normal inspection, non-tender, supple, full range of motion, No meningismus, No mass, No Brudzinski, No Kernig's, No carotid bruit Respiratory Exam: normal breath sounds, lungs clear, airway intact, No respiratory distress Cardiovascular Exam: tachycardia, capillary refill <2 sec, No murmur Gastrointestinal/Abdomen Exam: soft, normal bowel sounds, tenderness (Marked LLQ TTP w guarding but no rebound) Back Exam: normal inspection Extremity Exam: normal inspection Neurologic Exam: alert, oriented x 3, cooperative, dispatcher refinery II-XII nml as tested, normal mood/affect, nml cerebellar function, nml station & gait, sensation nml, No motor deficits, No sensory deficit Skin Exam: normal color, warm, dry Lymphatic Exam: No adenopathy SpO2 Interpretation: normal SpO2: 99 O2 Delivery: Room Air - Course Nursing assessment & vital signs reviewed: Yes - CT Exams Abdomen/Pelvis CT Interpretation: Discussed w/radiologist (Mesenteric nodes/fecal stasis/L ovarian cyst) Ordered Tests: Active Orders 24 hr Category Date Time Status ABDOMEN AND PELVIS W/0 CONTRAS [CT] Stat Exams 05/27/21 16:19 Completed AMYLASE Stat Lab 05/27/21 15:19 Completed CBC W DIFF Stat Lab 05/27/21 15:19 Completed CMP Stat Lab 05/27/21 15:19 Completed CULTURE,URINE Stat Lab 05/27/21 15:16 Received HCG QUALITATIVE,SERUM Stat Lab 05/27/21 16:00 Completed LIPASE Stat Lab 05/27/21 15:19 Completed UA W/RFX UR CULTURE Stat Lab 05/27/21 15:16 Completed Medication Summary Discontinued Medications Generic Name Dose Route Start Last Admin Trade Name Natalie PRN Reason Stop Dose Admin Fentanyl Citrate 50 mcg 05/27/21 15:12 05/27/21 15:25 Fentanyl Citrate 100 Mcg/2 Ml* Vial IV 05/27/21 15:13 50 mcg STAT ONE Administration Fentanyl Citrate Confirm 05/27/21 15:21 Fentanyl Citrate 100 Mcg/2 Ml* Vial Administered 05/27/21 15:22 Dose 100 mcg .ROUTE .STK-MED ONE Ceftriaxone Sodium/Dextrose 1 g in 50 mls @ 100 mls/hr 05/27/21 16:20 05/27/21 17:06 Rocephin 1 Gm-D5w 50 Ml Bag IV 05/27/21 16:49 Infused STAT STA Infusion Ceftriaxone Sodium/Dextrose Confirm 05/27/21 16:24 Rocephin 1 Gm-D5w 50 Ml Bag Administered 05/27/21 16:25 Dose 1 g in 50 mls @ ud IV .STK-MED ONE Ondansetron HCl 4 mg 05/27/21 15:14 05/27/21 15:25 Ondansetron Hcl 4 Mg/2 Ml Vial IV 05/27/21 15:15 4 mg STAT ONE Administration Ondansetron HCl Confirm 05/27/21 15:21 Ondansetron Hcl 4 Mg/2 Ml Vial Administered 05/27/21 15:22 Dose 4 mg .ROUTE .STK-MED ONE Lab/Rad Data: Laboratory Result Diagrams 05/27/21 15:19 05/27/21 15:19 Laboratory Results 05/27/21 05/27/21 05/27/21 Range/Units 16:00 15:19 15:19 WBC 8.0 (4.0-10.5) K/mm3 RBC 4.62 (4.1-5.4) M/mm3 Hgb 13.8 (12.0-16.0) gm/dl Hct 40.4 (35-47) % MCV 87.4 (78-100) fl MCH 29.9 (26-32) pg MCHC 34.2 (32-36) g/dl RDW 12.5 (11.5-14.0) % Plt Count 426 (150-450) K/mm3 MPV 9.0 (7.5-11.0) fl Gran % 68.4 H (36.0-66.0) % Eos # (Auto) 0.23 (0-0.5) Absolute Lymphs (auto) 1.69 (1.0-4.6) Absolute Monos (auto) 0.59 (0.0-1.3) Lymphocytes % 21.2 L (24.0-44.0) % Monocytes % 7.4 (0.0-12.0) % Eosinophils % 2.9 (0.00-5.0) % Basophils % 0.1 (0.0-0.4) % Absolute Granulocytes 5.47 (1.4-6.9) Basophils # 0.01 (0-0.4) Sodium 138 (137-145) mmol/L Potassium 3.8 (3.5-5.1) mmol/L Chloride 106 (98-107) mmol/L Carbon Dioxide 24 (22-30) mmol/L Anion Gap 11.3 (5-15) MEQ/L BUN 8 (7-17) mg/dL Creatinine 0.62 (0.52-1.04) mg/dL Estimated GFR > 60.0 ML/MIN Glucose 102 (74-106) mg/dL Calcium 9.1 (8.4-10.2) mg/dL Total Bilirubin 0.50 (0.2-1.3) mg/dL AST 23 (14-36) U/L ALT 26 (0-35) U/L Alkaline Phosphatase 91 (38-126) U/L Serum Total Protein 6.5 (6.3-8.2) g/dL Albumin 3.7 (3.5-5.0) g/dL Amylase 41 (30-110) U/L Lipase 40 (23-300) U/L Serum , Qual NEGATIVE (Negative) Urine Color (YELLOW) Urine Appearance (CLEAR) Urine pH (5-6) Ur Specific [place] (1.005-1.025) Urine Protein (Negative) Urine Ketones (NEGATIVE) Urine Blood (0-5) Alfred/ul Urine Nitrite (NEGATIVE) Urine Bilirubin (NEGATIVE) Urine Urobilinogen (0-1) mg/dL Ur Leukocyte Esterase (NEGATIVE) Urine WBC (Auto) (0-5) /HPF Urine RBC (Auto) (0-2) /HPF U Epithel Cells (Auto) (FEW) /HPF Urine Bacteria (Auto) (NEGATIVE) /HPF Amorphous Crystals (NEGATIVE) /HPF Urine Mucus (Auto) (NEGATIVE) /HPF Urine Culture Reflexed (NO) Urine Glucose (NEGATIVE) mg/dL 05/27/21 Range/Units 15:16 WBC (4.0-10.5) K/mm3 RBC (4.1-5.4) M/mm3 Hgb (12.0-16.0) gm/dl Hct (35-47) % MCV (78-100) fl MCH (26-32) pg MCHC (32-36) g/dl RDW (11.5-14.0) % Plt Count (150-450) K/mm3 MPV (7.5-11.0) fl Gran % (36.0-66.0) % Eos # (Auto) (0-0.5) Absolute Lymphs (auto) (1.0-4.6) Absolute Monos (auto) (0.0-1.3) Lymphocytes % (24.0-44.0) % Monocytes % (0.0-12.0) % Eosinophils % (0.00-5.0) % Basophils % (0.0-0.4) % Absolute Granulocytes (1.4-6.9) Basophils # (0-0.4) Sodium (137-145) mmol/L Potassium (3.5-5.1) mmol/L Chloride (98-107) mmol/L Carbon Dioxide (22-30) mmol/L Anion Gap (5-15) MEQ/L BUN (7-17) mg/dL Creatinine (0.52-1.04) mg/dL Estimated GFR ML/MIN Glucose (74-106) mg/dL Calcium (8.4-10.2) mg/dL Total Bilirubin (0.2-1.3) mg/dL AST (14-36) U/L ALT (0-35) U/L Alkaline Phosphatase (38-126) U/L Serum Total Protein (6.3-8.2) g/dL Albumin (3.5-5.0) g/dL Amylase (30-110) U/L Lipase (23-300) U/L Serum , Qual (Negative) Urine Color YELLOW (YELLOW) Urine Appearance SLIGHTLY CLOUDY (CLEAR) Urine pH 5.0 (5-6) Ur Specific [place] 1.005 (1.005-1.025) Urine Protein NEGATIVE (Negative) Urine Ketones NEGATIVE (NEGATIVE) Urine Blood SMALL (0-5) Alfred/ul Urine Nitrite NEGATIVE (NEGATIVE) Urine Bilirubin NEGATIVE (NEGATIVE) Urine Urobilinogen NEGATIVE (0-1) mg/dL Ur Leukocyte Esterase TRACE (NEGATIVE) Urine WBC (Auto) 6-10 (0-5) /HPF Urine RBC (Auto) 3-5 (0-2) /HPF U Epithel Cells (Auto) NONE (FEW) /HPF Urine Bacteria (Auto) PACKED (NEGATIVE) /HPF Amorphous Crystals FEW (NEGATIVE) /HPF Urine Mucus (Auto) SLIGHT (NEGATIVE) /HPF Urine Culture Reflexed YES (NO) Urine Glucose NEGATIVE (NEGATIVE) mg/dL - Progress Progress: improved Progress Note: 05/27/21 16:59 Pain improved w 50umg IV Fentanyl/4mg IV Zofran 1gm IV Rocephin Counseled pt/family regarding: lab results, diagnosis, need for follow-up, rad results - Departure Departure Disposition: Home Clinical Impression: UTI (urinary tract infection), Ovarian cyst Condition: Stable Critical Care Time: No Referrals: JEREMY EDEN [Primary Care Provider] - Follow up/PCP as directed Instructions: Urinary Tract Infection, Adult (DC), Ovarian Cyst (DC), Mesenteric Lymphadenitis (DC) Additional Instructions: Follow up with your Ob-Enrolled Agent Bactrim twice a day for 5 days Pain meds as needed Return to ER for increasing pain or temperature greater than 100.5 Prescriptions: Sulfamethoxazole/Trimethoprim [Bactrim Ds Tablet] 1 each PO BID 5 Days #10 tablet Hydrocodone/Acetaminophen [Hydrocodone-Acetamin 10-325 mg] 1 each PO Q4-6HPRN PRN #5 tablet MDD 4 tabs PRN Reason: Pain
[2021-05-27] MEDS ORDERED: SUBLIMAZE 100 MCG/2 ML ONE (15:21)
[2021-05-27] MEDS ORDERED: Zofran 4 MG/2 ML VIAL ONE (15:21)
[2021-05-27 15:43] LABS: Absolute Neutrophil Ct (ANC) 5.47 (1.4-6.9); Basophil (Absolute #) 0.01 (0-0.4); Eosinophil % 2.9 % (0.00-5.0); Eosinophil (Absolute #) 0.23 (0-0.5); Hematocrit 40.4 % (35-47); Hemoglobin 13.8 gm/dl (12.0-16.0); Lymphocyte (Absolute #) 1.69 (1.0-4.6); Lymphocytes % 21.2 % (24.0-44.0); Mean Cell Volume 87.4 fl (78-100); Mean Corpuscular Hemoglobin 29.9 pg (26-32); Mean Corpuscular Hgb Concent. 34.2 g/dl (32-36); Monocyte (Absolute #) 0.59 (0.0-1.3); Monocytes % 7.4 % (0.0-12.0); Neutrophil % 68.4 % (36.0-66.0); Platelet Count 426 K/mm3 (150-450); Red Blood Count 4.62 M/mm3 (4.1-5.4); Red Cell Distribution Width 12.5 % (11.5-14.0)
[2021-05-27 15:56] LABS: Amourphous Crystal FEW /HPF (NEGATIVE); Appearance SLIGHTLY CLOUDY (CLEAR); Bacteria PACKED /HPF (NEGATIVE); Bilirubin NEGATIVE (NEGATIVE); Blood SMALL Ery/ul (0-5); Glucose NEGATIVE (NEGATIVE); Ketones NEGATIVE (NEGATIVE); Leukocyte Esterase TRACE (NEGATIVE); Mucus SLIGHT /HPF (NEGATIVE); Nitrite NEGATIVE (NEGATIVE); Protein,Urine Dip NEGATIVE (Negative); Specific Gravity 1.005 (1.005-1.025); Urobilinogen NEGATIVE mg/dL (0-1)
[2021-05-27 15:56] LABS: ALBUMIN 3.7 g/dL (3.5-5.0); ALKALINE PHOSPHATASE 91 U/L (38-126); AMYLASE 41 U/L (30-110); ANION GAP 11.3 MEQ/L (5-15); BLOOD UREA NITROGEN 8 mg/dL (7-17); CHLORIDE 106 mmol/L (98-107); Calcium 9.1 mg/dL (8.4-10.2); Carbon Dioxide 24 mmol/L (22-30); Creatinine 1 0.62 mg/dL (0.52-1.04); EST GLOMERULAR FILTRATION RATE > 60.0 ML/MIN; Glucose 102 mg/dL (74-106); LIPASE 40 U/L (23-300); Potassium 3.8 mmol/L (3.5-5.1); SGOT/AST 23 U/L (14-36); SGPT/ALT 26 U/L (0-35); SODIUM 138 mmol/L (137-145); Total Protein 6.5 g/dL (6.3-8.2)
[2021-05-27] MEDS ORDERED: ROCEPHIN 1 Gm-D5w 50 ml Bag** 1 G/50 ML IVPB IV STA (16:20)
[2021-05-27] MEDS ORDERED: ROCEPHIN 1 Gm-D5w 50 ml Bag** 1 G/50 ML IVPB IV ONE (16:24)
--- NOTE | 2021-05-27 16:56 | XRAY ---
Indication: Left lower quadrant/pelvic pain. Multiple contiguous axial images obtained through the abdomen and pelvis without contrast. Comparison: August 26, 2019. Lung bases remain clear. Heart not enlarged. Stomach is distended with food/fluid. Noncontrasted stomach and bowel loops nonobstructed. Normal appendix. There is again mild/moderate diffuse scatter colonic fecal debris throughout less than before. Gallbladder contracted without gallstones. Left lobe liver demonstrates stable 9 mm cyst versus hemangioma. Mid abdomen now demonstrates scattered subcentimeter mesenteric nodes with minimal stranding favoring adenitis. New 2.5 cm left ovary cyst. No free fluid/air. Remaining liver, gallbladder, pancreas, spleen, adrenal glands, kidneys, ureters, bladder, uterus, and aorta are unremarkable for noncontrast exam. Osseous structures intact. Impression: 1. Tiny mid abdomen mesenteric nodes with stranding favoring mesenteric adenitis. 2. Again diffuse fecal stasis and stable subcentimeter hepatic cyst/hemangioma. 3. New 2.5 cm left ovary follicular cyst.
== END 2021-05-27 17:14 | disposition home or self-care (01) ==
LOC: ED 14:52
DX: N39.0 Urinary tract infection, site not specified (principal); N83.202 Unspecified ovarian cyst, left side; R10.32 Left lower quadrant pain; R10.2 Pelvic and perineal pain; Z72.0 Tobacco use; Z79.899 Other long term (current) drug therapy; Z79.891 Long term (current) use of opiate analgesic
CPT/HCPCS: 36000; 36415; 74176; 80053; 81001; 81025; 82150; 83690; 85025; 87086; 96365; 96374; 96375; 99284; J0696; J2405; J3010

== ENCOUNTER 2021-10-16 12:52 | Emergency (ER) | payer OTHER ==
[2021-10-16 13:06] VITALS: O2SAT 98
--- NOTE | 2021-10-16 13:30 | ERPHSYRPT ---
- History of Present Illness Source: patient Exam Limitations: no limitations Patient Subjective Stated Complaint: Pt had a tooth break off on her top upper left and thinks she has another farther back that she thinks is cracked and they are causing her a lot of pain Triage Nursing Assessment: Pt was brought to the ER by her boyfriend, hypertensive, tachycardic, rates pain as 8-9/10, multiple cavities, has appt at dentist on Thursday, denies any other problems Physician History: 35 yo wf w dental pain x 1day. Pt states that she broke off L frontal tooth yesterday. She denies fever and states that she has a dental appointment next week. Timing/Duration: abrupt onset Severity: moderate ENT Location: dental Prearrival Treatment: no prearrival treatment Modifying Factors: Improves With: activity Associated Symptoms: jaw pain, tooth pain, No ear pain (R), No ear pain (L), No cough, No fever, No chills, No change in hearing, No dizziness, No drooling, No ear drainage, No facial pain/swelling, No headache, No hearing loss, No malaise, No motion sickness, No nasal congestion/drainage, No epistaxis, No nasal foreign body, No neck pain, No poor fluid intake, No poor solids intake, No ringing of ears, No swollen glands, No sinus infection, No sore throat, No difficulty swallowing, No voice change Allergies/Adverse Reactions: Iodinated Contrast Media [Iodinated Contrast- Oral and IV Dye] Allergy (Intermediate, Verified 10/16/21 13:06) Difficulty Breathing ketorolac tromethamine [From Toradol] Allergy (Mild, Verified 10/16/21 13:06) Rash orphenadrine citrate [From Norflex] Allergy (Mild, Verified 10/16/21 13:06) Rash prochlorperazine edisylate [From Compazine] Allergy (Mild, Verified 10/16/21 13:06) Rash prochlorperazine maleate [From Compazine] Allergy (Mild, Verified 10/16/21 13:06) Rash amoxicillin Adverse Reaction (Mild, Verified 10/16/21 13:06) Stomach Cramps CAUSES VAGINAL BLEEDING Home Medications: PARoxetine HCL [Paroxetine HCl] 40 mg PO DAILY 06/21/18 [History] ARIPiprazole [Abilify] 5 mg PO DAILY 08/26/19 [History] Hx Tetanus, Diphtheria Vaccination/Date Given: Yes Hx Influenza Vaccination/Date Given: No Hx Pneumococcal Vaccination/Date Given: No Travel Risk - International Travel Have you traveled outside of the country in past 3 weeks: No - Coronavirus Screening Are you exhibiting any of the following symptoms?: No Close contact with a COVID-19 positive Pt in past 14-21 Days: No - Vaccine Status Have you recieved a Covid-19 vaccination: No - Review of Systems Constitutional: No Symptoms Eyes: No Symptoms Ears, Nose, & Throat: No Symptoms, Mouth Pain, Loose Teeth Respiratory: No Symptoms Cardiac: No Symptoms Abdominal/Gastrointestinal: No Symptoms Genitourinary Symptoms: No Symptoms Musculoskeletal: No Symptoms Skin: No Symptoms Neurological: No Symptoms Psychological: No Symptoms Endocrine: No Symptoms Hematologic/Lymphatic: No Symptoms Immunological/Allergic: No Symptoms - Past Medical History Pertinent Past Medical History: Yes Neurological History: No Pertinent History ENT History: No Pertinent History Cardiac History: No Pertinent History Respiratory History: No Pertinent History Endocrine Medical History: No Pertinent History Musculoskeletal History: No Pertinent History GI Medical History: No Pertinent History History: Other Psycho-Social History: Anxiety, Depression Female Reproductive Disorders: Endometriosis Other Medical History: OVARIAN CYSTS - frequent low potassium - non-compliant with supplement - Past Surgical History Past Surgical History: Yes Neuro Surgical History: No Pertinent History Cardiac: No Pertinent History Respiratory: No Pertinent History Gastrointestinal: No Pertinent History Genitourinary: No Pertinent History Musculoskeletal: No Pertinent History Female Surgical History: Section Other Surgical History: WISDOM TEETH REMOVED - Social History Smoking Status: Current every day smoker How long have you smoked: 10 years Exposure to second hand smoke: Yes Alcohol Use: Socially Drug Use: none Patient Lives Alone: No Significant Family History: no pertinent family hx - Female History Hx Last Menstrual Period: 10/07/2021 Hx Now: No - Nursing Vital Signs Nursing Vital Signs: Initial Vital Signs Temperature 96.6 F 10/16/21 12:57 Pulse Rate 138 H 10/16/21 12:57 Blood Pressure 142/100 10/16/21 12:57 O2 Sat by Pulse Oximetry 98 10/16/21 12:57 Pain Scale Pain Intensity 8 Hypertensive/tachycardic - Physical Exam General Appearance: no apparent distress Eye Exam: bilateral eye: normal inspection, PERRL, EOMI Ear Exam: bilateral ear: auricle normal, canal normal, TM normal Nasal Exam: normal inspection Throat Exam: pharynx normal, dental tenderness (L superior front tooth fractured at base/L superior canine TTP), No foreign body, No mandibular swelling, No maxillary swelling Neck Exam: normal inspection, non-tender, supple, full range of motion, trachea midline Cardiovascular/Respiratory Exam: normal breath sounds, heart sounds normal, tachycardia Abdominal Exam: non-tender, soft Neurologic Exam: alert, oriented x 3, cooperative, communications strategist II-XII nml as tested, normal mood/affect, nml cerebellar function, nml station & gait, sensation nml, No motor deficits, No sensory deficit Skin Exam: normal color, warm, dry, No rash SpO2 Interpretation: normal SpO2: 98 O2 Delivery: Room Air - Course Nursing assessment & vital signs reviewed: Yes - Progress Progress Note: 10/16/21 13:31 Inspect Norco10 #5 05/27/21 Counseled pt/family regarding: diagnosis, need for follow-up - Departure Departure Disposition: Home Clinical Impression: Pain due to dental caries Condition: Stable Critical Care Time: No Referrals: JEREMY EDEN [Primary Care Provider] - Follow up/PCP as directed Instructions: Tooth Decay, Adult (DC), Dental Pain (DC) Additional Instructions: Dentist TALI Prescriptions: clindamycin HCL [Clindamycin HCl] 300 mg PO TID #21 Tramadol HCl/Acetaminophen [Ultracet Tablet] 1 each PO TID PRN PRN #6 tablet PRN Reason: Pain
[2021-10-16 13:52] VITALS: BP 123/78; PULSE 130
== END 2021-10-16 13:43 | disposition home or self-care (01) ==
LOC: ED 12:52
DX: K02.9 Dental caries, unspecified (principal); K08.89 Other specified disorders of teeth and supporting structures; Z72.0 Tobacco use; Z28.310 Unvaccinated for COVID-19; Z79.891 Long term (current) use of opiate analgesic; Z79.899 Other long term (current) drug therapy
CPT/HCPCS: 99281

== ENCOUNTER 2021-10-17 15:02 | Emergency (ER) | payer OTHER ==
[2021-10-17] MEDS ORDERED: Zofran 4 MG/2 ML VIAL IV ONE (15:22)
[2021-10-17] MEDS ORDERED: MORPHINE SULFATE 4 MG INJ IV ONE (15:22)
[2021-10-17] MEDS ORDERED: Sodium Chloride 0.9% 1000 ML 1,000 ML ONE (15:27)
[2021-10-17] MEDS ORDERED: Zofran 4 MG/2 ML VIAL ONE (15:27)
[2021-10-17] MEDS ORDERED: MORPHINE SULFATE 4 MG INJ ONE (15:27)
[2021-10-17] MEDS ORDERED: Sodium Chloride 0.9% 1000 ML 1,000 ML IV SCH (15:30)
[2021-10-17 15:32] LABS: Basophil (Absolute #) 0.01 x10^3/uL (0-0.4); Eosinophil % 1.1 % (0.00-5.0); Eosinophil (Absolute #) 0.12 x10^3/uL (0-0.5); Hematocrit 44.6 % (35-47); Lymphocyte (Absolute #) 1.93 x10^3/uL (1.0-4.6); Lymphocytes % 18.4 % (24.0-44.0); Mean Cell Volume 85.1 fL (78-100); Mean Corpuscular Hemoglobin 28.6 pg (26-32); Mean Corpuscular Hgb Concent. 33.6 g/dL (32-36); Mean Platelet Volume 8.8 fL (7.5-11.0); Monocyte (Absolute #) 0.61 x10^3/uL (0.0-1.3); Monocytes % 5.8 % (0.0-12.0); Neutrophil % 74.2 % (36.0-66.0); Platelet Count 484 x10^3/uL (150-450); Red Blood Count 5.24 x10^6/uL (4.1-5.4); Red Cell Distribution Width 12.7 % (11.5-14.0); White Blood Count 10.5 x10^3/uL (4.0-10.5)
[2021-10-17 15:34] LABS: Appearance CLEAR (CLEAR); Bilirubin NEGATIVE (NEGATIVE); Glucose NEGATIVE (NEGATIVE); Ketones NEGATIVE (NEGATIVE); RBC TRACE-INTACT Ery/ul (0-5)
[2021-10-17 15:35] LABS: Bacteria FEW /HPF (NEGATIVE); Dipstick done @ ? MAIN LAB; Epithelial Cells RARE /HPF (FEW); Nitrite NEGATIVE (NEGATIVE); Protein,Urine Dip NEGATIVE (Negative); RBC 0-2 /HPF (0-2); Urobilinogen 0.2 mg/dL (0-1); WBC 0-2 /HPF (0-5)
[2021-10-17 15:36] LABS: Urine Cultured Indicated? NO
[2021-10-17 15:47] LABS: ALBUMIN 4.5 g/dL (3.5-5.0); ALKALINE PHOSPHATASE 138 U/L (38-126); ANION GAP 17.7 MEQ/L (5-15); BLOOD UREA NITROGEN 9 mg/dL (7-17); CHLORIDE 104 mmol/L (98-107); Calcium 9.8 mg/dL (8.4-10.2); Carbon Dioxide 22 mmol/L (22-30); Creatinine 1 0.63 mg/dL (0.52-1.04); EST GLOMERULAR FILTRATION RATE > 60.0 ML/MIN; Glucose 104 mg/dL (74-106); Potassium 3.8 mmol/L (3.5-5.1); SGOT/AST 25 U/L (14-36); SGPT/ALT 32 U/L (0-35); SODIUM 140 mmol/L (137-145); Total Protein 8.2 g/dL (6.3-8.2)
--- NOTE | 2021-10-17 15:52 | ERPHSYRPT ---
- History of Present Illness Time Seen by Provider: 10/17/21 15:30 Historian: patient Exam Limitations: no limitations Patient Subjective Stated Complaint: C/O right lower abdominal pain that started last night. Denies N/V/D. Triage Nursing Assessment: Patient ambulated back to ED holding lower abdomen. She is alert and oriented. Patient anxious and showing s/s of pain. Physician History: Patient is a 35-year-old female presents to emergency department for evaluation of abdominal pain. Patient states pain started yesterday evening. Onset was abrupt. Pain localized to the right lower quadrant. Pain described as an ache that is localized. No radiation. No associated nausea vomiting or diarrhea. No rash. No trauma. No fever. Symptoms are constant. Symptoms are moderate in intensity. No specific worsening improving factors. Patient denies vaginal discharge. Patient voices no other complaints or concerns at this time. Portions of this note were created with voice recognition technology. There may be grammatical, spelling, punctuation or sound alike errors Timing/Duration: yesterday Activities at Onset: none Quality: aching Abdominal Pain Onset Location: RLQ Pain Radiation: no radiation Severity of Pain-Max: moderate Severity of Pain-Current: mild Modifying Factors: Improves With: nothing Associated Symptoms: denies symptoms Previous symptoms: no prior history Allergies/Adverse Reactions: Iodinated Contrast Media [Iodinated Contrast- Oral and IV Dye] Allergy (Intermediate, Verified 10/17/21 15:11) Difficulty Breathing ketorolac tromethamine [From Toradol] Allergy (Mild, Verified 10/17/21 15:11) Rash orphenadrine citrate [From Norflex] Allergy (Mild, Verified 10/17/21 15:11) Rash prochlorperazine edisylate [From Compazine] Allergy (Mild, Verified 10/17/21 15:11) Rash prochlorperazine maleate [From Compazine] Allergy (Mild, Verified 10/17/21 15:11) Rash amoxicillin Adverse Reaction (Mild, Verified 10/17/21 15:11) Stomach Cramps CAUSES VAGINAL BLEEDING tramadol [From Ultram] Adverse Reaction (Verified 10/17/21 15:11) Home Medications: PARoxetine HCL [Paroxetine HCl] 40 mg PO DAILY 06/21/18 [History] ARIPiprazole [Abilify] 5 mg PO DAILY 08/26/19 [History] Hx Tetanus, Diphtheria Vaccination/Date Given: Yes Hx Influenza Vaccination/Date Given: No Hx Pneumococcal Vaccination/Date Given: No Immunizations Up to Date: Yes Travel Risk - International Travel Have you traveled outside of the country in past 3 weeks: No - Coronavirus Screening Are you exhibiting any of the following symptoms?: No Close contact with a COVID-19 positive Pt in past 14-21 Days: No - Vaccine Status Have you recieved a Covid-19 vaccination: No - Review of Systems Constitutional: No Symptoms, No Fever, No Chills Eyes: No Symptoms Ears, Nose, & Throat: No Symptoms Respiratory: No Symptoms, No Cough, No Dyspnea Cardiac: No Symptoms, No Chest Pain, No Edema, No Syncope Abdominal/Gastrointestinal: No Symptoms, No Abdominal Pain, No Nausea, No Vomit ing, No Diarrhea Genitourinary Symptoms: No Symptoms, No Dysuria Musculoskeletal: No Symptoms, No Back Pain, No Neck Pain Skin: No Symptoms, No Rash Neurological: No Symptoms, No Dizziness, No Focal Weakness, No Sensory Changes Psychological: No Symptoms Endocrine: No Symptoms Hematologic/Lymphatic: No Symptoms Immunological/Allergic: No Symptoms All Other Systems: Reviewed and Negative - Past Medical History Pertinent Past Medical History: Yes Neurological History: No Pertinent History ENT History: No Pertinent History Cardiac History: No Pertinent History Respiratory History: No Pertinent History Endocrine Medical History: No Pertinent History Musculoskeletal History: No Pertinent History GI Medical History: No Pertinent History History: Other Psycho-Social History: Anxiety, Depression Female Reproductive Disorders: Endometriosis, Other Other Medical History: OVARIAN CYSTS - frequent low potassium - non-compliant with supplement - Past Surgical History Past Surgical History: Yes Neuro Surgical History: No Pertinent History Cardiac: No Pertinent History Respiratory: No Pertinent History Gastrointestinal: No Pertinent History Genitourinary: No Pertinent History Musculoskeletal: No Pertinent History Female Surgical History: Section Other Surgical History: WISDOM TEETH REMOVED - Social History Smoking Status: Current every day smoker How long have you smoked: 10 years Exposure to second hand smoke: Yes Alcohol Use: Socially Drug Use: none Patient Lives Alone: No Significant Family History: no pertinent family hx - Female History Hx Last Menstrual Period: October 07, 2021 Hx Now: No - Nursing Vital Signs Nursing Vital Signs: Initial Vital Signs Temperature 96.9 F 10/17/21 15:13 Pulse Rate 130 H 07/28/22 15:13 Respiratory Rate 20 10/17/21 15:13 Blood Pressure 175/98 10/17/21 15:13 O2 Sat by Pulse Oximetry 100 10/17/21 15:13 Pain Scale Pain Intensity 6 - Physical Exam General Appearance: no apparent distress, alert Eye Exam: PERRL/EOMI, eyes nml inspection Ears, Nose, Throat Exam: normal ENT inspection, TMs normal, pharynx normal, moist mucous membranes Neck Exam: normal inspection, non-tender, supple, full range of motion Respiratory Exam: normal breath sounds, lungs clear, airway intact, No chest tenderness, No respiratory distress Cardiovascular Exam: regular rate/rhythm, normal heart sounds, normal peripheral pulses Gastrointestinal/Abdomen Exam: soft, normal bowel sounds, tenderness, other (Tenderness palpation at the junction of the right lower quadrant and right pelvic region. Overlying soft tissue intact. No signs of trauma. No peritoneal signs.), No mass Pelvic Exam: other (Patient refused pelvic exam) Back Exam: normal inspection, normal range of motion, No CVA tenderness, No vertebral tenderness Extremity Exam: normal inspection, normal range of motion, pelvis stable Neurologic Exam: alert, oriented x 3, cooperative, normal mood/affect, sensation nml, No motor deficits Skin Exam: normal color, warm, dry Lymphatic Exam: No adenopathy SpO2 Interpretation: normal SpO2: 99 O2 Delivery: Room Air - Course Nursing assessment & vital signs reviewed: Yes - CT Exams Abdomen/Pelvis CT Interpretation: Tele-radiologist Report (Negative CT abdomen pelvis) - Radiology Ultrasound Exam Pelvis Ultrasound: discussed w/radiologist (Per language pathologist no torsion negative ultrasound pelvis.) Ordered Tests: Active Orders 24 hr Category Date Time Status AMA [Release AMA] OM.NOW Care 10/17/21 17:41 Ordered IV Insertion STAT Care 10/17/21 15:22 Active ABDOMEN AND PELVIS W/0 CONTRAS [CT] Stat Exams 10/17/21 15:25 Completed PELVIS TRANS VAGINAL [US] Stat Exams 10/17/21 15:27 Completed CBC W DIFF Stat Lab 10/17/21 15:15 Completed CMP Stat Lab 10/17/21 15:15 Completed HCG,QUALITATIVE URINE Stat Lab 10/17/21 17:31 Completed UA W/RFX CULTURE Stat Lab 10/17/21 15:26 Completed Medication Summary Generic Name Dose Route Start Last Admin Trade Name Freq PRN Reason Stop Dose Admin Sodium Chloride 1,000 mls @ 100 mls/hr 10/17/21 15:30 10/17/21 16:31 Sodium Chloride 0.9% 1000 Ml IV 11/16/21 15:29 Infused .Q10H BURT Infusion Discontinued Medications Generic Name Dose Route Start Last Admin Trade Name Freq PRN Reason Stop Dose Admin Morphine Sulfate 4 mg 10/17/21 15:22 10/17/21 15:30 Morphine Sulfate 4 Mg/Ml Injection IV 10/17/21 15:23 4 mg STAT ONE Administration Morphine Sulfate Confirm 10/17/21 15:27 Morphine Sulfate 4 Mg/Ml Injection Administered 10/17/21 15:28 Dose 4 mg .ROUTE .STK-MED ONE Ondansetron HCl 4 mg 10/17/21 15:22 10/17/21 15:30 Ondansetron Hcl 4 Mg/2 Ml Vial IV 10/17/21 15:23 4 mg STAT ONE Administration Ondansetron HCl Confirm 10/17/21 15:27 Ondansetron Hcl 4 Mg/2 Ml Vial Administered 10/17/21 15:28 Dose 4 mg .ROUTE .STK-MED ONE Lab/Rad Data: Laboratory Result Diagrams 10/17/21 15:15 10/17/21 15:15 Laboratory Results 10/17/21 10/17/21 10/17/21 Range/Units 17:31 15:26 15:15 WBC (4.0-10.5) x10^3/uL RBC (4.1-5.4) x10^6/uL Hgb (12.0-16.0) g/dL Hct (35-47) % MCV (78-100) fL MCH (26-32) pg MCHC (32-36) g/dL RDW (11.5-14.0) % Plt Count (150-450) x10^3/uL MPV (7.5-11.0) fL Gran % (36.0-66.0) % Immature Gran % (Auto) (0.00-0.4) % Nucleat RBC Rel Count (0.00-0.1) % Eos # (Auto) (0-0.5) x10^3/uL Immature Gran # (Auto) (0.00-0.03) x10^3u/L Absolute Lymphs (auto) (1.0-4.6) x10^3/uL Absolute Monos (auto) (0.0-1.3) x10^3/uL Absolute Nucleated RBC (0.00-0.01) x10^3u/L Lymphocytes % (24.0-44.0) % Monocytes % (0.0-12.0) % Eosinophils % (0.00-5.0) % Basophils % (0.0-0.4) % Absolute Granulocytes (1.4-6.9) x10^3/uL Basophils # (0-0.4) x10^3/uL Sodium 140 (137-145) mmol/L Potassium 3.8 (3.5-5.1) mmol/L Chloride 104 (98-107) mmol/L Carbon Dioxide 22 (22-30) mmol/L Anion Gap 17.7 H (5-15) MEQ/L BUN 9 (7-17) mg/dL Creatinine 0.63 (0.52-1.04) mg/dL Estimated GFR > 60.0 ML/MIN Glucose 104 (74-106) mg/dL Calcium 9.8 (8.4-10.2) mg/dL Total Bilirubin 0.40 (0.2-1.3) mg/dL AST 25 (14-36) U/L ALT 32 (0-35) U/L Alkaline Phosphatase 138 H (38-126) U/L Serum Total Protein 8.2 (6.3-8.2) g/dL Albumin 4.5 (3.5-5.0) g/dL Urinalys Dipstick Clnc MAIN LAB Urine Color YELLOW (YELLOW) Urine Appearance CLEAR (CLEAR) Urine pH 5.0 (5-6) Ur Specific Boyd 1.020 (1.005-1.025) POC Urine Protein Conf NEGATIVE (Negative) Urine Ketones NEGATIVE (NEGATIVE) Urine Nitrite NEGATIVE (NEGATIVE) Urine Bilirubin NEGATIVE (NEGATIVE) Urine Urobilinogen 0.2 (0-1) mg/dL Urine Leukocytes NEGATIVE (NEGATIVE) Urine WBC (Auto) 0-2 (0-5) /HPF Urine RBC (Auto) 0-2 (0-2) /HPF U Epithel Cells (Auto) RARE (FEW) /HPF Urine Bacteria (Auto) FEW (NEGATIVE) /HPF Urine RBC TRACE-INTACT (0-5) Alfred/ul Ur Culture Indicated? NO Urine Glucose NEGATIVE (NEGATIVE) mg/dL Urine HCG, Qual NEGATIVE (Negative) 10/17/21 Range/Units 15:15 WBC 10.5 (4.0-10.5) x10^3/uL RBC 5.24 (4.1-5.4) x10^6/uL Hgb 15.0 (12.0-16.0) g/dL Hct 44.6 (35-47) % MCV 85.1 (78-100) fL MCH 28.6 (26-32) pg MCHC 33.6 (32-36) g/dL RDW 12.7 (11.5-14.0) % Plt Count 484 H (150-450) x10^3/uL MPV 8.8 (7.5-11.0) fL Gran % 74.2 H (36.0-66.0) % Immature Gran % (Auto) 0.4 (0.00-0.4) % Nucleat RBC Rel Count 0.0 (0.00-0.1) % Eos # (Auto) 0.12 (0-0.5) x10^3/uL Immature Gran # (Auto) 0.04 H (0.00-0.03) x10^3u/L Absolute Lymphs (auto) 1.93 (1.0-4.6) x10^3/uL Absolute Monos (auto) 0.61 (0.0-1.3) x10^3/uL Absolute Nucleated RBC 0.00 (0.00-0.01) x10^3u/L Lymphocytes % 18.4 L (24.0-44.0) % Monocytes % 5.8 (0.0-12.0) % Eosinophils % 1.1 (0.00-5.0) % Basophils % 0.1 (0.0-0.4) % Absolute Granulocytes 7.80 H (1.4-6.9) x10^3/uL Basophils # 0.01 (0-0.4) x10^3/uL Sodium (137-145) mmol/L Potassium (3.5-5.1) mmol/L Chloride (98-107) mmol/L Carbon Dioxide (22-30) mmol/L Anion Gap (5-15) MEQ/L BUN (7-17) mg/dL Creatinine (0.52-1.04) mg/dL Estimated GFR ML/MIN Glucose (74-106) mg/dL Calcium (8.4-10.2) mg/dL Total Bilirubin (0.2-1.3) mg/dL AST (14-36) U/L ALT (0-35) U/L Alkaline Phosphatase (38-126) U/L Serum Total Protein (6.3-8.2) g/dL Albumin (3.5-5.0) g/dL Urinalys Dipstick Clnc Urine Color (YELLOW) Urine Appearance (CLEAR) Urine pH (5-6) Ur Specific Boyd (1.005-1.025) POC Urine Protein Conf (Negative) Urine Ketones (NEGATIVE) Urine Nitrite (NEGATIVE) Urine Bilirubin (NEGATIVE) Urine Urobilinogen (0-1) mg/dL Urine Leukocytes (NEGATIVE) Urine WBC (Auto) (0-5) /HPF Urine RBC (Auto) (0-2) /HPF U Epithel Cells (Auto) (FEW) /HPF Urine Bacteria (Auto) (NEGATIVE) /HPF Urine RBC (0-5) Alfred/ul Ur Culture Indicated? Urine Glucose (NEGATIVE) mg/dL Urine HCG, Qual (Negative) - Progress Progress: improved Progress Note: Pain improved but did not resolve. Patient received morphine for pain control. Zofran IV fluids administered as well. Pelvic ultrasound negative. Plain CT abdomen pelvis negative. Patient allergic to contrast dye. UA negative. Urine negative. We advised a pelvic exam to assess for an infectious cause to patient's pain. Patient is sexually active but states she has not been so "in a while" Patient declined a pelvic exam. The importance of the pelvic exam was discussed with patient however patient declined. Patient has decided to leave AGAINST MEDICAL ADVICE. Patient is of sound mind. Patient is appropriate to make informed and independent medical decisions. Patient understands that leaving AGAINST MEDICAL ADVICE can result in delayed diagnosis, increased risk of morbidity, mortality, short and long-term disability including . In spite of these risks, patient has decided to leave AGAINST MEDICAL ADVICE. Patient understands that she may return to our ED at any point if she reconsiders. Patient agrees to follow-up with her primary care doctor within 48 hours for reevaluation. Patient voices no other complaints or concerns at this time. We will release patient AGAINST MEDICAL ADVICE per their request. Portions of this note were created with voice recognition technology. There may be grammatical, spelling, punctuation or sound alike errors 10/17/21 17:24 Counseled pt/family regarding: diagnosis, need for follow-up, rad results - Departure Departure Disposition: Home Clinical Impression: Right lower quadrant pain, Thrombocytosis, Pelvic pain Condition: Stable Critical Care Time: No Referrals: JEREMY EDEN [Primary Care Provider] - Follow up/PCP as directed Additional Instructions: Discharge/Care Plan MAURATANISHASTEVEN SARAH was seen on 10/17/21 in the Emergency Room. The patient was counseled regarding Diagnosis,Lab results, Imaging studies, need for follow up and when to return to the Emergency Room. Prescriptions given: Discharge Note I have spoken with the patient and/or caregivers. I have explained the patient's condition, diagnosis and treatment plan based on the information available to me at this time. I have answered the patient's and/or caregiver's questions and addressed any concerns. The patient and/or caregivers have as good understanding of the patient's diagnosis, condition and treatment plan as can be expected at this point. The vital signs have been stable. The patient's condition is stable and appropriate for discharge from the emergency department. The patient will pursue further outpatient evaluation with the primary care physician or other designated or consulting physician as outlined in the discharge instructions. The patient and/or caregivers are agreeable to this plan of care and follow-up instructions have been explained in detail. The patient and/or caregivers have received these instruction. The patient/and or caregivers are aware that any significant change in condition or worsening of symptoms romel uld prompt an immediate return to this or the closest emergency department or call 911.
--- NOTE | 2021-10-17 16:25 | XRAY ---
Indication: Right lower quadrant pain. Torsion. Two-dimensional transvaginal pelvic sonogram performed. Comparison: October 28, 2017 Uterus now retroverted measuring 6.1 x 3.7 x 4.5 cm. No focal solid/cystic uterine mass. Endometrial stripe measures 5.9 mm with a few nonspecific punctate calcifications. No suspicious endometrial cavity mass or fluid collection. Right ovary measures 2.8 x 1.6 x 2.9 cm and the left measures 2.4 x 1.4 x 2.8 cm. Normal follicular cysts and perfusion bilaterally. No suspicious adnexal mass or free fluid. Impression: Negative transvaginal pelvic sonogram.
--- NOTE | 2021-10-17 16:50 | XRAY ---
Indication: Right lower quadrant/ right pelvic pain. Multiple contiguous axial images obtained through the abdomen and pelvis without contrast. Comparison: May 27, 2021 Lung bases again clear. Heart not enlarged. Noncontrasted stomach and bowel loops remain nonobstructed with normal appendix. No free fluid/air. Remaining liver, gallbladder, pancreas, spleen, adrenal glands, kidneys, ureters, bladder, uterus, and aorta are unremarkable for noncontrast exam. Osseous structures intact. Impression: Continued negative CT abdomen/pelvis without contrast exam.
[2021-10-17 17:16] VITALS: BP 129/83; PULSE 115
[2021-10-17 17:27] VITALS: O2SAT 99
== END 2021-10-17 17:30 | disposition left against medical advice (07) ==
LOC: ED 15:02
DX: R10.31 Right lower quadrant pain (principal); D75.839 Thrombocytosis, unspecified; R10.2 Pelvic and perineal pain; Z72.0 Tobacco use; Z79.899 Other long term (current) drug therapy; Z28.310 Unvaccinated for COVID-19
CPT/HCPCS: 36000; 36415; 74176; 76830; 80053; 81015; 81025; 85025; 96374; 96375; 99284; J2270; J2405

== ENCOUNTER 2021-12-12 16:14 | Emergency (ER) | payer OTHER ==
--- NOTE | 2021-12-12 16:32 | ERPHSYRPT ---
- History of Present Illness Time Seen by Provider: 12/12/21 16:31 Historian: patient Exam Limitations: no limitations Physician History: This is a 36-year-old white female patient who has a history of endometriosis and presents with right side abdominal pain and right flank pain that began last night and worsened throughout the day. She has been nauseated. She is had no vomiting or diarrhea. She denies chest pain and she denies shortness of breath. Because of the degree of pain that she is having she is concerned for appendicitis. She states that she is never had any pain like this. Timing/Duration: yesterday Activities at Onset: none Quality: sharpness, stabbing Abdominal Pain Onset Location: RUQ, RLQ, flank (Right) Pain Radiation: flank (Right) Severity of Pain-Max: moderate Severity of Pain-Current: moderate Modifying Factors: Improves With: nothing Associated Symptoms: nausea, No chest pain, No diarrhea, No fever/chills, No headache, No neck pain, No vomiting Previous symptoms: same symptoms as today, no recent treatment Allergies/Adverse Reactions: Iodinated Contrast Media [Iodinated Contrast- Oral and IV Dye] Allergy (Intermediate, Verified 10/17/21 15:11) Difficulty Breathing ketorolac tromethamine [From Toradol] Allergy (Mild, Verified 10/17/21 15:11) Rash orphenadrine citrate [From Norflex] Allergy (Mild, Verified 10/17/21 15:11) Rash prochlorperazine edisylate [From Compazine] Allergy (Mild, Verified 10/17/21 15:11) Rash prochlorperazine maleate [From Compazine] Allergy (Mild, Verified 10/17/21 15:11) Rash amoxicillin Adverse Reaction (Mild, Verified 10/17/21 15:11) Stomach Cramps CAUSES VAGINAL BLEEDING tramadol [From Ultram] Adverse Reaction (Verified 10/17/21 15:11) Home Medications: PARoxetine HCL [Paroxetine HCl] 40 mg PO DAILY 06/21/18 [History] ARIPiprazole [Abilify] 5 mg PO DAILY 08/26/19 [History] Hx Tetanus, Diphtheria Vaccination/Date Given: Yes Hx Influenza Vaccination/Date Given: No Hx Pneumococcal Vaccination/Date Given: No Travel Risk - International Travel Have you traveled outside of the country in past 3 weeks: No - Coronavirus Screening Are you exhibiting any of the following symptoms?: No Close contact with a COVID-19 positive Pt in past 14-21 Days: No - Vaccine Status Have you recieved a Covid-19 vaccination: No - Review of Systems Constitutional: No Symptoms Eyes: No Symptoms Ears, Nose, & Throat: No Symptoms Respiratory: No Symptoms Cardiac: No Symptoms Abdominal/Gastrointestinal: Abdominal Pain, Nausea, No Vomiting, No Diarrhea, No Constipation Genitourinary Symptoms: No Symptoms Musculoskeletal: No Symptoms Skin: No Symptoms Neurological: No Symptoms Psychological: No Symptoms Endocrine: No Symptoms Hematologic/Lymphatic: No Symptoms Immunological/Allergic: No Symptoms All Other Systems: Reviewed and Negative - Past Medical History Pertinent Past Medical History: Yes Neurological History: No Pertinent History ENT History: No Pertinent History Cardiac History: No Pertinent History Respiratory History: No Pertinent History Endocrine Medical History: No Pertinent History Musculoskeletal History: No Pertinent History GI Medical History: No Pertinent History History: Other Psycho-Social History: Anxiety, Depression Female Reproductive Disorders: Endometriosis, Other Other Medical History: OVARIAN CYSTS - frequent low potassium - non-compliant with supplement - Past Surgical History Past Surgical History: Yes Neuro Surgical History: No Pertinent History Cardiac: No Pertinent History Respiratory: No Pertinent History Gastrointestinal: No Pertinent History Genitourinary: No Pertinent History Musculoskeletal: No Pertinent History Female Surgical History: Section Other Surgical History: WISDOM TEETH REMOVED - Social History Smoking Status: Current every day smoker How long have you smoked: 10 years Exposure to second hand smoke: Yes Alcohol Use: Socially Drug Use: none Patient Lives Alone: No Significant Family History: no pertinent family hx - Nursing Vital Signs Nursing Vital Signs: Initial Vital Signs Temperature 99.3 F 12/12/21 16:20 Pulse Rate 144 H 12/12/21 16:20 Respiratory Rate 20 12/12/21 16:20 Blood Pressure 160/74 12/12/21 16:20 O2 Sat by Pulse Oximetry 98 12/12/21 16:20 Pain Scale Pain Intensity 4 - Physical Exam General Appearance: no apparent distress, alert, anxiety Eye Exam: PERRL/EOMI, eyes nml inspection Ears, Nose, Throat Exam: normal ENT inspection, moist mucous membranes Neck Exam: normal inspection, non-tender, supple, full range of motion Respiratory Exam: normal breath sounds, lungs clear, airway intact, No chest tenderness, No respiratory distress Cardiovascular Exam: tachycardia Gastrointestinal/Abdomen Exam: soft, normal bowel sounds, tenderness, guarding, No rebound Pelvic Exam: not done Rectal Exam: not done Back Exam: normal inspection, normal range of motion, No CVA tenderness, No vertebral tenderness Extremity Exam: normal inspection, normal range of motion, pelvis stable Neurologic Exam: alert, oriented x 3, cooperative, management supervisor II-XII nml as tested, normal mood/affect, nml cerebellar function, nml station & gait, sensation nml Skin Exam: normal color, warm, dry Lymphatic Exam: No adenopathy SpO2 Interpretation: normal O2 Delivery: Room Air - Course Nursing assessment & vital signs reviewed: Yes EKG Interpreted by Me: RATE ([id number]), Sinus Tach, NORMAL AXIS, NORMAL INTERVALS, NORMAL QRS, Non-specific ST Changes, Other (No acute ischemic changes) Ordered Tests: Active Orders 24 hr Category Date Time Status IV Insertion STAT Care 12/12/21 16:58 Active ABDOMEN AND PELVIS W/0 CONTRAS [CT] Stat Exams 12/12/21 16:59 Taken AMYLASE Stat Lab 12/12/21 17:27 Completed CBC W DIFF Stat Lab 12/12/21 17:27 Completed CMP Stat Lab 12/12/21 17:27 Completed HCG,QUALITATIVE URINE Stat Lab 12/12/21 17:27 Completed LIPASE Stat Lab 12/12/21 17:27 Completed Lactic Acid Stat Lab 12/12/21 17:03 Completed UA W/RFX CULTURE Stat Lab 12/12/21 17:27 Completed Urine Triage Profile Stat Lab 12/12/21 17:27 Completed Medication Summary Discontinued Medications Generic Name Dose Route Start Last Admin Trade Name Natalie PRN Reason Stop Dose Admin Sodium Chloride 1,000 mls @ 999 mls/hr 12/12/21 16:58 12/12/21 18:20 Sodium Chloride 0.9% 1000 Ml IV 12/12/21 17:58 Infused .Q1H1M STA Infusion Sodium Chloride Confirm 12/12/21 17:11 Sodium Chloride 0.9% 1000 Ml Administered 12/12/21 17:12 Dose 1,000 mls @ ud .ROUTE .STK-MED ONE Morphine Sulfate 4 mg 12/12/21 16:58 12/12/21 17:13 Morphine Sulfate 4 Mg/Ml Injection IV 12/12/21 16:59 4 mg STAT ONE Administration Morphine Sulfate Confirm 12/12/21 17:11 Morphine Sulfate 4 Mg/Ml Injection Administered 12/12/21 17:12 Dose 4 mg .ROUTE .STK-MED ONE Ondansetron HCl 4 mg 12/12/21 16:58 12/12/21 17:13 Ondansetron Hcl 4 Mg/2 Ml Vial IV 12/12/21 16:59 4 mg STAT ONE Administration Ondansetron HCl Confirm 12/12/21 17:10 Ondansetron Hcl 4 Mg/2 Ml Vial Administered 12/12/21 17:11 Dose 4 mg .ROUTE .STK-MED ONE Lab/Rad Data: Laboratory Result Diagrams 12/12/21 17:27 12/12/21 17:27 Laboratory Results 12/12/21 12/12/21 12/12/21 Range/Units 17:27 17:27 17:27 WBC (4.0-10.5) x10^3/uL RBC (4.1-5.4) x10^6/uL Hgb (12.0-16.0) g/dL Hct (35-47) % MCV (78-100) fL MCH (26-32) pg MCHC (32-36) g/dL RDW (11.5-14.0) % Plt Count (150-450) x10^3/uL MPV (7.5-11.0) fL Gran % (36.0-66.0) % Immature Gran % (Auto) (0.00-0.4) % Nucleat RBC Rel Count (0.00-0.1) % Eos # (Auto) (0-0.5) x10^3/uL Immature Gran # (Auto) (0.00-0.03) x10^3u/L Absolute Lymphs (auto) (1.0-4.6) x10^3/uL Absolute Monos (auto) (0.0-1.3) x10^3/uL Absolute Nucleated RBC (0.00-0.01) x10^3u/L Lymphocytes % (24.0-44.0) % Monocytes % (0.0-12.0) % Eosinophils % (0.00-5.0) % Basophils % (0.0-0.4) % Absolute Granulocytes (1.4-6.9) x10^3/uL Basophils # (0-0.4) x10^3/uL Sodium (137-145) mmol/L Potassium (3.5-5.1) mmol/L Chloride (98-107) mmol/L Carbon Dioxide (22-30) mmol/L Anion Gap (5-15) MEQ/L BUN (7-17) mg/dL Creatinine (0.52-1.04) mg/dL Estimated GFR ML/MIN Glucose (74-106) mg/dL Lactic Acid (0.4-2.0) Calcium (8.4-10.2) mg/dL Total Bilirubin (0.2-1.3) mg/dL AST (14-36) U/L ALT (0-35) U/L Alkaline Phosphatase (38-126) U/L Serum Total Protein (6.3-8.2) g/dL Albumin (3.5-5.0) g/dL Amylase (30-110) U/L Lipase (23-300) U/L Urinalys Dipstick Clnc MAIN LAB Urine Color YELLOW (YELLOW) Urine Appearance CLEAR (CLEAR) Urine pH 5.5 (5-6) Ur Specific [place] >=1.030 (1.005-1.025) POC Urine Protein Conf NEGATIVE (Negative) Urine Ketones NEGATIVE (NEGATIVE) Urine Nitrite NEGATIVE (NEGATIVE) Urine Bilirubin NEGATIVE (NEGATIVE) Urine Urobilinogen 0.2 (0-1) mg/dL Urine Leukocytes NEGATIVE (NEGATIVE) Urine WBC (Auto) 0-2 (0-5) /HPF Urine RBC (Auto) NONE (0-2) /HPF U Epithel Cells (Auto) RARE (FEW) /HPF Urine Bacteria (Auto) RARE (NEGATIVE) /HPF Urine RBC TRACE-LYSED (0-5) Alfred/ul Urine Mucus (Auto) SLIGHT (NEGATIVE) /HPF Ur Culture Indicated? NO Urine Glucose NEGATIVE (NEGATIVE) mg/dL Urine HCG, Qual NEGATIVE (Negative) Urine Opiates Level POSITIVE (NEGATIVE) Ur Methadone NEGATIVE (NEGATIVE) Urine Barbiturates NEGATIVE (NEGATIVE) Ur Phencyclidine (PCP) NEGATIVE (NEGATIVE) Urine Amphetamine NEGATIVE (NEGATIVE) U Benzodiazepine Level NEGATIVE (NEGATIVE) Urine Cocaine NEGATIVE (NEGATIVE) Urine Marijuana (THC) NEGATIVE (NEGATIVE) 12/12/21 12/12/21 12/12/21 Range/Units 17:27 17:27 17:03 WBC 8.1 (4.0-10.5) x10^3/uL RBC 4.61 (4.1-5.4) x10^6/uL Hgb 13.2 (12.0-16.0) g/dL Hct 39.5 (35-47) % MCV 85.7 (78-100) fL MCH 28.6 (26-32) pg MCHC 33.4 (32-36) g/dL RDW 12.7 (11.5-14.0) % Plt Count 385 (150-450) x10^3/uL MPV 9.2 (7.5-11.0) fL Gran % 67.4 H (36.0-66.0) % Immature Gran % (Auto) 0.2 (0.00-0.4) % Nucleat RBC Rel Count 0.0 (0.00-0.1) % Eos # (Auto) 0.22 (0-0.5) x10^3/uL Immature Gran # (Auto) 0.02 (0.00-0.03) x10^3u/L Absolute Lymphs (auto) 1.84 (1.0-4.6) x10^3/uL Absolute Monos (auto) 0.57 (0.0-1.3) x10^3/uL Absolute Nucleated RBC 0.00 (0.00-0.01) x10^3u/L Lymphocytes % 22.6 L (24.0-44.0) % Monocytes % 7.0 (0.0-12.0) % Eosinophils % 2.7 (0.00-5.0) % Basophils % 0.1 (0.0-0.4) % Absolute Granulocytes 5.47 (1.4-6.9) x10^3/uL Basophils # 0.01 (0-0.4) x10^3/uL Sodium 136 L (137-145) mmol/L Potassium 3.9 (3.5-5.1) mmol/L Chloride 104 (98-107) mmol/L Carbon Dioxide 24 (22-30) mmol/L Anion Gap 11.7 (5-15) MEQ/L BUN 10 (7-17) mg/dL Creatinine 0.64 (0.52-1.04) mg/dL Estimated GFR > 60.0 ML/MIN Glucose 119 H (74-106) mg/dL Lactic Acid 1.9 (0.4-2.0) Calcium 8.7 (8.4-10.2) mg/dL Total Bilirubin 0.40 (0.2-1.3) mg/dL AST 27 (14-36) U/L ALT 27 (0-35) U/L Alkaline Phosphatase 100 (38-126) U/L Serum Total Protein 7.1 (6.3-8.2) g/dL Albumin 4.1 (3.5-5.0) g/dL Amylase 57 (30-110) U/L Lipase 18 L (23-300) U/L Urinalys Dipstick Clnc Urine Color (YELLOW) Urine Appearance (CLEAR) Urine pH (5-6) Ur Specific [place] (1.005-1.025) POC Urine Protein Conf (Negative) Urine Ketones (NEGATIVE) Urine Nitrite (NEGATIVE) Urine Bilirubin (NEGATIVE) Urine Urobilinogen (0-1) mg/dL Urine Leukocytes (NEGATIVE) Urine WBC (Auto) (0-5) /HPF Urine RBC (Auto) (0-2) /HPF U Epithel Cells (Auto) (FEW) /HPF Urine Bacteria (Auto) (NEGATIVE) /HPF Urine RBC (0-5) Alfred/ul Urine Mucus (Auto) (NEGATIVE) /HPF Ur Culture Indicated? Urine Glucose (NEGATIVE) mg/dL Urine HCG, Qual (Negative) Urine Opiates Level (NEGATIVE) Ur Methadone (NEGATIVE) Urine Barbiturates (NEGATIVE) Ur Phencyclidine (PCP) (NEGATIVE) Urine Amphetamine (NEGATIVE) U Benzodiazepine Level (NEGATIVE) Urine Cocaine (NEGATIVE) Urine Marijuana (THC) (NEGATIVE) - Progress Progress: improved Progress Note: 12/12/21 18:52 CAT scan of the abdomen and pelvis without contrast is negative for any acute abdominal or pelvic abnormality. The appendix is normal Counseled pt/family regarding: diagnosis, need for follow-up, rad results - Departure Departure Disposition: Home Clinical Impression: Chronic abdominal pain Condition: Stable Critical Care Time: No Referrals: JEREMY EDEN [Primary Care Provider] - Follow up/PCP as directed Additional Instructions: Call your primary care doctor tomorrow morning to make arrangements for further evaluation and management of your chronic, recurring abdominal pain
[2021-12-12] MEDS ORDERED: MORPHINE SULFATE 4 MG INJ IV ONE ×2 (16:58→18:54)
[2021-12-12] MEDS ORDERED: Sodium Chloride 0.9% 1000 ML 1,000 ML IV STA (16:58)
[2021-12-12] MEDS ORDERED: Zofran 4 MG/2 ML VIAL IV ONE (16:58)
[2021-12-12] MEDS ORDERED: Zofran 4 MG/2 ML VIAL ONE (17:10)
[2021-12-12] MEDS ORDERED: Sodium Chloride 0.9% 1000 ML 1,000 ML ONE (17:11)
[2021-12-12] MEDS ORDERED: MORPHINE SULFATE 4 MG INJ ONE ×2 (17:11→19:14)
[2021-12-12 17:31] LABS: Absolute Neutrophil Ct (ANC) 5.47 x10^3/uL (1.4-6.9); Basophil (Absolute #) 0.01 x10^3/uL (0-0.4); Eosinophil % 2.7 % (0.00-5.0); Eosinophil (Absolute #) 0.22 x10^3/uL (0-0.5); Hematocrit 39.5 % (35-47); Hemoglobin 13.2 g/dL (12.0-16.0); Lymphocyte (Absolute #) 1.84 x10^3/uL (1.0-4.6); Lymphocytes % 22.6 % (24.0-44.0); Mean Cell Volume 85.7 fL (78-100); Mean Corpuscular Hemoglobin 28.6 pg (26-32); Mean Corpuscular Hgb Concent. 33.4 g/dL (32-36); Mean Platelet Volume 9.2 fL (7.5-11.0); Monocyte (Absolute #) 0.57 x10^3/uL (0.0-1.3); Neutrophil % 67.4 % (36.0-66.0); Platelet Count 385 x10^3/uL (150-450); Red Blood Count 4.61 x10^6/uL (4.1-5.4); Red Cell Distribution Width 12.7 % (11.5-14.0); White Blood Count 8.1 x10^3/uL (4.0-10.5)
[2021-12-12 17:43] LABS: Bacteria RARE /HPF (NEGATIVE); Epithelial Cells RARE /HPF (FEW); Mucus SLIGHT /HPF (NEGATIVE); WBC 0-2 /HPF (0-5)
[2021-12-12 17:45] LABS: ALBUMIN 4.1 g/dL (3.5-5.0); ALKALINE PHOSPHATASE 100 U/L (38-126); AMYLASE 57 U/L (30-110); ANION GAP 11.7 MEQ/L (5-15); BLOOD UREA NITROGEN 10 mg/dL (7-17); CHLORIDE 104 mmol/L (98-107); Calcium 8.7 mg/dL (8.4-10.2); Carbon Dioxide 24 mmol/L (22-30); Creatinine 1 0.64 mg/dL (0.52-1.04); EST GLOMERULAR FILTRATION RATE > 60.0 ML/MIN; Glucose 119 mg/dL (74-106); LIPASE 18 U/L (23-300); Potassium 3.9 mmol/L (3.5-5.1); SGOT/AST 27 U/L (14-36); SGPT/ALT 27 U/L (0-35); SODIUM 136 mmol/L (137-145); Total Protein 7.1 g/dL (6.3-8.2)
[2021-12-12 17:46] LABS: Appearance CLEAR (CLEAR); Bilirubin NEGATIVE (NEGATIVE); Glucose NEGATIVE (NEGATIVE); Ketones NEGATIVE (NEGATIVE); Specific Gravity >=1.030 (1.005-1.025)
[2021-12-12 17:47] LABS: Dipstick done @ ? MAIN LAB; Nitrite NEGATIVE (NEGATIVE); Ph 5.5 (5-6); Protein,Urine Dip NEGATIVE (Negative); RBC TRACE-LYSED Ery/ul (0-5); Urine Cultured Indicated? NO; Urobilinogen 0.2 mg/dL (0-1)
[2021-12-12 17:55] LABS: Amphetamine,Urine NEGATIVE (NEGATIVE); Benzodiazepine,Urine NEGATIVE (NEGATIVE); Cocaine,Urine NEGATIVE (NEGATIVE); Opiate,Urine POSITIVE (NEGATIVE); PCP,Urine NEGATIVE (NEGATIVE); THC,Urine NEGATIVE (NEGATIVE)
[2021-12-12 17:57] LABS: Methadone,Urine NEGATIVE (NEGATIVE)
[2021-12-12 18:00] LABS: Barbiturate,Urine NEGATIVE (NEGATIVE)
[2021-12-12 19:22] VITALS: BP 158/63; PULSE 95; O2SAT 96
--- NOTE | 2021-12-13 08:40 | XRAY ---
Indication: Right abdomen pain 2 days. Multiple contiguous axial images obtained through the abdomen and pelvis without contrast. Comparison: October 17, 2021 Lung bases remain clear. Heart not enlarged. Stomach is now mildly distended with food/fluid. Noncontrasted stomach and bowel loops remain nonobstructed again with normal appendix. Contracted gallbladder without gallstones. Stable 1.2 cm left lobe hepatic cyst. No free fluid/air. Remaining liver, gallbladder, pancreas, spleen, adrenal glands, kidneys, ureters, bladder, uterus, and aorta are unremarkable for noncontrast exam. Osseous structures intact. Impression: Stable small hepatic cyst. Remaining CT abdomen/pelvis without contrast exam is again negative.
== END 2021-12-12 19:40 | disposition home or self-care (01) ==
LOC: ED 16:14
DX: G89.29 Other chronic pain (principal); R10.31 Right lower quadrant pain; R10.11 Right upper quadrant pain; R11.0 Nausea; Z72.0 Tobacco use; Z79.899 Other long term (current) drug therapy; Z28.310 Unvaccinated for COVID-19
CPT/HCPCS: 36000; 36415; 74176; 80053; 80307; 81015; 81025; 82150; 83605; 83690; 85025; 96360; 96374; 96375; 99284; J2270; J2405

== ENCOUNTER 2022-02-20 18:10 | Emergency (ER) | payer OTHER ==
[2022-02-20 18:53] VITALS: O2SAT 97
--- NOTE | 2022-02-20 19:06 | ERPHSYRPT ---
- History of Present Illness Time Seen by Provider: 02/20/22 18:50 Source: patient Patient Subjective Stated Complaint: pt states "I was having sex and had a tampon in. I can't get it out now." Triage Nursing Assessment: pt ambulated into the er; pt is axo x4; c/o tampon s tuck; pt denies pain; abd soft; active bowel sounds in all quads; tachycardic; hypertensive Physician History: Patient is a 36-year-old white female who presents with a retained tampon. No other problems at this time Timing/Duration: today Activites at Onset: sexual activity Quality: fullness Severity of Pain-Max: mild Severity of Pain-Current: mild Sexual intercourse history: non-contributory Associated Symptoms: denies symptoms Allergies/Adverse Reactions: Iodinated Contrast Media [Iodinated Contrast- Oral and IV Dye] Allergy (Intermediate, Verified 02/20/22 18:43) Difficulty Breathing ketorolac tromethamine [From Toradol] Allergy (Mild, Verified 02/20/22 18:43) Rash orphenadrine citrate [From Norflex] Allergy (Mild, Verified 02/20/22 18:43) Rash prochlorperazine edisylate [From Compazine] Allergy (Mild, Verified 02/20/22 18:43) Rash prochlorperazine maleate [From Compazine] Allergy (Mild, Verified 02/20/22 18:43) Rash amoxicillin Adverse Reaction (Mild, Verified 02/20/22 18:43) Stomach Cramps CAUSES VAGINAL BLEEDING tramadol [From Ultram] Adverse Reaction (Verified 02/20/22 18:43) Home Medications: PARoxetine HCL [Paroxetine HCl] 40 mg PO DAILY 06/21/18 [History] ARIPiprazole [Abilify] 5 mg PO DAILY 08/26/19 [History] Hx Tetanus, Diphtheria Vaccination/Date Given: Yes Hx Influenza Vaccination/Date Given: No Hx Pneumococcal Vaccination/Date Given: No Travel Risk - International Travel Have you traveled outside of the country in past 3 weeks: No - Coronavirus Screening Are you exhibiting any of the following symptoms?: No Close contact with a COVID-19 positive Pt in past 14-21 Days: No - Vaccine Status Have you recieved a Covid-19 vaccination: No - Review of Systems Constitutional: No Fever, No Chills Eyes: No Symptoms Ears, Nose, & Throat: No Symptoms Respiratory: No Cough, No Dyspnea Cardiac: No Chest Pain, No Edema, No Syncope Abdominal/Gastrointestinal: No Abdominal Pain, No Nausea, No Vomiting, No Diarrhea Genitourinary Symptoms: No Dysuria Musculoskeletal: No Back Pain, No Neck Pain Skin: No Rash Neurological: No Dizziness, No Focal Weakness, No Sensory Changes Psychological: No Symptoms Endocrine: No Symptoms All Other Systems: Reviewed and Negative - Past Medical History Pertinent Past Medical History: Yes Neurological History: No Pertinent History ENT History: No Pertinent History Cardiac History: No Pertinent History Respiratory History: No Pertinent History Endocrine Medical History: No Pertinent History Musculoskeletal History: No Pertinent History GI Medical History: No Pertinent History History: Other Psycho-Social History: Anxiety, Depression Female Reproductive Disorders: Endometriosis, Other Other Medical History: OVARIAN CYSTS - frequent low potassium - non-compliant with supplement - Past Surgical History Past Surgical History: Yes Neuro Surgical History: No Pertinent History Cardiac: No Pertinent History Respiratory: No Pertinent History Gastrointestinal: No Pertinent History Genitourinary: No Pertinent History Musculoskeletal: No Pertinent History Female Surgical History: Section Other Surgical History: WISDOM TEETH REMOVED - Social History Smoking Status: Current every day smoker How long have you smoked: 10 years Exposure to second hand smoke: Yes Alcohol Use: Socially Drug Use: none Patient Lives Alone: No Significant Family History: no pertinent family hx - Female History Hx Last Menstrual Period: 02/20/22 Hx Now: No - Nursing Vital Signs Nursing Vital Signs: Initial Vital Signs Temperature 99 F 02/20/22 18:46 Pulse Rate 132 H 02/20/22 18:46 Respiratory Rate 16 02/20/22 18:46 Blood Pressure 171/97 02/20/22 18:46 O2 Sat by Pulse Oximetry 97 02/20/22 18:46 Pain Scale Pain Intensity 0 - Physical Exam General Appearance: no apparent distress, alert Eye Exam: PERRL/EOMI, eyes nml inspection Ears, Nose, Throat Exam: normal ENT inspection, TMs normal, pharynx normal, moist mucous membranes Neck Exam: normal inspection, non-tender, supple, full range of motion Respiratory Exam: normal breath sounds, lungs clear, No respiratory distress Cardiovascular Exam: regular rate/rhythm, normal heart sounds, normal peripheral pulses Gastrointestinal/Abdomen Exam: soft, No tenderness, No mass Pelvic Exam: other (Pelvic exam was done) Back Exam: normal inspection, normal range of motion, No CVA tenderness, No vertebral tenderness Extremity Exam: normal inspection, normal range of motion, pelvis stable Neurologic Exam: alert, oriented x 3, cooperative, bag 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 - Departure Departure Disposition: Home Clinical Impression: Retained tampon Condition: Stable Critical Care Time: No Referrals: JEREMY EDEN [Primary Care Provider] - Follow up/PCP as directed Instructions: Vaginal Foreign Body
[2022-02-20 19:08] VITALS: BP 155/90; PULSE 113
== END 2022-02-20 19:11 | disposition home or self-care (01) ==
LOC: ED 18:10
DX: T19.2XXA Foreign body in vulva and vagina, initial encounter (principal); Z79.899 Other long term (current) drug therapy; Z28.310 Unvaccinated for COVID-19; Z72.0 Tobacco use
CPT/HCPCS: 99281

== ENCOUNTER 2023-03-08 17:31 | Emergency (ER) | payer OTHER ==
--- NOTE | 2023-03-08 17:56 | ERPHSYRPT ---
- History of Present Illness Time Seen by Provider: 03/08/23 17:50 Source: patient Exam Limitations: intoxication Physician History: 37 years old female with past medical history of substance abuse, the patient was found wandering outside the hospital barefooted and confused. My understanding her dropped her outside the hospital, however instead of coming in, she was wondering outside the hospital and disoriented. On undressing the patient and placing her in a gown the nurse found fentanyl patches on the patient body about 200 mcg. When the patient is asked about these patches she said that she placed them to [employer]. She is confused she is following some commands but disoriented and could not obtain further with information from her. Allergies/Adverse Reactions: Iodinated Contrast Media [Iodinated Contrast- Oral and IV Dye] Allergy (Intermediate, Verified 03/08/23 17:49) Difficulty Breathing ketorolac tromethamine [From Toradol] Allergy (Mild, Verified 03/08/23 17:49) Rash orphenadrine citrate [From Norflex] Allergy (Mild, Verified 03/08/23 17:49) Rash prochlorperazine edisylate [From Compazine] Allergy (Mild, Verified 03/08/23 17:49) Rash prochlorperazine maleate [From Compazine] Allergy (Mild, Verified 03/08/23 17:49) Rash amoxicillin Adverse Reaction (Mild, Verified 03/08/23 17:49) Stomach Cramps CAUSES VAGINAL BLEEDING tramadol [From Ultram] Adverse Reaction (Verified 03/08/23 17:49) Home Medications: No Reportable Medications [No Reported Medications] 03/08/23 [History] Hx Tetanus, Diphtheria Vaccination/Date Given: Yes Hx Influenza Vaccination/Date Given: No Hx Pneumococcal Vaccination/Date Given: No Travel Risk - Vaccine Status Have you recieved a Covid-19 vaccination: No - Review of Systems Constitutional: Other (Unable to obtain review of system in this patient who seemed to be disoriented secondary to fentanyl overdose.) - Past Medical History Pertinent Past Medical History: Yes Neurological History: No Pertinent History ENT History: No Pertinent History Cardiac History: No Pertinent History Respiratory History: No Pertinent History Endocrine Medical History: No Pertinent History Musculoskeletal History: No Pertinent History GI Medical History: No Pertinent History History: Other Psycho-Social History: Anxiety, Depression Female Reproductive Disorders: Endometriosis, Other Other Medical History: OVARIAN CYSTS - frequent low potassium - Past Surgical History Past Surgical History: Yes Neuro Surgical History: No Pertinent History Cardiac: No Pertinent History Respiratory: No Pertinent History Gastrointestinal: No Pertinent History Genitourinary: No Pertinent History Musculoskeletal: No Pertinent History Female Surgical History: Section Other Surgical History: WISDOM TEETH REMOVED - Social History Smoking Status: Current every day smoker How long have you smoked: 15 years Exposure to second hand smoke: Yes Alcohol Use: Socially Drug Use: none Patient Lives Alone: No Significant Family History: no pertinent family hx - Nursing Vital Signs Nursing Vital Signs: Initial Vital Signs Temperature 97.8 F 03/08/23 17:52 Pulse Rate 78 03/08/23 17:52 Respiratory Rate 20 03/08/23 17:52 Blood Pressure 145/70 03/08/23 17:52 O2 Sat by Pulse Oximetry 97 03/08/23 17:52 Pain Scale Pain Intensity 0 - [place] Coma Scale Best Eye Response ([place]): (4) open spontaneously Best Verbal Response ([place]): (4) confused conversation Best Motor Response ([place]): (6) obeys commands [place] Total: 14 - Physical Exam General Appearance: no apparent distress Eye Exam: bilateral eye: PERRL (Pupils dilated bilaterally.) Ears, Nose, Throat Exam: normal ENT inspection Neck Exam: normal inspection, non-tender, supple Respiratory: normal breath sounds, lungs clear Cardiovascular: regular rate/rhythm, normal heart sounds Gastrointestinal: soft, normal bowel sounds Pelvic Exam: not done Rectal Exam: deferred Back Exam: normal inspection, normal range of motion Extremity Exam: normal inspection, normal range of motion Mental Status: alert, disoriented to place, disoriented to time, 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 Exam: normal hearing, normal speech, PERRL, tongue midline Motor/Sensory: no motor deficit Skin Exam: normal color, warm SpO2 Interpretation: normal O2 Delivery: Room Air - Course Nursing assessment & vital signs reviewed: Yes EKG Interpreted by Me: RATE (74), Sinus Rhythm, NORMAL ST-T, Other (LVH) Ordered Tests: Active Orders 24 hr Category Date Time Status Transcript Evaluator STAT Care 03/08/23 17:58 Completed Clean Catch Urine Specimen STAT Care 03/08/23 18:01 Completed EKG-ER Only STAT Care 03/08/23 18:05 Completed CHEST 1 VIEW (PORTABLE) Stat Exams 03/08/23 17:58 Completed HEAD WITHOUT CONTRAST [CT] Stat Exams 03/08/23 17:58 Completed ACETAMINOPHEN Stat Lab 03/08/23 18:09 Completed CBC W DIFF Stat Lab 03/08/23 18:09 Completed CMP Stat Lab 03/08/23 18:40 Completed CULTURE,URINE Stat Lab 03/08/23 18:03 Results ETHYL ALCOHOL Stat Lab 03/08/23 18:09 Completed HCG QUALITATIVE, SERUM Stat Lab 03/08/23 18:09 Completed Lactic Acid Stat Lab 03/08/23 18:24 Completed Lactic Acid Stat Lab 03/08/23 20:31 Completed SALICYLATE Stat Lab 03/08/23 18:09 Completed UA W/RFX UR CULTURE Stat Lab 03/08/23 18:03 Completed Urine Triage Profile Stat Lab 03/08/23 18:03 Completed Medication Summary Discontinued Medications Generic Name Dose Route Start Last Admin Trade Name Freq PRN Reason Stop Dose Admin Sodium Chloride Confirm 03/08/23 19:09 Sodium Chloride 0.9% 1000 Ml Administered 03/08/23 19:10 Dose 1,000 mls @ ud .ROUTE .STK-MED ONE Sodium Chloride 1,000 mls @ 999 mls/hr 03/08/23 19:36 03/08/23 22:43 Sodium Chloride 0.9% 1000 Ml IV 03/08/23 20:36 Infused .Q1H1M STA Infusion Sodium Chloride 1,000 mls @ 500 mls/hr 03/08/23 21:06 03/08/23 22:57 Sodium Chloride 0.9% 1000 Ml IV 03/08/23 23:05 Infused .Q2H STA Infusion Sodium Chloride Confirm 03/08/23 21:10 Sodium Chloride 0.9% 1000 Ml Administered 03/08/23 21:11 Dose 1,000 mls @ ud .ROUTE .STK-MED ONE Lab/Rad Data: Laboratory Result Diagrams 03/08/23 18:09 03/08/23 18:40 Laboratory Results 03/08/23 03/08/23 03/08/23 Range/Units 20:31 18:40 18:24 WBC (4.0-10.5) x10^3/uL RBC (4.1-5.4) x10^6/uL Hgb (12.0-16.0) g/dL Hct (35-47) % MCV (78-100) fL MCH (26-32) pg MCHC (32-36) g/dL RDW (11.5-14.0) % Plt Count (150-450) x10^3/uL MPV (7.5-11.0) fL Gran % (36.0-66.0) % Immature Gran % (Auto) (0.00-0.4) % Nucleat RBC Rel Count (0.00-0.1) % Eos # (Auto) (0-0.5) x10^3/uL Immature Gran # (Auto) (0.00-0.03) x10^3u/L Absolute Lymphs (auto) (1.0-4.6) x10^3/uL Absolute Monos (auto) (0.0-1.3) x10^3/uL Absolute Nucleated RBC (0.00-0.01) x10^3u/L Lymphocytes % (24.0-44.0) % Monocytes % (0.0-12.0) % Eosinophils % (0.00-5.0) % Basophils % (0.0-0.4) % Absolute Granulocytes (1.4-6.9) x10^3/uL Basophils # (0-0.4) x10^3/uL Sodium 142 (137-145) mmol/L Potassium 3.6 (3.5-5.1) mmol/L Chloride 105 (98-107) mmol/L Carbon Dioxide 22 (22-30) mmol/L Anion Gap 18.3 H (5-15) MEQ/L BUN 18 H (7-17) mg/dL Creatinine 0.59 (0.52-1.04) mg/dL Estimated GFR 119.0 ML/MIN Glucose 106 (74-106) mg/dL Lactic Acid 1.1 2.3 H (0.4-2.0) Calcium 9.6 (8.4-10.2) mg/dL Total Bilirubin 1.00 (0.2-1.3) mg/dL AST 44 H (14-36) U/L ALT 39 H (0-35) U/L Alkaline Phosphatase 247 H (38-126) U/L Serum Total Protein 8.8 H (6.3-8.2) g/dL Albumin 5.0 (3.5-5.0) g/dL Serum HCG, Qual (NEGATIVE) Urine Color (Yellow) Urine Appearance (Clear) Urine pH (4.6-8.0) Ur Specific [place] (1.005-1.030) Urine Protein (Negative) Urine Glucose (UA) (Negative) mg/dL Urine Ketones (Negative) Urine Blood (Negative) Urine Nitrite (Negative) Urine Bilirubin (Negative) Urine Urobilinogen (0.2) mg/dL Ur Leukocyte Esterase (Negative) U Hyaline Cast (Auto) (0-2) /LPF Urine Microscopic RBC (0-5) /HPF Urine Microscopic WBC (0-5) /HPF Ur Epithelial Cells (None Seen) /HPF Urine Bacteria (None Seen) /HPF Urine Culture Reflexed (NO) Salicylates (2-20) mg/dL Urine Opiates Level (NEGATIVE) Ur Methadone (NEGATIVE) Acetaminophen (10-30) ug/ml Urine Barbiturates (NEGATIVE) Ur Phencyclidine (PCP) (NEGATIVE) Urine Amphetamine (NEGATIVE) U Benzodiazepine Level (NEGATIVE) Urine Cocaine (NEGATIVE) Urine Marijuana (THC) (NEGATIVE) Ethyl Alcohol (0-10) mg/dL 03/08/23 03/08/23 03/08/23 Range/Units 18:09 18:09 18:09 WBC 10.0 (4.0-10.5) x10^3/uL RBC 5.08 (4.1-5.4) x10^6/uL Hgb 14.6 (12.0-16.0) g/dL Hct 44.1 (35-47) % MCV 86.8 (78-100) fL MCH 28.7 (26-32) pg MCHC 33.1 (32-36) g/dL RDW 14.1 H (11.5-14.0) % Plt Count 459 H (150-450) x10^3/uL MPV 8.6 (7.5-11.0) fL Gran % 82.5 H (36.0-66.0) % Immature Gran % (Auto) 0.4 (0.00-0.4) % Nucleat RBC Rel Count 0.0 (0.00-0.1) % Eos # (Auto) 0.01 (0-0.5) x10^3/uL Immature Gran # (Auto) 0.04 H (0.00-0.03) x10^3u/L Absolute Lymphs (auto) 1.09 (1.0-4.6) x10^3/uL Absolute Monos (auto) 0.60 (0.0-1.3) x10^3/uL Absolute Nucleated RBC 0.00 (0.00-0.01) x10^3u/L Lymphocytes % 10.9 L (24.0-44.0) % Monocytes % 6.0 (0.0-12.0) % Eosinophils % 0.1 (0.00-5.0) % Basophils % 0.1 (0.0-0.4) % Absolute Granulocytes 8.21 H (1.4-6.9) x10^3/uL Basophils # 0.01 (0-0.4) x10^3/uL Sodium (137-145) mmol/L Potassium (3.5-5.1) mmol/L Chloride (98-107) mmol/L Carbon Dioxide (22-30) mmol/L Anion Gap (5-15) MEQ/L BUN (7-17) mg/dL Creatinine (0.52-1.04) mg/dL Estimated GFR ML/MIN Glucose (74-106) mg/dL Lactic Acid (0.4-2.0) Calcium (8.4-10.2) mg/dL Total Bilirubin (0.2-1.3) mg/dL AST (14-36) U/L ALT (0-35) U/L Alkaline Phosphatase (38-126) U/L Serum Total Protein (6.3-8.2) g/dL Albumin (3.5-5.0) g/dL Serum HCG, Qual NEGATIVE (NEGATIVE) Urine Color (Yellow) Urine Appearance (Clear) Urine pH (4.6-8.0) Ur Specific [place] (1.005-1.030) Urine Protein (Negative) Urine Glucose (UA) (Negative) mg/dL Urine Ketones (Negative) Urine Blood (Negative) Urine Nitrite (Negative) Urine Bilirubin (Negative) Urine Urobilinogen (0.2) mg/dL Ur Leukocyte Esterase (Negative) U Hyaline Cast (Auto) (0-2) /LPF Urine Microscopic RBC (0-5) /HPF Urine Microscopic WBC (0-5) /HPF Ur Epithelial Cells (None Seen) /HPF Urine Bacteria (None Seen) /HPF Urine Culture Reflexed (NO) Salicylates < 1.0 L (2-20) mg/dL Urine Opiates Level (NEGATIVE) Ur Methadone (NEGATIVE) Acetaminophen < 10 L (10-30) ug/ml Urine Barbiturates (NEGATIVE) Ur Phencyclidine (PCP) (NEGATIVE) Urine Amphetamine (NEGATIVE) U Benzodiazepine Level (NEGATIVE) Urine Cocaine (NEGATIVE) Urine Marijuana (THC) (NEGATIVE) Ethyl Alcohol < 10 (0-10) mg/dL 03/08/23 03/08/23 Range/Units 18:03 18:03 WBC (4.0-10.5) x10^3/uL RBC (4.1-5.4) x10^6/uL Hgb (12.0-16.0) g/dL Hct (35-47) % MCV (78-100) fL MCH (26-32) pg MCHC (32-36) g/dL RDW (11.5-14.0) % Plt Count (150-450) x10^3/uL MPV (7.5-11.0) fL Gran % (36.0-66.0) % Immature Gran % (Auto) (0.00-0.4) % Nucleat RBC Rel Count (0.00-0.1) % Eos # (Auto) (0-0.5) x10^3/uL Immature Gran # (Auto) (0.00-0.03) x10^3u/L Absolute Lymphs (auto) (1.0-4.6) x10^3/uL Absolute Monos (auto) (0.0-1.3) x10^3/uL Absolute Nucleated RBC (0.00-0.01) x10^3u/L Lymphocytes % (24.0-44.0) % Monocytes % (0.0-12.0) % Eosinophils % (0.00-5.0) % Basophils % (0.0-0.4) % Absolute Granulocytes (1.4-6.9) x10^3/uL Basophils # (0-0.4) x10^3/uL Sodium (137-145) mmol/L Potassium (3.5-5.1) mmol/L Chloride (98-107) mmol/L Carbon Dioxide (22-30) mmol/L Anion Gap (5-15) MEQ/L BUN (7-17) mg/dL Creatinine (0.52-1.04) mg/dL Estimated GFR ML/MIN Glucose (74-106) mg/dL Lactic Acid (0.4-2.0) Calcium (8.4-10.2) mg/dL Total Bilirubin (0.2-1.3) mg/dL AST (14-36) U/L ALT (0-35) U/L Alkaline Phosphatase (38-126) U/L Serum Total Protein (6.3-8.2) g/dL Albumin (3.5-5.0) g/dL Serum HCG, Qual (NEGATIVE) Urine Color Dark Yellow A (Yellow) Urine Appearance Clear (Clear) Urine pH 6.0 (4.6-8.0) Ur Specific [place] >=1.030 A (1.005-1.030) Urine Protein 30 (Negative) Urine Glucose (UA) Negative (Negative) mg/dL Urine Ketones 80 A (Negative) Urine Blood Negative (Negative) Urine Nitrite Negative (Negative) Urine Bilirubin Negative (Negative) Urine Urobilinogen 1.0 A (0.2) mg/dL Ur Leukocyte Esterase Negative (Negative) U Hyaline Cast (Auto) 3-5 A (0-2) /LPF Urine Microscopic RBC 0-2 (0-5) /HPF Urine Microscopic WBC 6-10 A (0-5) /HPF Ur Epithelial Cells Rare (None Seen) /HPF Urine Bacteria Rare A (None Seen) /HPF Urine Culture Reflexed YES (NO) Salicylates (2-20) mg/dL Urine Opiates Level POSITIVE A (NEGATIVE) Ur Methadone NEGATIVE (NEGATIVE) Acetaminophen (10-30) ug/ml Urine Barbiturates NEGATIVE (NEGATIVE) Ur Phencyclidine (PCP) NEGATIVE (NEGATIVE) Urine Amphetamine NEGATIVE (NEGATIVE) U Benzodiazepine Level NEGATIVE (NEGATIVE) Urine Cocaine NEGATIVE (NEGATIVE) Urine Marijuana (THC) NEGATIVE (NEGATIVE) Ethyl Alcohol (0-10) mg/dL - Progress Progress: improved Progress Note: 03/08/23 89 years old female past medical history of substance abuse. The patient was found wandering around the hospital, barefooted and confused. It seemed that her boyfriend drove her to the hospital, the patient remained walking around. She is a poor historian seem to be confused. When the nurse was undressing the patient she found some fentanyl patches on her body , about 200 mcg. The patient told the nurse she did that because she wants to [employer] She is disoriented to time and place. Emergency room course The patient will have a workup for her altered mental status which is most probably secondary to the substance intoxication/fentanyl. Ordered CBC, CMP, UA, test, urine drug screen, EKG and CT scan of the brain. At present the patient is in no respiratory distress, will have Narcan at bedside. Poison Control were contacted, they recommend at least 8 hours of observation. Once the patient returns to her base line mental status, she can be discharged home. 03/08/23 19:11 The patient remains awake alert following commands still disoriented to place and time. Her EKG is sinus rhythm 74 bpm. Urine drug screen positive for opiates. Normal Tylenol, aspirin and alcohol levels. White count 10,000, hemoglobin 14.6 hematocrit 44. Sodium 142, potassium 3.6. Glucose 106. Lactic acid mildly elevated 2.3, elevated LFTs, AST 44, ALT 39 alkaline phosphatase 247. The patient be given a bag of fluid 0.9 saline and repeat her lactic acid. Close observation, hoping the patient will be back to her baseline mental status. Narcan to be used as needed for any respiratory distress 03/08/23 21:07 The patient is becoming more awake alert and oriented She knows she is at the hospital and the name of the hospital. She is not exactly sure of the date,but she knows it is around [place] time. She has talked to her family members, she is feeling hungry requesting something to eat. Her lactic acid is down to 1.1. The patient will be observed for over 3 hours and plan to discharge her home if she returns back to her baseline mental status. 03/09/23 00:58 The patient is fully awake alert and oriented x 3. She is wanting to go home she will be calling her boyfriend. Her vital saturating 100% on room air, pulse rate 70 and regular. The patient will be discharged home, counseling on substance abuse is discussed in detail with the patient. - Departure Departure Disposition: Home Clinical Impression: Altered mental status associated with intoxication, Substance abuse, Fentanyl poisoning Condition: Stable Critical Care Time: Yes Critical Care Time(excluding separately billable procedures): Critical 75-104 mins Referrals: JEREMY EDEN [Primary Care Provider] - Follow up/PCP as directed Instructions: Opioid Overdose (DC) Additional Instructions: Counseling for substance abuse Follow-up with family physician in 2 to 3 days. The patient's boyfriend to observe the patient closely for the next 24 hours. Follow-up as needed for any worsening symptoms.
[2023-03-08 18:08] VITALS: TEMP 97.8
[2023-03-08 18:30] LABS: Amphetamine,Urine NEGATIVE (NEGATIVE); Barbiturate,Urine NEGATIVE (NEGATIVE); Benzodiazepine,Urine NEGATIVE (NEGATIVE); Cocaine,Urine NEGATIVE (NEGATIVE); Methadone,Urine NEGATIVE (NEGATIVE); Opiate,Urine POSITIVE (NEGATIVE); PCP,Urine NEGATIVE (NEGATIVE); THC,Urine NEGATIVE (NEGATIVE)
[2023-03-08 18:35] LABS: Appearance Clear (Clear); Bacteria Rare /HPF (None Seen); Bilirubin Negative (Negative); Blood Negative (Negative); Epithelial Cells Rare /HPF (None Seen); Glucose, Urine Negative (Negative); Ketones 80 (Negative); Leukocyte Esterase Negative (Negative); Nitrite Negative (Negative); Protein,Urine Dip 30 (Negative); RBC 0-2 /HPF (0-5); Specific Gravity >=1.030 (1.005-1.030)
[2023-03-08 18:35] LABS: Absolute Neutrophil Ct (ANC) 8.21 x10^3/uL (1.4-6.9); BASOPHIL % 0.1 % (0.0-0.4); Basophil (Absolute #) 0.01 x10^3/uL (0-0.4); Eosinophil % 0.1 % (0.00-5.0); Eosinophil (Absolute #) 0.01 x10^3/uL (0-0.5); Hematocrit 44.1 % (35-47); Hemoglobin 14.6 g/dL (12.0-16.0); IMMATURE GRAN # 0.04 x10^3u/L (0.00-0.03); IMMATURE GRAN % 0.4 % (0.00-0.4); Lymphocyte (Absolute #) 1.09 x10^3/uL (1.0-4.6); Lymphocytes % 10.9 % (24.0-44.0); Mean Cell Volume 86.8 fL (78-100); Mean Corpuscular Hemoglobin 28.7 pg (26-32); Mean Corpuscular Hgb Concent. 33.1 g/dL (32-36); Mean Platelet Volume 8.6 fL (7.5-11.0); Neutrophil % 82.5 % (36.0-66.0); Platelet Count 459 x10^3/uL (150-450); Red Blood Count 5.08 x10^6/uL (4.1-5.4); Red Cell Distribution Width 14.1 % (11.5-14.0)
[2023-03-08 18:36] LABS: ADD URINE CULTURE? YES (NO)
[2023-03-08 18:56] LABS: ANION GAP 18.3 MEQ/L (5-15); Calcium 9.6 mg/dL (8.4-10.2); Creatinine 1 0.59 mg/dL (0.52-1.04); Potassium 3.6 mmol/L (3.5-5.1); Total Protein 8.8 g/dL (6.3-8.2)
[2023-03-08 18:59] LABS: HCG SERUM TEST NEGATIVE (NEGATIVE)
[2023-03-08 19:00] LABS: ACETAMINOPHEN < 10 ug/ml (10-30); ETHYL ALCOHOL < 10 mg/dL (0-10); SALICYLATE < 1.0 mg/dL (2-20)
[2023-03-08] MEDS ORDERED: Sodium Chloride 0.9% 1000 ML 1,000 ML ONE ×2 (19:09→21:10)
--- NOTE | 2023-03-08 19:30 | XRAY ---
CLINICAL HISTORY:Altered Mental Status COMPARISON:None. TECHNIQUE:Axial non-contrast CT scan of the brain was performed from the skull base to the high parietal region. FINDINGS: No evidence of acute intracranial hemorrhage, major vascular territory infarct or mass effects. There is low-lying cerebellar tonsil (4.6 mm below the foramen magnum). The cortical sulci, fissures, basal cisterns, and ventricles are normal in size and configuration. Maya-white matter differentiation is maintained. No midline shifts or deformity. Normal CT appearance of the posterior fossa structures namely the cerebellar hemispheres, brainstem and cerebellar peduncles. The IACs are unremarkable. The cerebello-pontine angles are clear. The pituitary gland, the pineal gland, the optic chiasm is unremarkable. The osseous structures in the skull base are unremarkable. No definite calvarium fractures. Fluid/soft tissue densities are seen along the anterior and lateral correa of the right maxillary sinus, to consider mucus retention cysts versus polyps. The rest of the scanned paranasal sinuses are clear. IMPRESSION: 1. No evidence of acute intracranial hemorrhage, major vascular territory infarct or mass effects. 2. Low-lying cerebellar tonsil (4.6 mm below the foramen magnum). 3. Consider mucus retention cysts versus polyps, right maxillary sinus. Electronically Signed by: Otilio Rabago MD. (03/08/2023 19:26:17 EST)
[2023-03-08] MEDS ORDERED: Sodium Chloride 0.9% 1000 ML 1,000 ML IV STA ×2 (19:36→21:06)
--- NOTE | 2023-03-08 19:54 | XRAY ---
Indication: Confusion. Comparison: November 16, 2020 Portable chest hyperinflated and clear. Heart not enlarged. Bony thorax intact. No new/acute findings.
[2023-03-09 01:11] VITALS: BP 135/73; PULSE 92; RESP 20; O2SAT 98
== END 2023-03-09 02:08 | disposition home or self-care (01) ==
LOC: ED 17:31
DX: T40.411A Poisoning by fentanyl or fentanyl analogs, accidental (unintentional), initial encounter (principal); R41.82 Altered mental status, unspecified; F11.121 Opioid abuse with intoxication delirium; Z28.310 Unvaccinated for COVID-19; Z72.0 Tobacco use
CPT/HCPCS: 36000; 36415; 70450; 71045; 80053; 80143; 80179; 80307; 81001; 82077; 83605; 84703; 85025; 87086; 93005; 93041; 99284

== ENCOUNTER 2023-03-09 13:56 | Emergency (ER) | payer OTHER ==
[2023-03-09 14:21] VITALS: TEMP 96.8
[2023-03-09 14:52] LABS: Absolute Neutrophil Ct (ANC) 4.87 x10^3/uL (1.4-6.9); BASOPHIL % 0.2 % (0.0-0.4); Basophil (Absolute #) 0.01 x10^3/uL (0-0.4); Eosinophil % 0.2 % (0.00-5.0); Eosinophil (Absolute #) 0.01 x10^3/uL (0-0.5); Hematocrit 39.9 % (35-47); Hemoglobin 13.3 g/dL (12.0-16.0); IMMATURE GRAN # 0.04 x10^3u/L (0.00-0.03); IMMATURE GRAN % 0.6 % (0.00-0.4); Lymphocytes % 18.7 % (24.0-44.0); Mean Cell Volume 86.4 fL (78-100); Mean Corpuscular Hemoglobin 28.8 pg (26-32); Mean Corpuscular Hgb Concent. 33.3 g/dL (32-36); Mean Platelet Volume 8.8 fL (7.5-11.0); Monocytes % 4.7 % (0.0-12.0); Neutrophil % 75.6 % (36.0-66.0); Platelet Count 382 x10^3/uL (150-450); Red Blood Count 4.62 x10^6/uL (4.1-5.4); White Blood Count 6.4 x10^3/uL (4.0-10.5)
[2023-03-09 15:10] LABS: ALBUMIN 4.3 g/dL (3.5-5.0); ALKALINE PHOSPHATASE 211 U/L (38-126); ANION GAP 12.6 MEQ/L (5-15); BLOOD UREA NITROGEN 14 mg/dL (7-17); CHLORIDE 105 mmol/L (98-107); Calcium 8.7 mg/dL (8.4-10.2); Carbon Dioxide 25 mmol/L (22-30); Creatinine 1 0.54 mg/dL (0.52-1.04); EST GLOMERULAR FILTRATION RATE 121.5 ML/MIN; ETHYL ALCOHOL < 10 mg/dL (0-10); Glucose 87 mg/dL (74-106); Potassium 3.3 mmol/L (3.5-5.1); SGOT/AST 56 U/L (14-36); SGPT/ALT 39 U/L (0-35); SODIUM 139 mmol/L (137-145); Total Protein 7.4 g/dL (6.3-8.2)
[2023-03-09 15:14] LABS: HCG SERUM TEST NEGATIVE (NEGATIVE)
[2023-03-09 15:16] VITALS: O2SAT 100
--- NOTE | 2023-03-09 15:41 | ERPHSYRPT ---
- History of Present Illness Source: patient Exam Limitations: other (Poor historian) Patient Subjective Stated Complaint: Well check Triage Nursing Assessment: Senior Court Office Assistant came back to nurses station and alerted staff about patient wandering in front lobby with hospital socks on and carrying a belongings bag. [facility] nurse [facility] patient with stupor look and not sure what to do. When approached by staff patient wanted to be checked in. Patient was d/c from hospital last night for fentanyl overdose. Patient states she still doesn't feel right. Patient A+O X 2, disoriented to time. Patient complains of pain to entire body 5/10. Patient sitting up in bed with legs crossed repetitively rocking back and forth. Patient denies suicidal and homicidal ideation. Physician History: 37-year-old female who was seen in the ER last night for confusion and was found to have been licking her much older partners fentanyl patches return to the ER again for the same thing. Patient's labs and CAT scan of her head were good yesterday. Patient was found wandering the hospital lobby again today and was brought back to the ER for evaluation. Patient is alert with a good airway and is oriented to time only. There is no focal weakness, and cranial nerves II through XII are intact. Patient states that she is confused but denies any other problems at this time. Timing/Duration: yesterday Severity: mild Character of Deficits: other (Views and only) Deficits: no difficulties (No deficits) Current Cognition: alert but confused Baseline Gait: walks w/o assistance Associated Symptoms: confusion Allergies/Adverse Reactions: Iodinated Contrast Media [Iodinated Contrast- Oral and IV Dye] Allergy (Intermediate, Verified 03/09/23 14:04) Difficulty Breathing ketorolac tromethamine [From Toradol] Allergy (Mild, Verified 03/09/23 14:04) Rash orphenadrine citrate [From Norflex] Allergy (Mild, Verified 03/09/23 14:04) Rash prochlorperazine edisylate [From Compazine] Allergy (Mild, Verified 03/09/23 14:04) Rash prochlorperazine maleate [From Compazine] Allergy (Mild, Verified 03/09/23 14:04) Rash amoxicillin Adverse Reaction (Mild, Verified 12/18/23 14:04) Stomach Cramps CAUSES VAGINAL BLEEDING tramadol [From [facility]] Adverse Reaction (Verified 03/09/23 14:04) Home Medications: No Reportable Medications [No Reported Medications] 03/08/23 [History] Hx Tetanus, Diphtheria Vaccination/Date Given: Yes Hx Influenza Vaccination/Date Given: No Hx Pneumococcal Vaccination/Date Given: No Immunizations Up to Date: Yes Travel Risk - International Travel Have you traveled outside of the country in past 3 weeks: No - Coronavirus Screening Are you exhibiting any of the following symptoms?: No Close contact with a COVID-19 positive Pt in past 14-21 Days: No - Vaccine Status Have you recieved a Covid-19 vaccination: No - Review of Systems Constitutional: No Symptoms Eyes: No Symptoms Ears, Nose, & Throat: No Symptoms Respiratory: No Symptoms Cardiac: No Symptoms Abdominal/Gastrointestinal: No Symptoms Genitourinary Symptoms: No Symptoms Musculoskeletal: No Symptoms Skin: No Symptoms Neurological: No Symptoms Psychological: No Symptoms Endocrine: No Symptoms Hematologic/Lymphatic: No Symptoms Immunological/Allergic: No Symptoms - Past Medical History Pertinent Past Medical History: Yes Neurological History: No Pertinent History ENT History: No Pertinent History Cardiac History: No Pertinent History Respiratory History: No Pertinent History Endocrine Medical History: No Pertinent History Musculoskeletal History: No Pertinent History GI Medical History: No Pertinent History History: Other Psycho-Social History: Anxiety, Depression Female Reproductive Disorders: Endometriosis, Other Other Medical History: OVARIAN CYSTS - frequent low potassium - Past Surgical History Past Surgical History: Yes Neuro Surgical History: No Pertinent History Cardiac: No Pertinent History Respiratory: No Pertinent History Gastrointestinal: No Pertinent History Genitourinary: No Pertinent History Musculoskeletal: No Pertinent History Female Surgical History: Section Other Surgical History: WISDOM TEETH REMOVED - Social History Smoking Status: Current every day smoker How long have you smoked: 15 years Exposure to second hand smoke: Yes Alcohol Use: Socially Drug Use: none Patient Lives Alone: No Significant Family History: no pertinent family hx - Female History Hx Last Menstrual Period: 3 weeks ago Hx Now: No - Nursing Vital Signs Nursing Vital Signs: Initial Vital Signs Temperature 96.8 F 03/09/23 14:13 Pulse Rate 81 03/09/23 14:13 Respiratory Rate 24 03/09/23 14:13 Blood Pressure 119/98 03/09/23 14:13 O2 Sat by Pulse Oximetry 98 03/09/23 14:13 Pain Scale Pain Intensity 0 Within normal limits - Rod Coma Scale Best Eye Response (Rod): (4) open spontaneously Best Verbal Response ([place]): (4) confused conversation Best Motor Response (Rod): (6) obeys commands Rod Total: 14 - Physical Exam General Appearance: no apparent distress Eye Exam: bilateral eye: normal inspection, PERRL, EOMI Ears, Nose, Throat Exam: normal ENT inspection, TMs normal, pharynx normal, moist mucous membranes Neck Exam: normal inspection, non-tender, supple, full range of motion, No meningismus, No mass, No Brudzinski, No Kernig's, No carotid bruit Respiratory: normal breath sounds, lungs clear, airway intact Cardiovascular: regular rate/rhythm, normal heart sounds, normal peripheral pulses, capillary refill <2 sec, No murmur Gastrointestinal: soft, normal bowel sounds, No tenderness Back Exam: normal inspection, normal range of motion, No CVA tenderness, No vertebral tenderness Extremity Exam: normal inspection, normal range of motion Peripheral Pulses: carotid (R): 2+, carotid (L): 2+ Mental Status: alert, cooperative, disoriented to time, other (Patient at this time) 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 Exam: normal hearing, normal speech, PERRL Coordination/Gait: normal gait, normal cerebellar function, negative Romberg's sign Motor/Sensory: no motor deficit, no sensory deficit, no pronator drift, negative Babinski's sign DTR: bicep (R): 2+, bicep (L): 2+ Skin Exam: normal color, warm, dry, No rash SpO2 Interpretation: normal SpO2: 100 O2 Delivery: Room Air - Course Nursing assessment & vital signs reviewed: Yes - CT Exams Head CT Interpretation: Discussed w/radiologist (CT head nothing acute compared to CT done yesterday.) Ordered Tests: Active Orders 24 hr Category Date Time Status HEAD WITHOUT CONTRAST [CT] Stat Exams 03/09/23 14:32 Completed CBC W DIFF Stat Lab 03/09/23 14:30 Completed CMP Stat Lab 03/09/23 14:45 Completed CULTURE,URINE Stat Lab 03/09/23 15:36 Received ETHYL ALCOHOL Stat Lab 03/09/23 14:45 Completed HCG QUALITATIVE, SERUM Stat Lab 03/09/23 14:45 Completed Lactic Acid Stat Lab 03/09/23 14:51 Completed UA W/RFX UR CULTURE Stat Lab 03/09/23 15:36 Completed Urine Triage Profile Stat Lab 03/09/23 15:36 Completed Medication Summary Discontinued Medications Generic Name Dose Route Start Last Admin Trade Name Natalie PRN Reason Stop Dose Admin Sodium Chloride 1,000 mls @ 999 mls/hr 03/09/23 16:10 03/09/23 16:45 Sodium Chloride 0.9% 1000 Ml IV 03/09/23 17:10 Not Given .Q1H1M STA Lab/Rad Data: Laboratory Result Diagrams 03/09/23 14:30 03/09/23 14:45 Laboratory Results 03/09/23 03/09/23 03/09/23 Range/Units 15:36 15:36 14:51 WBC (4.0-10.5) x10^3/uL RBC (4.1-5.4) x10^6/uL Hgb (12.0-16.0) g/dL Hct (35-47) % MCV (78-100) fL MCH (26-32) pg MCHC (32-36) g/dL RDW (11.5-14.0) % Plt Count (150-450) x10^3/uL MPV (7.5-11.0) fL Gran % (36.0-66.0) % Immature Gran % (Auto) (0.00-0.4) % Nucleat RBC Rel Count (0.00-0.1) % Eos # (Auto) (0-0.5) x10^3/uL Immature Gran # (Auto) (0.00-0.03) x10^3u/L Absolute Lymphs (auto) (1.0-4.6) x10^3/uL Absolute Monos (auto) (0.0-1.3) x10^3/uL Absolute Nucleated RBC (0.00-0.01) x10^3u/L Lymphocytes % (24.0-44.0) % Monocytes % (0.0-12.0) % Eosinophils % (0.00-5.0) % Basophils % (0.0-0.4) % Absolute Granulocytes (1.4-6.9) x10^3/uL Basophils # (0-0.4) x10^3/uL Sodium (137-145) mmol/L Potassium (3.5-5.1) mmol/L Chloride (98-107) mmol/L Carbon Dioxide (22-30) mmol/L Anion Gap (5-15) MEQ/L BUN (7-17) mg/dL Creatinine (0.52-1.04) mg/dL Estimated GFR ML/MIN Glucose (74-106) mg/dL Lactic Acid 1.3 (0.4-2.0) Calcium (8.4-10.2) mg/dL Total Bilirubin (0.2-1.3) mg/dL AST (14-36) U/L ALT (0-35) U/L Alkaline Phosphatase (38-126) U/L Serum Total Protein (6.3-8.2) g/dL Albumin (3.5-5.0) g/dL Serum HCG, Qual (NEGATIVE) Urine Color Dark Yellow A (Yellow) Urine Appearance Clear (Clear) Urine pH 6.0 (4.6-8.0) Ur Specific [place] >=1.030 A (1.005-1.030) Urine Protein 30 (Negative) Urine Glucose (UA) Negative (Negative) mg/dL Urine Ketones 40 A (Negative) Urine Blood Negative (Negative) Urine Nitrite Negative (Negative) Urine Bilirubin Negative (Negative) Urine Urobilinogen 1.0 A (0.2) mg/dL Ur Leukocyte Esterase Negative (Negative) U Hyaline Cast (Auto) NONE SEEN (0-2) /LPF Urine Microscopic RBC 0-2 (0-5) /HPF Urine Microscopic WBC 3-5 (0-5) /HPF Ur Epithelial Cells Few (None Seen) /HPF Urine Bacteria Moderate A (None Seen) /HPF Urine Culture Reflexed YES (NO) Urine Opiates Level POSITIVE A (NEGATIVE) Ur Methadone NEGATIVE (NEGATIVE) Urine Barbiturates NEGATIVE (NEGATIVE) Ur Phencyclidine (PCP) NEGATIVE (NEGATIVE) Urine Amphetamine NEGATIVE (NEGATIVE) U Benzodiazepine Level NEGATIVE (NEGATIVE) Urine Cocaine NEGATIVE (NEGATIVE) Urine Marijuana (THC) NEGATIVE (NEGATIVE) Ethyl Alcohol (0-10) mg/dL 03/09/23 03/09/23 03/09/23 Range/Units 14:45 14:45 14:30 WBC 6.4 (4.0-10.5) x10^3/uL RBC 4.62 (4.1-5.4) x10^6/uL Hgb 13.3 (12.0-16.0) g/dL Hct 39.9 (35-47) % MCV 86.4 (78-100) fL MCH 28.8 (26-32) pg MCHC 33.3 (32-36) g/dL RDW 14.0 (11.5-14.0) % Plt Count 382 (150-450) x10^3/uL MPV 8.8 (7.5-11.0) fL Gran % 75.6 H (36.0-66.0) % Immature Gran % (Auto) 0.6 H (0.00-0.4) % Nucleat RBC Rel Count 0.0 (0.00-0.1) % Eos # (Auto) 0.01 (0-0.5) x10^3/uL Immature Gran # (Auto) 0.04 H (0.00-0.03) x10^3u/L Absolute Lymphs (auto) 1.20 (1.0-4.6) x10^3/uL Absolute Monos (auto) 0.30 (0.0-1.3) x10^3/uL Absolute Nucleated RBC 0.00 (0.00-0.01) x10^3u/L Lymphocytes % 18.7 L (24.0-44.0) % Monocytes % 4.7 (0.0-12.0) % Eosinophils % 0.2 (0.00-5.0) % Basophils % 0.2 (0.0-0.4) % Absolute Granulocytes 4.87 (1.4-6.9) x10^3/uL Basophils # 0.01 (0-0.4) x10^3/uL Sodium 139 (137-145) mmol/L Potassium 3.3 L (3.5-5.1) mmol/L Chloride 105 (98-107) mmol/L Carbon Dioxide 25 (22-30) mmol/L Anion Gap 12.6 (5-15) MEQ/L BUN 14 (7-17) mg/dL Creatinine 0.54 (0.52-1.04) mg/dL Estimated GFR 121.5 ML/MIN Glucose 87 (74-106) mg/dL Lactic Acid (0.4-2.0) Calcium 8.7 (8.4-10.2) mg/dL Total Bilirubin 0.80 (0.2-1.3) mg/dL AST 56 H (14-36) U/L ALT 39 H (0-35) U/L Alkaline Phosphatase 211 H (38-126) U/L Serum Total Protein 7.4 (6.3-8.2) g/dL Albumin 4.3 (3.5-5.0) g/dL Serum HCG, Qual NEGATIVE (NEGATIVE) Urine Color (Yellow) Urine Appearance (Clear) Urine pH (4.6-8.0) Ur Specific [place] (1.005-1.030) Urine Protein (Negative) Urine Glucose (UA) (Negative) mg/dL Urine Ketones (Negative) Urine Blood (Negative) Urine Nitrite (Negative) Urine Bilirubin (Negative) Urine Urobilinogen (0.2) mg/dL Ur Leukocyte Esterase (Negative) U Hyaline Cast (Auto) (0-2) /LPF Urine Microscopic RBC (0-5) /HPF Urine Microscopic WBC (0-5) /HPF Ur Epithelial Cells (None Seen) /HPF Urine Bacteria (None Seen) /HPF Urine Culture Reflexed (NO) Urine Opiates Level (NEGATIVE) Ur Methadone (NEGATIVE) Urine Barbiturates (NEGATIVE) Ur Phencyclidine (PCP) (NEGATIVE) Urine Amphetamine (NEGATIVE) U Benzodiazepine Level (NEGATIVE) Urine Cocaine (NEGATIVE) Urine Marijuana (THC) (NEGATIVE) Ethyl Alcohol < 10 (0-10) mg/dL - Progress Progress Note: 03/09/23 17:02 Nursing note and vital signs reviewed. Patient has a significant other and place to stay. All lab results reviewed and shared with patient. CT result reviewed and shared with patient. [facility] consulted and stated patient is okay to go home. Patient's problems most likely just due to substance abuse. Patient discharged in stable condition, and her significant other picked her up from the ER. Counseled pt/family regarding: lab results, rad results Medical Desision Making - Discussion of managment Care discussed with:: specialist Agreed on:: need for follow-up - Diagnostic Testing Diagnostic test were ordered, analyzed, and reviewed by me: Yes Radiological Interpretation: Reviewed by me - Risk of complications Low Risk: Low risk of morbidity from additional dx testing or treatment - Departure Departure Disposition: Home Clinical Impression: Substance abuse Condition: Stable Critical Care Time: No Referrals: JEREMY EDEN [Primary Care Provider] - Follow up/PCP as directed Instructions: Substance Use Disorder ED Additional Instructions: Following up with your family MD Quit using opioids Return to ER as needed. Please seek help for your opioid use disorder.
[2023-03-09 16:01] LABS: Appearance Clear (Clear); Bilirubin Negative (Negative); Blood Negative (Negative); Glucose, Urine Negative (Negative); Hyaline Casts NONE SEEN /LPF (0-2); Ketones 40 (Negative); Leukocyte Esterase Negative (Negative); Nitrite Negative (Negative); Protein,Urine Dip 30 (Negative); RBC 0-2 /HPF (0-5); Specific Gravity >=1.030 (1.005-1.030)
[2023-03-09 16:02] LABS: ADD URINE CULTURE? YES (NO); Bacteria Moderate /HPF (None Seen); Epithelial Cells Few /HPF (None Seen)
[2023-03-09 16:03] LABS: Amphetamine,Urine NEGATIVE (NEGATIVE); Barbiturate,Urine NEGATIVE (NEGATIVE); Benzodiazepine,Urine NEGATIVE (NEGATIVE); Cocaine,Urine NEGATIVE (NEGATIVE); Methadone,Urine NEGATIVE (NEGATIVE); Opiate,Urine POSITIVE (NEGATIVE); PCP,Urine NEGATIVE (NEGATIVE); THC,Urine NEGATIVE (NEGATIVE)
[2023-03-09] MEDS ORDERED: Sodium Chloride 0.9% 1000 ML 1,000 ML IV STA (16:10)
--- NOTE | 2023-03-09 16:31 | XRAY ---
Indication: Confusion. No known injury. Multiple contiguous axial images obtained through the head without contrast. Comparison: 1 day earlier. Normal appearing brain parenchyma, ventricles, and bony calvarium. Stable mild mucosal thickening both ethmoid sinuses and small inferior maxillary sinus polyp/retention cyst. Impression: No change compared to CT exam one day earlier. Continued normal CT head without contrast exam with incidental paranasal sinus disease.
[2023-03-09 17:37] VITALS: BP 159/97; PULSE 112; RESP 27
== END 2023-03-09 17:37 | disposition home or self-care (01) ==
LOC: ED 13:56
DX: F11.10 Opioid abuse, uncomplicated (principal); R41.0 Disorientation, unspecified; Z28.310 Unvaccinated for COVID-19; Z72.0 Tobacco use
CPT/HCPCS: 36415; 70450; 80053; 80307; 81001; 82077; 83605; 84703; 85025; 87086; 99284

== ENCOUNTER 2023-03-10 16:18 | Emergency (ER) | payer OTHER ==
[2023-03-10 16:43] VITALS: TEMP 98.6
[2023-03-10] MEDS ORDERED: Sodium Chloride 0.9% 1000 ML 1,000 ML IV STA (16:56)
--- NOTE | 2023-03-10 17:06 | ERPHSYRPT ---
- History of Present Illness Time Seen by Provider: 03/10/23 17:00 Source: patient Exam Limitations: no limitations Patient Subjective Stated Complaint: EMS states that patients boyfriend wants pt evaluated for psych Triage Nursing Assessment: pt came into the er via ambulance; pt is axo; behavioral problems; pt states she doesn't know what is going on; pt is unable to answer questions appropriately; pt is incontinent of bowel and bladder; skin PDW; no respiratory distress present; vital wnl Physician History: Patient a 37-year-old female presents to our ED via EMS for evaluation of confusion. Patient has been in our ED 3 times over the past week. Patient states she applied to patches of fentanyl yesterday. Patient later felt confused. Family became concerned and sent patient to our ED. Upon arrival to our ED patient had a incontinent/bowel movement. Patient denies pain. Symptoms are mild to moderate in intensity. No specific worsening or improving factors. Patient voices no other complaints or concerns at this time. Portions of this note were created with voice recognition technology. There may be grammatical, spelling, punctuation or sound alike errors Timing/Duration: today Severity of Symptoms-Max: moderate Severity of Symptoms-Current: mild Context related to: other Suicidal thoughts: other (Patient denies homicidal suicidal ideation) Associated Symptoms: denies symptoms Previous symptoms: same symptoms as today Allergies/Adverse Reactions: Iodinated Contrast Media [Iodinated Contrast- Oral and IV Dye] Allergy (Intermediate, Verified 03/10/23 16:20) Difficulty Breathing ketorolac tromethamine [From Toradol] Allergy (Mild, Verified 03/10/23 16:20) Rash orphenadrine citrate [From Norflex] Allergy (Mild, Verified 03/10/23 16:20) Rash prochlorperazine edisylate [From Compazine] Allergy (Mild, Verified 03/10/23 16:20) Rash prochlorperazine maleate [From Compazine] Allergy (Mild, Verified 03/10/23 16:20) Rash amoxicillin Adverse Reaction (Mild, Verified 03/10/23 16:20) Stomach Cramps CAUSES VAGINAL BLEEDING tramadol [From Ultram] Adverse Reaction (Verified 03/10/23 16:20) Home Medications: Unobtainable 03/10/23 [History] Hx Tetanus, Diphtheria Vaccination/Date Given: Yes Hx Influenza Vaccination/Date Given: No Hx Pneumococcal Vaccination/Date Given: No Travel Risk - International Travel Have you traveled outside of the country in past 3 weeks: No - Coronavirus Screening Are you exhibiting any of the following symptoms?: No Close contact with a COVID-19 positive Pt in past 14-21 Days: No - Vaccine Status Have you recieved a Covid-19 vaccination: No - Past Medical History Pertinent Past Medical History: Yes Neurological History: No Pertinent History ENT History: No Pertinent History Cardiac History: No Pertinent History Respiratory History: No Pertinent History Endocrine Medical History: No Pertinent History Musculoskeletal History: No Pertinent History GI Medical History: No Pertinent History History: Other Psycho-Social History: Anxiety, Depression Female Reproductive Disorders: Endometriosis, Other Other Medical History: OVARIAN CYSTS - frequent low potassium - Past Surgical History Past Surgical History: Yes Neuro Surgical History: No Pertinent History Cardiac: No Pertinent History Respiratory: No Pertinent History Gastrointestinal: No Pertinent History Genitourinary: No Pertinent History Musculoskeletal: No Pertinent History Female Surgical History: Section Other Surgical History: WISDOM TEETH REMOVED - Social History Smoking Status: Current every day smoker How long have you smoked: 15 years Exposure to second hand smoke: Yes Alcohol Use: Socially Drug Use: none Patient Lives Alone: No Significant Family History: no pertinent family hx - Female History Hx Now: No - Review of Systems Constitutional: No Symptoms, No Fever, No Chills Eyes: No Symptoms Ears, Nose, & Throat: No Symptoms Respiratory: No Symptoms, No Cough, No Dyspnea Cardiac: No Symptoms, No Chest Pain, No Edema, No Syncope Abdominal/Gastrointestinal: No Symptoms, No Abdominal Pain, No Nausea, No Vomiting, No Diarrhea Genitourinary Symptoms: No Symptoms, No Dysuria Musculoskeletal: No Symptoms, No Back Pain, No Neck Pain Skin: No Symptoms, No Rash Neurological: No Symptoms, No Dizziness, No Focal Weakness, No Sensory Changes Psychological: No Symptoms Endocrine: No Symptoms Hematologic/Lymphatic: No Symptoms Immunological/Allergic: No Symptoms All Other Systems: Reviewed and Negative - Nursing Vital Signs Nursing Vital Signs: Initial Vital Signs Temperature 98.6 F 03/10/23 16:19 Pulse Rate 91 H 03/10/23 16:19 Respiratory Rate 18 03/10/23 16:19 Blood Pressure 133/82 03/10/23 16:19 O2 Sat by Pulse Oximetry 99 03/10/23 16:19 Pain Scale Pain Intensity 3 - Physical Exam General Appearance: no apparent distress Eyes, Ears, Nose, Throat Exam: normal ENT inspection, moist mucous membranes Neck Exam: normal inspection, non-tender, supple Respiratory Exam: normal breath sounds, lungs clear, airway intact, No respiratory distress Cardiovascular Exam: regular rate/rhythm, normal peripheral pulses, No edema Gastrointestinal/Abdominal Exam: soft, No tenderness, No distention Extremities Exam: normal inspection, normal range of motion, No evidence of injury, No edema Peripheral Pulses: dorsalis-pedis (R): 2+, dorsalis-pedis (L): 2+ Current Suicidality: denies suicide plan 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 Patient current EKG similar to previous) - CT Exams Head CT Interpretation: Tele-radiologist Report (Continued normal CT head) Abdomen/Pelvis CT Interpretation: Tele-radiologist Report (Compared to 12/17/2022 stable tiny hepatic cyst. New colonic diarrhea remaining abdomen pelvis again negative) Ordered Tests: Active Orders 24 hr Category Date Time Status Electroplater STAT Care 03/10/23 16:57 Active Clean Catch Urine Specimen STAT Care 03/10/23 18:44 Active EKG-ER Only STAT Care 03/10/23 16:56 Active IV Insertion STAT Care 03/10/23 16:56 Active ABDOMEN AND PELVIS W/0 CONTRAS [CT] Stat Exams 03/10/23 20:28 Taken HEAD WITHOUT CONTRAST [CT] Stat Exams 03/10/23 16:57 Taken ACETAMINOPHEN Stat Lab 03/10/23 17:15 Completed BLOOD CULTURE Stat Lab 03/10/23 23:05 Ordered CBC W DIFF Stat Lab 03/10/23 17:15 Completed CMP Stat Lab 03/10/23 17:15 Completed CULTURE,URINE Stat Lab 03/10/23 18:17 Received SALICYLATE Stat Lab 03/10/23 17:15 Completed UA W/RFX UR CULTURE Stat Lab 03/10/23 18:17 Completed Urine Triage Profile Stat Lab 03/10/23 Completed Medication Summary Discontinued Medications Generic Name Dose Route Start Last Admin Trade Name Natalie PRN Reason Stop Dose Admin Acetaminophen 650 mg 03/10/23 18:50 03/10/23 18:52 Acetaminophen 325 Mg Tablet PO 03/10/23 18:51 650 mg STAT STA Administration Acetaminophen Confirm 03/10/23 18:51 Acetaminophen 325 Mg Tablet Administered 03/10/23 18:52 Dose 650 mg .ROUTE .STK-MED ONE Sodium Chloride 1,000 mls @ 999 mls/hr 03/10/23 16:56 03/10/23 18:54 Sodium Chloride 0.9% 1000 Ml IV 03/10/23 17:56 Infused .Q1H1M STA Infusion Sodium Chloride Confirm 03/10/23 17:40 Sodium Chloride 0.9% 1000 Ml Administered 03/10/23 17:41 Dose 1,000 mls @ ud .ROUTE .STK-MED ONE Potassium Chloride 40 meq 03/10/23 20:25 03/10/23 20:43 Potassium Chloride Tab 10 Meq Tab PO 03/10/23 20:26 40 meq STAT ONE Administration Potassium Chloride Confirm 03/10/23 20:42 Potassium Chloride Tab 10 Meq Tab Administered 03/10/23 20:43 Dose 40 meq PO .STK-MED ONE Lab/Rad Data: Laboratory Result Diagrams 03/10/23 17:15 03/10/23 17:15 Laboratory Results 03/10/23 03/10/23 03/10/23 Range/Units Unknown 21:00 18:17 WBC (4.0-10.5) x10^3/uL RBC (4.1-5.4) x10^6/uL Hgb (12.0-16.0) g/dL Hct (35-47) % MCV (78-100) fL MCH (26-32) pg MCHC (32-36) g/dL RDW (11.5-14.0) % Plt Count (150-450) x10^3/uL MPV (7.5-11.0) fL Gran % (36.0-66.0) % Immature Gran % (Auto) (0.00-0.4) % Nucleat RBC Rel Count (0.00-0.1) % Eos # (Auto) (0-0.5) x10^3/uL Immature Gran # (Auto) (0.00-0.03) x10^3u/L Absolute Lymphs (auto) (1.0-4.6) x10^3/uL Absolute Monos (auto) (0.0-1.3) x10^3/uL Absolute Nucleated RBC (0.00-0.01) x10^3u/L Lymphocytes % (24.0-44.0) % Monocytes % (0.0-12.0) % Eosinophils % (0.00-5.0) % Basophils % (0.0-0.4) % Absolute Granulocytes (1.4-6.9) x10^3/uL Basophils # (0-0.4) x10^3/uL Sodium (137-145) mmol/L Potassium (3.5-5.1) mmol/L Chloride (98-107) mmol/L Carbon Dioxide (22-30) mmol/L Anion Gap (5-15) MEQ/L BUN (7-17) mg/dL Creatinine (0.52-1.04) mg/dL Estimated GFR ML/MIN Glucose (74-106) mg/dL Calcium (8.4-10.2) mg/dL Total Bilirubin (0.2-1.3) mg/dL AST (14-36) U/L ALT (0-35) U/L Alkaline Phosphatase (38-126) U/L Ammonia < 9 L (9-30) umol/L Serum Total Protein (6.3-8.2) g/dL Albumin (3.5-5.0) g/dL Urine Color Dark Yellow A (Yellow) Urine Appearance Cloudy A (Clear) Urine pH 6.0 (4.6-8.0) Ur Specific [place] >=1.030 A (1.005-1.030) Urine Protein 30 (Negative) Urine Glucose (UA) Negative (Negative) mg/dL Urine Ketones 80 A (Negative) Urine Blood Negative (Negative) Urine Nitrite Negative (Negative) Urine Bilirubin Negative (Negative) Urine Urobilinogen 1.0 A (0.2) mg/dL Ur Leukocyte Esterase Trace A (Negative) U Hyaline Cast (Auto) NONE SEEN (0-2) /LPF Urine Microscopic RBC 3-5 (0-5) /HPF Urine Microscopic WBC 0-2 (0-5) /HPF Ur Epithelial Cells Few (None Seen) /HPF Urine Bacteria Moderate A (None Seen) /HPF Urine Culture Reflexed YES (NO) Salicylates (2-20) mg/dL Urine Opiates Level POSITIVE A (NEGATIVE) Ur Methadone NEGATIVE (NEGATIVE) Acetaminophen (10-30) ug/ml Urine Barbiturates NEGATIVE (NEGATIVE) Ur Phencyclidine (PCP) NEGATIVE (NEGATIVE) Urine Amphetamine NEGATIVE (NEGATIVE) U Benzodiazepine Level NEGATIVE (NEGATIVE) Urine Cocaine NEGATIVE (NEGATIVE) Urine Marijuana (THC) NEGATIVE (NEGATIVE) 03/10/23 03/10/23 Range/Units 17:15 17:15 WBC 19.7 H (4.0-10.5) x10^3/uL RBC 5.15 (4.1-5.4) x10^6/uL Hgb 15.0 (12.0-16.0) g/dL Hct 44.0 (35-47) % MCV 85.4 (78-100) fL MCH 29.1 (26-32) pg MCHC 34.1 (32-36) g/dL RDW 13.9 (11.5-14.0) % Plt Count 464 H (150-450) x10^3/uL MPV 8.7 (7.5-11.0) fL Gran % 86.0 H (36.0-66.0) % Immature Gran % (Auto) 0.5 H (0.00-0.4) % Nucleat RBC Rel Count 0.0 (0.00-0.1) % Eos # (Auto) 0 (0-0.5) x10^3/uL Immature Gran # (Auto) 0.09 H (0.00-0.03) x10^3u/L Absolute Lymphs (auto) 1.42 (1.0-4.6) x10^3/uL Absolute Monos (auto) 1.20 (0.0-1.3) x10^3/uL Absolute Nucleated RBC 0.00 (0.00-0.01) x10^3u/L Lymphocytes % 7.2 L (24.0-44.0) % Monocytes % 6.1 (0.0-12.0) % Eosinophils % 0.0 (0.00-5.0) % Basophils % 0.2 (0.0-0.4) % Absolute Granulocytes 16.92 H (1.4-6.9) x10^3/uL Basophils # 0.03 (0-0.4) x10^3/uL Sodium 142 (137-145) mmol/L Potassium 3.3 L (3.5-5.1) mmol/L Chloride 101 (98-107) mmol/L Carbon Dioxide 25 (22-30) mmol/L Anion Gap 20.0 H (5-15) MEQ/L BUN 17 (7-17) mg/dL Creatinine 0.69 (0.52-1.04) mg/dL Estimated GFR 114.6 ML/MIN Glucose 90 (74-106) mg/dL Calcium 9.6 (8.4-10.2) mg/dL Total Bilirubin 1.50 H (0.2-1.3) mg/dL AST 79 H (14-36) U/L ALT 55 H (0-35) U/L Alkaline Phosphatase 227 H (38-126) U/L Ammonia (9-30) umol/L Serum Total Protein 8.9 H (6.3-8.2) g/dL Albumin 5.2 H (3.5-5.0) g/dL Urine Color (Yellow) Urine Appearance (Clear) Urine pH (4.6-8.0) Ur Specific [place] (1.005-1.030) Urine Protein (Negative) Urine Glucose (UA) (Negative) mg/dL Urine Ketones (Negative) Urine Blood (Negative) Urine Nitrite (Negative) Urine Bilirubin (Negative) Urine Urobilinogen (0.2) mg/dL Ur Leukocyte Esterase (Negative) U Hyaline Cast (Auto) (0-2) /LPF Urine Microscopic RBC (0-5) /HPF Urine Microscopic WBC (0-5) /HPF Ur Epithelial Cells (None Seen) /HPF Urine Bacteria (None Seen) /HPF Urine Culture Reflexed (NO) Salicylates < 1.0 L (2-20) mg/dL Urine Opiates Level (NEGATIVE) Ur Methadone (NEGATIVE) Acetaminophen < 10 L (10-30) ug/ml Urine Barbiturates (NEGATIVE) Ur Phencyclidine (PCP) (NEGATIVE) Urine Amphetamine (NEGATIVE) U Benzodiazepine Level (NEGATIVE) Urine Cocaine (NEGATIVE) Urine Marijuana (THC) (NEGATIVE) - Progress Progress: improved Progress Note: 37-year-old female presents to our ED for evaluation per family's request. Physical exam essentially nonremarkable. EKG reveals normal sinus rhythm. CT abdomen pelvis nonremarkable for acute findings. CT head negative for acute cranial pathology. Acetaminophen and that levels are within normal limits. Ammonia within normal limits. CBC reveals leukocytosis of 19.7. Patient afebrile there are no nidus is of infection observed. Blood cultures obtained. Potassium 3.3. Oral replacement potassium administered. Patient received normal saline. Workup reveals opiates. However patient admitted to opiate use prior to [facility]. Patient is ready for discharge. Patient was evaluated by psychiatry. Patient approved to be discharged home with a safety plan. Patient was approved by Melanie Levy. Patient states he is ready for discharge. She voices no other complaints or concerns at this time. Portions of this note were created with voice recognition technology. There may be grammatical, spelling, punctuation or sound alike errors Complexity problem addressed is moderate acute complicated. No critical care time Complexity of data reviewed and analyzed is extensive. Test ordered test reviewed. Results analyzed and correlated clinically. Management discussed with behavioral health. Risk complication and a risk of morbidity/mortality of patient management is moderate Vital stable. Time spent to discharge patient is approximately 15 minutes. Plan of care established for shared decision making. No social determinants of health present impede follow-up. Portions of this note were created with voice recognition technology. There may be grammatical, spelling, punctuation or sound alike errors 03/10/23 23:22 03/10/23 23:23 Counseled pt/family regarding: lab results, diagnosis, need for follow-up - Departure Departure Disposition: Observation Clinical Impression: Opiate use, Hypokalemia, Dehydration, Elevated liver enzymes, Total bilirubin, elevated, Leukocytosis, Hepatic cyst, Colonic diarrhea Condition: Stable Critical Care Time: No Referrals: JEREMY EDEN [Primary Care Provider] - Follow up/PCP as directed
[2023-03-10 17:23] LABS: Absolute Neutrophil Ct (ANC) 16.92 x10^3/uL (1.4-6.9); BASOPHIL % 0.2 % (0.0-0.4); Basophil (Absolute #) 0.03 x10^3/uL (0-0.4); Eosinophil (Absolute #) 0 x10^3/uL (0-0.5); IMMATURE GRAN # 0.09 x10^3u/L (0.00-0.03); IMMATURE GRAN % 0.5 % (0.00-0.4); Lymphocyte (Absolute #) 1.42 x10^3/uL (1.0-4.6); Lymphocytes % 7.2 % (24.0-44.0); Mean Cell Volume 85.4 fL (78-100); Mean Corpuscular Hemoglobin 29.1 pg (26-32); Mean Corpuscular Hgb Concent. 34.1 g/dL (32-36); Mean Platelet Volume 8.7 fL (7.5-11.0); Monocytes % 6.1 % (0.0-12.0); Platelet Count 464 x10^3/uL (150-450); Red Blood Count 5.15 x10^6/uL (4.1-5.4); Red Cell Distribution Width 13.9 % (11.5-14.0); White Blood Count 19.7 x10^3/uL (4.0-10.5)
[2023-03-10] MEDS ORDERED: Sodium Chloride 0.9% 1000 ML 1,000 ML ONE (17:40)
[2023-03-10 17:51] LABS: ACETAMINOPHEN < 10 ug/ml (10-30); ALBUMIN 5.2 g/dL (3.5-5.0); ALKALINE PHOSPHATASE 227 U/L (38-126); BLOOD UREA NITROGEN 17 mg/dL (7-17); CHLORIDE 101 mmol/L (98-107); Calcium 9.6 mg/dL (8.4-10.2); Carbon Dioxide 25 mmol/L (22-30); Creatinine 1 0.69 mg/dL (0.52-1.04); EST GLOMERULAR FILTRATION RATE 114.6 ML/MIN; Glucose 90 mg/dL (74-106); Potassium 3.3 mmol/L (3.5-5.1); SALICYLATE < 1.0 mg/dL (2-20); SGOT/AST 79 U/L (14-36); SGPT/ALT 55 U/L (0-35); SODIUM 142 mmol/L (137-145); Total Protein 8.9 g/dL (6.3-8.2)
[2023-03-10 18:29] LABS: Appearance Cloudy (Clear); Bacteria Moderate /HPF (None Seen); Bilirubin Negative (Negative); Blood Negative (Negative); Epithelial Cells Few /HPF (None Seen); Glucose, Urine Negative (Negative); Hyaline Casts NONE SEEN /LPF (0-2); Ketones 80 (Negative); Leukocyte Esterase Trace (Negative); Nitrite Negative (Negative); Protein,Urine Dip 30 (Negative); Specific Gravity >=1.030 (1.005-1.030); WBC 0-2 /HPF (0-5)
[2023-03-10 18:32] LABS: ADD URINE CULTURE? YES (NO)
[2023-03-10] MEDS ORDERED: TYLENOL 325 MG PO STA (18:50)
[2023-03-10] MEDS ORDERED: TYLENOL 325 MG ONE (18:51)
[2023-03-10 19:13] LABS: Amphetamine,Urine NEGATIVE (NEGATIVE); Barbiturate,Urine NEGATIVE (NEGATIVE); Benzodiazepine,Urine NEGATIVE (NEGATIVE); Cocaine,Urine NEGATIVE (NEGATIVE); Methadone,Urine NEGATIVE (NEGATIVE); Opiate,Urine POSITIVE (NEGATIVE); PCP,Urine NEGATIVE (NEGATIVE); THC,Urine NEGATIVE (NEGATIVE)
[2023-03-10] MEDS ORDERED: Klor Con PO ONE ×2 (20:25→20:42)
[2023-03-11 01:30] VITALS: BP 136/74; PULSE 92; RESP 16; O2SAT 100
--- NOTE | 2023-03-11 08:32 | XRAY ---
Indication: Confusion. Multiple contiguous axial images obtained through the head without contrast. Comparison: March 08 and March 09, 2023. Normal appearing brain parenchyma, ventricles, and bony calvarium. Again minimal mucosal thickening both ethmoid sinuses and small right maxillary sinus polyp/retention cyst. Mastoid air cells are clear. Impression: Continued normal CT head without contrast exam with incidental paranasal sinus disease.
--- NOTE | 2023-03-11 08:48 | XRAY ---
Indication: Pain. Elevated liver enzymes. Multiple contiguous axial images obtained through the abdomen and pelvis without contrast. Comparison: December 17, 2022 Lung bases clear. Heart not enlarged. Noncontrasted stomach and bowel loops appear nonobstructed with normal appendix. New mild diffuse colonic diarrhea. Stable small hepatic cyst. No free fluid/air. Remaining liver, gallbladder, pancreas, spleen, adrenal glands, kidneys, ureters, bladder, uterus, and aorta are unremarkable for noncontrast exam. Osseous structures intact. Impression: New colonic diarrhea. Stable hepatic cyst. Remaining CT abdomen/pelvis without contrast exam is negative.
== END 2023-03-11 01:26 | disposition home or self-care (01) ==
LOC: ED 16:18
DX: F11.90 Opioid use, unspecified, uncomplicated (principal); E87.6 Hypokalemia; E86.0 Dehydration; R74.8 Abnormal levels of other serum enzymes; E80.6 Other disorders of bilirubin metabolism; D72.829 Elevated white blood cell count, unspecified; K76.89 Other specified diseases of liver; K52.89 Other specified noninfective gastroenteritis and colitis; R41.0 Disorientation, unspecified; Z28.310 Unvaccinated for COVID-19; Z72.0 Tobacco use
CPT/HCPCS: 36000; 36415; 70450; 74176; 80053; 80143; 80179; 80307; 81001; 82140; 85025; 87040; 87077; 87086; 87186; 90791; 93005; 93041; 96365; 99285; Q3014; A9270-GY

== ENCOUNTER 2023-03-13 17:47 | Emergency (ER) | payer OTHER ==
--- NOTE | 2023-03-13 18:02 | ERPHSYRPT ---
- History of Present Illness Time Seen by Provider: 03/13/23 18:02 Source: patient Exam Limitations: clinical condition Physician History: This is a 37-year-old white female patient of Dr. Patel who presents for the fourth visit in 5 days to our emergency department. The patient is anxious and she feels as though she is confused. She cannot pinpoint what is actually wrong. She does state that her feet are hurting her. She denies headache. She denies chest pain. She denies shortness of breath. She has no abdominal pain. She has not had a fever. She has had no vomiting or diarrhea symptoms. She has had no hemoptysis, hematemesis, rectal bleeding or vaginal bleeding. Patient states that she has not had any visual or auditory hallucinations. She also states she is not suicidal or homicidal. Patient underwent a full workup within the last few days including a CT scan of the head which showed no acute abnormality. She also had a CT scan of the abdomen and pelvis which also showed no acute abnormality. Patient does have a history of anxiety and depression. Timing/Duration: day(s) (Symptoms present for the last several days.) Severity: mild (To moderate) Modifying Factors: Improves With: nothing Associated Symptoms: denies symptoms Allergies/Adverse Reactions: Iodinated Contrast Media [Iodinated Contrast- Oral and IV Dye] Allergy (Intermediate, Verified 03/13/23 18:01) Difficulty Breathing ketorolac tromethamine [From Toradol] Allergy (Mild, Verified 03/13/23 18:01) Rash orphenadrine citrate [From Norflex] Allergy (Mild, Verified 03/13/23 18:01) Rash prochlorperazine edisylate [From Compazine] Allergy (Mild, Verified 03/13/23 18:01) Rash prochlorperazine maleate [From Compazine] Allergy (Mild, Verified 03/13/23 18:01) Rash amoxicillin Adverse Reaction (Mild, Verified 03/13/23 18:01) Stomach Cramps CAUSES VAGINAL BLEEDING tramadol [From Ultram] Adverse Reaction (Verified 03/13/23 18:01) Hx Tetanus, Diphtheria Vaccination/Date Given: Yes Hx Influenza Vaccination/Date Given: No Hx Pneumococcal Vaccination/Date Given: No Travel Risk - International Travel Have you traveled outside of the country in past 3 weeks: No - Coronavirus Screening Are you exhibiting any of the following symptoms?: No Close contact with a COVID-19 positive Pt in past 14-21 Days: No - Vaccine Status Have you recieved a Covid-19 vaccination: No - Review of Systems Constitutional: No Symptoms Eyes: No Symptoms Ears, Nose, & Throat: No Symptoms Respiratory: No Symptoms Cardiac: No Symptoms Abdominal/Gastrointestinal: No Symptoms Genitourinary Symptoms: No Symptoms Musculoskeletal: Other (Patient states her feet hurt) Neurological: No Symptoms Psychological: Anxiety, Depression, No Suicidal Ideations, No Homicidal Ideations, No Hallucinations Endocrine: No Symptoms Hematologic/Lymphatic: No Symptoms Immunological/Allergic: No Symptoms All Other Systems: Reviewed and Negative - Past Medical History Pertinent Past Medical History: Yes Neurological History: No Pertinent History ENT History: No Pertinent History Cardiac History: No Pertinent History Respiratory History: No Pertinent History Endocrine Medical History: No Pertinent History Musculoskeletal History: No Pertinent History GI Medical History: No Pertinent History History: Other Psycho-Social History: Anxiety, Depression Female Reproductive Disorders: Endometriosis, Other Other Medical History: OVARIAN CYSTS - frequent low potassium - Past Surgical History Past Surgical History: Yes Neuro Surgical History: No Pertinent History Cardiac: No Pertinent History Respiratory: No Pertinent History Gastrointestinal: No Pertinent History Genitourinary: No Pertinent History Musculoskeletal: No Pertinent History Female Surgical History: Section Other Surgical History: WISDOM TEETH REMOVED - Social History Smoking Status: Current every day smoker How long have you smoked: 15 years Exposure to second hand smoke: Yes Alcohol Use: Socially Drug Use: none Patient Lives Alone: No Significant Family History: no pertinent family hx - Nursing Vital Signs Nursing Vital Signs: Initial Vital Signs Temperature 98.5 F 03/13/23 17:47 Pulse Rate 115 H 03/13/23 17:47 Respiratory Rate 12 03/13/23 17:47 Blood Pressure 115/91 03/13/23 17:47 O2 Sat by Pulse Oximetry 97 03/13/23 17:47 Pain Scale Pain Intensity 3 - Physical Exam General Appearance: no apparent distress, alert, anxiety Eye Exam: PERRL/EOMI, eyes nml inspection Ears, Nose, Throat Exam: normal ENT inspection, moist mucous membranes Neck Exam: normal inspection, non-tender, supple, full range of motion Respiratory Exam: normal breath sounds, lungs clear, airway intact, No chest tenderness, No respiratory distress Cardiovascular Exam: regular rate/rhythm, normal heart sounds, normal peripheral pulses, other (On admission she had a mildly elevated heart rate in the 115 range. However on my examination her heart rate on the monitor was running in the 90s and a normal sinus rhythm pattern) Gastrointestinal/Abdomen Exam: soft, normal bowel sounds, No tenderness Pelvic Exam: not done Rectal Exam: not done Back Exam: normal inspection, normal range of motion, No CVA tenderness, No vertebral tenderness Extremity Exam: normal inspection, normal range of motion, pelvis stable Neurologic Exam: alert, oriented x 3, cooperative, radiology clerk II-XII nml as tested, nml cerebellar function, nml station & gait, sensation nml, other (Anxious) Skin Exam: normal color Lymphatic Exam: No adenopathy SpO2 Interpretation: normal O2 Delivery: Room Air - Course Nursing assessment & vital signs reviewed: Yes Ordered Tests: Active Orders 24 hr Category Date Time Status IV Insertion STAT Care 03/13/23 18:45 Active POCT Glucose Check STAT Care 03/13/23 18:45 Active ACETAMINOPHEN Stat Lab 03/13/23 18:55 Completed CBC W DIFF Stat Lab 03/13/23 18:55 Completed CMP Stat Lab 03/13/23 18:55 Completed ETHYL ALCOHOL Stat Lab 03/13/23 18:55 Completed HCG QUALITATIVE, SERUM Stat Lab 03/13/23 18:55 Completed POCT GLUCOSE Stat Lab 03/13/23 18:56 Completed SALICYLATE Stat Lab 03/13/23 18:55 Completed UA W/RFX UR CULTURE Stat Lab 03/13/23 19:53 Completed Urine Triage Profile Stat Lab 03/13/23 19:53 Received Medication Summary Discontinued Medications Generic Name Dose Route Start Last Admin Trade Name Natalie PRN Reason Stop Dose Admin Potassium Chloride 20 meq 03/13/23 20:30 Potassium Chloride Tab 10 Meq Tab PO 03/13/23 20:31 STAT ONE Potassium Chloride 20 meq 03/13/23 20:31 Potassium Chloride Tab 10 Meq Tab PO 03/13/23 20:32 STAT ONE Lab/Rad Data: Laboratory Result Diagrams 03/13/23 18:55 03/13/23 18:55 Laboratory Results 03/13/23 03/13/23 03/13/23 Range/Units 19:53 18:56 18:55 WBC (4.0-10.5) x10^3/uL RBC (4.1-5.4) x10^6/uL Hgb (12.0-16.0) g/dL Hct (35-47) % MCV (78-100) fL MCH (26-32) pg MCHC (32-36) g/dL RDW (11.5-14.0) % Plt Count (150-450) x10^3/uL MPV (7.5-11.0) fL Gran % (36.0-66.0) % Immature Gran % (Auto) (0.00-0.4) % Nucleat RBC Rel Count (0.00-0.1) % Eos # (Auto) (0-0.5) x10^3/uL Immature Gran # (Auto) (0.00-0.03) x10^3u/L Absolute Lymphs (auto) (1.0-4.6) x10^3/uL Absolute Monos (auto) (0.0-1.3) x10^3/uL Absolute Nucleated RBC (0.00-0.01) x10^3u/L Lymphocytes % (24.0-44.0) % Monocytes % (0.0-12.0) % Eosinophils % (0.00-5.0) % Basophils % (0.0-0.4) % Absolute Granulocytes (1.4-6.9) x10^3/uL Basophils # (0-0.4) x10^3/uL Sodium (137-145) mmol/L Potassium (3.5-5.1) mmol/L Chloride (98-107) mmol/L Carbon Dioxide (22-30) mmol/L Anion Gap (5-15) MEQ/L BUN (7-17) mg/dL Creatinine (0.52-1.04) mg/dL Estimated GFR ML/MIN Glucose (74-106) mg/dL POC Glucometer 90 (74 to 106) mg/dL Calcium (8.4-10.2) mg/dL Total Bilirubin (0.2-1.3) mg/dL AST (14-36) U/L ALT (0-35) U/L Alkaline Phosphatase (38-126) U/L Serum Total Protein (6.3-8.2) g/dL Albumin (3.5-5.0) g/dL Serum HCG, Qual NEGATIVE (NEGATIVE) Urine Color Yellow (Yellow) Urine Appearance Clear (Clear) Urine pH 6.5 (4.6-8.0) Ur Specific [place] >=1.030 A (1.005-1.030) Urine Protein Trace A (Negative) Urine Glucose (UA) Negative (Negative) mg/dL Urine Ketones 15 A (Negative) Urine Blood Negative (Negative) Urine Nitrite Negative (Negative) Urine Bilirubin Negative (Negative) Urine Urobilinogen 1.0 A (0.2) mg/dL Ur Leukocyte Esterase Negative (Negative) U Hyaline Cast (Auto) NONE SEEN (0-2) /LPF Urine Microscopic RBC 0-2 (0-5) /HPF Urine Microscopic WBC 3-5 (0-5) /HPF Ur Epithelial Cells Rare (None Seen) /HPF Urine Bacteria Few A (None Seen) /HPF Urine Culture Reflexed NO (NO) Salicylates (2-20) mg/dL Acetaminophen (10-30) ug/ml Ethyl Alcohol (0-10) mg/dL 03/13/23 03/13/23 Range/Units 18:55 18:55 WBC 8.2 (4.0-10.5) x10^3/uL RBC 4.43 (4.1-5.4) x10^6/uL Hgb 12.8 (12.0-16.0) g/dL Hct 37.7 (35-47) % MCV 85.1 (78-100) fL MCH 28.9 (26-32) pg MCHC 34.0 (32-36) g/dL RDW 13.8 (11.5-14.0) % Plt Count 357 (150-450) x10^3/uL MPV 8.8 (7.5-11.0) fL Gran % 70.4 H (36.0-66.0) % Immature Gran % (Auto) 0.4 (0.00-0.4) % Nucleat RBC Rel Count 0.0 (0.00-0.1) % Eos # (Auto) 0.03 (0-0.5) x10^3/uL Immature Gran # (Auto) 0.03 (0.00-0.03) x10^3u/L Absolute Lymphs (auto) 1.91 (1.0-4.6) x10^3/uL Absolute Monos (auto) 0.45 (0.0-1.3) x10^3/uL Absolute Nucleated RBC 0.00 (0.00-0.01) x10^3u/L Lymphocytes % 23.2 L (24.0-44.0) % Monocytes % 5.5 (0.0-12.0) % Eosinophils % 0.4 (0.00-5.0) % Basophils % 0.1 (0.0-0.4) % Absolute Granulocytes 5.81 (1.4-6.9) x10^3/uL Basophils # 0.01 (0-0.4) x10^3/uL Sodium 139 (137-145) mmol/L Potassium 2.7 L* (3.5-5.1) mmol/L Chloride 108 H (98-107) mmol/L Carbon Dioxide 26 (22-30) mmol/L Anion Gap 7.2 (5-15) MEQ/L BUN 9 (7-17) mg/dL Creatinine 0.51 L (0.52-1.04) mg/dL Estimated GFR 123.2 ML/MIN Glucose 95 (74-106) mg/dL POC Glucometer (74 to 106) mg/dL Calcium 8.1 L (8.4-10.2) mg/dL Total Bilirubin 0.50 (0.2-1.3) mg/dL AST 25 (14-36) U/L ALT 35 (0-35) U/L Alkaline Phosphatase 181 H (38-126) U/L Serum Total Protein 6.6 (6.3-8.2) g/dL Albumin 3.8 (3.5-5.0) g/dL Serum HCG, Qual (NEGATIVE) Urine Color (Yellow) Urine Appearance (Clear) Urine pH (4.6-8.0) Ur Specific [place] (1.005-1.030) Urine Protein (Negative) Urine Glucose (UA) (Negative) mg/dL Urine Ketones (Negative) Urine Blood (Negative) Urine Nitrite (Negative) Urine Bilirubin (Negative) Urine Urobilinogen (0.2) mg/dL Ur Leukocyte Esterase (Negative) U Hyaline Cast (Auto) (0-2) /LPF Urine Microscopic RBC (0-5) /HPF Urine Microscopic WBC (0-5) /HPF Ur Epithelial Cells (None Seen) /HPF Urine Bacteria (None Seen) /HPF Urine Culture Reflexed (NO) Salicylates < 1.0 L (2-20) mg/dL Acetaminophen < 10 L (10-30) ug/ml Ethyl Alcohol < 10 (0-10) mg/dL - Progress Progress: unchanged Progress Note: 03/13/23 19:39 This patient's medical issue is 1 of moderate complexity. Level complexity in the workup performed is based on review of the patient's past medical history, review the patient's medication list, review the patient's drug allergy list, history present illness and physical findings on examination. This patient workup includes CBC, CMP, acetaminophen, salicylate, test, urinalysis, urine drug screen, alcohol level. 03/13/23 20:33 I interpreted the laboratory data results that have returned thus far. We are waiting for the urine drug screen. Patient does have a potassium level 2.7. Will provide her a 20 mill equivalent dose of potassium chloride here in the emergency department. Will provide her with another 20 mill equivalent potassium chloride dose to take at 7 AM followed by a prescription to take 20 mill equivalents twice a day for 2 days. Patient will return to the emergency department on 03/15/2023 to recheck her labs. Results will be called to the emergency department. Counseled pt/family regarding: lab results, diagnosis, need for follow-up Medical Desision Making - Diagnostic Testing Diagnostic test were ordered, analyzed, and reviewed by me: Yes - Risk of complications Low Risk: Low risk of morbidity from additional dx testing or treatment The pt has a mod risk of morbidity or mortality based on: Need for prescription drug management - Departure Departure Disposition: Home Clinical Impression: Anxiety about health, Hypokalemia Condition: Stable Critical Care Time: No Referrals: JEREMY PATEL [Primary Care Provider] - Follow up/PCP as directed Additional Instructions: Drink plenty of clear liquids. Drink Gatorade. Eat bananas and nuts if you are not allergic. Take your take-home dose of potassium at 7 AM on 03/14/2023 followed by taking the prescription of potassium chloride as prescribed over the next 2 days. Return to the [facility] lab on 03/15/2023 at 8 in the morning to recheck your potassium level. Go to the emergency department to obtain your results. Prescriptions: Potassium Chloride Tab* [Jaja Ferrara] 20 meq PO BID #8 tab
[2023-03-13 18:11] VITALS: TEMP 98.5; O2SAT 97
[2023-03-13 19:00] LABS: Absolute Neutrophil Ct (ANC) 5.81 x10^3/uL (1.4-6.9); BASOPHIL % 0.1 % (0.0-0.4); Basophil (Absolute #) 0.01 x10^3/uL (0-0.4); Eosinophil % 0.4 % (0.00-5.0); Eosinophil (Absolute #) 0.03 x10^3/uL (0-0.5); Hematocrit 37.7 % (35-47); Hemoglobin 12.8 g/dL (12.0-16.0); IMMATURE GRAN # 0.03 x10^3u/L (0.00-0.03); IMMATURE GRAN % 0.4 % (0.00-0.4); Lymphocyte (Absolute #) 1.91 x10^3/uL (1.0-4.6); Lymphocytes % 23.2 % (24.0-44.0); Mean Cell Volume 85.1 fL (78-100); Mean Corpuscular Hemoglobin 28.9 pg (26-32); Mean Platelet Volume 8.8 fL (7.5-11.0); Monocyte (Absolute #) 0.45 x10^3/uL (0.0-1.3); Monocytes % 5.5 % (0.0-12.0); Neutrophil % 70.4 % (36.0-66.0); Platelet Count 357 x10^3/uL (150-450); Red Blood Count 4.43 x10^6/uL (4.1-5.4); Red Cell Distribution Width 13.8 % (11.5-14.0); White Blood Count 8.2 x10^3/uL (4.0-10.5)
[2023-03-13 19:14] LABS: ACETAMINOPHEN < 10 ug/ml (10-30); ALBUMIN 3.8 g/dL (3.5-5.0); ALKALINE PHOSPHATASE 181 U/L (38-126); ANION GAP 7.2 MEQ/L (5-15); BLOOD UREA NITROGEN 9 mg/dL (7-17); CHLORIDE 108 mmol/L (98-107); Calcium 8.1 mg/dL (8.4-10.2); Carbon Dioxide 26 mmol/L (22-30); Creatinine 1 0.51 mg/dL (0.52-1.04); EST GLOMERULAR FILTRATION RATE 123.2 ML/MIN; ETHYL ALCOHOL < 10 mg/dL (0-10); Glucose 95 mg/dL (74-106); SALICYLATE < 1.0 mg/dL (2-20); SGOT/AST 25 U/L (14-36); SGPT/ALT 35 U/L (0-35); SODIUM 139 mmol/L (137-145); Total Protein 6.6 g/dL (6.3-8.2)
[2023-03-13 19:16] LABS: Potassium 2.7 mmol/L (3.5-5.1)
[2023-03-13 19:18] LABS: HCG SERUM TEST NEGATIVE (NEGATIVE)
[2023-03-13 20:06] VITALS: BP 164/96; PULSE 105; RESP 19
[2023-03-13 20:28] LABS: ADD URINE CULTURE? NO (NO); Appearance Clear (Clear); Bacteria Few /HPF (None Seen); Bilirubin Negative (Negative); Blood Negative (Negative); Epithelial Cells Rare /HPF (None Seen); Glucose, Urine Negative (Negative); Hyaline Casts NONE SEEN /LPF (0-2); Ketones 15 (Negative); Leukocyte Esterase Negative (Negative); Nitrite Negative (Negative); Ph 6.5 (4.6-8.0); Protein,Urine Dip Trace (Negative); RBC 0-2 /HPF (0-5); Specific Gravity >=1.030 (1.005-1.030)
[2023-03-13] MEDS ORDERED: Klor Con PO ONE ×4 (20:30→20:51)
[2023-03-13 20:33] LABS: Amphetamine,Urine NEGATIVE (NEGATIVE); Barbiturate,Urine NEGATIVE (NEGATIVE); Benzodiazepine,Urine NEGATIVE (NEGATIVE); Cocaine,Urine NEGATIVE (NEGATIVE); Methadone,Urine NEGATIVE (NEGATIVE); Opiate,Urine NEGATIVE (NEGATIVE); PCP,Urine NEGATIVE (NEGATIVE); THC,Urine NEGATIVE (NEGATIVE)
== END 2023-03-13 20:58 | disposition home or self-care (01) ==
LOC: ED 17:47
DX: F45.9 Somatoform disorder, unspecified (principal); E87.6 Hypokalemia; R41.0 Disorientation, unspecified; Z28.310 Unvaccinated for COVID-19; Z72.0 Tobacco use
CPT/HCPCS: 36000; 36415; 80053; 80143; 80179; 80307; 81001; 82077; 82947; 84703; 85025; 99284; A9270-GY

== ENCOUNTER 2023-03-13 22:35 | Emergency (ER) | payer OTHER ==
[2023-03-13 22:37] VITALS: TEMP 98
[2023-03-13] MEDS ORDERED: Klor Con PO ONE ×2 (22:42→23:05)
--- NOTE | 2023-03-13 22:45 | ERPHSYRPT ---
- History of Present Illness Time Seen by Provider: 03/13/23 22:38 Source: patient Exam Limitations: no limitations Physician History: This is a 37-year-old white female who we just discharged from the hospital within 30 minutes ago. She now states that she is concerned she may hurt herself. She was unable to obtain a ride home. Patient's workup showed a potassium level of 2.7 and we provide the patient with potassium 20 mg orally here in the emergency department. We had planned for discharge for her to take potassium for the next 2 days and follow-up lab to recheck it in our hospital facility. However, she now with states that she is suicidal. She has no s pecific plan Timing/Duration: today Severity of Symptoms-Max: none Severity of Symptoms-Current: none Context related to: living circumstances, other (Health concerns) Suicidal thoughts: other (Suicidal thoughts) Associated Symptoms: confused, suicidal ideation Previous symptoms: same symptoms as today, recently seen, recently treated Allergies/Adverse Reactions: Iodinated Contrast Media [Iodinated Contrast- Oral and IV Dye] Allergy (Intermediate, Verified 03/13/23 22:53) Difficulty Breathing ketorolac tromethamine [From Toradol] Allergy (Mild, Verified 03/13/23 22:53) Rash orphenadrine citrate [From Norflex] Allergy (Mild, Verified 03/13/23 22:53) Rash prochlorperazine edisylate [From Compazine] Allergy (Mild, Verified 03/13/23 22:53) Rash prochlorperazine maleate [From Compazine] Allergy (Mild, Verified 03/13/23 22:53) Rash amoxicillin Adverse Reaction (Mild, Verified 03/13/23 22:53) Stomach Cramps CAUSES VAGINAL BLEEDING tramadol [From Ultram] Adverse Reaction (Verified 03/13/23 22:53) Hx Tetanus, Diphtheria Vaccination/Date Given: Yes Hx Influenza Vaccination/Date Given: No Hx Pneumococcal Vaccination/Date Given: No Travel Risk - International Travel Have you traveled outside of the country in past 3 weeks: No - Coronavirus Screening Are you exhibiting any of the following symptoms?: No Close contact with a COVID-19 positive Pt in past 14-21 Days: No - Vaccine Status Have you recieved a Covid-19 vaccination: No - Past Medical History Pertinent Past Medical History: Yes Neurological History: No Pertinent History ENT History: No Pertinent History Cardiac History: No Pertinent History Respiratory History: No Pertinent History Endocrine Medical History: No Pertinent History Musculoskeletal History: No Pertinent History GI Medical History: No Pertinent History History: Other Psycho-Social History: Anxiety, Depression Female Reproductive Disorders: Endometriosis, Other Other Medical History: OVARIAN CYSTS - frequent low potassium - Past Surgical History Past Surgical History: Yes Neuro Surgical History: No Pertinent History Cardiac: No Pertinent History Respiratory: No Pertinent History Gastrointestinal: No Pertinent History Genitourinary: No Pertinent History Musculoskeletal: No Pertinent History Female Surgical History: Section Other Surgical History: WISDOM TEETH REMOVED - Social History Smoking Status: Current every day smoker How long have you smoked: 15 years Exposure to second hand smoke: Yes Alcohol Use: Socially Drug Use: none Patient Lives Alone: No Significant Family History: no pertinent family hx - Review of Systems Constitutional: No Symptoms Eyes: No Symptoms Ears, Nose, & Throat: No Symptoms Respiratory: No Symptoms Cardiac: No Symptoms Abdominal/Gastrointestinal: No Symptoms Genitourinary Symptoms: No Symptoms Musculoskeletal: No Symptoms Skin: No Symptoms Neurological: No Symptoms Psychological: Suicidal Ideations, No Homicidal Ideations, No Hallucinations - Nursing Vital Signs Nursing Vital Signs: Initial Vital Signs Pulse Rate 106 H 03/13/23 22:35 Respiratory Rate 18 03/13/23 22:35 Blood Pressure 164/78 03/13/23 22:35 O2 Sat by Pulse Oximetry 97 03/13/23 22:35 Pain Scale Pain Intensity 0 - Physical Exam General Appearance: no apparent distress, alert, anxiety Eyes, Ears, Nose, Throat Exam: normal ENT inspection, moist mucous membranes Neck Exam: normal inspection, non-tender, supple, full range of motion Respiratory Exam: normal breath sounds, lungs clear, airway intact, No chest tenderness, No respiratory distress Cardiovascular Exam: tachycardia Gastrointestinal/Abdominal Exam: soft, normal bowel sounds, No tenderness Extremities Exam: normal inspection, normal range of motion, evidence of injury Current Suicidality: denies suicide plan 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, 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, oriented x 3, anxious Appearance: appropriate appearance, impaired insight Behavior/Eye Contact/Speech: alert & cooperative Thoughts/Hallucinations: normal thought pattern Skin Exam: normal color, warm, dry SpO2 Interpretation: normal SpO2: 98 O2 Delivery: Room Air - Course Nursing assessment & vital signs reviewed: Yes Ordered Tests: Medication Summary Discontinued Medications Generic Name Dose Route Start Last Admin Trade Name Natalie PRN Reason Stop Dose Admin Potassium Chloride 20 meq 03/13/23 22:42 03/13/23 23:06 Potassium Chloride Tab 10 Meq Tab PO 03/13/23 22:43 20 meq STAT ONE Administration Potassium Chloride Confirm 03/13/23 23:05 Potassium Chloride Tab 10 Meq Tab Administered 03/13/23 23:06 Dose 20 meq PO .STK-MED ONE Lab/Rad Data: Laboratory Results 03/13/23 Range/Units 22:50 Influenza Type A Ag NEGATIVE (NEGATIVE) Influenza Type B Ag NEGATIVE (NEGATIVE) RSV (PCR) NEGATIVE (NEGATIVE) SARS-CoV-2 (PCR) NEGATIVE (NEGATIVE) - Progress Progress: unchanged Progress Note: 03/13/23 22:45 This patient's medical issue is 1 of moderate to high complexity. In this patient the patient was discharged within the last 30 minutes prior to her readmission. I rereviewed all of the recent labs that were drawn within the last couple of hours and resulted out. We will add COVID swabs. If a twelve- lead EKG is necessary we will add that as well. We will provide her with 20 mEq of oral potassium now and we may repeat a BMP shortly. We will obtain a telemental health evaluation 03/14/23 04:22 I reviewed and interpreted the workup results. There were no acute, emergent lab results. [facility], Lilia Galvan, has accepted the patient in transfer Counseled pt/family regarding: lab results, diagnosis Medical Desision Making - Diagnostic Testing Diagnostic test were ordered, analyzed, and reviewed by me: Yes - Risk of complications The pt has a high risk of morbidity or mortality based on: Decision regarding hospitilization or escalation of hosp level of care - Departure Departure Disposition: Transfer Clinical Impression: Schizophrenia Condition: Stable Critical Care Time: No Referrals: JEREMY EDEN [Primary Care Provider] - Follow up/PCP as directed
[2023-03-13 23:41] LABS: INFLUENZA A NEGATIVE (NEGATIVE); INFLUENZA B NEGATIVE (NEGATIVE); RESPIRATORY SYNCTIAL VIRUS NEGATIVE (NEGATIVE); SARS-CoV-2 Xpert Express NEGATIVE (NEGATIVE)
[2023-03-14] MEDS ORDERED: Klor Con PO ONE ×2 (05:07→05:10)
[2023-03-14] MEDS ORDERED: Sodium Chloride 0.9% 500 ML 500 ML IV ONE (05:51)
[2023-03-14] MEDS ORDERED: POTASSIUM CHLORIDE 20 mEq IN WATER 100ML 100 ML IV ONE (05:51)
[2023-03-14] MEDS: POTASSIUM CHLORIDE 20 mEq IN WATER 100ML 20 MEQ/100 ML BAG IV SCH ×2 (05:58→09:55)
[2023-03-14] MEDS ORDERED: Sodium Chloride 0.9% 500 ML 500 ML IV SCH (06:00)
[2023-03-14] MEDS ORDERED: K-LYTE PO ONE (08:31)
[2023-03-14] MEDS ORDERED: K-LYTE ONE (08:34)
[2023-03-14] MEDS ORDERED: Ativan 1 MG PO ONE ×2 (11:52→17:21)
[2023-03-14] MEDS ORDERED: Ativan 1 MG ONE ×2 (12:02→17:52)
[2023-03-14 17:57] VITALS: PULSE 71; RESP 16
[2023-03-14 18:10] VITALS: BP 124/74; O2SAT 100
== END 2023-03-14 18:55 ==
LOC: ED 22:35
DX: F20.9 Schizophrenia, unspecified (principal); R45.851 Suicidal ideations; Z28.310 Unvaccinated for COVID-19; Z72.0 Tobacco use
CPT/HCPCS: 0241U; 36000; 36415; 83735; 84132; 93041; 96360; 96361; 99285; J3480; A9270-GY

== ENCOUNTER 2023-11-08 09:51 | Emergency (ER) | payer OTHER ==
[2023-11-08 10:06] VITALS: BP 125/89; RESP 18; TEMP 97.4
--- NOTE | 2023-11-08 10:48 | ERPHSYRPT ---
- History of Present Illness Time Seen by Provider: 11/08/23 10:41 Source: patient, family Exam Limitations: no limitations Patient Subjective Stated Complaint: pt c/o toothache Triage Nursing Assessment: pt ambulated into the er; pt is axo x4; c/o toothache; pt states 8/10 pain to rt upper jaw; multiple missing and broken teeth present to mouth; multiple caries present; no respiratory distress present; vitals wnl; skin PDW Physician History: pt has right lower bicuspid toothache recurring and seeing dentist. SHe had this a few weeks ago and responded to amoxcil and tolerated well. Swallowing OK without change from her known previous goiter effects. mouth is nontender without swelling , but right lower bicuspid reproduces pain exactly with percussion. Fundi benign. Normal neuro and mental status. digastric triangle is supple and neck supple. no meningismus' discussed risks/benefits of testing and course of augmentin and pt wishes the AB and prefers this to additional testing or pain meds at this time - she has been made aware of potentinal for progression to ludwigs or other complications to watch for and has the capacity to make this choice. Timing/Duration: intermittent, days Severity: moderate ENT Location: dental Prearrival Treatment: over the counter meds, prescription meds Modifying Factors: Improves With: other (eating) Associated Symptoms: tooth pain, other (dental pain), No difficulty swallowing (no change from goiter effect), No voice change Allergies/Adverse Reactions: Iodinated Contrast Media [Iodinated Contrast- Oral and IV Dye] Allergy (Intermediate, Verified 11/08/23 09:57) Difficulty Breathing ketorolac tromethamine [From Toradol] Allergy (Mild, Verified 11/08/23 09:57) Rash orphenadrine citrate [From Norflex] Allergy (Mild, Verified 11/08/23 09:57) Rash prochlorperazine edisylate [From Compazine] Allergy (Mild, Verified 11/08/23 09:57) Rash prochlorperazine maleate [From Compazine] Allergy (Mild, Verified 11/08/23 09:57) Rash amoxicillin Adverse Reaction (Mild, Verified 11/08/23 09:57) Stomach Cramps CAUSES VAGINAL BLEEDING tramadol [From Ultram] Adverse Reaction (Verified 11/08/23 09:57) Home Medications: ARIPiprazole [Aripiprazole] 5 mg PO DAILY 11/08/23 [History] Buprenorphine HCl/Naloxone HCl [Buprenorphine-Nalox 8-2 mg Tab] 1 tab SL DAILY 11/08/23 [History] PARoxetine HCL [Paxil] 40 mg PO DAILY 11/08/23 [History] atenoloL [Atenolol] 25 mg PO DAILY 11/08/23 [History] Hx Tetanus, Diphtheria Vaccination/Date Given: Yes Hx Influenza Vaccination/Date Given: No Hx Pneumococcal Vaccination/Date Given: No Travel Risk - International Travel Have you traveled outside of the country in past 3 weeks: No - Emerging Infectious Disease Are you exhibiting symptoms associated with any current EIDs: No - Review of Systems Constitutional: No Fever, No Chills Eyes: No Symptoms Ears, Nose, & Throat: No Symptoms, Mouth Pain Respiratory: No Cough, No Dyspnea Cardiac: No Chest Pain, No Edema, No Syncope Abdominal/Gastrointestinal: No Abdominal Pain, No Nausea, No Vomiting, No Diarrhea Genitourinary Symptoms: No Dysuria Musculoskeletal: No Back Pain, No Neck Pain Skin: No Rash Neurological: No Dizziness, No Focal Weakness, No Sensory Changes Psychological: No Symptoms Endocrine: No Symptoms Hematologic/Lymphatic: No Symptoms Immunological/Allergic: No Symptoms All Other Systems: Reviewed and Negative - Past Medical History Pertinent Past Medical History: Yes Neurological History: No Pertinent History ENT History: No Pertinent History Cardiac History: No Pertinent History Respiratory History: No Pertinent History Endocrine Medical History: No Pertinent History Musculoskeletal History: No Pertinent History GI Medical History: No Pertinent History History: Other Psycho-Social History: Anxiety, Depression Female Reproductive Disorders: Endometriosis, Other Other Medical History: OVARIAN CYSTS - frequent low potassium - Past Surgical History Past Surgical History: Yes Neuro Surgical History: No Pertinent History Cardiac: No Pertinent History Respiratory: No Pertinent History Gastrointestinal: No Pertinent History Genitourinary: No Pertinent History Musculoskeletal: No Pertinent History Female Surgical History: Section Other Surgical History: WISDOM TEETH REMOVED Significant Family History: no pertinent family hx - Female History Hx Last Menstrual Period: DEPO SHOT Hx Now: No - Social History Smoking Status: Current every day smoker How long have you smoked: 15 years Exposure to second hand smoke: Yes Alcohol Use: Socially Drug Use: narcotics Patient Lives Alone: No - Social Determinants of Health Will the patient participate in the screening: Yes Do you worry about a steady place to live?: No Do you have any problems with any of the following?: No known problems In the past 12 months,have you had to go without utilities?: No Transportation Issues: No Has anyone in your support network made you feel unsafe?: No Have you or anyone in your house had to go without enough: No - Nursing Vital Signs Nursing Vital Signs: Initial Vital Signs Temperature 97.4 F 11/08/23 09:58 Pulse Rate 84 11/08/23 09:58 Respiratory Rate 18 11/08/23 09:58 Blood Pressure 125/89 11/08/23 09:58 O2 Sat by Pulse Oximetry 100 11/08/23 09:58 Pain Scale Pain Intensity 8 - Physical Exam General Appearance: no apparent distress, alert Eye Exam: bilateral eye: normal inspection, PERRL, EOMI Ear Exam: bilateral ear: auricle normal, canal normal, TM normal Nasal Exam: normal inspection Throat Exam: pharynx normal, moist mucus membranes, No tonsillar exudate Neck Exam: normal inspection, non-tender, supple, full range of motion, trachea midline Cardiovascular/Respiratory Exam: chest non-tender, normal breath sounds, regular rate/rhythm, heart sounds normal Abdominal Exam: non-tender, soft Neurologic Exam: alert, oriented x 3, sensation nml, No motor deficits Skin Exam: normal color, warm, dry SpO2 Interpretation: normal SpO2: 100 O2 Delivery: Room Air - Course Nursing assessment & vital signs reviewed: Yes - Progress Progress: improved, re-examined Counseled pt/family regarding: diagnosis, need for follow-up Medical Desision Making - Discussion of managment Reviewed:: Need for additional workup Agreed on:: Treatment plan, need for follow-up - Diagnostic Testing Diagnostic test were ordered, analyzed, and reviewed by me: No - Risk of complications The pt has a mod risk of morbidity or mortality based on: Need for prescription drug management - Departure Departure Disposition: Home Clinical Impression: Dental abscess, right lower bicuspid dental abscess Condition: Good Critical Care Time: No Referrals: JEREMY EDEN [Primary Care Provider] - Follow up/PCP as directed Instructions: Tooth Abscess (DC), Dental Pain (DC) Additional Instructions: See your Dentist TALI Thursday for definitive treatment. return meantime if more trouble swallowing, facial swelling jaw swelling or any other concerns. Prescriptions: Amox Tr/Potass Clav. 875 mg [Augmentin 875-125 Tablet] 875 mg PO BID #20 tablet
[2023-11-08 11:04] VITALS: PULSE 88; O2SAT 98
== END 2023-11-08 11:00 | disposition home or self-care (01) ==
LOC: ED 09:51
DX: K04.7 Periapical abscess without sinus (principal); K08.89 Other specified disorders of teeth and supporting structures; Z79.891 Long term (current) use of opiate analgesic; Z79.899 Other long term (current) drug therapy; Z72.0 Tobacco use
CPT/HCPCS: 99281

== ENCOUNTER 2024-02-25 17:27 | Emergency (ER) | payer OTHER ==
[2024-02-25 17:45] VITALS: BP 122/79; PULSE 93; RESP 18; TEMP 96.7; O2SAT 97
[2024-02-25] MEDS ORDERED: TYLENOL 325 MG ONE (17:53)
[2024-02-25] MEDS ORDERED: CLEOCIN 150 MG CAPSULE ONE (17:53)
[2024-02-25] MEDS ORDERED: XYLOCAINE VISCOUS 2% 15 ML CUP ONE (17:54)
[2024-02-25] MEDS ORDERED: MAALOX ES 30 ML UNIT DOSE ONE (17:54)
[2024-02-25] MEDS ORDERED: CETACAINE SPRAY ONE (17:54)
[2024-02-25] MEDS: CLEOCIN 150 MG CAPSULE PO ONE (17:55)
[2024-02-25] MEDS: CETACAINE SPRAY MM ONE (17:56)
[2024-02-25] MEDS: MAALOX ES 30 ML UNIT DOSE MM ONE (17:56)
[2024-02-25] MEDS: XYLOCAINE VISCOUS 2% 15 ML CUP MM ONE (17:56)
[2024-02-25] MEDS: TYLENOL 325 MG PO STA (17:56)
--- NOTE | 2024-02-25 17:58 | ERPHSYRPT ---
- History of Present Illness Time Seen by Provider: 02/25/24 17:28 Source: patient Exam Limitations: no limitations Patient Subjective Stated Complaint: C/O tooth pain that started this am. Front teeth to right side of mouth hurting. Has a dentist appointment with [facility] on 04/19/24 and is on their cancellation list to possibly be seen sooner. Triage Nursing Assessment: Patient ambulated back to ER. She is alert and oriented. Mouth examined; cavities, missing teeth, chipped teeth noted. Physician History: 38 years old female with history of substance abuse on Suboxone, dental caries with periodontal disease, multiple broken teeth presented in the ER with increasing pain in the right upper canine area and some in the molar area since morning. Patient reports moderate to severe sharp pain in the canine area. Taking Tylenol with no significant relief. Does report some tenderness/pain in the gingiva. No fever or chills reported. Has been multiple broken teeth with periodontal disease and dental tenderness. Minimal gingival tenderness. No fluctuation. Given Tylenol/dental balls for symptomatic relief and started on clindamycin. Outpatient dental follow-up recommended. Discussed signs symptoms of worsening needing return to ER which she seems understanding. Stable for discharge. Allergies/Adverse Reactions: Iodinated Contrast Media [Iodinated Contrast- Oral and IV Dye] Allergy (Intermediate, Verified 02/25/24 17:32) Difficulty Breathing ketorolac tromethamine [From Toradol] Allergy (Mild, Verified 02/25/24 17:32) Rash orphenadrine citrate [From Norflex] Allergy (Mild, Verified 02/25/24 17:32) Rash prochlorperazine edisylate [From Compazine] Allergy (Mild, Verified 02/25/24 17:32) Rash prochlorperazine maleate [From Compazine] Allergy (Mild, Verified 02/25/24 17:32) Rash amoxicillin Adverse Reaction (Mild, Verified 02/25/24 17:32) Stomach Cramps CAUSES VAGINAL BLEEDING tramadol [From Ultram] Adverse Reaction (Verified 02/25/24 17:32) Home Medications: ARIPiprazole [Aripiprazole] 5 mg PO DAILY 11/08/23 [History] Buprenorphine HCl/Naloxone HCl [Buprenorphine-Nalox 8-2 mg Tab] 1 tab SL DAILY 11/08/23 [History] PARoxetine HCL [Paxil] 40 mg PO DAILY 11/08/23 [History] atenoloL [Atenolol] 25 mg PO DAILY 11/08/23 [History] Hx Tetanus, Diphtheria Vaccination/Date Given: Yes Hx Influenza Vaccination/Date Given: No Hx Pneumococcal Vaccination/Date Given: No Immunizations Up to Date: Yes Travel Risk - International Travel Have you traveled outside of the country in past 3 weeks: No - Emerging Infectious Disease Are you exhibiting symptoms associated with any current EIDs: No - Review of Systems Constitutional: No Symptoms Ears, Nose, & Throat: Mouth Pain, Mouth Swelling, Loose Teeth Respiratory: No Symptoms Cardiac: No Symptoms Abdominal/Gastrointestinal: No Symptoms Musculoskeletal: No Symptoms Neurological: No Symptoms - Past Medical History Pertinent Past Medical History: Yes Neurological History: No Pertinent History ENT History: No Pertinent History Cardiac History: No Pertinent History Respiratory History: No Pertinent History Endocrine Medical History: Hyperthyroidism Musculoskeletal History: No Pertinent History GI Medical History: No Pertinent History History: Other Psycho-Social History: Anxiety, Depression Female Reproductive Disorders: Endometriosis, Other Other Medical History: OVARIAN CYSTS - frequent low potassium - Past Surgical History Past Surgical History: Yes Neuro Surgical History: No Pertinent History Cardiac: No Pertinent History Respiratory: No Pertinent History Gastrointestinal: No Pertinent History Genitourinary: No Pertinent History Musculoskeletal: No Pertinent History Female Surgical History: Section Other Surgical History: WISDOM TEETH REMOVED Significant Family History: no pertinent family hx - Female History Hx Last Menstrual Period: Awhile Hx Now: No - Social History Smoking Status: Current every day smoker How long have you smoked: 15 years Exposure to second hand smoke: Yes Alcohol Use: Socially Drug Use: narcotics Patient Lives Alone: No - Social Determinants of Health Will the patient participate in the screening: Declined to provide - Nursing Vital Signs Nursing Vital Signs: Initial Vital Signs Temperature 96.7 F 02/25/24 17:34 Pulse Rate 93 H 02/25/24 17:34 Respiratory Rate 18 02/25/24 17:34 Blood Pressure 122/79 02/25/24 17:34 O2 Sat by Pulse Oximetry 97 02/25/24 17:34 Pain Scale Pain Intensity 8 - Physical Exam General Appearance: no apparent distress, alert Eye Exam: bilateral eye: normal inspection Ear Exam: bilateral ear: auricle normal, canal normal Nasal Exam: normal inspection Throat Exam: pharynx normal, dental tenderness Neck Exam: normal inspection, full range of motion Cardiovascular/Respiratory Exam: normal breath sounds, regular rate/rhythm Neurologic Exam: alert, oriented x 3, cooperative, meal cook II-XII nml as tested Skin Exam: normal color SpO2 Interpretation: normal SpO2: 97 O2 Delivery: Room Air - Progress Progress: improved, pain not gone completely Progress Note: 02/25/24 17:58 38 years old female with history of substance abuse on Suboxone, dental caries with periodontal disease, multiple broken teeth presented in the ER with increasing pain in the right upper canine area and some in the molar area since morning. Patient reports moderate to severe sharp pain in the canine area. Taking Tylenol with no significant relief. Does report some tenderness/pain in the gingiva. No fever or chills reported. Has been multiple broken teeth with periodontal disease and dental tenderness. Minimal gingival tenderness. No fluctuation. Given Tylenol/dental balls for symptomatic relief and started on clindamycin. Outpatient dental follow-up recommended. Discussed signs symptoms of worsening needing return to ER which she seems understanding. Stable for discharge. Counseled pt/family regarding: need for follow-up Medical Desision Making - Diagnostic Testing Diagnostic test were ordered, analyzed, and reviewed by me: No - Risk of complications The pt has a mod risk of morbidity or mortality based on: Need for prescription drug management - Departure Departure Disposition: Home Clinical Impression: Dental infection Condition: Stable Critical Care Time: No Referrals: JEREMY EDEN [Primary Care Provider] - Follow up with PCP 1 day Instructions: Tooth Abscess (DC) Additional Instructions: Take Tylenol as needed. Continue with antibiotics. Follow-up with your dentist for reevaluation. Return to ER for intractable pain, swelling or if develop fever chills etc. Prescriptions: clindamycin HCL [Clindamycin HCl] 300 mg PO QID 7 Days #28 cap
== END 2024-02-25 18:10 | disposition home or self-care (01) ==
LOC: ED 17:27
DX: K04.7 Periapical abscess without sinus (principal); K08.89 Other specified disorders of teeth and supporting structures; F17.200 Nicotine dependence, unspecified, uncomplicated; K02.9 Dental caries, unspecified
CPT/HCPCS: 99282; A9270-GY

== ENCOUNTER 2024-04-17 17:18 | Emergency (ER) | payer OTHER ==
[2024-04-17 17:31] VITALS: TEMP 97.9; O2SAT 100
[2024-04-17] MEDS ORDERED: Ativan 2 MG/1 ML VIAL ONE (17:38)
[2024-04-17] MEDS ORDERED: Sodium Chloride 0.9% 1000 ML 1,000 ML ONE (17:39)
[2024-04-17] MEDS ORDERED: LOPRESSOR INJECTION IV ONE (17:39)
[2024-04-17] MEDS: Sodium Chloride 0.9% 1000 ML 1,000 ML IV STA (17:41)
[2024-04-17] MEDS: Ativan 2 MG/1 ML VIAL IV ONE (17:41)
[2024-04-17] MEDS: LOPRESSOR INJECTION IV ONE (17:42)
[2024-04-17 17:50] LABS: Absolute Neutrophil Ct (ANC) 3.36 x10^3/uL (1.56-6.13); Basophil (Absolute #) 0 x10^3/uL (0.01-0.08); Eosinophil % 6.4 % (0.7-5.8); Eosinophil (Absolute #) 0.39 x10^3/uL (0.04-0.36); Hematocrit 35.4 % (34.1-44.9); Hemoglobin 12.2 g/dL (11.2-15.7); IMMATURE GRAN # 0.02 x10^3u/L (0.001-0.031); IMMATURE GRAN % 0.3 % (0.001-0.429); Lymphocyte (Absolute #) 1.86 x10^3/uL (1.18-3.74); Lymphocytes % 30.4 % (19.3-51.7); Mean Cell Volume 83.9 fL (79.4-94.8); Mean Corpuscular Hemoglobin 28.9 pg (25.6-32.2); Mean Corpuscular Hgb Concent. 34.5 g/dL (32.2-35.5); Mean Platelet Volume 9.2 fL (9.4-12.3); Monocyte (Absolute #) 0.48 x10^3/uL (0.24-0.86); Monocytes % 7.9 % (4.7-12.5); Platelet Count 293 x10^3/uL (182-369); Red Blood Count 4.22 x10^6/uL (3.93-5.22); Red Cell Distribution Width 12.2 % (11.7-14.4); White Blood Count 6.1 x10^3/uL (3.98-10.04)
--- NOTE | 2024-04-17 18:04 | ERPHSYRPT ---
- History of Present Illness Time Seen by Provider: 04/17/24 17:58 Source: patient Exam Limitations: no limitations Patient Subjective Stated Complaint: Pt c/o of talking and mid sentence got very short of breath and was unable to finish speaking, this has been on and off since 1000 this morning Triage Nursing Assessment: Pt brought self to the ER, vitals wnl, rates chest pain as 5/10, smokes 1.5 packs daily, pulses normal, skin n/w/d, O2 is at 100%, hx of hypothyroidism but last blood test showed it was high, doesn't appear to be in any distress Physician History: Patient is 38-year-old female with significant past medical history of autoimmune thyroiditis for which patient has been undergoing treatment by 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 She denies any chest pain headache nausea vomiting or blood in the stool or urine. Patient also denies any fever chills urinary problems. Recently patient has underwent thyroid workup and which is showing diffuse thyroid toxicosis type of picture on ultrasound with elevated free T4 and very low TSH. Timing/Duration: today Severity: moderate Associated Symptoms: shortness of breath, cough, No nausea, No vomiting, No abdominal pain, No diaphoresis, No chills, No chest pain, No fever, No headaches, No malaise, No rash, No syncope, No seizure, No weakness Allergies/Adverse Reactions: Iodinated Contrast Media [Iodinated Contrast- Oral and IV Dye] Allergy (Intermediate, Verified 04/17/24 17:31) Difficulty Breathing ketorolac tromethamine [From Toradol] Allergy (Mild, Verified 04/17/24 17:31) Rash orphenadrine citrate [From Norflex] Allergy (Mild, Verified 04/17/24 17:31) Rash prochlorperazine edisylate [From Compazine] Allergy (Mild, Verified 04/17/24 17:31) Rash prochlorperazine maleate [From Compazine] Allergy (Mild, Verified 04/17/24 17:31) Rash amoxicillin Adverse Reaction (Mild, Verified 04/17/24 17:31) Stomach Cramps CAUSES VAGINAL BLEEDING tramadol [From Ultram] Adverse Reaction (Verified 04/17/24 17:31) Home Medications: ARIPiprazole [Aripiprazole] 5 mg PO DAILY 11/08/23 [History] Buprenorphine HCl/Naloxone HCl [Buprenorphine-Nalox 8-2 mg Tab] 1 tab SL DAILY 11/08/23 [History] PARoxetine HCL [Paxil] 40 mg PO DAILY 11/08/23 [History] atenoloL [Atenolol] 25 mg PO DAILY 11/08/23 [History] Methimazole 5 mg PO TID 04/17/24 [History] Hx Tetanus, Diphtheria Vaccination/Date Given: Yes Hx Influenza Vaccination/Date Given: No Hx Pneumococcal Vaccination/Date Given: No Travel Risk - International Travel Have you traveled outside of the country in past 3 weeks: No - Emerging Infectious Disease Are you exhibiting symptoms associated with any current EIDs: Yes Symptoms: Shortness of Breath - Review of Systems Constitutional: No Fever, No Chills Eyes: No Symptoms Ears, Nose, & Throat: No Symptoms Respiratory: Cough, Dyspnea on Exertion (JALLOH), No Dyspnea, No Wheezing Cardiac: No Chest Pain, No Edema, No Syncope Abdominal/Gastrointestinal: No Abdominal Pain, No Nausea, No Vomiting, No Diarrhea Genitourinary Symptoms: No Dysuria Musculoskeletal: No Back Pain, No Neck Pain Skin: No Rash Neurological: No Dizziness, No Focal Weakness, No Sensory Changes Psychological: No Symptoms Endocrine: No Symptoms All Other Systems: Reviewed and Negative - Past Medical History Pertinent Past Medical History: Yes Neurological History: No Pertinent History ENT History: No Pertinent History Cardiac History: No Pertinent History Respiratory History: No Pertinent History Endocrine Medical History: Hyperthyroidism Musculoskeletal History: No Pertinent History GI Medical History: No Pertinent History History: Other Psycho-Social History: Anxiety, Depression Female Reproductive Disorders: Endometriosis, Other Other Medical History: OVARIAN CYSTS - frequent low potassium - Past Surgical History Past Surgical History: Yes Neuro Surgical History: No Pertinent History Cardiac: No Pertinent History Respiratory: No Pertinent History Gastrointestinal: No Pertinent History Genitourinary: No Pertinent History Musculoskeletal: No Pertinent History Female Surgical History: Section Other Surgical History: WISDOM TEETH REMOVED Significant Family History: no pertinent family hx - Female History Hx Last Menstrual Period: a week ago Hx Now: No - Social History Smoking Status: Current every day smoker How long have you smoked: 15 years Exposure to second hand smoke: Yes Alcohol Use: Socially Drug Use: none, narcotics Patient Lives Alone: No - Social Determinants of Health Will the patient participate in the screening: Yes Do you worry about a steady place to live?: No Do you have any problems with any of the following?: No known problems In the past 12 months,have you had to go without utilities?: No Transportation Issues: No Has anyone in your support network made you feel unsafe?: No Have you or anyone in your house had to go without enough: No - Nursing Vital Signs Nursing Vital Signs: Initial Vital Signs Temperature 97.9 F 04/17/24 17:20 Pulse Rate 98 H 04/17/24 17:20 Respiratory Rate 19 04/17/24 17:20 Blood Pressure 140/77 04/17/24 17:20 O2 Sat by Pulse Oximetry 100 04/17/24 17:20 Pain Scale Pain Intensity 5 - Physical Exam General Appearance: no apparent distress, alert Eye Exam: PERRL/EOMI, eyes nml inspection Ears, Nose, Throat Exam: normal ENT inspection, TMs normal, pharynx normal, moist mucous membranes Neck Exam: normal inspection, non-tender, supple, full range of motion Respiratory Exam: normal breath sounds, lungs clear, No respiratory distress Cardiovascular Exam: regular rate/rhythm, normal heart sounds, normal peripheral pulses Gastrointestinal/Abdomen Exam: soft, normal bowel sounds, No tenderness, No mass Back Exam: normal inspection, normal range of motion, No CVA tenderness, No vertebral tenderness Extremity Exam: normal inspection, normal range of motion, pelvis stable Neurologic Exam: alert, oriented x 3, cooperative, normal mood/affect, nml cerebellar function, nml station & gait, sensation nml, No motor deficits Skin Exam: normal color, warm, dry, No rash Lymphatic Exam: No adenopathy SpO2: 100 - Course Nursing assessment & vital signs reviewed: Yes EKG Interpreted by Me: Sinus Rhythm Ordered Tests: Active Orders 24 hr Category Date Time Status [employer] Operator STAT Care 04/17/24 17:31 Active EKG-ER Only STAT Care 04/17/24 17:30 Active IV Insertion STAT Care 04/17/24 17:30 Active CBC W DIFF Stat Lab 04/17/24 17:30 Completed CMP Stat Lab 04/17/24 17:30 Completed D-DIMER QUANTITATIVE Stat Lab 04/17/24 17:30 Completed ESR [Erythrocyte Sedimentation Rate] Stat Lab 04/17/24 17:30 Completed NT PRO BNPII Stat Lab 04/17/24 17:30 Completed TROPONIN Stat Lab 04/17/24 17:30 Completed TSH [TSH, 3RD Generation] Stat Lab 04/17/24 17:30 Completed Medication Summary Discontinued Medications Generic Name Dose Route Start Last Admin Trade Name Natalie PRN Reason Stop Dose Admin Sodium Chloride 1,000 mls @ 999 mls/hr 04/17/24 17:30 04/17/24 17:41 Sodium Chloride 0.9% 1000 Ml IV 04/17/24 18:30 999 mls/hr .Q1H1M STA Administration Sodium Chloride Confirm 04/17/24 17:39 Sodium Chloride 0.9% 1000 Ml Administered 04/17/24 17:40 Dose 1,000 mls @ ud .ROUTE .STK-MED ONE Lorazepam 1 mg 04/17/24 17:30 04/17/24 17:41 Lorazepam 2 Mg/1 Ml 2 Mg Vial IV 04/17/24 17:31 1 mg STAT ONE Administration Lorazepam Confirm 04/17/24 17:38 Lorazepam 2 Mg/1 Ml 2 Mg Vial Administered 04/17/24 17:39 Dose 2 mg .ROUTE .STK-MED ONE Metoprolol Tartrate 2.5 mg 04/17/24 17:30 04/17/24 17:42 Metoprolol Tartrate 5 Mg/5 Ml Vial IV 04/17/24 17:31 2.5 mg STAT ONE Administration Metoprolol Tartrate Confirm 04/17/24 17:39 Metoprolol Tartrate 5 Mg/5 Ml Vial Administered 04/17/24 17:40 Dose 5 mg IV .STK-MED ONE Lab/Rad Data: Laboratory Result Diagrams 04/17/24 17:30 04/17/24 17:30 Laboratory Results 04/17/24 04/17/24 04/17/24 Range/Units 17:30 17:30 17:30 WBC (3.98-10.04) x10^3/uL RBC (3.93-5.22) x10^6/uL Hgb (11.2-15.7) g/dL Hct (34.1-44.9) % MCV (79.4-94.8) fL MCH (25.6-32.2) pg MCHC (32.2-35.5) g/dL RDW (11.7-14.4) % Plt Count (182-369) x10^3/uL MPV (9.4-12.3) fL Gran % (34.0-71.1) % Immature Gran % (Auto) (0.001-0.429) % Nucleat RBC Rel Count (0.00-0.2) % Eos # (Auto) (0.04-0.36) x10^3/uL Immature Gran # (Auto) (0.001-0.031) x10^3u/L Absolute Lymphs (auto) (1.18-3.74) x10^3/uL Absolute Monos (auto) (0.24-0.86) x10^3/uL Absolute Nucleated RBC (0.00-0.012) x10^3u/L Lymphocytes % (19.3-51.7) % Monocytes % (4.7-12.5) % Eosinophils % (0.7-5.8) % Basophils % (0.1-1.2) % Absolute Granulocytes (1.56-6.13) x10^3/uL Basophils # (0.01-0.08) x10^3/uL ESR 11 (0-20) mm/hr D-Dimer (0.0-0.50) mg/L Sodium (135-145) mmol/L Potassium (3.5-5.1) mmol/L Chloride (98-107) mmol/L Carbon Dioxide (22-30) mmol/L Anion Gap (5-15) MEQ/L BUN (7-17) mg/dL Creatinine (0.52-1.04) mg/dL Estimated GFR ML/MIN Glucose (74-106) mg/dL Calcium (8.4-10.2) mg/dL Total Bilirubin (0.2-1.3) mg/dL AST (14-36) U/L ALT (0-35) U/L Alkaline Phosphatase (38-126) U/L Troponin I (0.000-0.033) ng/mL NT-Pro-B Natriuret Pep (<300) pg/mL Serum Total Protein (6.3-8.2) g/dL Albumin (3.5-5.0) g/dL Free T4 2.81 H (0.78-2.19) ng/dL TSH 3rd Generation < 0.015 L (0.470-4.680) mIU/L 04/17/24 04/17/24 04/17/24 Range/Units 17:30 17:30 17:30 WBC 6.1 (3.98-10.04) x10^3/uL RBC 4.22 (3.93-5.22) x10^6/uL Hgb 12.2 (11.2-15.7) g/dL Hct 35.4 (34.1-44.9) % MCV 83.9 (79.4-94.8) fL MCH 28.9 (25.6-32.2) pg MCHC 34.5 (32.2-35.5) g/dL RDW 12.2 (11.7-14.4) % Plt Count 293 (182-369) x10^3/uL MPV 9.2 L (9.4-12.3) fL Gran % 55.0 (34.0-71.1) % Immature Gran % (Auto) 0.3 (0.001-0.429) % Nucleat RBC Rel Count 0.0 (0.00-0.2) % Eos # (Auto) 0.39 H (0.04-0.36) x10^3/uL Immature Gran # (Auto) 0.02 (0.001-0.031) x10^3u/L Absolute Lymphs (auto) 1.86 (1.18-3.74) x10^3/uL Absolute Monos (auto) 0.48 (0.24-0.86) x10^3/uL Absolute Nucleated RBC 0.00 (0.00-0.012) x10^3u/L Lymphocytes % 30.4 (19.3-51.7) % Monocytes % 7.9 (4.7-12.5) % Eosinophils % 6.4 H (0.7-5.8) % Basophils % 0.0 L (0.1-1.2) % Absolute Granulocytes 3.36 (1.56-6.13) x10^3/uL Basophils # 0 L (0.01-0.08) x10^3/uL ESR (0-20) mm/hr D-Dimer < 0.19 (0.0-0.50) mg/L Sodium 138 (135-145) mmol/L Potassium 3.6 (3.5-5.1) mmol/L Chloride 107 (98-107) mmol/L Carbon Dioxide 25 (22-30) mmol/L Anion Gap 9.9 (5-15) MEQ/L BUN 12 (7-17) mg/dL Creatinine 0.68 (0.52-1.04) mg/dL Estimated GFR 114.3 ML/MIN Glucose 93 (74-106) mg/dL Calcium 8.5 (8.4-10.2) mg/dL Total Bilirubin 0.60 (0.2-1.3) mg/dL AST 26 (14-36) U/L ALT 22 (0-35) U/L Alkaline Phosphatase 81 (38-126) U/L Troponin I < 0.012 (0.000-0.033) ng/mL NT-Pro-B Natriuret Pep 246 (<300) pg/mL Serum Total Protein 6.7 (6.3-8.2) g/dL Albumin 3.9 (3.5-5.0) g/dL Free T4 (0.78-2.19) ng/dL TSH 3rd Generation (0.470-4.680) mIU/L - Progress Progress: improved Counseled pt/family regarding: lab results, diagnosis, need for follow-up Medical Desision Making - Diagnostic Testing Diagnostic test were ordered, analyzed, and reviewed by me: Yes - Risk of complications Low Risk: Low risk of morbidity from additional dx testing or treatment - Departure Departure Disposition: Home Clinical Impression: Chronic autoimmune thyroiditis, Shortness of breath Condition: Stable Critical Care Time: No Referrals: JEREMY EDEN [Primary Care Provider] - Follow up/PCP as directed Instructions: Thyroiditis Additional Instructions: Take Aspirin 325 mg daily. Follow up with Dr Huerta (assistant manager) for further treatment. Discharge/Care Plan STEVEN LORENZO was seen on 04/17/24 in the Emergency Room. The patient was counseled regarding Diagnosis,Lab results, Imaging studies, need for follow up and when to return to the Emergency Room. Prescriptions given: Discharge Note I have spoken with the patient and/or caregivers. I have explained the patient's condition, diagnosis and treatment plan based on the information available to me at this time. I have answered the patient's and/or caregiver's questions and addressed any concerns. The patient and/or caregivers have as good understanding of the patient's diagnosis, condition and treatment plan as can be expected at this point. The vital signs have been stable. The patient's condition is stable and appropriate for discharge from the emergency department. The patient will pursue further outpatient evaluation with the primary care physician or other designated or consulting physician as outlined in the discharge instructions. The patient and/or caregivers are agreeable to this plan of care and follow-up instructions have been explained in detail. The patient and/or caregivers have received these instruction. The patient/and or caregivers are aware that any significant change in condition or worsening of symptoms should prompt an immediate return to this or the closest emergency department or call 911. STEVEN LORENZO was seen on 04/17/24 n the Emergency Room. At that time you were treated for an emergent condition, during your visit Laboratory, Radiology and/or other procedures may have been ordered. It is very important that you follow-up with your Primary Care Physician JEREMY EDEN within the next 24-48 hours to review your Emergency Room visit and the final results of testing that was ordered. Some test results such as Urine Cultures, Blood Cultures, and other cultures if ordered will not be finalized for 24-48 hours. If you do not have a Primary Care Provider please call the [facility] at [phone] ext [phone] to obtain a copy of your results or you may sign into our patient portal to obtain these results by visiting us @ [email or web address] and completing the following steps: 1. Click on the Patient Portal link 2. Click the Patient Self Enrollment Link to complete the enrollment form and entering your 3. Once the enrollment form is completed you will receive an email with a temporary ID and password at the email address you provided. 4. Next choose a user name and password. Your user name must be at least 4 characters long and your password must be at least 4 characters long. 5. Choose a security question from the list and provide your answer to the question. If you already have signed into the Health Portal you may access your Health Care Information 13/10 by the following steps: 1. Login to our website @ [email or web address] 2. Enter your original user name and password. FAQS The [facility] Portal is an online tool that contains your Lab Results, Radiology Reports, Visit History, Discharge Instructions and Health Summary Lab and Radiology Results will not be available for 72 hours on the portal. The Portal is a secure site, passwords are encryted and URLs are re-written so they cannot be copied and pasted. You and authorized family members are the only ones who can access your Portal. Also there is a timeout feature that protects y our information if you leave the Portal page open. If you have technical difficulty please use the Contact Us link on the page this will allow you to submit any questions you have regarding the Portal or you may contact the Medical Record Department at [phone] ext [phone]. Forms: Work/School Release Form
[2024-04-17 18:18] LABS: ALBUMIN 3.9 g/dL (3.5-5.0); ALKALINE PHOSPHATASE 81 U/L (38-126); ANION GAP 9.9 MEQ/L (5-15); BLOOD UREA NITROGEN 12 mg/dL (7-17); CHLORIDE 107 mmol/L (98-107); Calcium 8.5 mg/dL (8.4-10.2); Carbon Dioxide 25 mmol/L (22-30); Creatinine 1 0.68 mg/dL (0.52-1.04); EST GLOMERULAR FILTRATION RATE 114.3 ML/MIN; Glucose 93 mg/dL (74-106); NT PRO BNPII 246 pg/mL (<300); Potassium 3.6 mmol/L (3.5-5.1); SGOT/AST 26 U/L (14-36); SGPT/ALT 22 U/L (0-35); SODIUM 138 mmol/L (135-145); TROPONIN < 0.012 ng/mL (0.000-0.033); Total Protein 6.7 g/dL (6.3-8.2)
[2024-04-17 18:39] VITALS: BP 121/66; PULSE 90; RESP 27
[2024-04-19 15:09] LABS: Thyroxine (T4) 13.4 ug/dL (4.5-12.0)
== END 2024-04-17 18:54 | disposition home or self-care (01) ==
LOC: ED 17:18
DX: E06.3 Autoimmune thyroiditis (principal); E06.5 Other chronic thyroiditis; R06.02 Shortness of breath; R05.1 Acute cough; Z79.891 Long term (current) use of opiate analgesic; Z79.899 Other long term (current) drug therapy; Z72.0 Tobacco use
CPT/HCPCS: 36415; 80053; 83880; 84436; 84439; 84443; 84445; 84484; 85025; 85379; 85652; 86376; 93005; 93041; 96374; 96375; 99284; J2060

== ENCOUNTER 2024-05-04 12:06 | Emergency (ER) | payer OTHER ==
--- NOTE | 2024-05-04 12:12 | ERPHSYRPT ---
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 She has no documented history of coronary artery disease. The pain came on suddenly at 8 AM when she was lifting and moving boxes at work. Initially, the symptoms were intermittent but now its constant and she became concerned. There is been no new medications or adjustments to any medication she is chronically been on. Patient has a history of hyperthyroidism. Timing/Duration: today Quality: aching, pressure Location: substernal, central Chest Pain Radiation: no radiation Severity of Pain-Max: moderate Severity of Pain-Current: mild Modifying Factors: Improves With: nothing Associated Symptoms: denies symptoms Prior Chest Pain/Cardiac Workup: no prior chest pain Nitro Today/Relief: no nitro taken today Aspirin Treatment Today: 81 mg x 4, provided by ED Allergies/Adverse Reactions: Iodinated Contrast Media [Iodinated Contrast- Oral and IV Dye] Allergy (Interme diate, Verified 05/04/24 12:08) Difficulty Breathing ketorolac tromethamine [From Toradol] Allergy (Mild, Verified 05/04/24 12:08) Rash orphenadrine citrate [From Norflex] Allergy (Mild, Verified 05/04/24 12:08) Rash prochlorperazine edisylate [From Compazine] Allergy (Mild, Verified 05/04/24 12: 08) Rash prochlorperazine maleate [From Compazine] Allergy (Mild, Verified 05/04/24 12:08) Rash amoxicillin Adverse Reaction (Mild, Verified 05/04/24 12:08) Stomach Cramps CAUSES VAGINAL BLEEDING tramadol [From Ultram] Adverse Reaction (Verified 05/04/24 12:08) Home Medications: ARIPiprazole [Aripiprazole] 5 mg PO DAILY 11/08/23 [History] Buprenorphine HCl/Naloxone HCl [Buprenorphine-Nalox 8-2 mg Tab] 1 tab SL DAILY 11/08/23 [History] PARoxetine HCL [Paxil] 40 mg PO DAILY 11/08/23 [History] atenoloL [Atenolol] 25 mg PO DAILY 11/08/23 [History] Methimazole 5 mg PO TID 04/17/24 [History] Hx Tetanus, Diphtheria Vaccination/Date Given: Yes Hx Influenza Vaccination/Date Given: No Hx Pneumococcal Vaccination/Date Given: No Travel Risk - Emerging Infectious Disease Are you exhibiting symptoms associated with any current EIDs: Yes Symptoms: Shortness of Breath - Review of Systems Constitutional: No Symptoms Eyes: No Symptoms Ears, Nose, & Throat: No Symptoms Respiratory: No Symptoms Cardiac: Chest Pain Abdominal/Gastrointestinal: No Symptoms Genitourinary Symptoms: No Symptoms Musculoskeletal: No Symptoms Skin: No Symptoms Neurological: No Symptoms Psychological: No Symptoms Endocrine: No Symptoms Hematologic/Lymphatic: No Symptoms Immunological/Allergic: No Symptoms All Other Systems: Reviewed and Negative - Past Medical History Pertinent Past Medical History: Yes Neurological History: No Pertinent History ENT History: No Pertinent History Cardiac History: No Pertinent History Respiratory History: No Pertinent History Endocrine Medical History: Hyperthyroidism Musculoskeletal History: No Pertinent History GI Medical History: No Pertinent History History: Other Psycho-Social History: Anxiety, Depression Female Reproductive Disorders: Endometriosis, Other Other Medical History: OVARIAN CYSTS - frequent low potassium - Past Surgical History Past Surgical History: Yes Neuro Surgical History: No Pertinent History Cardiac: No Pertinent History Respiratory: No Pertinent History Gastrointestinal: No Pertinent History Genitourinary: No Pertinent History Musculoskeletal: No Pertinent History Female Surgical History: Section Other Surgical History: WISDOM TEETH REMOVED Significant Family History: no pertinent family hx - Female History Hx Last Menstrual Period: a week ago - Social History Smoking Status: Current every day smoker How long have you smoked: 15 years Exposure to second hand smoke: Yes Alcohol Use: Socially Drug Use: none, narcotics Patient Lives Alone: No - Social Determinants of Health Will the patient participate in the screening: Yes Do you worry about a steady place to live?: No In the past 12 months,have you had to go without utilities?: No Transportation Issues: No Has anyone in your support network made you feel unsafe?: No Have you or anyone in your house had to go without enough: No - Nursing Vital Signs Nursing Vital Signs: Initial Vital Signs Pulse Rate 93 H 05/04/24 12:03 Respiratory Rate 18 05/04/24 12:03 Blood Pressure 141/72 05/04/24 12:03 O2 Sat by Pulse Oximetry 97 05/04/24 12:03 Pain Scale Pain Intensity 9 - Physical Exam General Appearance: no apparent distress, alert, anxiety Eye Exam: PERRL/EOMI, eyes nml inspection Ears, Nose, Throat Exam: normal ENT inspection, moist mucous membranes Neck Exam: normal inspection, non-tender, supple, full range of motion Respiratory Exam: normal breath sounds, chest tenderness, lungs clear, airway intact, No respiratory distress Cardiovascular Exam: regular rate/rhythm, normal heart sounds, normal peripheral pulses Gastrointestinal/Abdomen Exam: soft, normal bowel sounds, No tenderness Pelvic Exam: not done Rectal Exam: not done Back Exam: normal inspection, normal range of motion, No CVA tenderness, No vertebral tenderness Extremity Exam: normal inspection, normal range of motion, pelvis stable Neurologic Exam: alert, oriented x 3, 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 No acute ischemia on today's twelve-lead EKG.) Ordered Tests: Active Orders 24 hr Category Date Time Status Order Control Clerk Blood Bank STAT Care 05/04/24 12:14 Active EKG-ER Only STAT Care 05/04/24 12:14 Active IV Insertion STAT Care 05/04/24 12:14 Active Pulse Oximetry (ED) STAT Care 05/04/24 12:14 Active CHEST 1 VIEW (PORTABLE) Stat Exams 05/04/24 12:14 Completed CBC W DIFF Stat Lab 05/04/24 12:20 Completed CMP Stat Lab 05/04/24 12:20 Completed MAG [MAGNESIUM] Stat Lab 05/04/24 12:20 Completed PROTIME WITH INR Stat Lab 05/04/24 12:20 Completed TROPONIN Q4H Lab 05/04/24 12:20 Completed TROPONIN Q4H Lab 05/04/24 16:15 Ordered TROPONIN Q4H Lab 05/04/24 20:15 Ordered Medication Summary Discontinued Medications Generic Name Dose Route Start Last Admin Trade Name Freq PRN Reason Stop Dose Admin Aspirin 324 mg 05/04/24 12:14 05/04/24 12:53 Aspirin 81 Mg Tab.Chew PO 05/04/24 12:15 324 mg STAT ONE Administration Aspirin Confirm 05/04/24 12:54 Aspirin 81 Mg Tab.Chew Administered 05/04/24 12:55 Dose 324 mg .ROUTE .STK-MED ONE Lab/Rad Data: Laboratory Result Diagrams 05/04/24 12:20 05/04/24 12:20 Laboratory Results 05/04/24 05/04/24 05/04/24 Range/Units 12:20 12:20 12:20 WBC (3.98-10.04) x10^3/uL RBC (3.93-5.22) x10^6/uL Hgb (11.2-15.7) g/dL Hct (34.1-44.9) % MCV (79.4-94.8) fL MCH (25.6-32.2) pg MCHC (32.2-35.5) g/dL RDW (11.7-14.4) % Plt Count (182-369) x10^3/uL MPV (9.4-12.3) fL Gran % (34.0-71.1) % Immature Gran % (Auto) (0.001-0.429) % Nucleat RBC Rel Count (0.00-0.2) % Eos # (Auto) (0.04-0.36) x10^3/uL Immature Gran # (Auto) (0.001-0.031) x10^3u/L Absolute Lymphs (auto) (1.18-3.74) x10^3/uL Absolute Monos (auto) (0.24-0.86) x10^3/uL Absolute Nucleated RBC (0.00-0.012) x10^3u/L Lymphocytes % (19.3-51.7) % Monocytes % (4.7-12.5) % Eosinophils % (0.7-5.8) % Basophils % (0.1-1.2) % Absolute Granulocytes (1.56-6.13) x10^3/uL Basophils # (0.01-0.08) x10^3/uL PT 10.6 (9.4-12.5) SECONDS INR 0.97 (0.8-3.0) Sodium 137 (135-145) mmol/L Potassium 3.8 (3.5-5.1) mmol/L Chloride 105 (98-107) mmol/L Carbon Dioxide 27 (22-30) mmol/L Anion Gap 9.1 (5-15) MEQ/L BUN 8 (7-17) mg/dL Creatinine 0.47 L (0.52-1.04) mg/dL Estimated GFR 124.9 ML/MIN Glucose 91 (74-106) mg/dL Calcium 8.2 L (8.4-10.2) mg/dL Magnesium 1.6 (1.6-2.3) mg/dL Total Bilirubin 0.50 (0.2-1.3) mg/dL AST 21 (14-36) U/L ALT 18 (0-35) U/L Alkaline Phosphatase 65 (38-126) U/L Troponin I < 0.012 (0.000-0.033) ng/mL Serum Total Protein 5.9 L (6.3-8.2) g/dL Albumin 3.4 L (3.5-5.0) g/dL 05/04/24 Range/Units 12:20 WBC 4.9 (3.98-10.04) x10^3/uL RBC 3.96 (3.93-5.22) x10^6/uL Hgb 11.3 (11.2-15.7) g/dL Hct 33.0 L (34.1-44.9) % MCV 83.3 (79.4-94.8) fL MCH 28.5 (25.6-32.2) pg MCHC 34.2 (32.2-35.5) g/dL RDW 12.0 (11.7-14.4) % Plt Count 251 (182-369) x10^3/uL MPV 8.8 L (9.4-12.3) fL Gran % 53.0 (34.0-71.1) % Immature Gran % (Auto) 0.4 (0.001-0.429) % Nucleat RBC Rel Count 0.0 (0.00-0.2) % Eos # (Auto) 0.29 (0.04-0.36) x10^3/uL Immature Gran # (Auto) 0.02 (0.001-0.031) x10^3u/L Absolute Lymphs (auto) 1.53 (1.18-3.74) x10^3/uL Absolute Monos (auto) 0.44 (0.24-0.86) x10^3/uL Absolute Nucleated RBC 0.00 (0.00-0.012) x10^3u/L Lymphocytes % 31.4 (19.3-51.7) % Monocytes % 9.0 (4.7-12.5) % Eosinophils % 6.0 H (0.7-5.8) % Basophils % 0.2 (0.1-1.2) % Absolute Granulocytes 2.58 (1.56-6.13) x10^3/uL Basophils # 0.01 (0.01-0.08) x10^3/uL PT (9.4-12.5) SECONDS INR (0.8-3.0) Sodium (135-145) mmol/L Potassium (3.5-5.1) mmol/L Chloride (98-107) mmol/L Carbon Dioxide (22-30) mmol/L Anion Gap (5-15) MEQ/L BUN (7-17) mg/dL Creatinine (0.52-1.04) mg/dL Estimated GFR ML/MIN Glucose (74-106) mg/dL Calcium (8.4-10.2) mg/dL Magnesium (1.6-2.3) mg/dL Total Bilirubin (0.2-1.3) mg/dL AST (14-36) U/L ALT (0-35) U/L Alkaline Phosphatase (38-126) U/L Troponin I (0.000-0.033) ng/mL Serum Total Protein (6.3-8.2) g/dL Albumin (3.5-5.0) g/dL - Progress Progress: improved, re-examined Air Movement: good Progress Note: 05/04/24 12:58 My medical decision making and the assignment of moderate complexity to this patient's medical issue today is based on review of the patient's past medical history, review the patient's medication list, review of the patient's drug allergy list, history present illness and physical findings on examination. The workup in this patient includes placement of a intravenous line, 4 baby aspirin chewable, CBC, CMP, magnesium level, troponin level, chest x-ray, twelve-lead EKG. Differential diagnosis includes but is not limited to electrolyte abnormalities, anxiety about health, muscle skeletal pain, arrhythmia, myocardial infarction 05/04/24 13:00 The chest x-ray was interpreted by the radiologist and I reviewed the impression. The impression states normal chest x-ray exam 05/04/24 13:59 I interpreted the patient's laboratory data results. Based on the laboratory data results, there are no acute, emergent medical issues. 05/04/24 13:59 Patient's heart score is low. She is at low risk for an acute cardiac issue at this time. Blood Culture(s) Obtained: No Antibiotics given: No Counseled pt/family regarding: lab results, need for follow-up, rad results Medical Desision Making - Diagnostic Testing Diagnostic test were ordered, analyzed, and reviewed by me: Yes Radiological Interpretation: Reviewed by me, Teleradiologist Report - Risk of complications Minimal Risk: Minimal risk of morbidity - Departure Departure Disposition: Home Clinical Impression: Nonspecific chest pain Condition: Stable Critical Care Time: No Referrals: JEREMY EDEN [Primary Care Provider] - Follow up/PCP as directed Additional Instructions: Take all your medications as prescribed. Call your primary care provider today, 05/04/2024, to make arrangements for follow-up appointment for further evaluation and management and to be seen in the next 3 to 5 days
[2024-05-04 12:19] VITALS: RESP 20; TEMP 97.1
[2024-05-04 12:30] LABS: Absolute Neutrophil Ct (ANC) 2.58 x10^3/uL (1.56-6.13); BASOPHIL % 0.2 % (0.1-1.2); Basophil (Absolute #) 0.01 x10^3/uL (0.01-0.08); Eosinophil (Absolute #) 0.29 x10^3/uL (0.04-0.36); Hemoglobin 11.3 g/dL (11.2-15.7); IMMATURE GRAN # 0.02 x10^3u/L (0.001-0.031); IMMATURE GRAN % 0.4 % (0.001-0.429); Lymphocyte (Absolute #) 1.53 x10^3/uL (1.18-3.74); Lymphocytes % 31.4 % (19.3-51.7); Mean Cell Volume 83.3 fL (79.4-94.8); Mean Corpuscular Hemoglobin 28.5 pg (25.6-32.2); Mean Corpuscular Hgb Concent. 34.2 g/dL (32.2-35.5); Mean Platelet Volume 8.8 fL (9.4-12.3); Monocyte (Absolute #) 0.44 x10^3/uL (0.24-0.86); Platelet Count 251 x10^3/uL (182-369); Red Blood Count 3.96 x10^6/uL (3.93-5.22); White Blood Count 4.9 x10^3/uL (3.98-10.04)
[2024-05-04 12:45] LABS: ALBUMIN 3.4 g/dL (3.5-5.0); ANION GAP 9.1 MEQ/L (5-15); BILIRUBIN,TOTAL 0.5 mg/dL (0.2-1.3); Calcium 8.2 mg/dL (8.4-10.2); Creatinine 1 0.47 mg/dL (0.52-1.04); EST GLOMERULAR FILTRATION RATE 124.9 ML/MIN; Potassium 3.8 mmol/L (3.5-5.1); Total Protein 5.9 g/dL (6.3-8.2)
--- NOTE | 2024-05-04 12:47 | XRAY ---
Indication: Chest pain. Comparison: March 08, 2023 Portable chest again demonstrates normal heart, lungs, and bony thorax.
[2024-05-04 12:50] LABS: INR 0.97 (0.8-3.0); PROTIME 10.6 SECONDS (9.4-12.5)
[2024-05-04] MEDS: BABY ASPIRIN 81 MG CHEW PO ONE (12:53)
[2024-05-04] MEDS ORDERED: BABY ASPIRIN 81 MG CHEW ONE (12:54)
[2024-05-04 12:56] LABS: MAGNESIUM 1.6 mg/dL (1.6-2.3); TROPONIN < 0.012 ng/mL (0.000-0.033)
[2024-05-04 13:11] VITALS: PULSE 84; O2SAT 96
[2024-05-04 14:08] VITALS: BP 107/68
== END 2024-05-04 14:12 | disposition home or self-care (01) ==
LOC: ED 12:06
DX: R07.9 Chest pain, unspecified (principal); Z79.891 Long term (current) use of opiate analgesic; Z79.899 Other long term (current) drug therapy; Z72.0 Tobacco use
CPT/HCPCS: 36415; 71045; 80053; 83735; 84484; 85025; 85610; 93005; 93041; 94760; 99284; 99285; A9270-GY

== ENCOUNTER 2024-12-02 16:12 | Emergency (ER) | payer OTHER ==
--- NOTE | 2024-12-02 16:43 | ERPHSYRPT ---
- History of Present Illness Source: patient Exam Limitations: no limitations Timing/Duration: today Severity of Symptoms-Max: mild Severity of Symptoms-Current: mild Context related to: other (Patient concerned about withdrawing from opiates) Suicidal thoughts: other (No suicidal thoughts) Associated Symptoms: anxiety, other (Patient worried about withdrawals from opiates) Previous symptoms: same symptoms as today, recently seen, recently treated Hx Tetanus, Diphtheria Vaccination/Date Given: Yes Hx Influenza Vaccination/Date Given: No Hx Pneumococcal Vaccination/Date Given: No <MARJORIE PALACIOS - Last Filed: 12/02/24 18:50> <BRIDGETT GRAVES - Last Filed: 12/02/24 23:23> - History of Present Illness Time Seen by Provider: 12/02/24 16:42 Physician History: This is a 39-year-old white female patient who arrives by private vehicle and is a patient of Dr. Eden with a concern of narcotic withdrawal. She did not know the term narcotic. However, she admits to taking 20 tablets a day of [place] 10/325's. She does not have a prescription but gets them "off the streets". The patient has severe anxiety and panic disorder. She denies history of coronary disease and does have a history of depression. Patient's last dose of the [place] 10/325 was yesterday per her report. I specifically asked this patient whether or not she was suicidal and homicidal and she says no she is neither. Patient denies cocaine or methamphetamine use. Patient also states she is not seeking inpatient management. Patient denies chest pain. Patient denies visual changes. Patient denies headache. Patient denies hallucinations. Patient denies shortness of breath. Patient denies abdominal pain. Patient had no nausea vomiting or diarrhea symptoms. (MARJORIE PALACIOS) Allergies/Adverse Reactions: Iodinated Contrast Media [Iodinated Contrast- Oral and IV Dye] Allergy (Intermediate, Verified 12/02/24 16:47) Difficulty Breathing ketorolac tromethamine [From Toradol] Allergy (Mild, Verified 12/02/24 16:47) Rash orphenadrine citrate [From Norflex] Allergy (Mild, Verified 12/02/24 16:47) Rash prochlorperazine edisylate [From Compazine] Allergy (Mild, Verified 12/02/24 16:47) Rash prochlorperazine maleate [From Compazine] Allergy (Mild, Verified 12/02/24 16:47) Rash amoxicillin Adverse Reaction (Mild, Verified 12/02/24 16:47) Stomach Cramps CAUSES VAGINAL BLEEDING tramadol [From Ultram] Adverse Reaction (Verified 12/02/24 16:47) Home Medications: ARIPiprazole [Aripiprazole] 5 mg PO DAILY 11/08/23 [History] Buprenorphine HCl/Naloxone HCl [Buprenorphine-Nalox 8-2 mg Tab] 1 tab SL DAILY 11/08/23 [History] PARoxetine HCL [Paxil] 40 mg PO DAILY 11/08/23 [History] atenoloL [Atenolol] 25 mg PO DAILY 11/08/23 [History] Methimazole 5 mg PO TID 04/17/24 [History] Travel Risk - International Travel Have you traveled outside of the country in past 3 weeks: No - Emerging Infectious Disease Are you exhibiting symptoms associated with any current EIDs: No Symptoms: Shortness of Breath <MARJORIE PALACIOS - Last Filed: 12/02/24 18:50> - Past Medical History Pertinent Past Medical History: Yes Neurological History: No Pertinent History ENT History: No Pertinent History Cardiac History: No Pertinent History Respiratory History: No Pertinent History Endocrine Medical History: Hyperthyroidism Musculoskeletal History: No Pertinent History GI Medical History: No Pertinent History History: Other Psycho-Social History: Anxiety, Depression Female Reproductive Disorders: Endometriosis, Other Other Medical History: OVARIAN CYSTS - frequent low potassium - Past Surgical History Past Surgical History: Yes Neuro Surgical History: No Pertinent History Cardiac: No Pertinent History Respiratory: No Pertinent History Gastrointestinal: No Pertinent History Genitourinary: No Pertinent History Musculoskeletal: No Pertinent History Female Surgical History: Section Other Surgical History: WISDOM TEETH REMOVED Significant Family History: no pertinent family hx - Female History Hx Last Menstrual Period: a week ago - Social History Smoking Status: Current every day smoker How long have you smoked: 15 years Exposure to second hand smoke: Yes Drug Use: none, narcotics - Social Determinants of Health Will the patient participate in the screening: Yes Do you worry about a steady place to live?: No In the past 12 months,have you had to go without utilities?: No Transportation Issues: No Has anyone in your support network made you feel unsafe?: No Have you or anyone in your house had to go w/o enough food: No <MARJORIE PALACIOS KaitlinVicente - Last Filed: 12/02/24 18:50> - Review of Systems Constitutional: No Symptoms, Night Sweats Eyes: No Symptoms Ears, Nose, & Throat: No Symptoms Respiratory: No Symptoms Cardiac: No Symptoms Abdominal/Gastrointestinal: No Symptoms Genitourinary Symptoms: No Symptoms Musculoskeletal: No Symptoms Skin: No Symptoms Psychological: Drug Abuse, Anxiety, No Suicidal Ideations, No Homicidal Ideations, No Hallucinations Endocrine: No Symptoms Hematologic/Lymphatic: No Symptoms Immunological/Allergic: No Symptoms All Other Systems: Reviewed and Negative <MARJORIE PALACIOS KaitlinVicente - Last Filed: 12/02/24 18:50> - Physical Exam General Appearance: no apparent distress, alert, anxiety Eyes, Ears, Nose, Throat Exam: normal ENT inspection, moist mucous membranes Neck Exam: normal inspection, non-tender, supple, full range of motion Respiratory Exam: normal breath sounds, lungs clear, airway intact, No chest tenderness, No respiratory distress Cardiovascular Exam: tachycardia Gastrointestinal/Abdominal Exam: soft, normal bowel sounds, No tenderness Extremities Exam: normal inspection, normal range of motion, No evidence of injury Current Suicidality: denies suicide plan 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, director machine II-XII nml as tested, oriented x 3, anxious Appearance: no memory impairment, impaired insight Behavior/Eye Contact/Speech: alert & cooperative, good eye contact Thoughts/Hallucinations: normal thought pattern, no apparent hallucination Skin Exam: normal color, warm, dry SpO2 Interpretation: normal O2 Delivery: Room Air <MARJORIE PALACIOS - Last Filed: 12/02/24 18:50> - Nursing Vital Signs Nursing Vital Signs: Initial Vital Signs Temperature 98 F 12/02/24 16:13 Pulse Rate 145 H 12/02/24 16:13 Respiratory Rate 24 12/02/24 16:13 Blood Pressure 168/82 12/02/24 16:13 O2 Sat by Pulse Oximetry 97 12/02/24 16:13 Pain Scale Pain Intensity 0 - Course Nursing assessment & vital signs reviewed: Yes EKG Interpreted by Me: RATE (139 QTc is 456. No acute ischemic changes on today's twelve-lead EKG), Sinus Tach, NORMAL AXIS, NORMAL INTERVALS, NORMAL QRS, Other <MARJORIE PALACIOS - Last Filed: 12/02/24 18:50> Ordered Tests: Active Orders 24 hr Category Date Time Status EKG-ER Only STAT Care 12/02/24 17:03 Active IV Insertion STAT Care 12/02/24 17:03 Active ACETAMINOPHEN Stat Lab 12/02/24 17:17 Completed CBC W DIFF Stat Lab 12/02/24 17:17 Completed CMP Stat Lab 12/02/24 17:17 Completed ETHYL ALCOHOL Stat Lab 12/02/24 17:17 Completed SALICYLATE Stat Lab 12/02/24 17:17 Completed UA W/RFX UR CULTURE Stat Lab 12/02/24 17:03 Completed Urine Triage Profile Stat Lab 12/02/24 17:03 Completed Medication Summary Generic Name Dose Route Start Last Admin Trade Name Freq PRN Reason Stop Dose Admin Melatonin 3 mg 12/02/24 22:45 Melatonin 3 Mg Tablet PO 01/01/25 22:44 HS PRN PRN INSOMNIA Discontinued Medications Generic Name Dose Route Start Last Admin Trade Name Freq PRN Reason Stop Dose Admin Hydrocodone Bitart/Acetaminophen 1 tablet 12/02/24 18:19 12/02/24 18:36 Hydrocodone/Acetamin 10-325 Mg Tablet PO 12/02/24 18:20 1 tablet STAT ONE Administration Hydrocodone Bitart/Acetaminophen Confirm 12/02/24 18:33 Hydrocodone/Acetamin 10-325 Mg Tablet Administered 12/02/24 18:34 Dose 1 tablet .ROUTE .STK-MED ONE Clonidine 0.1 mg 12/02/24 19:43 12/02/24 19:47 Clonidine Hcl 0.1 Mg Tablet PO 12/02/24 19:44 0.1 mg STAT ONE Administration Clonidine Confirm 12/02/24 19:46 Clonidine Hcl 0.1 Mg Tablet Administered 12/02/24 19:47 Dose 0.1 mg .ROUTE .STK-MED ONE Clonidine 0.1 mg 12/02/24 20:59 12/02/24 21:35 Clonidine Hcl 0.1 Mg Tablet PO 12/02/24 21:00 0.1 mg STAT ONE Administration Clonidine Confirm 12/02/24 21:35 Clonidine Hcl 0.1 Mg Tablet Administered 12/02/24 21:36 Dose 0.1 mg .ROUTE .STK-MED ONE Sodium Chloride 1,000 mls @ 999 mls/hr 12/02/24 17:03 12/02/24 18:30 Sodium Chloride 0.9% 1000 Ml IV 12/02/24 18:03 Infused .Q1H1M STA Infusion Sodium Chloride Confirm 12/02/24 17:21 Sodium Chloride 0.9% 1000 Ml Administered 12/02/24 17:22 Dose 1,000 mls @ ud .ROUTE .STK-MED ONE Lorazepam 1 mg 12/02/24 18:19 12/02/24 18:36 Lorazepam 2 Mg/1 Ml 2 Mg Vial IV 12/02/24 18:20 1 mg STAT ONE Administration Lab/Rad Data: Laboratory Result Diagrams 12/02/24 17:17 12/02/24 17:17 Laboratory Results 12/02/24 12/02/24 12/02/24 Range/Units 17:17 17:17 17:03 WBC 10.1 H (3.98-10.04) x10^3/uL RBC 5.24 H (3.93-5.22) x10^6/uL Hgb 14.5 (11.2-15.7) g/dL Hct 42.6 (34.1-44.9) % MCV 81.3 (79.4-94.8) fL MCH 27.7 (25.6-32.2) pg MCHC 34.0 (32.2-35.5) g/dL RDW 12.1 (11.7-14.4) % Plt Count 325 (182-369) x10^3/uL MPV 8.9 L (9.4-12.3) fL Gran % 72.0 H (34.0-71.1) % Immature Gran % (Auto) 0.6 H (0.001-0.429) % Nucleat RBC Rel Count 0.0 (0.00-0.2) % Eos # (Auto) 0.03 L (0.04-0.36) x10^3/uL Immature Gran # (Auto) 0.06 H (0.001-0.031) x10^3u/L Absolute Lymphs (auto) 1.79 (1.18-3.74) x10^3/uL Absolute Monos (auto) 0.93 H (0.24-0.86) x10^3/uL Absolute Nucleated RBC 0.00 (0.00-0.012) x10^3u/L Lymphocytes % 17.7 L (19.3-51.7) % Monocytes % 9.2 (4.7-12.5) % Eosinophils % 0.3 L (0.7-5.8) % Basophils % 0.2 (0.1-1.2) % Absolute Granulocytes 7.28 H (1.56-6.13) x10^3/uL Basophils # 0.02 (0.01-0.08) x10^3/uL Sodium 135 (135-145) mmol/L Potassium 4.1 (3.5-5.1) mmol/L Chloride 103 (98-107) mmol/L Carbon Dioxide 21 L (22-30) mmol/L Anion Gap 14.6 (5-15) MEQ/L BUN 16 (7-17) mg/dL Creatinine 0.62 (0.52-1.04) mg/dL Estimated GFR 116.1 ML/MIN Glucose 91 (74-106) mg/dL Calcium 9.6 (8.4-10.2) mg/dL Total Bilirubin 0.40 (0.2-1.3) mg/dL AST 35 (14-36) U/L ALT 61 H (0-35) U/L Alkaline Phosphatase 84 (38-126) U/L Serum Total Protein 7.2 (6.3-8.2) g/dL Albumin 4.1 (3.5-5.0) g/dL Urine Color (Yellow) Urine Appearance (Clear) Urine pH (4.6-8.0) Ur Specific [place] (1.005-1.030) Urine Protein (Negative) Urine Glucose (UA) (Negative) mg/dL Urine Ketones (Negative) Urine Blood (Negative) Urine Nitrite (Negative) Urine Bilirubin (Negative) Urine Urobilinogen (0.2) mg/dL Ur Leukocyte Esterase (Negative) U Hyaline Cast (Auto) (0-2) /LPF Urine Microscopic RBC (0-5) /HPF Urine Microscopic WBC (0-5) /HPF Ur Epithelial Cells (None Seen) /HPF Urine Bacteria (None Seen) /HPF Urine Culture Reflexed (NO) Salicylates < 1.0 L (2-20) mg/dL Urine Opiates Level POSITIVE A (NEGATIVE) Ur Methadone NEGATIVE (NEGATIVE) Acetaminophen < 10 L (10-30) ug/ml Urine Barbiturates NEGATIVE (NEGATIVE) Ur Phencyclidine (PCP) NEGATIVE (NEGATIVE) Urine Amphetamine NEGATIVE (NEGATIVE) U Benzodiazepine Level NEGATIVE (NEGATIVE) Urine Cocaine NEGATIVE (NEGATIVE) Urine Marijuana (THC) NEGATIVE (NEGATIVE) Ethyl Alcohol < 10 (0-10) mg/dL 12/02/24 Range/Units 17:03 WBC (3.98-10.04) x10^3/uL RBC (3.93-5.22) x10^6/uL Hgb (11.2-15.7) g/dL Hct (34.1-44.9) % MCV (79.4-94.8) fL MCH (25.6-32.2) pg MCHC (32.2-35.5) g/dL RDW (11.7-14.4) % Plt Count (182-369) x10^3/uL MPV (9.4-12.3) fL Gran % (34.0-71.1) % Immature Gran % (Auto) (0.001-0.429) % Nucleat RBC Rel Count (0.00-0.2) % Eos # (Auto) (0.04-0.36) x10^3/uL Immature Gran # (Auto) (0.001-0.031) x10^3u/L Absolute Lymphs (auto) (1.18-3.74) x10^3/uL Absolute Monos (auto) (0.24-0.86) x10^3/uL Absolute Nucleated RBC (0.00-0.012) x10^3u/L Lymphocytes % (19.3-51.7) % Monocytes % (4.7-12.5) % Eosinophils % (0.7-5.8) % Basophils % (0.1-1.2) % Absolute Granulocytes (1.56-6.13) x10^3/uL Basophils # (0.01-0.08) x10^3/uL Sodium (135-145) mmol/L Potassium (3.5-5.1) mmol/L Chloride (98-107) mmol/L Carbon Dioxide (22-30) mmol/L Anion Gap (5-15) MEQ/L BUN (7-17) mg/dL Creatinine (0.52-1.04) mg/dL Estimated GFR ML/MIN Glucose (74-106) mg/dL Calcium (8.4-10.2) mg/dL Total Bilirubin (0.2-1.3) mg/dL AST (14-36) U/L ALT (0-35) U/L Alkaline Phosphatase (38-126) U/L Serum Total Protein (6.3-8.2) g/dL Albumin (3.5-5.0) g/dL Urine Color Yellow (Yellow) Urine Appearance Cloudy A (Clear) Urine pH 5.0 (4.6-8.0) Ur Specific [place] 1.020 (1.005-1.030) Urine Protein Negative (Negative) Urine Glucose (UA) >=1000 A (Negative) mg/dL Urine Ketones Negative (Negative) Urine Blood Negative (Negative) Urine Nitrite Negative (Negative) Urine Bilirubin Negative (Negative) Urine Urobilinogen 0.2 (0.2) mg/dL Ur Leukocyte Esterase Negative (Negative) U Hyaline Cast (Auto) 3-5 A (0-2) /LPF Urine Microscopic RBC 3-5 (0-5) /HPF Urine Microscopic WBC 0-2 (0-5) /HPF Ur Epithelial Cells Few (None Seen) /HPF Urine Bacteria Few A (None Seen) /HPF Urine Culture Reflexed NO (NO) Salicylates (2-20) mg/dL Urine Opiates Level (NEGATIVE) Ur Methadone (NEGATIVE) Acetaminophen (10-30) ug/ml Urine Barbiturates (NEGATIVE) Ur Phencyclidine (PCP) (NEGATIVE) Urine Amphetamine (NEGATIVE) U Benzodiazepine Level (NEGATIVE) Urine Cocaine (NEGATIVE) Urine Marijuana (THC) (NEGATIVE) Ethyl Alcohol (0-10) mg/dL - Progress Progress: re-examined Counseled pt/family regarding: lab results, diagnosis <MARJORIE PALACIOS - Last Filed: 12/02/24 18:50> <BRIDGETT GRAVES - Last Filed: 12/02/24 23:23> - Progress Progress Note: 12/02/24 18:50 My medical decision making and the assignment of moderate complexity of this patient's medical issue today is based on review of the patient's past medical history, review of the patient's medication list, review of the patient's drug allergy list, history presence of physical findings on examination. The workup in this patient includes placement of an intravenous line, infusion normal saline solution, infusion of antiemetic, fusion of intravenous lorazepam and supplied the patient with 1 tablet of [place] 10/325 tablets. We also will order CBC, CMP, urinalysis, urine drug screen, acetaminophen level, salicylate, ethyl alcohol level and a twelve-lead EKG. Differential diagnosis includes but is not limited to acute opiate withdrawal, dehydration, urinary tract infection, panic attack, electrolyte abnormalities, arrhythmia. I asked the patient a second time whether or not she was suicidal or homicidal and she denies being either 1. I interpreted the patient's laboratory data results. Based on laboratory data results patient has tested positive for opiates but no other significant findings in the urine or other lab test results. I am transferring care of this patient to Dr. Graves at discharge. We will monitor her heart rate and blood sugar. He will make final disposition. I anticipate the patient should be able to be discharged to home. I discussed this with Dr. Lynda Graves (MARJORIE PALACIOS) 12/02/24 23:23 Patient has been resting comfortably her heart rate has been improved she is now in the lower 100s patient's blood sugar is 91 patient will be discharged she does reports she is un housed at this time we have provided her resources for local shelters (BRIDGETT GRAVES) Medical Desision Making - Diagnostic Testing Diagnostic test were ordered, analyzed, and reviewed by me: Yes - Risk of complications Low Risk: Low risk of morbidity from additional dx testing or treatment <MARJORIE PALACIOS - Last Filed: 12/02/24 18:50> - Departure Departure Disposition: Home Critical Care Time: No <MARJORIE PALACIOS - Last Filed: 12/02/24 18:50> - Departure Departure Disposition: Home <BRIDGETT GRAVES - Last Filed: 12/02/24 23:23> - Departure Clinical Impression: Panic attack Opiate dependence Qualifiers: Substance use status: with unspecified opioid-induced disorder Qualified Code(s): F11.29 - Opioid dependence with unspecified opioid-induced disorder Condition: Stable Referrals: JEREMY EDEN [Primary Care Provider, [facility]] - Follow up/PCP as directed Instructions: Narcotic Abuse
[2024-12-02 17:03] VITALS: TEMP 98
[2024-12-02 17:20] LABS: BASOPHIL % 0.2 % (0.1-1.2); Basophil (Absolute #) 0.02 x10^3/uL (0.01-0.08); Eosinophil (Absolute #) 0.03 x10^3/uL (0.04-0.36); Hematocrit 42.6 % (34.1-44.9); Hemoglobin 14.5 g/dL (11.2-15.7); IMMATURE GRAN # 0.06 x10^3u/L (0.001-0.031); IMMATURE GRAN % 0.6 % (0.001-0.429); Lymphocyte (Absolute #) 1.79 x10^3/uL (1.18-3.74); Mean Corpuscular Hemoglobin 27.7 pg (25.6-32.2); Mean Corpuscular Hgb Concent. 34.0 g/dL (32.2-35.5); Monocyte (Absolute #) 0.93 x10^3/uL (0.24-0.86); NUCLEATED RBC # 0.00 x10^3u/L (0.00-0.012); NUCLEATED RBC % 0.0 % (0.00-0.2); Platelet Count 325 x10^3/uL (182-369); Red Blood Count 5.24 x10^6/uL (3.93-5.22); White Blood Count 10.1 x10^3/uL (3.98-10.04)
[2024-12-02 17:41] LABS: Calcium 9.6 mg/dL (8.4-10.2); Carbon Dioxide 21 mmol/L (22-30); Creatinine 1 0.62 mg/dL (0.52-1.04); EST GLOMERULAR FILTRATION RATE 116.1 ML/MIN; ETHYL ALCOHOL < 10 mg/dL (0-10); Glucose 91 mg/dL (74-106); Potassium 4.1 mmol/L (3.5-5.1); SGOT/AST 35 U/L (14-36); SGPT/ALT 61 U/L (0-35); Total Protein 7.2 g/dL (6.3-8.2)
[2024-12-02 17:51] LABS: Glucose, Urine >=1000 mg/dL (Negative); Protein,Urine Dip Negative (Negative); WBC 0-2 /HPF (0-5)
[2024-12-02 17:57] LABS: Amphetamine,Urine NEGATIVE (NEGATIVE); Barbiturate,Urine NEGATIVE (NEGATIVE); Benzodiazepine,Urine NEGATIVE (NEGATIVE); Cocaine,Urine NEGATIVE (NEGATIVE); Methadone,Urine NEGATIVE (NEGATIVE); Opiate,Urine POSITIVE (NEGATIVE); PCP,Urine NEGATIVE (NEGATIVE); THC,Urine NEGATIVE (NEGATIVE)
[2024-12-02] MEDS ORDERED: NORCO 10-325 MG ONE (18:33)
[2024-12-02] MEDS: Ativan 2 MG/1 ML VIAL IV ONE (18:36)
[2024-12-02] MEDS: NORCO 10-325 MG PO ONE (18:36)
[2024-12-02] MEDS ORDERED: CLONIDINE 0.1 MG TABLET ONE ×2 (19:46→21:35)
[2024-12-02] MEDS: CLONIDINE 0.1 MG TABLET PO ONE ×2 (19:47→21:35)
[2024-12-02 22:14] VITALS: BP 113/60
[2024-12-02 23:03] VITALS: PULSE 107; RESP 32; O2SAT 100
[2024-12-02] MEDS ORDERED: MELATONIN PO ONE (23:23)
[2024-12-02] MEDS: MELATONIN PO PRN (23:31)
== END 2024-12-02 23:30 | disposition home or self-care (01) ==
LOC: ED 16:12
DX: F11.29 Opioid dependence with unspecified opioid-induced disorder (principal); F41.0 Panic disorder [episodic paroxysmal anxiety]; Z79.899 Other long term (current) drug therapy; Z72.0 Tobacco use

== ENCOUNTER 2024-12-03 07:42 | Emergency (ER) | payer OTHER ==
[2024-12-03 07:54] VITALS: BP 134/80; TEMP 97.2
--- NOTE | 2024-12-03 08:06 | ERPHSYRPT ---
- History of Present Illness Time Seen by Provider: 12/03/24 07:54 Source: patient Exam Limitations: no limitations Physician History: This is a 39-year-old white female patient who presented to the emergency department approximately 12 to 13 hours ago with concern that she may be withdrawing from opiates. Patient admitted to taking [id number] [place] 10/325 daily that she obtained on the street. Full workup was performed. Earlier this morning, the patient's heart rate was 100 203 bpm. This is down from when she came in at 145 bpm. Patient has significant anxiety and history of panic disorder. Patient's vital signs were stable at the time of discharge. Patient was discharged and did not have a ride home and sat out in our emergency department waiting room for the last few hours. She does not have a ride home. Patient states she is homeless. She then presents back to the emergency department apartment stating that she "feels a little lightheaded". Patient denies chest pain. Patient denies shortness of breath. Patient's heart rate is in the 115 to 120 bpm. Patient never left the hospital. Her systolic blood pressure is in the low 130s millimeters of mercury on arrival. Patient again denies being suicidal or homicidal. Timing/Duration: today Severity: mild Associated Symptoms: denies symptoms, No nausea, No vomiting, No abdominal pain, No shortness of breath, No chest pain Allergies/Adverse Reactions: Iodinated Contrast Media [Iodinated Contrast- Oral and IV Dye] Allergy (Intermediate, Verified 12/03/24 07:50) Difficulty Breathing ketorolac tromethamine [From Toradol] Allergy (Mild, Verified 12/03/24 07:50) Rash orphenadrine citrate [From Norflex] Allergy (Mild, Verified 12/03/24 07:50) Rash prochlorperazine edisylate [From Compazine] Allergy (Mild, Verified 12/03/24 07:50) Rash prochlorperazine maleate [From Compazine] Allergy (Mild, Verified 12/03/24 07:50) Rash amoxicillin Adverse Reaction (Mild, Verified 12/03/24 07:50) Stomach Cramps CAUSES VAGINAL BLEEDING tramadol [From Ultram] Adverse Reaction (Verified 12/03/24 07:50) Home Medications: ARIPiprazole [Aripiprazole] 5 mg PO DAILY 11/08/23 [History] Buprenorphine HCl/Naloxone HCl [Buprenorphine-Nalox 8-2 mg Tab] 1 tab SL DAILY 11/08/23 [History] PARoxetine HCL [Paxil] 40 mg PO DAILY 11/08/23 [History] atenoloL [Atenolol] 25 mg PO DAILY 11/08/23 [History] Methimazole 5 mg PO TID 04/17/24 [History] Hx Tetanus, Diphtheria Vaccination/Date Given: Yes Hx Influenza Vaccination/Date Given: No Hx Pneumococcal Vaccination/Date Given: No Travel Risk - International Travel Have you traveled outside of the country in past 3 weeks: No - Emerging Infectious Disease Are you exhibiting symptoms associated with any current EIDs: No Symptoms: Shortness of Breath - Review of Systems Constitutional: No Symptoms Eyes: No Symptoms Ears, Nose, & Throat: No Symptoms Respiratory: No Symptoms Cardiac: No Symptoms Abdominal/Gastrointestinal: No Symptoms Genitourinary Symptoms: No Symptoms Musculoskeletal: No Symptoms Skin: No Symptoms Neurological: Other (Lightheaded) Psychological: No Symptoms Endocrine: No Symptoms Hematologic/Lymphatic: No Symptoms Immunological/Allergic: No Symptoms All Other Systems: Reviewed and Negative - Past Medical History Pertinent Past Medical History: Yes Neurological History: No Pertinent History ENT History: No Pertinent History Cardiac History: No Pertinent History Respiratory History: No Pertinent History Endocrine Medical History: Hyperthyroidism Musculoskeletal History: No Pertinent History GI Medical History: No Pertinent History History: Other Psycho-Social History: Anxiety, Depression Female Reproductive Disorders: Endometriosis, Other Other Medical History: OVARIAN CYSTS - frequent low potassium - Past Surgical History Past Surgical History: Yes Neuro Surgical History: No Pertinent History Cardiac: No Pertinent History Respiratory: No Pertinent History Gastrointestinal: No Pertinent History Genitourinary: No Pertinent History Musculoskeletal: No Pertinent History Female Surgical History: Section Other Surgical History: WISDOM TEETH REMOVED Significant Family History: no pertinent family hx - Female History Hx Last Menstrual Period: a week ago - Social History Smoking Status: Current every day smoker How long have you smoked: 15 years Exposure to second hand smoke: Yes Drug Use: none, narcotics - Social Determinants of Health Will the patient participate in the screening: Yes Do you worry about a steady place to live?: No In the past 12 months,have you had to go without utilities?: No Transportation Issues: No Has anyone in your support network made you feel unsafe?: No Have you or anyone in your house had to go w/o enough food: No - Nursing Vital Signs Nursing Vital Signs: Initial Vital Signs Temperature 97.2 F 12/03/24 07:53 Pulse Rate 120 H 12/03/24 07:53 Respiratory Rate 24 12/03/24 07:53 Blood Pressure 134/80 12/03/24 07:53 O2 Sat by Pulse Oximetry 100 12/03/24 07:53 Pain Scale Pain Intensity 0 - Physical Exam General Appearance: no apparent distress, alert, anxiety Eye Exam: PERRL/EOMI, eyes nml inspection Ears, Nose, Throat Exam: normal ENT inspection, moist mucous membranes Neck Exam: normal inspection, non-tender, supple, full range of motion Respiratory Exam: normal breath sounds, lungs clear, airway intact, No chest tenderness, No respiratory distress Cardiovascular Exam: tachycardia Gastrointestinal/Abdomen Exam: soft, normal bowel sounds, No tenderness Pelvic Exam: not done Rectal Exam: not done Back Exam: normal inspection, normal range of motion, No CVA tenderness, No vertebral tenderness Extremity Exam: normal inspection, normal range of motion, pelvis stable Neurologic Exam: alert, oriented x 3, 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 QTc is 456) Ordered Tests: Active Orders 24 hr Category Date Time Status EKG-ER Only STAT Care 12/03/24 07:54 Active ACO SDOH Referral ONCE Cons 12/03/24 08:09 Active - Progress Progress: improved Progress Note: 12/03/24 07:59 My medical decision making and the assignment of low complexity of this patient's medical issue today is based on review of the patient's past medical history, review the patient's medication list, reviewed patient drug allergy list, history present notes and physical findings on examination. The workup I am ordering is a twelve-lead EKG. Likely she has sinus tachycardia secondary to panic disorder and anxiety. She was just discharged from the emergency department after a full, necessary negative workup and evaluation. On return to the emergency department, other than mild tachycardia, she is hemodynamically stable. She did not have time or means to obtain illicit drugs or other medication use to affect her medical condition. Differential diagnosis includes but is not limited to homelessness, panic disorder, anxiety, lack of resources, medical screening exam I interpreted the patient's twelve-lead EKG which does show sinus tachycardia with a heart rate of 115 bpm as expected It is not necessary to repeat a full workup as 1 was just completed, the patient was in the waiting room after discharge and returned from the emergency department waiting room back to our emergency department. The patient is not suicidal or homicidal. We will contact social [employer] to see if there is a way to help her out in terms of transportation to a family member's home or to a penitentiary house/homeless snf. Will provide her with a meal at this time 12/03/24 08:24 We have contacted [facility]. Phone calls are being made to find a homeless snf for this patient. She agrees to be transferred over to the 2 homeless snf. Counseled pt/family regarding: diagnosis, need for follow-up Medical Desision Making - Diagnostic Testing Diagnostic test were ordered, analyzed, and reviewed by me: Yes - Risk of complications Low Risk: Low risk of morbidity from additional dx testing or treatment - Departure Departure Disposition: Home Clinical Impression: Anxiety, Homelessness, Encounter for medical screening examination Condition: Stable Critical Care Time: No Referrals: JEREMY EDEN [Primary Care Provider, [facility]] - Follow up/PCP as directed Additional Instructions: Avoid alcohol and illicit drug use. Avoid narcotics. Take any prescribed medication as prescribed. Call your primary care provider on 12/05/2024, to make arrangements for follow-up appointment for further evaluation and management.
[2024-12-03 10:30] VITALS: PULSE 110; RESP 18; O2SAT 97
== END 2024-12-03 10:52 | disposition home or self-care (01) ==
LOC: ED 07:42
DX: Z71.1 Person with feared health complaint in whom no diagnosis is made (principal); F41.9 Anxiety disorder, unspecified; Z59.00 Homelessness unspecified; Z79.891 Long term (current) use of opiate analgesic; Z79.899 Other long term (current) drug therapy; Z72.0 Tobacco use

== ENCOUNTER 2024-12-10 18:32 | Emergency (ER) | payer OTHER ==
[2024-12-10 20:18] LABS: BASOPHIL % 0.0 % (0.1-1.2); Basophil (Absolute #) 0 x10^3/uL (0.01-0.08); Eosinophil (Absolute #) 0.06 x10^3/uL (0.04-0.36); Hematocrit 37.3 % (34.1-44.9); Hemoglobin 12.8 g/dL (11.2-15.7); IMMATURE GRAN # 0.01 x10^3u/L (0.001-0.031); IMMATURE GRAN % 0.2 % (0.001-0.429); Lymphocyte (Absolute #) 1.35 x10^3/uL (1.18-3.74); Mean Corpuscular Hemoglobin 27.8 pg (25.6-32.2); Mean Corpuscular Hgb Concent. 34.3 g/dL (32.2-35.5); Monocyte (Absolute #) 0.45 x10^3/uL (0.24-0.86); NUCLEATED RBC # 0.00 x10^3u/L (0.00-0.012); NUCLEATED RBC % 0.0 % (0.00-0.2); Platelet Count 273 x10^3/uL (182-369); Red Blood Count 4.61 x10^6/uL (3.93-5.22); White Blood Count 5.3 x10^3/uL (3.98-10.04)
[2024-12-10 20:28] LABS: Glucose, Urine 500 mg/dL (Negative); Protein,Urine Dip Negative (Negative); WBC 21-50 /HPF (0-5)
[2024-12-10 20:32] LABS: Calcium 9.0 mg/dL (8.4-10.2); Carbon Dioxide 21 mmol/L (22-30); Creatinine 1 0.57 mg/dL (0.52-1.04); EST GLOMERULAR FILTRATION RATE 118.5 ML/MIN; Glucose 231 mg/dL (74-106); Potassium 3.5 mmol/L (3.5-5.1); SGOT/AST 28 U/L (14-36); SGPT/ALT 40 U/L (0-35); Total Protein 6.6 g/dL (6.3-8.2)
[2024-12-10 20:38] LABS: Amphetamine,Urine NEGATIVE (NEGATIVE); Barbiturate,Urine NEGATIVE (NEGATIVE); Benzodiazepine,Urine NEGATIVE (NEGATIVE); Cocaine,Urine NEGATIVE (NEGATIVE); Methadone,Urine NEGATIVE (NEGATIVE); Opiate,Urine NEGATIVE (NEGATIVE); PCP,Urine NEGATIVE (NEGATIVE); THC,Urine NEGATIVE (NEGATIVE)
--- NOTE | 2024-12-10 21:10 | ERPHSYRPT ---
- History of Present Illness Time Seen by Provider: 12/10/24 21:05 Source: patient, police Exam Limitations: no limitations Patient Subjective Stated Complaint: pt states she was [facility]. pt states that they asked the pt if she was suicidal. pt states that she was suicidal. pt states that the [facility] her off at the hospital for suicidal watch. pt states that has been depressed Triage Nursing Assessment: pt ambulated into the er; pt is axo x4; pt is restless, anxious, tearful; c/o suicidal ideation; pt states 8/10 pain to chest; clear apical heart; strong sky radial pulses; strong sky pedal pulses; clear lung sounds in all lobes; no respiratory distress; skin PDW; tachycardic; hypertensive Physician History: Pt had onset of suicidal statement while being taken to [facility] and needed to be cleared here first due to that. She denies any injuries or taking any pills. She states that she does not intend to harm herself or anyone else - no further SIHI. Normal neruo exam. chest clear. abd soft nontender without peritoneal signs or masses. full ROM al ext without pain. Fundi benign. No rash. Discussed with pt and available family risks and benefits of testing/Tx including CBC, CMP, acetomenophen Yaakov, drug triage screen. ETOH and they wish to proceed so these are ordered. Results discussed with pt and available family. Timing/Duration: today Severity of Symptoms-Max: none Severity of Symptoms-Current: none Context related to: other (was charged by police for entering residence uninvited allegedly per pt. ) Associated Symptoms: denies symptoms Previous symptoms: no prior history Allergies/Adverse Reactions: Iodinated Contrast Media [Iodinated Contrast- Oral and IV Dye] Allergy (Intermediate, Verified 12/10/24 19:52) Difficulty Breathing ketorolac tromethamine [From Toradol] Allergy (Mild, Verified 12/10/24 19:52) Rash orphenadrine citrate [From Norflex] Allergy (Mild, Verified 12/10/24 19:52) Rash prochlorperazine edisylate [From Compazine] Allergy (Mild, Verified 12/10/24 19:52) Rash prochlorperazine maleate [From Compazine] Allergy (Mild, Verified 12/10/24 19:52) Rash amoxicillin Adverse Reaction (Mild, Verified 12/10/24 19:52) Stomach Cramps CAUSES VAGINAL BLEEDING tramadol [From [facility]] Adverse Reaction (Verified 12/10/24 19:52) Home Medications: No Reportable Medications [No Reported Medications] 12/10/24 [History] Hx Tetanus, Diphtheria Vaccination/Date Given: Yes Hx Influenza Vaccination/Date Given: No Hx Pneumococcal Vaccination/Date Given: No Travel Risk - International Travel Have you traveled outside of the country in past 3 weeks: No - Emerging Infectious Disease Are you exhibiting symptoms associated with any current EIDs: No Symptoms: Shortness of Breath - Past Medical History Pertinent Past Medical History: Yes Neurological History: No Pertinent History ENT History: No Pertinent History Cardiac History: No Pertinent History Respiratory History: No Pertinent History Endocrine Medical History: Hyperthyroidism Musculoskeletal History: No Pertinent History GI Medical History: No Pertinent History History: Other Psycho-Social History: Anxiety, Depression Female Reproductive Disorders: Endometriosis, Other Other Medical History: OVARIAN CYSTS - frequent low potassium - Past Surgical History Past Surgical History: Yes Neuro Surgical History: No Pertinent History Cardiac: No Pertinent History Respiratory: No Pertinent History Gastrointestinal: No Pertinent History Genitourinary: No Pertinent History Musculoskeletal: No Pertinent History Female Surgical History: Section Other Surgical History: WISDOM TEETH REMOVED Significant Family History: no pertinent family hx - Female History Hx Last Menstrual Period: 11/14 Hx Now: No - Social History Smoking Status: Current every day smoker How long have you smoked: 15 years Exposure to second hand smoke: Yes Drug Use: none, narcotics - Social Determinants of Health Will the patient participate in the screening: Yes Do you worry about a steady place to live?: No Do you have any problems with any of the following?: No known problems In the past 12 months,have you had to go without utilities?: No Transportation Issues: No Has anyone in your support network made you feel unsafe?: No Have you or anyone in your house had to go w/o enough food: No - Nursing Vital Signs Nursing Vital Signs: Initial Vital Signs Temperature 96.8 F 12/10/24 19:53 Pulse Rate 112 H 12/10/24 19:53 Respiratory Rate 22 12/10/24 19:53 Blood Pressure 158/88 12/10/24 19:53 O2 Sat by Pulse Oximetry 100 12/10/24 19:53 Pain Scale Pain Intensity 0 - Physical Exam General Appearance: no apparent distress Eyes, Ears, Nose, Throat Exam: normal ENT inspection, moist mucous membranes Neck Exam: normal inspection, non-tender, supple Respiratory Exam: normal breath sounds, lungs clear, No respiratory distress Cardiovascular Exam: regular rate/rhythm, No edema Gastrointestinal/Abdominal Exam: soft, No tenderness, No distention Extremities Exam: normal inspection, normal range of motion, No evidence of injury, No edema Peripheral Pulses: carotid (R): 2+, carotid (L): 2+, femoral (R): 2+, femoral (L): 2+, dorsalis-pedis (R): 2+, dorsalis-pedis (L): 2+ Current Suicidality: denies suicide plan 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, 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, oriented x 3 Appearance: appropriate appearance, appropriate insight, no memory impairment, denies illness Behavior/Eye Contact/Speech: alert & cooperative, good eye contact, normal speech Thoughts/Hallucinations: normal thought pattern, no apparent hallucination Skin Exam: normal color, warm, dry, No rash SpO2 Interpretation: normal SpO2: 100 O2 Delivery: Room Air - Course Nursing assessment & vital signs reviewed: Yes Ordered Tests: Active Orders 24 hr Category Date Time Status Clean Catch Urine Specimen STAT Care 12/10/24 20:02 Active EKG-ER Only STAT Care 12/10/24 20:02 Active ACETAMINOPHEN Stat Lab 12/10/24 20:15 Completed CBC W DIFF Stat Lab 12/10/24 20:15 Completed CMP Stat Lab 12/10/24 20:15 Completed CULTURE,URINE Stat Lab 12/10/24 20:10 Received SALICYLATE Stat Lab 12/10/24 20:15 Completed UA W/RFX UR CULTURE Stat Lab 12/10/24 20:10 Completed Urine Triage Profile Stat Lab 12/10/24 20:10 Completed Lab/Rad Data: Laboratory Result Diagrams 12/10/24 20:15 12/10/24 20:15 Laboratory Results 12/10/24 12/10/24 12/10/24 Range/Units 20:15 20:15 20:10 WBC 5.3 (3.98-10.04) x10^3/uL RBC 4.61 (3.93-5.22) x10^6/uL Hgb 12.8 (11.2-15.7) g/dL Hct 37.3 (34.1-44.9) % MCV 80.9 (79.4-94.8) fL MCH 27.8 (25.6-32.2) pg MCHC 34.3 (32.2-35.5) g/dL RDW 12.2 (11.7-14.4) % Plt Count 273 (182-369) x10^3/uL MPV 9.1 L (9.4-12.3) fL Gran % 64.6 (34.0-71.1) % Immature Gran % (Auto) 0.2 (0.001-0.429) % Nucleat RBC Rel Count 0.0 (0.00-0.2) % Eos # (Auto) 0.06 (0.04-0.36) x10^3/uL Immature Gran # (Auto) 0.01 (0.001-0.031) x10^3u/L Absolute Lymphs (auto) 1.35 (1.18-3.74) x10^3/uL Absolute Monos (auto) 0.45 (0.24-0.86) x10^3/uL Absolute Nucleated RBC 0.00 (0.00-0.012) x10^3u/L Lymphocytes % 25.6 (19.3-51.7) % Monocytes % 8.5 (4.7-12.5) % Eosinophils % 1.1 (0.7-5.8) % Basophils % 0.0 L (0.1-1.2) % Absolute Granulocytes 3.41 (1.56-6.13) x10^3/uL Basophils # 0 L (0.01-0.08) x10^3/uL Sodium 141 (135-145) mmol/L Potassium 3.5 (3.5-5.1) mmol/L Chloride 108 H (98-107) mmol/L Carbon Dioxide 21 L (22-30) mmol/L Anion Gap 15.2 H (5-15) MEQ/L BUN 18 H (7-17) mg/dL Creatinine 0.57 (0.52-1.04) mg/dL Estimated GFR 118.5 ML/MIN Glucose 231 H (74-106) mg/dL Calcium 9.0 (8.4-10.2) mg/dL Total Bilirubin 0.40 (0.2-1.3) mg/dL AST 28 (14-36) U/L ALT 40 H (0-35) U/L Alkaline Phosphatase 84 (38-126) U/L Serum Total Protein 6.6 (6.3-8.2) g/dL Albumin 3.8 (3.5-5.0) g/dL Urine Color (Yellow) Urine Appearance (Clear) Urine pH (4.6-8.0) Ur Specific [place] (1.005-1.030) Urine Protein (Negative) Urine Glucose (UA) (Negative) mg/dL Urine Ketones (Negative) Urine Blood (Negative) Urine Nitrite (Negative) Urine Bilirubin (Negative) Urine Urobilinogen (0.2) mg/dL Ur Leukocyte Esterase (Negative) U Hyaline Cast (Auto) (0-2) /LPF Urine Microscopic RBC (0-5) /HPF Urine Microscopic WBC (0-5) /HPF Ur Epithelial Cells (None Seen) /HPF Urine Bacteria (None Seen) /HPF Urine Culture Reflexed (NO) Salicylates < 1.0 L (2-20) mg/dL Urine Opiates Level NEGATIVE (NEGATIVE) Ur Methadone NEGATIVE (NEGATIVE) Acetaminophen < 10 L (10-30) ug/ml Urine Barbiturates NEGATIVE (NEGATIVE) Ur Phencyclidine (PCP) NEGATIVE (NEGATIVE) Urine Amphetamine NEGATIVE (NEGATIVE) U Benzodiazepine Level NEGATIVE (NEGATIVE) Urine Cocaine NEGATIVE (NEGATIVE) Urine Marijuana (THC) NEGATIVE (NEGATIVE) 12/10/24 Range/Units 20:10 WBC (3.98-10.04) x10^3/uL RBC (3.93-5.22) x10^6/uL Hgb (11.2-15.7) g/dL Hct (34.1-44.9) % MCV (79.4-94.8) fL MCH (25.6-32.2) pg MCHC (32.2-35.5) g/dL RDW (11.7-14.4) % Plt Count (182-369) x10^3/uL MPV (9.4-12.3) fL Gran % (34.0-71.1) % Immature Gran % (Auto) (0.001-0.429) % Nucleat RBC Rel Count (0.00-0.2) % Eos # (Auto) (0.04-0.36) x10^3/uL Immature Gran # (Auto) (0.001-0.031) x10^3u/L Absolute Lymphs (auto) (1.18-3.74) x10^3/uL Absolute Monos (auto) (0.24-0.86) x10^3/uL Absolute Nucleated RBC (0.00-0.012) x10^3u/L Lymphocytes % (19.3-51.7) % Monocytes % (4.7-12.5) % Eosinophils % (0.7-5.8) % Basophils % (0.1-1.2) % Absolute Granulocytes (1.56-6.13) x10^3/uL Basophils # (0.01-0.08) x10^3/uL Sodium (135-145) mmol/L Potassium (3.5-5.1) mmol/L Chloride (98-107) mmol/L Carbon Dioxide (22-30) mmol/L Anion Gap (5-15) MEQ/L BUN (7-17) mg/dL Creatinine (0.52-1.04) mg/dL Estimated GFR ML/MIN Glucose (74-106) mg/dL Calcium (8.4-10.2) mg/dL Total Bilirubin (0.2-1.3) mg/dL AST (14-36) U/L ALT (0-35) U/L Alkaline Phosphatase (38-126) U/L Serum Total Protein (6.3-8.2) g/dL Albumin (3.5-5.0) g/dL Urine Color Yellow (Yellow) Urine Appearance Cloudy A (Clear) Urine pH 5.5 (4.6-8.0) Ur Specific [place] 1.025 (1.005-1.030) Urine Protein Negative (Negative) Urine Glucose (UA) 500 A (Negative) mg/dL Urine Ketones Negative (Negative) Urine Blood Negative (Negative) Urine Nitrite Negative (Negative) Urine Bilirubin Negative (Negative) Urine Urobilinogen 1.0 A (0.2) mg/dL Ur Leukocyte Esterase Small A (Negative) U Hyaline Cast (Auto) 6-10 A (0-2) /LPF Urine Microscopic RBC 11-20 A (0-5) /HPF Urine Microscopic WBC 21-50 A (0-5) /HPF Ur Epithelial Cells Few (None Seen) /HPF Urine Bacteria Many A (None Seen) /HPF Urine Culture Reflexed YES (NO) Salicylates (2-20) mg/dL Urine Opiates Level (NEGATIVE) Ur Methadone (NEGATIVE) Acetaminophen (10-30) ug/ml Urine Barbiturates (NEGATIVE) Ur Phencyclidine (PCP) (NEGATIVE) Urine Amphetamine (NEGATIVE) U Benzodiazepine Level (NEGATIVE) Urine Cocaine (NEGATIVE) Urine Marijuana (THC) (NEGATIVE) - Progress Progress: improved, re-examined Progress Note: 12/11/24 01:00 [facility] recommended placement at a facility - pt is noted to be Diabetic with glucose of 230 - no symptoms but will also need this Tx and f./u 12/11/24 02:17 RN called report and provided this info to the receiving facility which is noted to have medical capability to Tx the pts DM and now aware. . Counseled pt/family regarding: lab results, diagnosis, need for follow-up Medical Desision Making - Independent Historian Additional History obtained from: EMS (police) - Discussion of managment Reviewed:: Test results, Need for additional workup Agreed on:: Treatment plan, need for follow-up - Diagnostic Testing Diagnostic test were ordered, analyzed, and reviewed by me: Yes Radiological Interpretation: Interpreted by me - Risk of complications The pt has a mod risk of morbidity or mortality based on: Need for prescription drug management The pt has a high risk of morbidity or mortality based on: Decision regarding hospitilization or escalation of hosp level of care - Departure Departure Disposition: Transfer Clinical Impression: Suicidal ideation, Diabetes incidentally noted without symp Condition: Good Critical Care Time: No Referrals: JEREMY EDEN [[facility]] - Follow up/PCP as directed
[2024-12-10 22:11] VITALS: TEMP 96.8
[2024-12-11 02:12] VITALS: RESP 20; O2SAT 100
[2024-12-11 02:59] VITALS: BP 140/115; PULSE 112
== END 2024-12-11 02:58 | disposition short-term general hospital (02) ==
LOC: ED 18:32
DX: R45.851 Suicidal ideations (principal); E11.9 Type 2 diabetes mellitus without complications; Z72.0 Tobacco use
CPT/HCPCS: 36415; 80053; 80143; 80179; 80307; 81001; 85025; 87086; 93005; 99285; Q3014